=== PATIENT | male | born 1960 | race Caucasian/White ===

== ENCOUNTER 2023-11-29 18:54 | Emergency (ER) | payer MEDICARE, SELFPAY ==
[2023-11-29] VITALS (17 sets, daily range): BP systolic 136–180; BP diastolic 86–118; PULSE 74–79; O2SAT 96–98; BMI 25.8
--- NOTE | 2023-11-29 19:08 | ED.GENADUL1 ---
HPI HPI - General Adult General Chief complaint: Skin/Abscess/Foreign Body Stated complaint: Bee STING Time Seen by Provider: 11/29/23 19:03 Source: patient Mode of arrival: walk-in Limitations: no limitations History of Present Illness HPI narrative: 63 year old male presents to the ED s/p bee sting to his tongue this evening. Reports he took a drink of his soda and the bee was in the can. 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 Denies fever, chills, SOB, dizziness, difficulty swallowing. Related Data Previous Rx's ?Medication ?Instructions ?Recorded famotidine 20 mg tablet (Pepcid) 20 mg PO BID 5 days #10 tabs 11/29/23 prednisone 20 mg tablet See Rx Instructions .Route 11/29/23 .COMPLEX #30 tabs Allergies Allergy/AdvReac Type Severity Reaction Status Date / Time No Known Drug Allergies Allergy Verified 11/29/23 18:58 Opioid HPI Opioid Management Most Recent Opioid Data: No Data to Display Review of Systems ROS Constitutional Denies: fever or chills Ears, nose, mouth, and throat Reports: swelling of lips/tongue; Denies: throat pain, neck pain or throat swelling Cardiovascular Denies: chest pain Respiratory Denies: shortness of breath, wheezing or stridor Gastrointestinal Denies: abdominal pain, nausea or vomiting Integumentary/Breast Denies: rash, itching or redness Neurological Denies: headache, numbness in extremities, weakness in extremities or dizziness PFSH PFSH Social History Little interest or pleasure in doing things: not at all Feeling down, depressed, or hopeless: not at all Exam Constitutional Vital Signs, click to edit/add: Last Vital Signs Pulse 74 11/29/23 19:11 Resp 18 11/29/23 18:58 BP 136/86 11/29/23 20:02 Pulse Ox 98 11/29/23 20:02 O2 Del Method Room Air 11/29/23 19:11 Common normals: no apparent distress and oriented x3 General appearance: comfortable HENMT Face and sinus: normal facial exam Nose: external nose normal Mouth: oral and palatal mucosa normal and lip normal; tongue not normal, no drooling and no muffled voice Throat: posterior oropharynx normal and uvula midline Other: Minimal swelling to right side of tongue. Site of sting noted to right inferior tongue. Eye Common normals: conjunctivae normal and no scleral icterus Neck & C-Spine Common normals: supple Chest Chest: symmetrical chest wall rise Respiratory Common normals: normal respiratory effort and clear to auscultation bilaterally Effort & inspection: able to speak in complete sentences and symmetric chest movement Cardio Common normals: regular rate Neuro Common normals: oriented x3, CN's II-XII intact bilaterally and moves all extremities Sensorium/orientation: awake and alert Speech: speech normal Course Vital Signs Vital signs: Vital Signs Pulse Rate 79 11/29/23 18:58 Respiratory Rate 18 11/29/23 18:58 Blood Pressure 178/118 H 11/29/23 18:58 Pulse Oximetry 98 11/29/23 18:58 Oxygen Delivery Method Room Air 11/29/23 18:58 Pulse Rate 74 11/29/23 19:11 Respiratory Rate 18 11/29/23 18:58 Blood Pressure 136/86 11/29/23 20:02 Pulse Oximetry 98 11/29/23 20:02 Oxygen Delivery Method Room Air 11/29/23 19:11 Medical Decision Making MDM Narrative Medical decision making narrative: The patient was given solu-medrol and Pepcid with improvement. 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 He was encouraged to continue the Benadryl as directed. Prescriptions were provided for prednisone and Pepcid. Follow up with pcp for a recheck. Medical Records Medical records reviewed: Yes I reviewed the patient's medical records Discharge Plan Discharge Chief Complaint: Skin/Abscess/Foreign Body Clinical Impression: Accidental bee sting Patient Disposition: Home, Self-Care Time of Disposition Decision: 20:53 Condition: Good Prescriptions / Home Meds: New prednisone 20 mg tablet See Rx Instructions .ROUTE .COMPLEX Qty: 30 0RF Rx Instructions: Take 5 tablets on days 1-2, 4 tabs on days 3-4, 3 tabs on days 5-6, 2 tabs on days 7-8, 1 tab on days 9-10. famotidine [Pepcid] 20 mg tablet 20 mg PO BID 5 Days Qty: 10 0RF Print Language: Dominican Instructions: Insect Bite or Sting (ED) Additional Instructions: Return to the ER for new or worsening symptoms. Referrals: JOYCE GREEN [Primary Care Provider] - 1 week
--- NOTE | 2023-11-29 19:12 | PC.NURSE ---
PT STATES WAS DRINKING OUT OF CUP AND A BEE GOT IN HIS MOUTH AND STUNG SEVERAL TIMES TO RIGHT SIDE TONGUE. DENIES DIFFICULTY BREATHING. DOES NOT APPEAR TO BE IN DISTRESS.
[2023-11-29] MEDS: METHYLPREDNISOLONE SOD SUCC PF 125 MG/2 ML VIAL IVP (19:22)
[2023-11-29] MEDS: FAMOTIDINE/PF 20 MG/2 ML VIAL IV (19:22)
[2023-11-29] MEDS: 0.9 % SODIUM CHLORIDE 500 ML IV (19:22)
[2023-11-29] MEDS: HYDRALAZINE HCL 20 MG/ML VIAL 10 MG IVP (19:38)
== END 2023-11-29 21:00 | disposition home or self-care (01) ==
PROVIDERS: Emergency Provider Emergency Medicine; PCP Nurse Practitioner Family
DX: T63.441A Toxic effect of venom of bees, accidental (unintentional), initial encounter (principal)
CPT/HCPCS: 96374; 96375; 99284; J0360; J2919

== ENCOUNTER 2024-10-19 18:44 | Inpatient (IN) | payer MEDICARE, SELFPAY ==
[2024-10-19 18:54] VITALS: BP 172/101; PULSE 93; O2SAT 98; BMI 25.8
[2024-10-19 19:06] VITALS: TEMP 36.9
--- OUTSIDE RECORDS SUMMARY | 2024-10-19 19:09 | XMS_ITS | Clinical Summary ---
Author Organization [facility] Address [address] [place] [address] Phone Care Team Providers Care Line Builder Name Role Phone Unavailable Primary Care Provider Unavailabl e Social History Tobacco Use Types Packs/Day Years Used Date Smoking Tobacco: Never Assessed Sex and Gender Information Value Date Recorded Sex Assigned at Not on file Legal Sex Male 8:46 PM EST Gender Identity Not on file Sexual Orientation Not on file Plan of Treatment Health Maintenance Due Date Last Done Comments CT Colonography 1961 Colonoscopy 1961 Colorectal Cancer Screening 1961 FIT-DNA (Cologuard) 1961 FIT 1961 HIV Screening 1961 Lipid Panel 1961 Sigmoidoscopy 1961 Yearly Adult Physical 1961 MMR Vaccines (1 of 1 - Stand alvaro series) 1962 Hepatitis C Screening 1979 Pneumococcal Vaccine (1 of 2 - PCV) 02/07/1980 DTaP/Tdap/Td Vaccines (1 - Tdap) 1983 PSA Prostate Cancer Screening 2011 Zoster Vaccines (1 of 2) 2011 RSV High Risk: (Elderly (60+ ) or Population) (1 - Risk 60-74 years 1-dose series) 2021 COVID-19 Vaccine ( - 2023-2 5 season) 2023 Influenza Vaccine (#1) 2024 HIB Vaccines Aged Out No longer eligi ble based on patient's age to complete this topic HPV Vaccines Aged Out No longer eligi ble based on patient's age to complete this topic Hepatitis A Vaccines Aged Out No long er eligible based on patient's age to complete this topic Hepatitis B Vaccines Aged Out No long er eligible based on patient's age to complete this topic IPV Vaccines Aged Out No longer eligi ble based on patient's age to complete this topic Meningococcal Vaccine Aged Out No abilio toby eligible based on patient's age to complete this topic Rotavirus Vaccines Aged Out No longer eligible based on patient's age to complete this topic
--- OUTSIDE RECORDS SUMMARY | 2024-10-19 19:09 | XMS_ITS | Clinical Summary ---
Author Organization [facility] 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
--- OUTSIDE RECORDS SUMMARY | 2024-10-19 19:09 | XMS_ITS | Clinical Summary ---
Author Organization [facility] Address [id number] [place] [address] Care Team Providers Care Campaign Consultant Name Role Phone Unavailable Primary Care Provider Unavailabl e Social History Tobacco Use Types Packs/Day Years Used Date Smoking Tobacco: Never Assessed Childcare Answer Date Recorded Childcare Unknown 08/06/2018 Employment Answer Date Recorded Employment Unknown 08/06/2018 Sex and Gender Information Value Date Recorded Sex Assigned at Not on file Legal Sex Male 11:42 AM EDT Gender Identity Not on file Sexual Orientation Not on file Plan of Treatment Not on file Medical Devices Not on file
--- OUTSIDE RECORDS SUMMARY | 2024-10-19 19:09 | XMS_ITS | Clinical Summary ---
Author Organization [facility] Address [address] [place] [address] Care Team Providers Care Attache Name Role Phone Park Watson CHEYANNE Primary Care Provider + [phone] Allergies No known active allergies Medications Aspirin [address] tablet At bedtime. Acti ve Lisinopril 2.5 MG tablet 3 Active Isosorbide mononitrate 30 MG Tab SR 24 HR tablet XL At bedtime. Active carveDILOL (Coreg) 3.125 MG tablet Coreg 3.125 mg tablet Take 1 tablet twice a day by oral route. Active hydroCODone-acet aminophen 5-325 MG tablet hydrocodone 5 mg-acetaminophe n 325 mg tablet Active Pantoprazole (Protonix) [address] tablet DR Take 1 tablet by mouth daily. 14 tablet 3 Active Social History Tobacco Use Types Packs/Day Years Used Date Smoking Tobacco: Every Day Cigarettes Smokeless Tobacco: Former Tobacco Cessation:Ready to Q uit: Not Asked; Counseling Given: Not Answered Alcohol Use Standard Drinks/Week Comments Not Currently 0 (1 standard drink = 0.6 oz pur e alcohol) Sex and Gender Information Value Date Recorded Sex Assigned at Not on file Legal Sex Male 7:50 PM EST Gender Identity Not on file Sexual Orientation Not on file Last Filed Vital Signs Vital Sign Reading Time Taken Comments Blood Pressure 134/79 06/25/2022 6:00 PM EDT Pulse 67 06/25/2022 6:00 PM EDT Temperature 36.6 C (97.8 F) 06/25/2022 2:41 PM EDT Respiratory Rate 24 06/25/2022 6:00 PM EDT Oxygen Saturation 98% 06/25/2022 6:00 PM EDT Inhaled Oxygen Concentration - - Weight - - Height 177.8 cm (5' 10 ) 06/25/2022 2:43 PM EDT Body Mass Index - - Plan of Treatment Health Maintenance Due Date Last Done Comments HEPATITIS C VIRUS SCREENING 1961 TETANUS 1961 HIV SCREENING DISCUSSION 02/07/1976 PNEUMOCOCCAL VACCINE SERIES (1 of 2 - PCV) 02/07/1980 TDAP (ADULT) 02/07/1980 LIPID SCREENING 2001 COLORECTAL CANCER SCREENING DISCUSSION 2006 ZOSTER (SHINGLES) VACCINE (1 of 2) 2011 PROSTATE CANCER SCREENING DISCUSSION 02/07/2016 COVID-19 VACCINE (2023-2 5 season) 2023 08/16/2020, 07/26/2020 INFLUENZA VACCINE (#1) 2024 2, 02/01/2021 RSV VACCINE (1 - 1-dose 75+ series) 02/07/2036 HEP B VACCINE Aged Out No longer shanell sneed based on patient's age to complete this topic Care Teams Attache Relationship Specialty Start Date End Date Park Watson, STENOGRAPHIC COURT REPORTER [address] [place] [address] PCP - General Nurse Practitioner - Family 06/25/22
--- OUTSIDE RECORDS SUMMARY | 2024-10-19 19:09 | XMS_ITS | CCD ---
Author Organization [facility] Care Team Providers Care Proposal Lead Writer Name Role Phone DANE Green Primary Care Provider DANE Green Attending Provider CRIS CAMPBELL Admitting Unavailable CRIS CAMPBELL Consulting Unavailable TORY, PARK Primary Care Unavailable CRIS CAMPBELL Attending Unavailable TORY, PARK Primary Care Unavailable VICTORIA, MANDIE Attending Unavailable VICTORIA, MANDIE Admitting Unavailable TORY, PARK Primary Care Unavailable CLAIRE, SYBIL Attending Unavailable CLAIRE, SYBIL Admitting Unavailable CLAIRE, SYBIL Consulting Unavailable Esther Hanna Consulting Unavailable TORY, PARK Primary Care Unavailable TESS MATT Attending Unavailable TESS MATT Admitting Unavailable DR ELYSE QUINTERO V Consulting Unavailable TESS MATT Consulting Unavailable TORY, PARK Primary Care Unavailable VICTORIA, MANDIE Admitting Unavailable VICTORIA, MANDIE Attending Unavailable TEO IZQUIERDO Consulting Unavailable VICTORIA, MANDIE Consulting Unavailable TORY, PARK Primary Care Unavailable VICTORIA, MANDIE Admitting Unavailable VICTORIACHUCKIN Attending Unavailable TORY, PARK Primary Care Unavailable TORY, PARK Consulting Unavailable TORY, PARK Attending Unavailable TORY, PARK Admitting Unavailable TORY, PARK Primary Care Unavailable DR ELYSE QUINTERO V Consulting Unavailable PARK SPEARS Attending Unavailable TORY, PARK Admitting Unavailable TORY, PARK Consulting Unavailable TORY, PARK Attending Unavailable TORY, PARK Admitting Unavailable TORY, PARK Consulting Unavailable TORY, PARK Primary Care Unavailable CRIS CAMPBELL Attending Unavailable SHANNAN CRIS Admitting Unavailable CRIS CAMPBELL Consulting Unavailable TORY, PARK Primary Care Unavailable DANE Green Primary Care Provider DO Vadim Guido Emergency Provider MD Yung Newell Admit Provider MD Yung Hurtado Attending Provider Dr. Florentino iRley Attending Unavailable Osvaldo, Dr. Good Referring Unavailable Osvaldo, Dr. Good Attending Unavailable CHEYANNE Brian Attending Unavailable Osvaldo, Dr. Good Attending Unavailable Osvaldo, Dr. Good Attending Unavailable Osvaldo, Dr. Good Attending Unavailable Osvaldo, Dr. Good Referring Unavailable Park Green Attending Unavailable Park Green Primary Care Unavailable Park Green Admitting Unavailable Bridget Mosquera Attending Unavailable Evita Sanchez Consulting Unavailable Isauro Whipple, Yung Admitting Unavailab Park Power Primary Care Unavailable Rebecca Riley Consulting Unavailable Dilma Batres Consulting Unavailable Florentino Latham Consulting Unavail able Gardenia Parks Consulting Unavailable Dagoberto Ellison Consulting Unavailab Juliette Herrera Consulting Unavailable Anna Jensen Consulting Unavailable Nelli Fields Consulting Unavailab Elizabeth Cai Consulting Unavailable Mitzi Clinton Consulting Unavailable Candace Coelho Consulting Unavailable Park Green CNP Primary Care Provider [phone] MAURICIO HENDERSON Attending Unavailable PARK GREEN Primary Care Unavailable Medications Current Medications Medication Drug Class(es) Dates Sig (Normalized) Sig (Original) acetaminophen 325 mg / HYDROcodone bitartrate 5 mg oral tablet (1 source) Opioid Agonist hydroCODone-acet a minophen 5-325 MG tablet hydrocodone 5 mg-acetaminophen 325 mg tablet 0 Active aspirin 81 mg chewable tablet (7 sources) Platelet Aggregation Inhibitor, Nonsteroidal Anti-inflammatory Drug Start: 02-01-2021 take 1 tablet by mouth once daily Aspirin (Children's Aspirin) 81 mg Tablet,Chewable Active 81 MG PO Daily 0 February 01, 2021 3:02pm Start: 10-12-2017 End: 01-30-2021 take 1 tablet by mouth once daily Aspirin (Aspir-81) 81 mg Tablet,Delayed Release (Dr/Ec) Discontinued 81 MG PO Daily 0 October 13, 2017 9:44am January 30, 2021 4:04pm atorvastatin 80 mg oral tablet (4 sources) HMG-CoA Reductase Inhibitor Start: 02-01-2021 take 80 mg by mouth once daily in the evening Atorvastatin Active 80 MG PO Every evening February 01, 2021 3:02pm Start: 10-13-2017 End: 01-30-2021 take 40 mg by mouth once daily Atorvastatin Discontinu ed 40 MG PO Daily October 13, 2017 9:43am January 30, 2021 4:04pm carvedilol 3.125 mg oral tablet (1 source) alpha-Adrenergic Ginette, beta-Adrenergic Ginette take 1 tablet by mouth twice daily carveDILOL (Coreg) 3.125 MG tablet Coreg 3.125 mg tablet Take 1 tablet twice a day by oral route. 0 Active 24 hr isosorbide mononitrate 30 mg extended release oral tablet (1 source) Nitrate Vasodilator Isosorbide mononitrate 30 MG Tab SR 24 HR tablet XL At bedtime. 0 Active lisinopril 2.5 mg oral tablet (5 sources) Angiotensin Converting Enzyme Inhibitor Start: 06-24-19 Lisinopril 2.5 MG tablet Start: 02-01-2021 take 2.5 mg by mouth once daily Lisinopril Active 2.5 MG PO Daily 30 February 01, 2021 3:02pm Start: 10-13-2017 End: 01-30-2021 take 5 mg by mouth once daily Lisinopril Discontinued 5 MG PO Daily October 13, 2017 9:43am January 30, 2021 4:04pm metFORMIN hydrochloride 500 mg oral tablet (2 sources) Biguanide Start: 02-01-2021 take 500 mg by mouth twice daily Metformin Active 500 MG PO Twice daily February 01, 2021 3:23pm metoprolol tartrate 25 mg oral tablet (4 sources) beta-Adrenergic Ginette Start: 02-01-2021 take 25 mg by mouth twice daily Metoprolol Tartrate Active 25 MG PO Twice daily 60 February 01, 2021 3:02pm Start: 10-13-2017 End: 01-30-2021 take 25 mg by mouth twice daily Metoprolol Tartrate Discontinued 25 MG PO Twice daily 60 October 13, 2017 9:42am January 30, 2021 4:04pm pantoprazole 40 mg delayed release oral tablet (1 source) Proton Pump Inhibitor Start: 06-25-2022 take 1 tablet by mouth once daily Pantoprazole (Protonix) [address] tablet DR Take 1 tablet by mouth daily. 14 tablet 0 06/25/2022 Active ticagrelor 90 mg oral tablet (2 sources) Start: 02-01-2021 take 1 tablet by mouth twice daily Ticagrelor (Brilinta) 90 mg Tablet Active 90 MG PO Twice daily 180 90 February 01, 2021 3:02pm Completed/Discontinued Medications Medication Drug Class(es) Dates Sig (Normalized) Sig (Original) GI cocktail: alum/mag hydrox-simethicone( 30ml)+lidocaine 2%(10ml) oral suspension 40 mL (1 source) Start: 06-25-2022 End: 06-25-2022 GI cocktail: alum/mag hydrox-simethicone (30ml)+lidocaine 2%(10ml) oral suspension 40 mL iohexol (OMNIPAQUE) 350 MG/ML injection 90 mL (1 source) Start: 06-25-2022 End: 06-25-2022 iohexol (OMNIPAQUE) 350 MG/ML injection 90 mL 1 ml morphine sulfate 4 mg/ml cartridge (1 source) Opioid Agonist Start: 06-25-2022 End: 06-25-2022 Morphine sulfate (PF) injection 4 mg 2 ml ondansetron 2 mg/ml injection (1 source) Serotonin-3 Receptor Antagonist Start: 06-25-2022 End: 06-25-2022 Ondansetron 4mg/2ml (ZOFRAN) injection 4 mg 250 ml sodium chloride 9 mg/ml injection (1 source) Start: 06-25-2022 End: 06-25-2022 Sodium chloride 0.9% IV solution 75 mL Problems Active Problems Problem Classification Problem Date Documented Da te Episodic/Chronic Abdominal pain (3 sources) Generalized abdominal pain; Translations: [Generalized abdominal pain] Onset: 06-25-2022 Episodic Acute myocardial infarction (4 sources) Myocardial infarction; Translations: [Non-ST elevation (NSTEMI) myocardial infarction] Onset: 02-01-2021 01-30-2021 Chronic Alcohol-related disorders (1 source) Alcohol abuse with intoxication, unspecified; Translations: [ALCOHOL ABUSE WITH INTOXICATION UNS] Onset: 06-08-2021 Chronic Complication of device; implant or graft (1 source) Atherosclerosis of coronary artery bypass graft(s) without angina pectoris; Translations: [ATS CA BP GRAFT NO ANGINA PECTORIS] Onset: 07-21-2020 Chronic Coronary atherosclerosis and other heart disease (6 sources) Atherosclerotic heart disease of [place] coronary artery without angina pectoris; Translations: [Old myocardial infarction] Onset: 06-08-2021 12-27-2021 Chronic Diabetes mellitus with complications (3 sources) Type II diabetes mellitus uncontrolled; Translations: [Uncontrolled type 2 diabetes mellitus] 01-31-2021 Chronic Disorders of lipid metabolism (8 sources) Hyperlipidemia; Translations: [Hyperlipidemia, unspecified] Onset: 07-13-2020 01-30-2021 Chronic Essential hypertension (4 sources) Hypertensive disorder; Translations: [Essential (primary) hypertension] Onset: 12-27-2021 01-30-2021 Chronic Headache; including migraine (5 sources) Headache; including migraine; Translations: [HEADACHE UNSPECIFIED] Onset: 06-02-2021 Hypertension with complications and secondary hypertension (2 sources) Hypertensive emergency; Translations: [Hypertensive emergency] 12-27-2021 Chronic Nausea and vomiting (3 sources) Nausea, vomiting and diarrhea; Translations: [Nausea with vomiting, unspecified] Onset: 06-25-2022 Episodic Nonspecific chest pain (4 sources) Chest pain, unspecified; Translations: [CHEST PAIN UNSPECIFIED] Onset: 01-30-2021 Episodic Other aftercare (1 source) half-way (current) use of aspirin; Translations: [LICENSED INSURANCE AGENT CURRENT USE OF ASPIRIN] Onset: 06-08-2021 Episodic Other aftercare (1 source) Other terminal gauger supervisor (current) drug therapy; Translations: [OTH LICENSED INSURANCE AGENT CURRENT DRUG THERAPY] Onset: 06-08-2021 Episodic Other aftercare (1 source) half-way (current) use of oral hypoglycemic drugs; Translations: [LICENSED INSURANCE AGENT USE ORAL HYPOGLYCEMIC DX] Onset: 06-08-2021 Episodic Other aftercare (1 source) supervisor intermediates (current) use of antithrombotics/antip latelets; Translations: [CARE HOME ANTITHROMBOT/ANTIPLAT LETS] Onset: 05-30-2021 Episodic Other gastrointestinal disorders (2 sources) Diarrhea, unspecified; Translations: [Diarrhea, unspecified] Onset: 06-25-2022 Episodic Spondylosis; intervertebral disc disorders; other back problems (2 sources) Spondylosis without myelopathy or radiculopathy, lumbar region; Translations: [Other intervertebral disc degeneration, lumbar region] Onset: 05-30-2021 Chronic Substance-related disorders (4 sources) Moderate smoker (20 or less per day) ; Translations: [Nicotine dependence, cigarettes, uncomplicated] Onset: 02-01-2021 01-30-2021 Chronic Unclassified (3 sources) LOW BACK PAIN, UNSPECIFIED; Translations: [LOW BACK PAIN, UNSPECIFIED] Onset: 05-30-2021 Unclassified (1 source) CONTACT W/AND (SUSP) EXPOS COVID-19; Translations: [CONTACT W/AND (SUSP) EXPOS COVID-19] Onset: 02-01-2021 Past or Other Problems Problem Classification Problem Date Documented Da te Episodic/Chronic Coronary atherosclerosis and other heart disease (4 sources) Presence of coronary angioplasty implant and graft; Translations: [Presence of aortocoronary bypass graft] Onset: 07-21-2020 Episodic Diabetes mellitus without complication (1 source) Other abnormal glucose; Translations: [OTHER ABNORMAL GLUCOSE] Onset: 07-21-2020 Episodic Immunizations and screening for infectious disease (4 sources) Encounter for immunization; Translations: [ENCOUNTER FOR IMMUNIZATION] Onset: 08-16-2020 Episodic Other screening for suspected conditions (not mental disorders or infectious disease) (1 source) Encounter for screening for malignant neoplasm of prostate; Translations: [ENC SCREEN MALIG NEOPLASM PROSTATE] Onset: 07-21-2020 Episodic Pancreatic disorders (not diabetes) (4 sources) Cyst of pancreas; Translations: [CYST OF PANCREAS] Onset: 01-16-2021 Episodic Unclassified (1 source) LOW BACK PAIN, UNSPECIFIED; Translations: [LOW BACK PAIN, UNSPECIFIED] Onset: 05-26-2021 Results Test Name Value Interpretation Reference Range Facility CBCon 06-25-2022 ABSOLUTE BAS 0.1 10*3/uL Normal 0.0-0.2 [facility] ABSOLUTE EOS 0.1 10*3/uL Normal 0.0-0.7 [facility] ABSOLUTE NEUTROPHIL COUNT 5.8 10*3/uL Normal 1.4-6.5 [facility] Basophils/100 WBC (Bld) 1.0 % Normal 0.0-2.0 [facility] DTYPE AUTO DIFF Normal [facility] Eosinophils/100 WBC (Bld) 0.7 % Normal 0.0-11.0 [facility] Lymphocytes (Bld) [#/Vol] 1.6 10*3/uL Normal 1.2-3.4 [facility] Lymphocytes/100 WBC (Bld) 20.3 % Normal 20.0-55.0 [facility] Monocytes (Bld) [#/Vol] 0.5 10*3/uL Normal 0.0-0.7 [facility] Monocytes/100 WBC (Bld) 6.5 % Normal 0.0-10.0 [facility] Neutrophils/100 WBC (Bld) 71.5 % Normal 37.0-75.0 [facility] Erythrocyte distribution width (RBC) [Ratio] 14.5 % Normal 11.5-14.5 [facility] Hematocrit (Bld) [Volume fraction] 46.1 % Normal 42.0-52.0 [facility] Hemoglobin (Bld) [Mass/Vol] 15.5 g/dL Normal 14.0-18.0 [facility] MCH (RBC) [Entitic mass] 29.8 pg Normal 26.0-35.0 [facility] MCHC (RBC) [Mass/Vol] 33.6 g/dL Normal 27.0-37.0 [facility] MCV (RBC) [Entitic vol] 88.5 fL Normal 80.0-100.0 [facility] Platelet mean volume (Bld) [Entitic vol] 8.0 fL Normal 7.4-11.0 [facility] Platelets (Bld) [#/Vol] 182 10*3/uL Normal 130-400 [facility] RBC (Bld) [#/Vol] 5.20 10*6/uL Normal 4.0-6.1 [facility] WBC (Bld) [#/Vol] 8.1 10*3/uL Normal 3.6-11.0 [facility] CBC, EDIF, PLATELETon 2022 ABSOLUTE BASOPHIL COUNT 0.1 10*3/uL 0.0 - 0.2 10*3/uL [facility] Basophils/100 WBC (Bld) 1.0 % 0.0 - 2.0 % [facility] Differential cell count method Nom (Bld) AUTO DIFF % [facility] Eosinophils (Bld) [#/Vol] 0.1 10*3/uL 0.0 - 0.7 10*3/uL [facility] Eosinophils/100 WBC (Bld) 0.7 % 0.0 - 11.0 % [facility] Erythrocyte distribution width (RBC) [Ratio] 14.5 % 11.5 - 14.5 % [facility] Hematocrit (Bld) [Volume fraction] 46.1 % 42.0 - 52.0 % [facility] Hemoglobin (Bld) [Mass/Vol] 15.5 g/dL [facility] Lymphocytes (Bld) [#/Vol] 1.6 10*3/uL 1.2 - 3.4 10*3/uL [facility] Lymphocytes/100 WBC (Bld) 20.3 % 20.0 - 55.0 % [facility] MCH (RBC) [Entitic mass] 29.8 pg 26.0 - 35.0 PG [facility] MCHC (RBC) [Mass/Vol] 33.6 g/dL [facility] MCV (RBC) [Entitic vol] 88.5 fL [facility] Monocytes (Bld) [#/Vol] 0.5 10*3/uL 0.0 - 0.7 10*3/uL [facility] Monocytes/100 WBC (Bld) 6.5 % 0.0 - 10.0 % [facility] Neutrophils (Bld) [#/Vol] 5.8 10*3/uL 1.4 - 6.5 10*3/uL [facility] Neutrophils/100 WBC (Bld) 71.5 % 37.0 - 75.0 % [facility] Platelet mean volume (Bld) [Entitic vol] 8.0 fL [facility] Platelets (Bld) [#/Vol] 182 10*3/uL 130 - 400 10*3/uL [facility] RBC (Bld) [#/Vol] 5.20 10*6/uL 4.0 - 6.1 10*6/uL [facility] WBC (Bld) [#/Vol] 8.1 10*3/uL 3.6 - 11.0 10*3/uL [facility] CMP FASTINGon 06-25-2022 A:G RATIO 1.4 RATIO Normal 1.3-2.2 [facility] ALBUMIN 4.2 G/dl Normal 3.5-5.0 [facility] ALP [Catalytic activity/Vol] 125 U/L Normal 38-126 [facility] ALT [Catalytic activity/Vol] 25 U/L Normal <50 [facility] AST [Catalytic activity/Vol] 24 U/L Normal 17-59 [facility] Bilirubin [Mass/Vol] 0.4 mg/dL Normal 0.2-1.3 [facility] Calcium [Mass/Vol] 8.6 mg/dL Normal 8.4-10.2 [facility] Chloride [Moles/Vol] 100 mmol/L Normal 98-107 [facility] Comment on above: Result Comment: Flory urrutia note: Triglyceride levels of 600mg/dL or higher may positively bias chloride results by approximately 2.1 mmol CO2 [Moles/Vol] 27 mmol/L Normal 22-30 [facility] Creatinine [Mass/Vol] 0.70 mg/dL Normal 0.7-1.2 [facility] EST. GFR, 147 ml/min/1.73sq.m [facility] EST. GFR,Non 122 ml/min/1.73sq.m [facility] GFR Information Average GFR for 60-6 9 years old = 85. Normal [facility] Comment on above: Result Comment: Outf[employer] [place] ana lilia Kidney disease, GFR = <60. Kidney failure, GFR = <15. The GFR estimate is not adjusted for extreme body surface area or acute process, nor has it been validated for women or ethnic groups other than and . Glucose [Mass/Vol] 196 mg/dL High 70-100 [facility] Comment on above: Result Comment: NORMAL <100 mg/dL PREDIABETES 101-126 mg/dL DIABETES 126 mg/dL or higher Potassium [Moles/Vol] 4.4 mmol/L Normal 3.5-5.1 [facility] Protein [Mass/Vol] 7.2 g/dL Normal 6.3-8.2 [facility] Sodium [Moles/Vol] 133 mmol/L Low 137-145 [facility] Urea nitrogen [Mass/Vol] 12 mg/dL Normal 7-20 [facility] COMPREHENSIVE METABOLIC PANE Juan Ramon 06-25-2022 Albumin [Mass/Vol] 4.2 G/dl 3.5 - 5.0 G/dl [facility] Albumin/Globulin [Mass ratio] 1.4 {ratio} [facility] ALP [Catalytic activity/Vol] 125 U/L [facility] ALT [Catalytic activity/Vol] 25 U/L NINF [facility] AST [Catalytic activity/Vol] 24 U/L [facility] Bilirubin [Mass/Vol] 0.4 mg/dL [facility] Calcium [Mass/Vol] 8.6 mg/dL [facility] Chloride [Moles/Vol] 100 mmol/L [facility] Comment on above: Please note: Triglyc eride levels of 600mg/dL or higher may positively bias chloride results by approximately 2.1 mmol CO2 [Moles/Vol] 27 mmol/L [facility] Creatinine [Mass/Vol] 0.70 mg/dL [facility] GFR COMMENT Average GFR for 60-6 9 years old = 85. [facility] Comment on above: Chronic Kidney disea se, GFR = <60. Kidney failure, GFR = <15. The GFR estimate is not adjusted for extreme body surface area or acute process, nor has it been validated for women or ethnic groups other than and . GFR/1.73 sq M.predicted among blacks MDRD (S/P/Bld) [Vol rate/Area] 147 mL/min/{1.73_m2} ml/min/1.73 sq.m [facility] GFR/1.73 sq M.predicted among non-blacks MDRD (S/P/Bld) [Vol rate/Area] 122 mL/min/{1.73_m2} ml/min/1.73 sq.m [facility] Glucose post fast [Mass/Vol] 196 mg/dL High [facility] Comment on above: NORMAL <100 mg/dL PREDIABETES 101-126 mg/dL DIABETES 126 mg/dL or higher Interpretation and review of laboratory results Abnormal [facility] Potassium [Moles/Vol] 4.4 mmol/L [facility] Protein [Mass/Vol] 7.2 g/dL [facility] Sodium [Moles/Vol] 133 mmol/L Low [facility] Urea nitrogen [Mass/Vol] 12 mg/dL [facility] CT ABDOMEN/PELVIS WITH CONTR Rashad 06-25-2022 CT ABDOMEN/PELVIS WITH CONTRAST EXAMINATION: CT ABDOMEN/PELVIS WITH CONTRAST, 06/25/2022 3:59 PM EDT HISTORY: COMPARISON: 06/21/2020 TECHNIQUE: CT scan of the abdomen and pelvis was performed with IV contrast. CT dose reduction technique was used, including Automated Exposure Control. ABDOMEN/PELVIS FINDINGS: Lower Chest: Unremarkable. Liver: Normal enhancement and contour. Biliary/Gallbladder: Unremarkable. Pancreas: There is a cystic lesion in the body the pancreas measuring 1.6 cm that previously measured 1.7 cm when measured in a similar fashion. Spleen: Unremarkable. Adrenal Glands: Unremarkable. Kidneys: Unremarkable. Gastrointestinal/Peritoneu m: No acute abnormality. Moderate colonic diverticulosis is present, especially in the sigmoid colon. The appendix is unremarkable. No free air or free fluid. Vascular: Mild scattered atherosclerotic calcifications are present. Lymph Nodes: No enlarged lymph nodes by CT size criteria. Pelvic Organs: Unremarkable. Bladder: Unremarkable. Bones: No acute osseous abnormality. Mild to moderate multilevel degenerative changes are present in the visualized spine. Soft tissues: Unremarkable. IMPRESSION: 1. No acute abnormality of the abdomen and pelvis. 2. Stable cystic lesion in the body of pancreas. 3. Moderate colonic diverticulosis. Normal [facility] CT Abdomen and Pelvis W cont rast Miki 06-25-2022 IMPRESSION: 1. No acute abnormality of the abdomen and pelvis. 2. Stable cystic lesion in the body of pancreas. 3. Moderate colonic diverticulosis. RADIOLOGY EXAMINATION: CT ABDOMEN/PELVIS WITH CONTRAST, 06/25/2022 3:59 PM EDT HISTORY: COMPARISON: 06/21/2020 TECHNIQUE: CT scan of the abdomen and pelvis was performed with IV contrast. CT dose reduction technique was used, including Automated Exposure Control. ABDOMEN/PELVIS FINDINGS: Lower Chest: Unremarkable. Liver: Normal enhancement and contour. Biliary/Gallbladder: Unremarkable. Pancreas: There is a cystic lesion in the body the pancreas measuring 1.6 cm that previously measured 1.7 cm when measured in a similar fashion. Spleen: Unremarkable. Adrenal Glands: Unremarkable. Kidneys: Unremarkable. Gastrointestinal/Peritoneu m: No acute abnormality. Moderate colonic diverticulosis is present, especially in the sigmoid colon. The appendix is unremarkable. No free air or free fluid. Vascular: Mild scattered atherosclerotic calcifications are present. Lymph Nodes: No enlarged lymph nodes by CT size criteria. Pelvic Organs: Unremarkable. Bladder: Unremarkable. Bones: No acute osseous abnormality. Mild to moderate multilevel degenerative changes are present in the visualized spine. Soft tissues: Unremarkable. RADIOLOGY Evelyn Gomez M D - 06/25/2022 EXAMINATION: CT ABDOMEN/PELVIS WITH CONTRAST, 06/25/2022 3:59 PM EDT HISTORY: COMPARISON: 06/21/2020 TECHNIQUE: CT scan of the abdomen and pelvis was performed with IV contrast. CT dose reduction technique was used, including Automated Exposure Control. ABDOMEN/PELVIS FINDINGS: Lower Chest: Unremarkable. Liver: Normal enhancement and contour. Biliary/Gallbladder: Unremarkable. Pancreas: There is a cystic lesion in the body the pancreas measuring 1.6 cm that previously measured 1.7 cm when measured in a similar fashion. Spleen: Unremarkable. Adrenal Glands: Unremarkable. Kidneys: Unremarkable. Gastrointestinal/Peritoneu m: No acute abnormality. Moderate colonic diverticulosis is present, especially in the sigmoid colon. The appendix is unremarkable. No free air or free fluid. Vascular: Mild scattered atherosclerotic calcifications are present. Lymph Nodes: No enlarged lymph nodes by CT size criteria. Pelvic Organs: Unremarkable. Bladder: Unremarkable. Bones: No acute osseous abnormality. Mild to moderate multilevel degenerative changes are present in the visualized spine. Soft tissues: Unremarkable. IMPRESSION IMPRESSION: 1. No acute abnormality of the abdomen and pelvis. 2. Stable cystic lesion in the body of pancreas. 3. Moderate colonic diverticulosis. [facility] Study observation (narrative) [facility] CT Abdomen and Pelvis W cont rast IVOrdered By: Evelyn Gomez on 06-25-2022 [facility] Work Phone: LIPASEon 06-25-2022 Lipase [Catalytic activity/Vol] 181 U/L 23 - 300 U/L [facility] LIPASE,SERUMon 06-25-2022 LIPASE,SERUM 181 U/L Normal 23-300 [facility] No Panel Informationon 06-25 Interpretation and review of laboratory results Abnormal [facility] TROPONIN I, HIGH SENSITIVITY on 06-25-2022 TROPONIN I, HIGH SENSITIVITY 4 pg/mL Normal 0-20 [facility] Comment on above: Result Comment: Indeterminant: >12 to 100 pg/mL female >20 to 100 pg/mL male Indicative of myocardial injury. Serial sampling is recommended, a change of greater than or equal to 20 pg/mL is indicative of acute coronary syndrome. TROPONIN I, HIGH SENSITIVITY 4 pg/mL 0 - 20 pg/mL [facility] Comment on above: Indeterminant: >12 to 100 pg/mL female >20 to 100 pg/mL male Indicative of myocardial injury. Serial sampling is recommended, a change of greater than or equal to 20 pg/mL is indicative of acute coronary syndrome. [facility] URINALYSIS, MACROon 06-26-19 23 Bilirubin Ql (U) Negative NEGATIVE [facility] Clarity (U) CLEAR CLEAR [facility] Color (U) YELLOW YELLOW [facility] Glucose Test strip (U) [Mass/Vol] 500 mg/dl Abnormal NEGATIVE [facility] Hemoglobin Ql (U) Negative NEGATIVE [facility] Ketones (U) [Mass/Vol] Negative NEGAT MICHELLE mg/dl [facility] Leukocyte esterase Test strip Ql (U) Negative NEGATIVE [facility] Nitrite Ql (U) Negative NEGATIVE [facility] pH (U) 5.5 [pH] 5.0 - 7.0 [facility] Protein Ql (U) Negative NEGATIVE mg/dl [facility] Specific gravity (U) [Rel density] 1.020 1.010 - 1.025 [facility] Urobilinogen (U) [Mass/Vol] 0.2 mg/dL [facility] URINE MACROSCOPICon 06-26-19 23 Bilirubin Ql (U) Negative Normal NEGATIVE [facility] Clarity (U) CLEAR Normal CLEAR [facility] Color (U) YELLOW Normal YELLOW [facility] Glucose Ql (U) 500 mg/dl Abnormal NEGATIVE [facility] pH (U) 5.5 [pH] Normal 5.0-7.0 [facility] URINE HEMOGLOBIN Negative Normal NEGATIVE [facility] URINE KETONE Negative Normal NEGATIVE [facility] URINE LEUKOTEST Negative Normal NEGATIVE [facility] URINE NITRATES Negative Normal NEGATIVE [facility] URINE SPEC GRAVITY 1.020 Normal 1.010-1.025 [facility] URINE TOTAL PROTEIN Negative Normal NEGATIVE [facility] Urobilinogen Qn (U) 0.2 {Saloni'U}/dL Normal 0.2-1.0 [facility] URINE MICROSCOPICon 06-26-19 23 BACTERIA TRACE Abnormal NEGATIVE [facility] CASTS OCCASIONAL Abnormal NONE [facility] Comment on above: Result Comment: HYAL INE CRYSTAL NONE Normal NONE [facility] Epithelial cells LM Ql (Urine sed) 1 TO 5 Normal [facility] Mucus Ql (Urine sed) 1+ Abnormal NEGATIVE [facility] URINE COMMENT CULTURE CRITERIA NOT MET, NO CULTURE PERFORMED. Normal [facility] URINE RBC'S Negative Normal NEGATIVE [facility] URINE WBC'S 1 TO 5 Normal NEGATIVE [facility] Bacteria LM.HPF (Urine sed) [#/Area] TRACE Abnormal NEGATIVE [facility] Casts LM.LPF (Urine sed) [#/Area] OCCASIONAL Abnormal NONE /LPF [facility] Comment on above: HYALINE Crystals LM Nom (Urine sed) NONE NONE [facility] Epithelial cells LM Ql (Urine sed) 1 TO 5 /HPF [facility] Mucus Ql (Urine sed) 1+ Abnormal NEGATIVE [facility] RBC LM.HPF (Urine sed) [#/Area] Negative NEGATIVE /HPF [facility] Urine sediment comments LM Adonay (Urine sed) CULTURE CRITERIA NOT MET, NO CULTURE PERFORMED. [facility] WBC LM.HPF (Urine sed) [#/Area] 1 TO 5 NEGATIVE /HPF [facility] A1C with Estimated Average G pratima 12-28-2021 Glucose [Mass/Vol] 183 mg/dL Normal [facility] Comment on above: Result Comment: PERF ORMED BY: [facility] [address] [place] [address] PATHOLOGIST CODING SPECIALIST JAYDON MATHIAS M.D. Performed By: #### B MP, CBC, PT, PTT, HS TROP, BNP #### [facility] [place] [address] HbA1c (Bld) [Mass fraction] 8.0 % High 4.3-5.6 [facility] Comment on above: Result Comment: Incr eased risk for diabetes: 5.7 - 6.4 diabetes: >6.4 glycemic control for adults with diabetes: <7.0 Performed By: #### B MP, CBC, PT, PTT, HS TROP, BNP #### [address] Basic Metabolic Panelon 11-0 -2021 Anion gap [Moles/Vol] 10.0 mmol/L Normal 6.0-15.0 [facility] Comment on above: Performed By: #### B MP, CBC, PT, PTT, HS TROP, BNP #### [address] Calcium [Mass/Vol] 8.7 mg/dL Normal 8.2-10.2 [facility] Comment on above: Performed By: #### B MP, CBC, PT, PTT, HS TROP, BNP #### [address] Chloride [Moles/Vol] 105 mmol/L Normal 95-114 [facility] Comment on above: Performed By: #### B MP, CBC, PT, PTT, HS TROP, BNP #### [address] CO2 [Moles/Vol] 24.1 mmol/L Normal 22.0-30.0 [facility] Comment on above: Performed By: #### B MP, CBC, PT, PTT, HS TROP, BNP #### [address] Creatinine [Mass/Vol] 0.97 mg/dL Normal 0.64-1.27 [facility] Comment on above: Performed By: #### B MP, CBC, PT, PTT, HS TROP, BNP #### [address] Creatinine Clr Calc Pharmacy 83.62 Normal [facility] Comment on above: Performed By: #### B MP, CBC, PT, PTT, HS TROP, BNP #### [address] Estimated GFR ( Zaynab > 60 [facility] Comment on above: Result Comment: GFR estimated reference range: According to KDOQI guidelines, <60 ml/min/1.73m2 is sufficient to diagnose a patient with chronic kidney disease. Performed By: #### B MP, CBC, PT, PTT, HS TROP, BNP #### [facility] [place] [address] Estimated GFR (Non- Am > 60 [facility] Comment on above: Performed By: #### B MP, CBC, PT, PTT, HS TROP, BNP #### [address] Glucose [Mass/Vol] 138 mg/dL High 70-100 [facility] Comment on above: Result Comment: [place] Glucose Reference Range is dependent on time and content of last meal. Glucose of more than 200 mg/dL in a nonstressed, ambulatory subject supports the diagnosis of Diabetes Mellitus. ADA recommended reference range Performed By: #### B MP, CBC, PT, PTT, HS TROP, BNP #### [address] Potassium [Moles/Vol] 4.1 mmol/L Normal 3.5-5.1 [facility] Comment on above: Performed By: #### B MP, CBC, PT, PTT, HS TROP, BNP #### [address] Sodium [Moles/Vol] 135 mmol/L Low 136-146 [facility] Comment on above: Performed By: #### B MP, CBC, PT, PTT, HS TROP, BNP #### [address] Urea nitrogen [Mass/Vol] 9 mg/dL Normal 9-23 [facility] Comment on above: Performed By: #### B MP, CBC, PT, PTT, HS TROP, BNP #### [address] Complete Blood Count Auto Di ffon 12-28-2021 Basophils (Bld) [#/Vol] 0.1 10*3/uL Normal 0.0-0.2 [facility] Comment on above: Result Comment: PERF ORMED BY: [place] [address] PATHOLOGIST CODING SPECIALIST JAYDON MATHIAS M.D. Performed By: #### B MP, CBC, PT, PTT, HS TROP, BNP #### [address] Basophils/100 WBC (Bld) 1.3 % Normal . [facility] Comment on above: Performed By: #### B MP, CBC, PT, PTT, HS TROP, BNP #### [address] Eosinophils (Bld) [#/Vol] 0.2 10*3/uL Normal 0.0-0.45 [facility] Comment on above: Performed By: #### B MP, CBC, PT, PTT, HS TROP, BNP #### [address] Eosinophils/100 WBC (Bld) 2.0 % Normal . [facility] Comment on above: Performed By: #### B MP, CBC, PT, PTT, HS TROP, BNP #### [address] Erythrocyte distribution width (RBC) [Ratio] 13.9 % Normal 12.0-14.8 [facility] Comment on above: Performed By: #### B MP, CBC, PT, PTT, HS TROP, BNP #### [address] Hematocrit (Bld) [Volume fraction] 43.6 % Normal 38.8-50.0 [facility] Comment on above: Performed By: #### B MP, CBC, PT, PTT, HS TROP, BNP #### [address] Hemoglobin (Bld) [Mass/Vol] 14.8 g/dL Normal 13.0-17.0 [facility] Comment on above: Performed By: #### B MP, CBC, PT, PTT, HS TROP, BNP #### [address] Lymphocytes (Bld) [#/Vol] 2.2 10*3/uL Normal 1.00-4.8 [facility] Comment on above: Performed By: #### B MP, CBC, PT, PTT, HS TROP, BNP #### [address] Lymphocytes/100 WBC (Bld) 28.5 % Normal . [facility] Comment on above: Performed By: #### B MP, CBC, PT, PTT, HS TROP, BNP #### [address] MCH (RBC) [Entitic mass] 30.6 pg Normal 27.5-35.2 [facility] Comment on above: Performed By: #### B MP, CBC, PT, PTT, HS TROP, BNP #### [address] MCV (RBC) [Entitic vol] 89.9 fL Normal 83.5-101 [facility] Comment on above: Performed By: #### B MP, CBC, PT, PTT, HS TROP, BNP #### [address] Mean Corpuscular HGB Conc 34.0 g/dL Normal 32.5-35.6 [facility] Comment on above: Performed By: #### B MP, CBC, PT, PTT, HS TROP, BNP #### [address] Monocytes (Bld) [#/Vol] 0.7 10*3/uL Normal 0.0-0.8 [facility] Comment on above: Performed By: #### B MP, CBC, PT, PTT, HS TROP, BNP #### [place] [address] [place] Monocytes/100 WBC (Bld) 9.5 % Normal . [facility] Comment on above: Performed By: #### B MP, CBC, PT, PTT, HS TROP, BNP #### [address] Neutrophils (Bld) [#/Vol] 4.6 10*3/uL Normal 1.8-7.7 [facility] Comment on above: Performed By: #### B MP, CBC, PT, PTT, HS TROP, BNP #### [facility] [place] [address] Neutrophils/100 WBC (Bld) 58.7 % Normal . [facility] Comment on above: Performed By: #### B MP, CBC, PT, PTT, HS TROP, BNP #### [address] Nucleated RBC/100 WBC (Bld) [Ratio] 0.1 % Normal 0-0.5 [facility] Comment on above: Performed By: #### B MP, CBC, PT, PTT, HS TROP, BNP #### [address] Platelet mean volume (Bld) [Entitic vol] 7.6 fL Normal 6.6-10.1 [facility] Comment on above: Performed By: #### B MP, CBC, PT, PTT, HS TROP, BNP #### [place] [address] [place] Platelets (Bld) [#/Vol] 188 10*3/uL Normal 150-450 [facility] Comment on above: Performed By: #### B MP, CBC, PT, PTT, HS TROP, BNP #### [place] [address] [place] RBC (Bld) [#/Vol] 4.85 10*6/uL Normal 3.90-5.60 [facility] Comment on above: Performed By: #### B MP, CBC, PT, PTT, HS TROP, BNP #### [place] [address] [place] WBC (Bld) [#/Vol] 7.8 10*3/uL Normal 4.5-11.0 [facility] Comment on above: Performed By: #### B MP, CBC, PT, PTT, HS TROP, BNP #### [place] [id number] [facility] ECG 12 lead ECGon 12-28-2021 ECG 12 lead ECG [facility] Main [place] [address] [place] [address] Electrocardiograph Report Signed Patient: Donovan Lindquist MR#: [id number] 33 : 1960 Acct:[id number] Age/Sex: 61 / M ADM Date: 12/27/21 Loc: Room: [address] [place] [address] Type: DIS IN Attending Dr: Bridget Mosquera MD Ordering Provider: Rebecca Riley DO Date of Service: 12/28/2105/16/499 ECG/ECG 12 lead ECG: Post Angioplasty Procedure in AM Copies to: Test Reason : Blood Pressure : / mmHG Vent. Rate : 065 BPM Atrial Rate : 065 BPM P-R Int : 180 ms QRS Dur : 072 ms QT Int : 436 ms P-R-T Axes : 045 024 033 degrees QTc Int : 453 ms Normal sinus rhythm Normal ECG When compared with ECG of 27-DEC-2021 03:44, Criteria for Anterior infarct are no longer present Confirmed by HANSEL AMAYA [facility], DILMA ([id number]) on 12/28/2021 2:07:33 PM Referred By: Electronically Signed By:DILMA BATRES MD [facility] Transcribed By: MUS Signed By Dilma Batres MD, FACC 12/28/21 1407 Normal [facility] Glucose Poct Glucometerson 1 02-27-2021 Commemt1 Glu2: Cleaned Meter Normal [facility] Comment on above: Result Comment: PERF ORMED BY: [place] [address] PATHOLOGIST CODING SPECIALIST JAYDON MATHIAS M.D. Performed By: #### G LULS #### Point of Care testing , Glucose [Mass/Vol] 252 mg/dL Normal [facility] Comment on above: Result Comment: [place] om Glucose Reference Range is dependent on time and content of last meal. Glucose of more than 200 mg/dL in a nonstressed, ambulatory subject supports the diagnosis of Diabetes Mellitus. Performed By: #### G LULS #### Point of Care testing , Commemt1 Glu2: Cleaned Meter Normal [facility] Comment on above: Result Comment: PERF ORMED BY: [facility] [address] [place] [address] PATHOLOGIST CODING SPECIALIST JAYDON MATHIAS M.D. Performed By: #### G LULS #### Point of Care testing , Glucose [Mass/Vol] 136 mg/dL Normal [facility] Comment on above: Result Comment: [place] om Glucose Reference Range is dependent on time and content of last meal. Glucose of more than 200 mg/dL in a nonstressed, ambulatory subject supports the diagnosis of Diabetes Mellitus. Performed By: #### G LULS #### Point of Care testing , Lipid Panelon 12-28-2021 Cholesterol [Mass/Vol] 248 mg/dL High 140-200 [facility] Comment on above: Result Comment: Chol less than 200 mg/dl low risk Chol 201-239 mg/dl borderline risk Chol 240 mg/dl and greater high risk Performed By: #### B MP, CBC, PT, PTT, HS TROP, BNP #### [facility] [address] [place] [id number] [facility] Cholesterol in HDL [Mass/Vol] 29 mg/dL Normal 29-71 [facility] Comment on above: Result Comment: HDL CHOL ATP-III CLASSIFICATION Cardiovascular Risk HDL > or equal to 60 mg/dL LOW HDL < 40 mg/dL HIGH Performed By: #### B MP, CBC, PT, PTT, HS TROP, BNP #### [facility] [address] [place] [id number] [facility] Cholesterol.total/Chol esterol in HDL [Mass ratio] 8.6 {ratio} Normal <5.0 [facility] Comment on above: Result Comment: PERF ORMED BY: [facility] [address] [place] [address] PATHOLOGIST CODING SPECIALIST JAYDON MATHIAS M.D. Performed By: #### B MP, CBC, PT, PTT, HS TROP, BNP #### [facility] [place] [address] LDL Cholesterol,Calculated 147 mg/dL High 0-100 [facility] Comment on above: Result Comment: LDL ATP III CLASSIFICATION LDL less than 100 mg/dL Optimal LDL 100-129 mg/dL Near or above optimal LDL 130-159 mg/dL Borderline high LDL 160-189 mg/dL High LDL greater than 189 mg/dL Very high Performed By: #### B MP, CBC, PT, PTT, HS TROP, BNP #### [facility] [address] Triglyceride w/Reflex 359 mg/dL High 35-149 [facility] Comment on above: Result Comment: TRIG ATP III CLASSIFICATION TRIG less than 150 mg/dL Normal TRIG 150-199 mg/dL Borderline high TRIG 200-500 mg/dL High TRIG greater than 500 mg/dL Very high Standard traceable to the Center for Disease Conrtrol and Prevention (CDC) test method. Performed By: #### B MP, CBC, PT, PTT, HS TROP, BNP #### [facility] [address] VLDL CHOLESTEROL 71 mg/dL Normal [facility] Comment on above: Performed By: #### B MP, CBC, PT, PTT, HS TROP, BNP #### [facility] [address] [place] [address] [place] Magnesiumon 12-28-2021 Magnesium [Mass/Vol] 1.9 mg/dL Normal 1.6-2.6 [facility] Comment on above: Performed By: #### B MP, CBC, PT, PTT, HS TROP, BNP #### [facility] [address] [place] [address] [place] Troponin I High Sensitivityo n 12-28-2021 Troponin I High Sensitivity 927 pg/mL Off scale high 0-20 [facility] Comment on above: Result Comment: Resu lts called at 0653 on 12/28/21 PERFORMED BY: [address] [address] PATHOLOGIST CODING SPECIALIST JAYDON MATHIAS M.D. Performed By: #### H S TROP #### [address] Activated partial thrombopla stin time (aPTT) in platelet poor plasma by coagulation aOrdered By: Vadim Guido on 12-27-2021 aPTT Coag (PPP) [Time] 27.1 s 25.1-36.5 [facility] B-Type Natriuretic Peptideon 12-27-2021 Natriuretic peptide B (Bld) [Mass/Vol] 30.0 pg/mL Normal 5-100 [facility] Comment on above: Result Comment: PERF ORMED BY: [place] [address] PATHOLOGIST CODING SPECIALIST JAYDON MATHIAS M.D. Performed By: #### B MP, CBC, PT, PTT, HS TROP, BNP #### [address] Basic Metabolic Panelon Anion gap [Moles/Vol] 14.7 mmol/L Normal 6.0-15.0 [facility] Comment on above: Performed By: #### B MP, CBC, PT, PTT, HS TROP, BNP #### [address] Calcium [Mass/Vol] 8.0 mg/dL Low 8.2-10.2 [facility] Comment on above: Performed By: #### B MP, CBC, PT, PTT, HS TROP, BNP #### [address] Chloride [Moles/Vol] 102 mmol/L Normal 95-114 [facility] Comment on above: Performed By: #### B MP, CBC, PT, PTT, HS TROP, BNP #### [address] CO2 [Moles/Vol] 24.0 mmol/L Normal 22.0-30.0 [facility] Comment on above: Performed By: #### B MP, CBC, PT, PTT, HS TROP, BNP #### [facility] [place] [address] Creatinine [Mass/Vol] 0.80 mg/dL Normal 0.64-1.27 [facility] Comment on above: Performed By: #### B MP, CBC, PT, PTT, HS TROP, BNP #### [address] Creatinine Clr Calc Pharmacy 114.22 [facility] Comment on above: Result Comment: PERF ORMED BY: [place] [address] PATHOLOGIST CODING SPECIALIST JAYDON MATHIAS M.D. Performed By: #### B MP, CBC, PT, PTT, HS TROP, BNP #### [address] Estimated GFR ( Zaynab > 60 [facility] Comment on above: Result Comment: GFR estimated reference range: According to KDOQI guidelines, <60 ml/min/1.73m2 is sufficient to diagnose a patient with chronic kidney disease. Performed By: #### B MP, CBC, PT, PTT, HS TROP, BNP #### [address] Estimated GFR (Non- Am > 60 [facility] Comment on above: Performed By: #### B MP, CBC, PT, PTT, HS TROP, BNP #### [address] Glucose [Mass/Vol] 161 mg/dL High 70-100 [facility] Comment on above: Result Comment: [place] om Glucose Reference Range is dependent on time and content of last meal. Glucose of more than 200 mg/dL in a nonstressed, ambulatory subject supports the diagnosis of Diabetes Mellitus. ADA recommended reference range Performed By: #### B MP, CBC, PT, PTT, HS TROP, BNP #### [address] Potassium [Moles/Vol] 3.7 mmol/L Normal 3.5-5.1 [facility] Comment on above: Performed By: #### B MP, CBC, PT, PTT, HS TROP, BNP #### [facility] [address] Sodium [Moles/Vol] 137 mmol/L Normal 136-146 [facility] Comment on above: Performed By: #### B MP, CBC, PT, PTT, HS TROP, BNP #### [facility] [address] Urea nitrogen [Mass/Vol] 12 mg/dL Normal 9-23 [facility] Comment on above: Performed By: #### B MP, CBC, PT, PTT, HS TROP, BNP #### [facility] [address] Basophils Auto (Bld) [#/Vol] Ordered By: Vadim Guido on 12-27-2021 Basophils (Bld) [#/Vol] 0.1 10*3/uL 0.0-0.2 [facility] Basophils/100 WBC Auto (Bld) Ordered By: Vadim Guido on 12-27-2021 Basophils/100 WBC (Bld) 1.3 % . [facility] COVID-19 Antigenon 2 COVID-19 Antigen Healthcare Worker?: N Reference Range: Negative Negative results, from patients with symptom onset beyond five days, should be treated as presumptive and confirmation with a molecular assay, if necessary, for patient management, may be performed. Negative results do not rule out COVID-19 and should not be used as the sole basis for treatment or patient management decisions, including infection control decisions. Negative results should be considered in the context of a patient's recent exposures, history and the presence of clinical signs and symptoms consistent with COVID-19. The Natali SARS Antigen DAQUAN does not differentiate between SARS-CoV and SARS-CoV-2. This test was developed and its performance characteristic determined by [employer] and validated at [facility]. This test has not been FDA cleared or approved. This test has been authorized by FDA under an Emergency Use Authorization (EUA). This test has been validated in accordance with the FDA's Guidance Document (Policy for Diagnostics Testing in Laboratories Certified to Perform High Complexity Testing under CLIA prior to Emergency Use Authorization for Coronavirus Disease-2019 during the Public Health Emergency) issued on May 28, 2019. This test is only authorized for the duration of time the declaration that circumstances exist justifying the authorization of the emergency use of in vitro diagnostic tests for detection of SARS-CoV-2 virus and/or diagnosis of COVID-19 infection under section 564(b)(1) of the Act, 21 U.S.C. 360bbb-3(b)(1), unless the authorization is terminated or revoked sooner. SARS-CoV+SARS-CoV-2 (COVID-19) Ag [Presence] in Respiratory specimen by Rapid immunoassay Negative for SARS Antigen by DAQUAN PERFORMED BY: [place] [address] PATHOLOGIST CODING SPECIALIST JAYDON MATHIAS M.D. Normal [facility] Comment on above: Performed By: #### B MP, CBC, PT, PTT, HS TROP, BNP #### [address] COVID-19 [facility] SARS-CoV-2 (COVID-19) RNA LELIA+probe Ql (Unsp spec) Negative Normal Negative [facility] Comment on above: Order Comment: Healt hcare Worker?: N Result Comment: Testing for SARS-CoV-2 by RT-PCR This test was developed and its performance characteristics determined by [facility], [employer] and validated at the [facility]. This test has not been FDA cleared or approved. This test has been authorized by FDA under an Emergency Use Authorization (EUA). This test has been validated in accordance with the FDA's Guidance Document (Policy for Diagnostics Testing in Laboratories Certified to Perform High Complexity Testing under CLIA prior to Emergency Use Authorization for Coronavirus Disease-2019 during the Public Health Emergency) issued on May 28, 2019. This test is only authorized for the duration of time the declaration that circumstances exist justifying the authorization of the emergency use of in vitro diagnostic tests for detection of SARS-CoV-2 virus and/or diagnosis of COVID-19 infection under section 564(b)(1) of the Act, 21 U.S.C. 360bbb-3(b)(1), unless the authorization is terminated or revoked sooner. PERFORMED BY: [place] [address] PATHOLOGIST CODING SPECIALIST JAYDON MATHIAS M.D. Performed By: #### B MP, CBC, PT, PTT, HS TROP, BNP #### [address] COVID-19 SOFIAOrdered By: Marco Guido on 12-27-2021 SARS-CoV+SARS-CoV-2 (COVID-19) Ag IA.rapid Ql (Resp) Negative Negative [facility] Comment on above: This is a duplicate Natali SARS Antigen (DAQUAN) result to be used for statistical tracking purpose only. Complete Blood Count Auto Di ffon 12-27-2021 Basophils (Bld) [#/Vol] 0.1 10*3/uL Normal 0.0-0.2 [facility] Comment on above: Result Comment: PERF ORMED BY: [place] [address] PATHOLOGIST CODING SPECIALIST JAYDON MATHIAS M.D. Performed By: #### B MP, CBC, PT, PTT, HS TROP, BNP #### [address] Basophils/100 WBC (Bld) 1.3 % Normal . [facility] Comment on above: Performed By: #### B MP, CBC, PT, PTT, HS TROP, BNP #### [address] Eosinophils (Bld) [#/Vol] 0.2 10*3/uL Normal 0.0-0.45 [facility] Comment on above: Performed By: #### B MP, CBC, PT, PTT, HS TROP, BNP #### [address] Eosinophils/100 WBC (Bld) 1.9 % Normal . [facility] Comment on above: Performed By: #### B MP, CBC, PT, PTT, HS TROP, BNP #### [address] Erythrocyte distribution width (RBC) [Ratio] 13.9 % Normal 12.0-14.8 [facility] Comment on above: Performed By: #### B MP, CBC, PT, PTT, HS TROP, BNP #### [address] Hematocrit (Bld) [Volume fraction] 42.8 % Normal 38.8-50.0 [facility] Comment on above: Performed By: #### B MP, CBC, PT, PTT, HS TROP, BNP #### [address] Hemoglobin (Bld) [Mass/Vol] 14.3 g/dL Normal 13.0-17.0 [facility] Comment on above: Performed By: #### B MP, CBC, PT, PTT, HS TROP, BNP #### [address] Lymphocytes (Bld) [#/Vol] 2.9 10*3/uL Normal 1.00-4.8 [facility] Comment on above: Performed By: #### B MP, CBC, PT, PTT, HS TROP, BNP #### [address] Lymphocytes/100 WBC (Bld) 31.8 % Normal . [facility] Comment on above: Performed By: #### B MP, CBC, PT, PTT, HS TROP, BNP #### [address] MCH (RBC) [Entitic mass] 30.2 pg Normal 27.5-35.2 [facility] Comment on above: Performed By: #### B MP, CBC, PT, PTT, HS TROP, BNP #### [address] MCV (RBC) [Entitic vol] 90.8 fL Normal 83.5-101 [facility] Comment on above: Performed By: #### B MP, CBC, PT, PTT, HS TROP, BNP #### [address] Mean Corpuscular HGB Conc 33.3 g/dL Normal 32.5-35.6 [facility] Comment on above: Performed By: #### B MP, CBC, PT, PTT, HS TROP, BNP #### [address] [address] Monocytes (Bld) [#/Vol] 0.9 10*3/uL High 0.0-0.8 [facility] Comment on above: Performed By: #### B MP, CBC, PT, PTT, HS TROP, BNP #### [address] Monocytes/100 WBC (Bld) 9.6 % Normal . [facility] Comment on above: Performed By: #### B MP, CBC, PT, PTT, HS TROP, BNP #### [address] Neutrophils (Bld) [#/Vol] 5.0 10*3/uL Normal 1.8-7.7 [facility] Comment on above: Performed By: #### B MP, CBC, PT, PTT, HS TROP, BNP #### [address] Neutrophils/100 WBC (Bld) 55.4 % Normal . [facility] Comment on above: Performed By: #### B MP, CBC, PT, PTT, HS TROP, BNP #### [address] Nucleated RBC/100 WBC (Bld) [Ratio] 0.1 % Normal 0-0.5 [facility] Comment on above: Performed By: #### B MP, CBC, PT, PTT, HS TROP, BNP #### [address] Platelet mean volume (Bld) [Entitic vol] 7.7 fL Normal 6.6-10.1 [facility] Comment on above: Performed By: #### B MP, CBC, PT, PTT, HS TROP, BNP #### [address] [place] [address] [place] Platelets (Bld) [#/Vol] 207 10*3/uL Normal 150-450 [facility] Comment on above: Performed By: #### B MP, CBC, PT, PTT, HS TROP, BNP #### [facility] [place] [address] RBC (Bld) [#/Vol] 4.72 10*6/uL Normal 3.90-5.60 [facility] Comment on above: Performed By: #### B MP, CBC, PT, PTT, HS TROP, BNP #### [facility] [place] [address] WBC (Bld) [#/Vol] 9.0 10*3/uL Normal 4.5-11.0 [facility] Comment on above: Performed By: #### B MP, CBC, PT, PTT, HS TROP, BNP #### [facility] [place] [address] Creatinine and Glomerular fi ltration rate.predicted panel (S/P/Bld)Ordered By: Vadim Guido on 12-27-2021 Creatinine [Mass/Vol] 0.80 mg/dL 0.64-1.27 [facility] ECG 12 lead ECGon 12-27-2021 ECG 12 lead ECG [facility] Main [place] [address] [place] [address] Electrocardiograph Report Signed Patient: Donovan Lindquist MR#: [id number] 33 : 1960 Acct:[id number] Age/Sex: 61 / M ADM Date: 12/27/21 Loc: Room: [address] [place] [address] Type: DIS IN Attending Dr: Bridget Mosquera MD Ordering Provider: Vadim Guido DO Date of Service: 12/27/2104/18/341 ECG/ECG 12 lead ECG: Chest Pain Copies to: Test Reason : Blood Pressure : 170/100 mmHG Vent. Rate : 068 BPM Atrial Rate : 068 BPM P-R Int : 164 ms QRS Dur : 074 ms QT Int : 414 ms P-R-T Axes : 055 012 079 degrees QTc Int : 440 ms Normal sinus rhythm Confirmed by Vadim Guido DO ([id number]) on 12/27/2021 6:25:54 AM Referred By: Electronically Signed By:Vadim Guido DO Transcribed By: MUS Signed By Vadim Guido DO 0625 Normal [facility] Eosinophils Auto (Bld) [#/Vo l]Ordered By: Vadim Guido on 12-27-2021 Eosinophils (Bld) [#/Vol] 0.2 10*3/uL 0.0-0.45 [facility] Eosinophils/100 WBC Auto (Bl d)Ordered By: Vadim Guido on 12-27-2021 Eosinophils/100 WBC (Bld) 1.9 % . [facility] Erythrocyte distribution wid th Auto (RBC) [Ratio]Ordered By: Vadim Guido on 12-27-2021 Erythrocyte distribution width (RBC) [Ratio] 13.9 % 12.0-14.8 [facility] Estimated glomerular filtrat ion rate (GFR) non- AmericanOrdered By: Vadim Guido on 12-27-2021 GFR/1.73 sq M.predicted among non-blacks MDRD (S/P/Bld) [Vol rate/Area] > 60 mL/Min [facility] Glucose Poct Glucometerson 1 02-26-2021 Glucose [Mass/Vol] 192 mg/dL Normal [facility] Comment on above: Result Comment: [facility] Glucose Reference Range is dependent on time and content of last meal. Glucose of more than 200 mg/dL in a nonstressed, ambulatory subject supports the diagnosis of Diabetes Mellitus. PERFORMED BY: [place] [address] PATHOLOGIST CODING SPECIALIST JAYDON MATHIAS M.D. Performed By: #### B MP, CBC, PT, PTT, HS TROP, BNP #### [address] Commemt1 Glu2: Cleaned Meter Normal [facility] Comment on above: Result Comment: PERF ORMED BY: [facility] [address] [place] [address] PATHOLOGIST CODING SPECIALIST JAYDON MATHIAS M.D. Performed By: #### B MP, CBC, PT, PTT, HS TROP, BNP #### [address] Glucose [Mass/Vol] 121 mg/dL Normal [facility] Comment on above: Result Comment: [place] [facility] Glucose Reference Range is dependent on time and content of last meal. Glucose of more than 200 mg/dL in a nonstressed, ambulatory subject supports the diagnosis of Diabetes Mellitus. Performed By: #### B MP, CBC, PT, PTT, HS TROP, BNP #### [address] Commemt1 Glu2: Cleaned Meter [facility] Comment on above: Result Comment: PERF ORMED BY: [place] [address] PATHOLOGIST CODING SPECIALIST JAYDON MATHIAS M.D. Performed By: #### B MP, CBC, PT, PTT, HS TROP, BNP #### [address] Glucose [Mass/Vol] 162 mg/dL Normal [facility] Comment on above: Result Comment: [place] [facility] Glucose Reference Range is dependent on time and content of last meal. Glucose of more than 200 mg/dL in a nonstressed, ambulatory subject supports the diagnosis of Diabetes Mellitus. Performed By: #### B MP, CBC, PT, PTT, HS TROP, BNP #### [address] Commemt1 Glu2: Cleaned Meter [facility] Comment on above: Result Comment: PERF ORMED BY: [place] [address] PATHOLOGIST CODING SPECIALIST JAYDON MATHIAS M.D. Performed By: #### G LULS #### Point of Care testing , Glucose [Mass/Vol] 193 mg/dL Normal [facility] Comment on above: Result Comment: [place] [facility] Glucose Reference Range is dependent on time and content of last meal. Glucose of more than 200 mg/dL in a nonstressed, ambulatory subject supports the diagnosis of Diabetes Mellitus. Performed By: #### G LUISA #### Point of Care testing , Hematocrit Auto (Bld) [Volum e fraction]Ordered By: Vadim Guido on 12-27-2021 Hematocrit (Bld) [Volume fraction] 42.8 % 38.8-50.0 [facility] Hemoglobin [Mass/volume] in BloodOrdered By: Vadim Guido on 12-27-2021 Hemoglobin (Bld) [Mass/Vol] 14.3 g/dL 13.0-17.0 [facility] Laboratory - Chemistry and C hemistry - challengeOrdered By: Vadim Guido on 12-27-2021 Natriuretic peptide B (Bld) [Mass/Vol] 30.0 pg/mL 5-100 [facility] Laboratory - CoagulationOrde red By: Vadim Guido on 12-27-2021 PT Coag (PPP) [Time] 12.1 s 9.0-12.9 [facility] Laboratory - Hematology and Cell countsOrdered By: Vadim Guido on 12-27-2021 Nucleated RBC/100 WBC (Bld) [Ratio] 0.1 % 0-0.5 [facility] Leukocytes [#/volume] in Blo od by Automated countOrdered By: Vadim Guido on 12-27-2021 WBC (Bld) [#/Vol] 9.0 10*3/uL 4.5-11.0 [facility] Lymphocytes Auto (Bld) [#/Vo l]Ordered By: Vadim Guido on 12-27-2021 Lymphocytes (Bld) [#/Vol] 2.9 10*3/uL 1.00-4.8 [facility] Lymphocytes/100 WBC Auto (Bl d)Ordered By: Vadim Guido on 12-27-2021 Lymphocytes/100 WBC (Bld) 31.8 % . [facility] MCH Auto (RBC) [Entitic mass ]Ordered By: Vadim Guido on 12-27-2021 MCH (RBC) [Entitic mass] 30.2 pg 27.5-35.2 [facility] MCHC Auto (RBC) [Mass/Vol]Or dered By: Vadim Guido on 12-27-2021 MCHC (RBC) [Mass/Vol] 33.3 g/dL 32.5-35.6 [facility] MCV Auto (RBC) [Entitic vol] Ordered By: Vadim Guido on 12-27-2021 MCV (RBC) [Entitic vol] 90.8 fL 83.5-101 [facility] Monocytes Auto (Bld) [#/Vol] Ordered By: Vadim Guido on 12-27-2021 Monocytes (Bld) [#/Vol] 0.9 10*3/uL 0.0-0.8 [facility] Monocytes/100 WBC Auto (Bld) Ordered By: Vadim Guido on 12-27-2021 Monocytes/100 WBC (Bld) 9.6 % . [facility] Neutrophils Auto (Bld) [#/Vo l]Ordered By: Vadim Guido on 12-27-2021 Neutrophils (Bld) [#/Vol] 5.0 10*3/uL 1.8-7.7 [facility] Neutrophils/100 WBC Auto (Bl d)Ordered By: Vadim Guido on 12-27-2021 Neutrophils/100 WBC (Bld) 55.4 % . [facility] No Panel InformationOrdered By: Vadim Guido on 12-27-2021 Estimated GFR () > 60 mL/Min [facility] Comment on above: GFR estimated refere nce range: According to KDOQI guidelines, <60 ml/min/1.73m2 is sufficient to diagnose a patient with chronic kidney disease. Pharmacy Creatinine Clearance (Chem 114.22 [facility] SARS Antigen (LFIA) [facility] Partial Thromboplastin Timeo n 12-27-2021 aPTT Coag (Bld) [Time] 27.1 s Normal 25.1-36.5 [facility] Comment on above: Result Comment: PERF ORMED BY: [facility] [address] [place] [address] PATHOLOGIST CODING SPECIALIST JAYDON MATHIAS M.D. Performed By: #### B MP, CBC, PT, PTT, HS TROP, BNP #### [facility] [address] Platelet mean volume Auto (B ld) [Entitic vol]Ordered By: Vadim Guido on 12-27-2021 Platelet mean volume (Bld) [Entitic vol] 7.7 fL 6.6-10.1 [facility] Platelet poor plasma interna tional normalized ratio (INR) by coagulation assay (relatOrdered By: Vadim Guido on 12-27-2021 INR Coag (PPP) [Relative time] 1.1 {INR} [facility] Comment on above: INR Therapeutic Rang e A) Pre- and Peroperative OAT started two weeks before surgery. NOT HIP SURGERY: 1.5 - 2.5 HIP SURGERY: 2 - 3B) Primary and secondary prevention of venous THROMBOSIS: 2 - 3C) Active venous thrombosis, pulmonary embolismand prevention of recurrent venous thrombosis: 2 - 3D) Prevention of arterial thromboembolismincluding patients with mechanical heart valves: 3 - 4.5 Platelets Auto (Bld) [#/Vol] Ordered By: Vadim Guido on 12-27-2021 Platelets (Bld) [#/Vol] 207 10*3/uL 150-450 [facility] Prothrombin Time INRon 12-27 INR Coag (PPP) [Relative time] 1.1 {INR} Normal [facility] Comment on above: Result Comment: INR Therapeutic Range A) Pre- and Peroperative OAT started two weeks before surgery. NOT HIP SURGERY: 1.5 - 2.5 HIP SURGERY: 2 - 3 B) Primary and secondary prevention of venous THROMBOSIS: 2 - 3 C) Active venous thrombosis, pulmonary embolism and prevention of recurrent venous thrombosis: 2 - 3 D) Prevention of arterial thromboembolism including patients with mechanical heart valves: 3 - 4.5 Performed By: #### B MP, CBC, PT, PTT, HS TROP, BNP #### [facility] [address] PT Coag (PPP) [Time] 12.1 s Normal 9.0-12.9 [facility] Comment on above: Performed By: #### B MP, CBC, PT, PTT, HS TROP, BNP #### [facility] [address] [place] [id number] [facility] RBC Auto (Bld) [#/Vol]Ordere d By: Vadim Guido on 12-27-2021 RBC (Bld) [#/Vol] 4.72 10*6/uL 3.90-5.60 [facility] Serum or plasma anion gap de terminationOrdered By: Vadim Guido on 12-27-2021 Anion gap [Moles/Vol] 14.7 mmol/L 6.0-15.0 [facility] Serum or plasma calcium maria del carmen urement (mass/volume)Ordered By: Vadim Guido on 12-27-2021 Calcium [Mass/Vol] 8.0 mg/dL 8.2-10.2 [facility] Serum or plasma chloride [place] surement (moles/volume)Ordered By: Vadim Guido on 12-27-2021 Chloride [Moles/Vol] 102 mmol/L 95-114 [facility] Serum or plasma glucose maria del carmen urement (mass/volume)Ordered By: Vadim Guido on 12-27-2021 Glucose [Mass/Vol] 161 mg/dL 70-100 [facility] Comment on above: ADA recommended refe rence rangeRandom Glucose Reference Range is dependent on time and content of last meal. Glucose of more than 200 mg/dL in a nonstressed, ambulatory subject supports the diagnosis of Diabetes Mellitus. Serum or plasma potassium me asurement (moles/volume)Ordered By: Vadim Guido on 12-27-2021 Potassium [Moles/Vol] 3.7 mmol/L 3.5-5.1 [facility] Serum or plasma sodium measu rement (moles/volume)Ordered By: Vadim Guido on 12-27-2021 Sodium [Moles/Vol] 137 mmol/L 136-146 [facility] Serum or plasma total carbon dioxide measurement (moles/volume)Ordered By: Vadim Guido on 12-27-2021 CO2 [Moles/Vol] 24.0 mmol/L 22.0-30.0 [facility] Serum or plasma urea nitroge n measurement (mass/volume)Ordered By: Vadim Guido on 12-27-2021 Urea nitrogen [Mass/Vol] 12 mg/dL 11-17 [facility] Natali Ag Negativeon 12-28-19 Natali Ag Negative Negative Normal Negative [facility] Comment on above: Result Comment: This is a duplicate Natali SARS Antigen (DAQUAN) result to be used for statistical tracking purpose only. PERFORMED BY: [place] [address] PATHOLOGIST CODING SPECIALIST JAYDON MATHIAS M.D. Performed By: #### B MP, CBC, PT, PTT, HS TROP, BNP #### [facility] [address] [place] [address] [place] Troponin I High Sensitivityo n 12-27-2021 Troponin I High Sensitivity 1118 pg/mL Off scale high 0-20 [facility] Comment on above: Order Comment: per c eddie nurse ney said to hold off on the PTT, and only draw the trop Result Comment: Resu lts called at 1322 on 12/27/21 PERFORMED BY: [place] [address] PATHOLOGIST CODING SPECIALIST JAYDON MATHIAS M.D. Performed By: #### B MP, CBC, PT, PTT, HS TROP, BNP #### [facility] [address] [place] [address] [facility] Troponin I High Sensitivity 528 pg/mL Off scale high 0-20 [facility] Comment on above: Result Comment: Resu lts called at 1029 on 12/27/21 PERFORMED BY: [place] [id number] PATHOLOGIST CODING SPECIALIST JAYDON MATHIAS M.D. Performed By: #### B MP, CBC, PT, PTT, HS TROP, BNP #### [facility] [address] [place] [address] [place] Troponin I High Sensitivity 199 pg/mL Off scale high 0-20 [facility] Comment on above: Result Comment: Resu lts called at 0842 on 12/27/21 PERFORMED BY: [address] [address] PATHOLOGIST CODING SPECIALIST JAYDON MATHIAS M.D. Performed By: #### B MP, CBC, PT, PTT, HS TROP, BNP #### [place] [id number] [facility] Troponin I High Sensitivity 7 pg/mL Normal 0-20 [facility] Comment on above: Result Comment: PERF ORMED BY: [address] [place] [address] PATHOLOGIST CODING SPECIALIST JAYDON MATHIAS M.D. Performed By: #### B MP, CBC, PT, PTT, HS TROP, BNP #### [address] Troponin I.cardiac [Mass/vol ume] in Serum or Plasma by High sensitivity methodOrdered By: Vadim Guido on 12-27-2021 Troponin I.cardiac High sensitivity method [Mass/Vol] 7 pg/mL 0-20 [facility] XR chest 1V portableon 12-27 XR chest 1V portable [facility] Main [place] [address] [place] [address] XRay Report Signed Patient: Donovan Lindquist MR#: [id number] 33 : 1960 Acct:[id number] Age/Sex: 61 / M ADM Date: 12/27/21 Loc: Room: [address] [place] [address] Type: ADM IN Attending Dr: Levi Ramos MD Copies to: MD Vadim Garza DO Ordering Provider: Vadim Guido DO Date of Service: 12/27/21 XR/XR chest 1V portable: Chest Pain XR chest 1V portable 12/27/2021 4:02 AM SIGNS AND SYMPTOMS: Chest pain, shortness of breath PROTOCOL: Frontal radiograph of the chest COMPARISON: None FINDINGS: The trachea is midline. Sternotomy wires overlie the mediastinum. The heart and mediastinal structures are within normal limits. The lung parenchyma is clear. The bony thorax is intact. Degenerative changes are noted in the shoulders and thoracic spine. XR/XR chest 1V portable IMPRESSION: No acute cardiopulmonary pathology. Impression dictated by: James Elizabeth M.D.12/27/2021 9:35 AM Dictation Location: [place] [address] Transcribed By: [facility] 12/27/21934 Dictated By: James Elizabeth II, MD 12/27/21932 Signed By: 12/27/2135 [facility] MR head/brain wo conon 06-14 MR head/brain wo con [facility] [place] [address] MRI Report Signed Patient: Donovan Lindquist MR#: [id number] 33 : 1960 Acct:[id number] Age/Sex: 61 / M ADM Date: 06/14/21 Loc: Room: Type: [facility] Attending Dr: Park Green [employer] Ordering Provider: Park Green CNP Date of Service: 06/14/21 MR/MR head/brain wo con: HEADACHE R51.9 Copies to: Park Green CNP MR head/brain wo con 06/14/2021 1:39 PM SIGN AND SYMPTOMS: Frontal headaches with loss of vision in right eye. Confusion and memory loss. PROTOCOL: Multiplanar multisequence MR images of the brain were obtained without IV contrast. COMPARISON: None. FINDINGS: Extra axial spaces: Age appropriate. Hemorrhage: None. Ventricular system: Within normal limits. Basal cisterns: Within normal limits and not effaced. Cerebral parenchyma: Periventricular and subcortical white matter T2 and T2 FLAIR hyperintense signal is noted suggesting chronic microvascular ischemic change. Midline shift: None.. Cerebellum: Within normal limits. Brainstem: Within normal limits. OTHER: Calvarium: Normal marrow signal. Vascular system: Satisfactory flow voids within the anterior and posterior circulation. Visualized Paranasal sinuses: Within normal limits. Visualized Orbits: Within normal limits. Visualized upper cervical spine: Within normal limits. Sella and skull base: Within normal limits. MR/MR head/brain wo con IMPRESSION: Periventricular and subcortical white matter T2 and T2 FLAIR hyperintense signal is noted suggesting chronic microvascular ischemic change. No acute intrarenal pathology. Impression dictated by: James Elizabeth M.D.06/14/2021 3:50 PM Dictation Location: [place] [address] Transcribed By: [facility] 06/14/21 1550 Dictated By: James Elizabeth II, MD 06/14/21 1545 Signed By: 06/14/21 1550 [facility] ACETAMINOPHENon 06-02-2021 Acetaminophen [Mass/Vol] ug/mL Normal 10.0-30.0 [facility] Comment on above: Performed By: #### S EDR #### [facility] [address] [place] [address] Dr. Ariana Pimentel CARDIAC JAMES 3-6on 2 CK [Catalytic activity/Vol] 194 U/L Critically high 55-170 [facility] Comment on above: Performed By: #### C MREP #### [facility] [address] [place] [address] Dr. Ariana Pimentel CK.MB [Mass/Vol] 1.77 ng/mL Normal <=2.37 [facility] Comment on above: Performed By: #### C MREP #### [facility] [address] [place] [address] Dr. Ariana Pimentel HSTROP 10.7 pg/mL Normal 4.0-42.2 [facility] Comment on above: Result Comment: CUT- OFF POINTS HAVE BEEN ESTABLISHED BASED ON THE FOURTH UNIVERSAL DEFINITIONS OF MYOCARDIAL INFARCTION. THE UPPER REFERENCE LIMIT (URL) OF TROPONIN, DEFINED THE 99TH PERCENTILE OF cTnI DISTRIBUTION IN A REFERENCE POPULATION, HAS BEEN CONFIRMED THE DECISION THRESHOLD FOR [place] DIAGNOSIS. Performed By: #### C MREP #### [facility] [address] [place] [address] Dr. Ariana Pimentel CARDIAC JAMES ADMITon 022 CK [Catalytic activity/Vol] 193 U/L Critically high 55-170 [facility] Comment on above: Performed By: #### S EDR #### [facility] [address] [place] [address] Dr. Ariana Pimentel CK.MB [Mass/Vol] 1.67 ng/mL Normal <=2.37 [facility] Comment on above: Performed By: #### S EDR #### [facility] [address] [place] [address] Dr. Ariana Pimentel HSTROP 8.8 pg/mL Normal 4.0-42.2 [facility] Comment on above: Result Comment: CUT- OFF POINTS HAVE BEEN ESTABLISHED BASED ON THE FOURTH UNIVERSAL DEFINITIONS OF MYOCARDIAL INFARCTION. THE UPPER REFERENCE LIMIT (URL) OF TROPONIN, DEFINED THE 99TH PERCENTILE OF cTnI DISTRIBUTION IN A REFERENCE POPULATION, HAS BEEN CONFIRMED THE DECISION THRESHOLD FOR [place] DIAGNOSIS. Performed By: #### S EDR #### [facility] [address] [place] [address] Dr. Ariana Pimentel MARBELLA 49.0 ng/mL Normal <=121.0 [facility] Comment on above: Performed By: #### S EDR #### [facility] [address] [place] [address] Dr. Ariana Pimentel CBC AUTO DIFFon 06-02-2021 BASO # 0.1 103/ul Normal 0.0-0.1 [facility] Comment on above: Performed By: #### C RP, CMP #### [facility] [address] [place] [address] Dr. Ariana Pimentel Basophils/100 WBC (Bld) 1.1 % Normal 0.2-2.0 [facility] Comment on above: Performed By: #### C RP, CMP #### [facility] [address] [place] [address] Dr. Ariana Pimentel EO # 0.2 103/ul Normal 0.0-0.7 [facility] Comment on above: Performed By: #### C RP, CMP #### [facility] [address] [place] [address] Dr. Ariana Pimentel Eosinophils/100 WBC (Bld) 1.6 % Normal 0.9-7.0 [facility] Comment on above: Performed By: #### C RP, CMP #### [facility] [address] [place] [address] Dr. Ariana Pimentel Erythrocyte distribution width (RBC) [Ratio] 14.0 % Normal 11.0-15.0 [facility] Comment on above: Performed By: #### C RP, CMP #### [facility] [address] [place] [address] Dr. Ariana Pimentel Hematocrit (Bld) [Volume fraction] 42.2 % Normal 42.0-54.0 [facility] Comment on above: Performed By: #### C RP, CMP #### [facility] [address] [place] [address] Dr. Ariana Pimentel Hemoglobin (Bld) [Mass/Vol] 14.5 g/dL Normal 14.0-18.0 [facility] Comment on above: Performed By: #### C RP, CMP #### [facility] [address] [place] [address] Dr. Ariana Pimentel IG # 0.06 10e3/ul Critically high 0.00-0.03 [facility] Comment on above: Performed By: #### C RP, CMP #### [facility] [address] [place] [address] Dr. Ariana Pimentel IG % 0.6 % Critically high 0.0-0.5 [facility] Comment on above: Performed By: #### C RP, CMP #### [facility] [address] [place] [address] Dr. Ariana Pimentel LYMPH # 2.6 103/ul Normal 1.2-3.8 [facility] Comment on above: Performed By: #### C RP, CMP #### [facility] [address] [place] [address] Dr. Ariana Pimentel Lymphocytes/100 WBC (Bld) 27.2 % Normal 20.5-60.0 [facility] Comment on above: Performed By: #### C RP, CMP #### [facility] [address] [place] [address] Dr. Ariana Pimentel MANUAL DIFF REQ NO Normal [facility] Comment on above: Performed By: #### C RP, CMP #### [facility] [address] [place] [address] Dr. Ariana Pimentel MCH (RBC) [Entitic mass] 31.0 pg Normal 25.9-34.0 [facility] Comment on above: Performed By: #### C RP, CMP #### [facility] [address] [place] [address] [address] Ariana Pimentel MCHC (RBC) [Mass/Vol] 34.4 g/dL Normal 29.9-35.2 [facility] Comment on above: Performed By: #### C RP, CMP #### [facility] [address] [place] [address] Dr. Ariana Pimentel MCV (RBC) [Entitic vol] 90.4 fL Normal 80.0-94.0 [facility] Comment on above: Performed By: #### C RP, CMP #### [facility] [address] [place] [address] Dr. Ariana Pimentel MONO # 0.6 103/ul Normal 0.3-0.8 [facility] Comment on above: Performed By: #### C RP, CMP #### [facility] [address] [place] [address] Dr. Ariana Pimentel Monocytes/100 WBC (Bld) 6.7 % Normal 1.7-12.0 [facility] Comment on above: Performed By: #### C RP, CMP #### [facility] Laboratory [address] [place] [address] Dr. Ariana Pimentel NEUT # 5.9 103/ul Normal 1.4-6.5 [facility] Comment on above: Performed By: #### C RP, CMP #### [facility] Laboratory [address] [place] [address] Dr. Ariana Pimentel Neutrophils/100 WBC (Bld) 62.8 % Normal 43.0-75.0 [facility] Comment on above: Performed By: #### C RP, CMP #### [facility] Laboratory [address] [place] [address] Dr. Ariana Pimentel Platelet mean volume (Bld) [Entitic vol] 9.3 fL Critically low 9.5-13.5 [facility] Comment on above: Performed By: #### C RP, CMP #### [facility] Laboratory [address] [address] [address] Ariana Pimentel PLT 164 103/ul Normal 150-450 [facility] Comment on above: Performed By: #### C RP, CMP #### [facility] Laboratory [address] [address] [address] Ariana Pimentel RBC 4.67 106/ul Critically low 4.70-6.10 [facility] Comment on above: Performed By: #### C RP, CMP #### [facility] Laboratory [address] [place] [address] Dr. Ariana Pimentel WBC 9.4 103/ul Normal 4.0-11.0 [facility] Comment on above: Performed By: #### C RP, CMP #### [facility] Laboratory [address] [place] [address] Dr. Ariana Pimentel ETHANOL (BLD ALC)on 06-03-19 ALC NOTE NOTE: 80 mg/dl is legal limit for a blood alcohol level Normal [facility] Comment on above: Performed By: #### S EDR #### [facility] Laboratory [address] [place] [address] Dr. Ariana Pimentel Ethanol [Mass/Vol] 184 mg/dL Normal [facility] Comment on above: Performed By: #### S EDR #### [facility] Laboratory [address] [place] [address] Dr. Ariana Pimentel PROF CHEM 8 (BAS METB)on Anion gap [Moles/Vol] 13.3 mmol/L Normal [facility] Comment on above: Performed By: #### S EDR #### [facility] Laboratory [address] [place] [address] Dr. Ariana Pimentel Calcium [Mass/Vol] 7.6 mg/dL Critically low 8.5-10.[address] [facility] Comment on above: Performed By: #### S EDR #### [facility] Laboratory [address] [place] [address] Dr. Ariana Pimentel Chloride [Moles/Vol] 101 mmol/L Normal 98-107 [facility] Comment on above: Performed By: #### S EDR #### [facility] Laboratory [address] [place] [address] Dr. Ariana Pimentel CO2 [Moles/Vol] 24.4 mmol/L Normal 22.0-30.0 [facility] Comment on above: Performed By: #### S EDR #### [facility] Laboratory [address] [address] [address] Ariana Pimentel Creatinine [Mass/Vol] 0.76 mg/dL Normal 0.66-1.25 [facility] Comment on above: Performed By: #### S EDR #### [facility] Laboratory [address] [address] [address] Ariana Pimentel EGFR-AF [place] >60 Normal >=60 [facility] Comment on above: Performed By: #### S EDR #### [facility] Laboratory [address] [place] [address] Dr. Ariana Pimentel EGFR-NON AF [place] >60 Normal >=60 [facility] Comment on above: Performed By: #### S EDR #### [facility] Laboratory [address] [place] [address] Dr. Ariana Pimentel Glucose [Mass/Vol] 139 mg/dL Critically high 74-106 [facility] Comment on above: Performed By: #### S EDR #### [facility] Laboratory [address] [address] [address] Ariana Pimentel Potassium [Moles/Vol] 3.7 mmol/L Normal 3.4-5.0 [facility] Comment on above: Performed By: #### S EDR #### [facility] Laboratory [address] [place] [address] Dr. Ariana Pimentel Sodium [Moles/Vol] 135 mmol/L Critically low 137-145 [facility] Comment on above: Performed By: #### S EDR #### [facility] Laboratory [address] [address] [address] Ariana Pimentel Urea nitrogen [Mass/Vol] 9.0 mg/dL Normal 7.0-18.0 [facility] Comment on above: Performed By: #### S EDR #### [facility] Laboratory [address] [address] [address] Ariana Pimentel Urea nitrogen/Creatinine [Mass ratio] 11.8 mg/mg Normal [facility] Comment on above: Performed By: #### S EDR #### [facility] Laboratory [address] [address] [address] Ariana Pimentel SALICYLATEon 06-02-2021 SALICYLATE 3.9 mg/dL Normal <=20.0 [facility] Comment on above: Performed By: #### S EDR #### [facility] Laboratory [address] [place] [address] Dr. Ariana Pimentel TROPONIN, HIGH SENSITIVITYon 06-02-2021 HSTROP 8.1 pg/mL Normal 4.0-42.2 [facility] Comment on above: Result Comment: CUT- OFF POINTS HAVE BEEN ESTABLISHED BASED ON THE FOURTH UNIVERSAL DEFINITIONS OF MYOCARDIAL INFARCTION. THE UPPER REFERENCE LIMIT (URL) OF TROPONIN, DEFINED THE 99TH PERCENTILE OF cTnI DISTRIBUTION IN A REFERENCE POPULATION, HAS BEEN CONFIRMED THE DECISION THRESHOLD FOR [place] DIAGNOSIS. Performed By: #### H STROPN #### [facility] Laboratory [address] [place] [address] Dr. Ariana Pimentel XR CHEST 1 Von 06-02-2021 XR CHEST 1 V EXAM: XR CHEST 1 V HISTORY: CHEST PAIN, UNSPECIFIED COMPARISON: Chest x-ray performed 01/30/2021. TECHNIQUE: AP portable upright view of the chest is obtained. FINDINGS: Sternotomy wires and mediastinal clips are present. Coronary artery vascular stent is present. The cardiomediastinal silhouette is nonenlarged. Pulmonary vascular markings are within normal limits. There is no focal airspace consolidation. The costophrenic angles are clear. No pneumothorax. The osseous structures appear grossly intact. IMPRESSION: No acute cardiopulmonary process identified. Electronically authenticated by: ESTHER HANNA Date: 2021-06-02 00:27 Normal [facility] CBC AUTO DIFFon 06-01-2021 BASO # 0.1 103/ul Normal 0.0-0.1 [facility] Comment on above: Performed By: #### S EDR #### [facility] Laboratory [address] [place] [address] Dr. Ariana Pimentel Basophils/100 WBC (Bld) 1.2 % Normal 0.2-2.0 [facility] Comment on above: Performed By: #### S EDR #### [facility] Laboratory [address] [place] [address] Dr. Arinaa Pimentel EO # 0.1 103/ul Normal 0.0-0.7 [facility] Comment on above: Performed By: #### S EDR #### [facility] Laboratory [address] [place] [address] Dr. Ariana Pimentel Eosinophils/100 WBC (Bld) 1.4 % Normal 0.9-7.0 [facility] Comment on above: Performed By: #### S EDR #### [facility] Laboratory [address] [place] [address] Dr. Ariana Pimentel Erythrocyte distribution width (RBC) [Ratio] 14.2 % Normal 11.0-15.0 [facility] Comment on above: Performed By: #### S EDR #### [facility] Laboratory [address] [place] [address] Dr. Ariana Pimentel Hematocrit (Bld) [Volume fraction] 47.9 % Normal 42.0-54.0 [facility] Comment on above: Performed By: #### S EDR #### [facility] Laboratory [address] [place] [address] Dr. Ariana Pimentel Hemoglobin (Bld) [Mass/Vol] 16.2 g/dL Normal 14.0-18.0 [facility] Comment on above: Performed By: #### S EDR #### [facility] Laboratory [address] [place] [address] Dr. Ariana Pimentel IG # 0.04 10e3/ul Critically high 0.00-0.03 [facility] Comment on above: Performed By: #### S EDR #### [facility] Laboratory [address] [place] [address] Dr. Ariana Pimentel IG % 0.5 % Normal 0.0-0.5 [facility] Comment on above: Performed By: #### S EDR #### [facility] Laboratory [address] [place] [address] Dr. Ariana Pimentel LYMPH # 2.1 103/ul Normal 1.2-3.8 [facility] Comment on above: Performed By: #### S EDR #### [facility] Laboratory [address] [place] [address] Dr. Ariana Pimentel Lymphocytes/100 WBC (Bld) 24.7 % Normal 20.5-60.0 [facility] Comment on above: Performed By: #### S EDR #### [facility] Laboratory [address] [place] [address] Dr. Ariana Pimentel MANUAL DIFF REQ NO Normal [facility] Comment on above: Performed By: #### S EDR #### [facility] Laboratory [address] [place] [address] Dr. Ariana Pimentel MCH (RBC) [Entitic mass] 30.9 pg Normal 25.9-34.0 [facility] Comment on above: Performed By: #### S EDR #### [facility] Laboratory [address] [place] [address] Dr. Ariana Pimentel MCHC (RBC) [Mass/Vol] 33.8 g/dL Normal 29.9-35.2 [facility] Comment on above: Performed By: #### S EDR #### [facility] Laboratory [address] [place] [address] Dr. Ariana Pimentel MCV (RBC) [Entitic vol] 91.4 fL Normal 80.0-94.0 [facility] Comment on above: Performed By: #### S EDR #### [facility] Laboratory [address] [place] [address] Dr. Ariana Pimentel MONO # 0.7 103/ul Normal 0.3-0.8 [facility] Comment on above: Performed By: #### S EDR #### [facility] Laboratory [address] [place] [address] Dr. Ariana Pimentel Monocytes/100 WBC (Bld) 7.8 % Normal 1.7-12.0 [facility] Comment on above: Performed By: #### S EDR #### [facility] Laboratory [address] [place] [address] Dr. Ariana Pimentel NEUT # 5.3 103/ul Normal 1.4-6.5 [facility] Comment on above: Performed By: #### S EDR #### [facility] Laboratory [address] [address] [address] Ariana Pimentel Neutrophils/100 WBC (Bld) 64.4 % Normal 43.0-75.0 [facility] Comment on above: Performed By: #### S EDR #### [facility] Laboratory [address] [place] [address] Dr. Ariana Pimentel Platelet mean volume (Bld) [Entitic vol] 9.5 fL Normal 9.5-13.5 [facility] Comment on above: Performed By: #### S EDR #### [facility] Laboratory [address] [place] [address] Dr. Ariana Pimentel PLT 192 103/ul Normal 150-450 [facility] Comment on above: Performed By: #### S EDR #### [facility] Laboratory [address] [place] [address] Dr. Ariana Pimentel RBC 5.24 106/ul Normal 4.70-6.10 [facility] Comment on above: Performed By: #### S EDR #### [facility] Laboratory [address] [place] [address] Dr. Ariana Pimentel WBC 8.3 103/ul Normal 4.0-11.0 [facility] Comment on above: Performed By: #### S EDR #### [facility] Laboratory [address] [place] [address] Dr. Ariana Pimentel CRPon 06-01-2021 CRP 0.5 mg/dL Normal <=1.0 [facility] Comment on above: Performed By: #### C RP, CMP #### [facility] Laboratory [address] [place] [address] Dr. Ariana Pimentel PROF 14(COMP METB)on 022 Albumin [Mass/Vol] 4.0 g/dL Normal 3.4-5.0 [facility] Comment on above: Performed By: #### C RP, CMP #### [facility] Laboratory [address] [place] [address] Dr. Ariana Pimentel Albumin/Globulin [Mass ratio] 1.0 {ratio} Normal [facility] Comment on above: Performed By: #### C RP, CMP #### [facility] Laboratory [address] [address] [address] Ariana Pimentel ALP [Catalytic activity/Vol] 129 U/L Critically high 46-116 [facility] Comment on above: Performed By: #### C RP, CMP #### [facility] Laboratory [address] [address] [address] Ariana Pimentel ALT [Catalytic activity/Vol] 27 U/L Normal 16-63 [facility] Comment on above: Performed By: #### C RP, CMP #### [facility] [address] [address] [address] Ariana Pimentel Anion gap [Moles/Vol] 9.9 mmol/L Normal [facility] Comment on above: Performed By: #### C RP, CMP #### [facility] Laboratory [address] [place] [address] Dr. Ariana Pimentel AST [Catalytic activity/Vol] 13 U/L Critically low 15-37 [facility] Comment on above: Performed By: #### C RP, CMP #### [facility] Laboratory [address] [place] [address] Dr. Ariana Pimentel Bilirubin [Mass/Vol] 0.4 mg/dL Normal 0.2-1.3 [facility] Comment on above: Performed By: #### C RP, CMP #### [facility] Laboratory [address] [place] [address] Dr. Ariana Pimentel Calcium [Mass/Vol] 9.0 mg/dL Normal 8.5-10.1 [facility] Comment on above: Performed By: #### C RP, CMP #### [facility] Laboratory [address] [place] [address] Dr. Ariana Pimentel Chloride [Moles/Vol] 102 mmol/L Normal 98-107 [facility] Comment on above: Performed By: #### C RP, CMP #### [facility] Laboratory [address] [address] [address] Ariana Pimentel CO2 [Moles/Vol] 30.6 mmol/L Critically high 22.0-30.0 [facility] Comment on above: Performed By: #### C RP, CMP #### [facility] Laboratory [address] [place] [address] Dr. Ariana Pimentel Creatinine [Mass/Vol] 0.98 mg/dL Normal 0.66-1.25 [facility] Comment on above: Performed By: #### C RP, CMP #### [facility] Laboratory [address] [place] [address] Dr. Ariana Pimentel EGFR-AF [place] >60 Normal >=60 [facility] Comment on above: Performed By: #### C RP, CMP #### [facility] Laboratory [address] [place] [address] Dr. Ariana Pimentel EGFR-NON AF [place] >60 Normal >=60 [facility] Comment on above: Performed By: #### C RP, CMP #### [facility] Laboratory [address] [place] [address] Dr. Ariana Pimentel Globulin (S) [Mass/Vol] 3.9 g/dL Normal [facility] Comment on above: Performed By: #### C RP, CMP #### [facility] Laboratory [address] [place] [address] Dr. Ariana Pimentel Glucose [Mass/Vol] 128 mg/dL Critically high 74-106 [facility] Comment on above: Performed By: #### C RP, CMP #### [facility] Laboratory [address] [place] [address] Dr. Ariana Pimentel Potassium [Moles/Vol] 4.5 mmol/L Normal 3.4-5.0 [facility] Comment on above: Performed By: #### C RP, CMP #### [facility] Laboratory [address] [place] [address] Dr. Ariana Pimentel Protein [Mass/Vol] 7.9 g/dL Normal 6.1-8.2 [facility] Comment on above: Performed By: #### C RP, CMP #### [facility] Laboratory [address] [place] [address] Dr. Ariana Pimentel Sodium [Moles/Vol] 138 mmol/L Normal 137-145 [facility] Comment on above: Performed By: #### C RP, CMP #### [facility] [address] [place] [address] Dr. Ariana Pimentel Urea nitrogen [Mass/Vol] 14.0 mg/dL Normal 7.0-18.0 [facility] Comment on above: Performed By: #### C RP, CMP #### [facility] [address] [place] [address] Dr. Ariana Pimentel Urea nitrogen/Creatinine [Mass ratio] 14.3 mg/mg Normal [facility] Comment on above: Performed By: #### C RP, CMP #### [facility] Laboratory [address] [place] [address] Dr. Ariana Pimentel SED RATE WESTERGRENon 2021 SED RATE 4 mm/hr Normal <=20 [facility] Comment on above: Performed By: #### S EDR #### [facility] Laboratory [address] [place] [address] Dr. Ariana Pimentel CBC AUTO DIFFon 01-30-2021 BASO # 0.1 103/ul Normal 0.0-0.1 [facility] Comment on above: Performed By: #### S EDR #### [facility] Laboratory [address] [place] [address] Dr. Ariana Pimentel Basophils/100 WBC (Bld) 1.2 % Normal 0.2-2.0 [facility] Comment on above: Performed By: #### S EDR #### [facility] [address] [place] [address] Dr. Ariana Pimentel EO # 0.2 103/ul Normal 0.0-0.7 [facility] Comment on above: Performed By: #### S EDR #### [facility] [address] [place] [address] Dr. Ariana Pimentel Eosinophils/100 WBC (Bld) 1.7 % Normal 0.9-7.0 [facility] Comment on above: Performed By: #### S EDR #### [facility] Laboratory [address] [place] [address] Dr. Ariana Pimentel Erythrocyte distribution width (RBC) [Ratio] 13.4 % Normal 11.0-15.0 [facility] Comment on above: Performed By: #### S EDR #### [facility] [address] [address] [address] Ariana Pimentel Hematocrit (Bld) [Volume fraction] 46.7 % Normal 42.0-54.0 [facility] Comment on above: Performed By: #### S EDR #### [facility] [address] [address] [address] Ariana Pimentel Hemoglobin (Bld) [Mass/Vol] 15.4 g/dL Normal 14.0-18.0 [facility] Comment on above: Performed By: #### S EDR #### [facility] [address] [place] [address] Dr. Ariana Pimentel IG # 0.04 10e3/ul Critically high 0.00-0.03 [facility] Comment on above: Performed By: #### S EDR #### [facility] [address] [place] [address] Dr. Ariana Pimentel IG % 0.4 % Normal 0.0-0.5 [facility] Comment on above: Performed By: #### S EDR #### [facility] [address] [place] [address] Dr. Ariana Pimentel LYMPH # 2.5 103/ul Normal 1.2-3.8 [facility] Comment on above: Performed By: #### S EDR #### [facility] [address] [place] [address] Dr. Ariana Pimentel Lymphocytes/100 WBC (Bld) 27.8 % Normal 20.5-60.0 [facility] Comment on above: Performed By: #### S EDR #### [facility] [address] [place] [address] Dr. Ariana Pimentel MANUAL DIFF REQ NO Normal [facility] Comment on above: Performed By: #### S EDR #### [facility] [address] [place] [address] Dr. Ariana Pimentel MCH (RBC) [Entitic mass] 30.0 pg Normal 25.9-34.0 [facility] Comment on above: Performed By: #### S EDR #### [facility] [address] [address] [address] Ariana Pimentel MCHC (RBC) [Mass/Vol] 33.0 g/dL Normal 29.9-35.2 [facility] Comment on above: Performed By: #### S EDR #### [facility] [address] [place] [address] Dr. Ariana Pimentel MCV (RBC) [Entitic vol] 91.0 fL Normal 80.0-94.0 [facility] Comment on above: Performed By: #### S EDR #### [facility] [address] [place] [address] Dr. Ariana Pimentel MONO # 0.8 103/ul Normal 0.3-0.8 [facility] Comment on above: Performed By: #### S EDR #### [facility] [address] [place] [address] Dr. Ariana Pimentel Monocytes/100 WBC (Bld) 9.0 % Normal 1.7-12.0 [facility] Comment on above: Performed By: #### S EDR #### [facility] [address] [place] [address] Dr. Ariana Pimentel NEUT # 5.4 103/ul Normal 1.4-6.5 [facility] Comment on above: Performed By: #### S EDR #### [facility] [address] [place] [address] Dr. Ariana Pimentel Neutrophils/100 WBC (Bld) 59.9 % Normal 43.0-75.0 [facility] Comment on above: Performed By: #### S EDR #### [facility] [address] [place] [address] Dr. Ariana Pimentel Platelet mean volume (Bld) [Entitic vol] 10.2 fL Normal 9.5-13.5 [facility] Comment on above: Performed By: #### S EDR #### [facility] [address] [place] [address] Dr. Ariana Pimentel PLT 193 103/ul Normal 150-450 [facility] Comment on above: Performed By: #### S EDR #### [facility] [address], [place] [address] Dr. Ariana Pimentel RBC 5.13 106/ul Normal 4.70-6.10 [facility] Comment on above: Performed By: #### S EDR #### [facility] [address] [place], [place] [address] Dr. Ariana Pimentel WBC 9.0 103/ul Normal 4.0-11.0 [facility] Comment on above: Performed By: #### S EDR #### [facility] [address] [place], [place] [address] Dr. Ariana Pimentel Covid-19 PCR (CVDTB)on SARS-CoV-2 (COVID-19) RNA LELIA+probe Ql (Unsp spec) Not detected Normal NOT DETECTED [facility] Comment on above: Result Comment: When diagnostic testing is negative, the possibility of a false negative should be considered in the context of a patient's recent exposures and the presence of clinical signs and symptoms consistent with SARS-CoV-2. This test is not yet approved or cleared by the [place] Food and Drug Administration (FDA). This test was developed by [employer], [place], [place]. The performance characteristics of this test were validated by [facility]. The results are not intended to be used as the sole means for clinical diagnosis or patient management decisions. [facility] is authorized under Clinical Laboratory Improvement Amendments (CLIA) to perform high- complexity testing. This test is not yet approved or cleared by the [place] FDA. When there are no FDA-approved or cleared tests available, and other criteria are met, FDA can make tests available under an emergency access mechanism called an Emergency Use Authorization (EUA). The EUA for this test is supported by the [place] of Health and Human Service's declaration that circumstances exist to justify the emergency use of in vitro diagnostics for the detection and/or diagnosis of the virus that causes COVID-19. This EUA will remain in effect for the duration of the COVID-19 declaration justifying emergency of IVDs, unless it is terminated or revoked by the FDA (after which the test may no longer be used). Performed By: #### S EDR #### [facility] [address] [address] [address] Ariana Pimentel PROF CHEM 8 (BAS METB)on Anion gap [Moles/Vol] 13.9 mmol/L Normal [facility] Comment on above: Performed By: #### H STROPN, BMP #### [facility] [address] [place] [address] Dr. Ariana Pimentel Calcium [Mass/Vol] 8.8 mg/dL Normal 8.4-10.2 [facility] Comment on above: Performed By: #### H STROPN, BMP #### [facility] [address] [place] [address] Dr. Ariana Pimentel Chloride [Moles/Vol] 103 mmol/L Normal 98-107 [facility] Comment on above: Performed By: #### H STROPN, BMP #### [facility] [address] [place] [address] Dr. Ariana Pimentel CO2 [Moles/Vol] 26.5 mmol/L Normal 22.0-30.0 [facility] Comment on above: Performed By: #### H STROPN, BMP #### [facility] [address] [place] [address] Dr. Ariana Pimentel Creatinine [Mass/Vol] 0.97 mg/dL Normal 0.66-1.25 [facility] Comment on above: Performed By: #### H STROPN, BMP #### [facility] [address] [place] [address] Dr. Ariana Pimentel EGFR-AF [place] >60 Normal >=60 [facility] Comment on above: Performed By: #### H STROPN, BMP #### [facility] [address] [place] [address] Dr. Ariana Pimentel EGFR-NON AF [place] >60 Normal >=60 [facility] Comment on above: Performed By: #### H STROPN, BMP #### [facility] [address] [place] [address] Dr. Ariana Pimentel Glucose [Mass/Vol] 168 mg/dL Critically high 74-106 [facility] Comment on above: Performed By: #### H STROPN, BMP #### [facility] [address] [place] [address] Dr. Ariana Pimentel Potassium [Moles/Vol] 4.4 mmol/L Normal 3.4-5.0 [facility] Comment on above: Performed By: #### H STROPN, BMP #### [facility] [address] [place] [address] Dr. Ariana Pimentel Sodium [Moles/Vol] 139 mmol/L Normal 137-145 [facility] Comment on above: Performed By: #### H STROPN, BMP #### [facility] [address] [place] [address] Dr. Ariana Pimentel Urea nitrogen [Mass/Vol] 20.0 mg/dL Normal 9.0-20.0 [facility] Comment on above: Performed By: #### H IRENEPN, BMP #### [facility] [address] [place] [address] Dr. Ariana Pimentel Urea nitrogen/Creatinine [Mass ratio] 20.6 mg/mg Normal [facility] Comment on above: Performed By: #### H STROPN, BMP #### [facility] [address] [place] [address] Dr. Ariana Pimentel PROTIMEon 01-30-2021 INR Coag (PPP) [Relative time] 0.96 {INR} Normal [facility] Comment on above: Performed By: #### C RP, CMP #### [facility] [address] [place] [address] Dr. Ariana Pimentel INR GUIDELINES SEE BELOW Normal [facility] Comment on above: Result Comment: RIMA RED INR: 2.0 - 3.0 CONDITIONS NOT LISTED BELOW 2.5 - 3.5 FOR PROSTHETIC HEART VALVE REPLACEMENT 2.5 - 3.5 RECURRENT THROMBOSIS Performed By: #### C RP, CMP #### [facility] [address] [place] [address] Dr. Ariana Pimentel PT Coag (PPP) [Time] 10.4 s Normal 9.0-11.6 [facility] Comment on above: Performed By: #### C RP, CMP #### [facility] [address] [place] [address] Dr. Ariana Pimentel PTTon 01-30-2021 aPTT Coag (Bld) [Time] 28.6 s Normal 22.3-36.2 Th e [facility] Comment on above: Performed By: #### C RP, CMP #### [facility] [address] [place] [address] Dr. Ariana Pimentel TROPONIN, HIGH SENSITIVITYon 01-30-2021 HSTROP 335.4 pg/mL Critically high 4.0-42.2 [facility] Comment on above: Result Comment: CUT- OFF POINTS HAVE BEEN ESTABLISHED BASED ON THE FOURTH UNIVERSAL DEFINITIONS OF MYOCARDIAL INFARCTION. THE UPPER REFERENCE LIMIT (URL) OF TROPONIN, DEFINED THE 99TH PERCENTILE OF cTnI DISTRIBUTION IN A REFERENCE POPULATION, HAS BEEN CONFIRMED THE DECISION THRESHOLD FOR [place] DIAGNOSIS. Performed By: #### S EDR #### [facility] [address] [place] [address] Dr. Ariana Pimentel HSTROP 234.8 pg/mL Critically high 4.0-42.2 [facility] Comment on above: Result Comment: CUT- OFF POINTS HAVE BEEN ESTABLISHED BASED ON THE FOURTH UNIVERSAL DEFINITIONS OF MYOCARDIAL INFARCTION. THE UPPER REFERENCE LIMIT (URL) OF TROPONIN, DEFINED THE 99TH PERCENTILE OF cTnI DISTRIBUTION IN A REFERENCE POPULATION, HAS BEEN CONFIRMED THE DECISION THRESHOLD FOR [place] DIAGNOSIS. critical value repeated and verified Performed By: #### H STROPN, BMP #### [facility] [address] [place] [address] Dr. Ariana Pimentel XR CHEST 1 Von 01-30-2021 XR CHEST 1 V EXAMINATION: XR CHES T 1 V HISTORY: chest pain COMPARISON: 03/19/2019 TECHNIQUE: AP portable erect FINDINGS: LUNGS: No significant pulmonary parenchymal abnormalities. VASCULATURE: No increased pulmonary vasculature. PLEURA: No pneumothorax, effusion, or pleural thickening. CARDIAC: No cardiomegaly or cardiac silhouette abnormality. MEDIASTINUM: No visible mass or adenopathy. Median sternotomy wires BONES: No fracture or visible bone lesion. OTHER: EKG wires IMPRESSION: No acute disease. Electronically authenticated by: ELYSE QUINTERO Date: 2021-01-30 10:41 Normal [facility] INSULINon 07-14-2020 Insulin 14.4 uIU/mL Normal 2.6-24.9 [facility] Comment on above: Performed By: #### I NSULIN #### [facility] [address] [place], [place] [id number] Branden Romy CBC AUTO DIFFon 07-13-2020 BASO # 0.1 103/ul Normal 0.0-0.1 [facility] Comment on above: Performed By: #### C BC #### [facility] [address] [place] [address] Branden Romy Basophils/100 WBC (Bld) 1.3 % Normal 0.2-2.0 [facility] Comment on above: Performed By: #### C BC #### [facility] [address] [place] [address] Branden Romy EO # 0.2 103/ul Normal 0.0-0.7 [facility] Comment on above: Performed By: #### C BC #### [facility] [address] [place] [address] Branden Romy Eosinophils/100 WBC (Bld) 2.2 % Normal 0.9-7.0 [facility] Comment on above: Performed By: #### C BC #### [facility] [address] [place] [address] Branden Romy Erythrocyte distribution width (RBC) [Ratio] 13.6 % Normal 11.0-15.0 [facility] Comment on above: Performed By: #### C BC #### [facility] [address] [place] [address] Branden Romy Hematocrit (Bld) [Volume fraction] 44.8 % Normal 42.0-54.0 [facility] Comment on above: Performed By: #### C BC #### [facility] [address] [place] [address] Branden Romy Hemoglobin (Bld) [Mass/Vol] 15.2 g/dL Normal 14.0-18.0 [facility] Comment on above: Performed By: #### C BC #### [facility] [address] [place] [address] Branden Romy IG # 0.03 10e3/ul Normal 0.00-0.03 [facility] Comment on above: Performed By: #### C BC #### [facility] [address] [place] [address] Brandensiria Stanton IG % 0.4 % Normal 0.0-0.5 [facility] Comment on above: Performed By: #### C BC #### [facility] [address] [place] [address] Brandensiria Stanton LYMPH # 2.3 103/ul Normal 1.2-3.8 [facility] Comment on above: Performed By: #### C BC #### [facility] [address] [place] [address] Branden Stanton Lymphocytes/100 WBC (Bld) 27.0 % Normal 20.5-60.0 [facility] Comment on above: Performed By: #### C BC #### [facility] [address] [place] [address] Branden Stanton MANUAL DIFF REQ NO Normal [facility] Comment on above: Performed By: #### C BC #### [facility] [address] [place] [address] Branden Stanton MCH (RBC) [Entitic mass] 30.4 pg Normal 25.9-34.0 [facility] Comment on above: Performed By: #### C BC #### [facility] [address] [place] [address] Branden Stanton MCHC (RBC) [Mass/Vol] 33.9 g/dL Normal 29.9-35.2 [facility] Comment on above: Performed By: #### C BC #### [facility] [address] [place] [address] Branden Stanton MCV (RBC) [Entitic vol] 89.6 fL Normal 80.0-94.0 [facility] Comment on above: Performed By: #### C BC #### [facility] [address] [place] [address] Branden Romy MONO # 0.7 103/ul Normal 0.3-0.8 [facility] Comment on above: Performed By: #### C BC #### [facility] [address] [id number] Branden Romy Monocytes/100 WBC (Bld) 8.8 % Normal 1.7-12.0 [facility] Comment on above: Performed By: #### C BC #### [facility] [address] [place], [place] [id number] Branden Romy NEUT # 5.0 103/ul Normal 1.4-6.5 [facility] Comment on above: Performed By: #### C BC #### [facility] [address] [place], [place] [id number] Branden Romy Neutrophils/100 WBC (Bld) 60.3 % Normal 43.0-75.0 [facility] Comment on above: Performed By: #### C BC #### [facility] [address] [place] [address] Brandensiria Corderoen Platelet mean volume (Bld) [Entitic vol] 9.6 fL Normal 9.5-13.5 [facility] Comment on above: Performed By: #### C BC #### [facility] [address] [place], [place] [id number] Branden Romy PLT 180 103/ul Normal 150-450 [facility] Comment on above: Performed By: #### C BC #### [facility] [address] [place] [address] Branden Romy RBC 5.00 106/ul Normal 4.70-6.10 [facility] Comment on above: Performed By: #### C BC #### [facility] [address] [place], [place] [id number] Branden Romy WBC 8.3 103/ul Normal 4.0-11.0 [facility] Comment on above: Performed By: #### C BC #### [facility] [address] [place], [place] [id number] Branden Romy FREE THYROXINE INDEX T7on FTI 3.12 Normal [facility] Comment on above: Performed By: #### C RP, CMP #### [facility] [address] [place], [place] [address] Dr. Ariana Pimentel T3U 38.0 % Normal 23.5-40.5 [facility] Comment on above: Performed By: #### C RP, CMP #### [facility] [address] [place] [address] Dr. Ariana Pimentel T4 [Mass/Vol] 8.20 ug/dL Normal 5.53-11.00 [facility] Comment on above: Performed By: #### C RP, CMP #### [facility] [address] [place] [address] Dr. Ariana Pimentel GLYCOHEMOGLOBIN A1Con 2020 ADA RECOMMENDATION ADA THERAPEUTIC TARG ET 6.0 - 7.0 ACTION SUGGESTED > 7.0 Normal [facility] Comment on above: Performed By: #### A 1C #### [facility] [address] [place] [address] Branden Stanton Glucose [Mass/Vol] 131 mg/dL Normal [facility] Comment on above: Performed By: #### A 1C #### [facility] [address] [place] [address] Branden Stanton HbA1c (Bld) [Mass fraction] 6.2 % Critically high <=6.0 [facility] Comment on above: Performed By: #### A 1C #### [facility] [address] [place] [address] Branden Stanton LIPID PROFILEon 07-13-2020 CHOL-HDL RATIO NORM SEE BELOW Normal [facility] Comment on above: Result Comment: 3.3 - 4.4 LOW RISK 4.4 - 7.1 AVERAGE RISK 7.1 - 11.0 MODERATE RISK >11.0 HIGH RISK Performed By: #### C RP, CMP #### [facility] [address] [place] [address] Dr. Ariana Pimentel Cholesterol [Mass/Vol] 196 mg/dL Normal <=200 [facility] Comment on above: Performed By: #### C RP, CMP #### [facility] [address] [place] [address] Dr. Ariana Pimentel Cholesterol in HDL [Mass/Vol] 27 mg/dL Normal [facility] Comment on above: Performed By: #### C RP, CMP #### [facility] [address] [address] [address] Ariana Pimentel Cholesterol in LDL [Mass/Vol] 117.2 mg/dL Normal [facility] Comment on above: Performed By: #### C RP, CMP #### [facility] [address] [address] [address] Ariana Pimentel Cholesterol.total/Chol esterol in HDL [Mass ratio] 7.3 {ratio} Normal [facility] Comment on above: Performed By: #### C RP, CMP #### [facility] [address] [address] [address] Ariana Pimentel HDL NORMAL > or = 60 mg/dl - LO W CARDIOVASCULAR RISK <40 mg/dl - HIGH CARDIOVASCULAR RISK Normal [facility] Comment on above: Performed By: #### C RP, CMP #### [facility] [address] [place] [address] Dr. Ariana Pimentel LDL CALC NORMAL SEE BELOW Normal [facility] Comment on above: Result Comment: <100 mg/dl OPTIMAL 100 - 129 mg/dl NEAR OR ABOVE OPTIMAL 130 - 159 mg/dl BORDERLINE HIGH 160 - 189 mg/dl HIGH >190 mg/dl VERY HIGH Performed By: #### C RP, CMP #### [facility] [address] [address] [address] Ariana Pimentel Triglyceride [Mass/Vol] 259 mg/dL Critically high <=150 [facility] Comment on above: Performed By: #### C RP, CMP #### [facility] [address] [place] [address] Dr. Ariana Pimentel VLDL CALC 51.8 mg/dL Normal [facility] Comment on above: Performed By: #### C RP, CMP #### [facility] [address] [place] [address] Dr. Ariana Pimentel PROF 14(COMP METB)on 021 Albumin [Mass/Vol] 3.7 g/dL Normal 3.5-5.0 [facility] Comment on above: Performed By: #### C RP, CMP #### [facility] [address] [place] [address] Dr. Ariana Pimentel Albumin/Globulin [Mass ratio] 1.1 {ratio} Normal [facility] Comment on above: Performed By: #### C RP, CMP #### [facility] [address] [place] [address] Dr. Ariana Pimentel ALP [Catalytic activity/Vol] 116 U/L Normal 38-126 [facility] Comment on above: Performed By: #### C RP, CMP #### [facility] [address] [place] [address] Dr. Ariana Pimentel ALT [Catalytic activity/Vol] 25 U/L Normal 21-72 [facility] Comment on above: Performed By: #### C RP, CMP #### [facility] [address] [place] [address] Dr. Ariana Pimentel Anion gap [Moles/Vol] 12.7 mmol/L Normal [facility] Comment on above: Performed By: #### C RP, CMP #### [facility] [address] [place] [address] Dr. Ariana Pimentel AST [Catalytic activity/Vol] 14 U/L Critically low 17-59 [facility] Comment on above: Performed By: #### C RP, CMP #### [facility] [address] [place] [address] Dr. Ariana Pimentel Bilirubin [Mass/Vol] 0.4 mg/dL Normal 0.2-1.3 [facility] Comment on above: Performed By: #### C RP, CMP #### [facility] [address] [place] [address] Dr. Ariana Pimentel Calcium [Mass/Vol] 8.7 mg/dL Normal 8.4-10.2 [facility] Comment on above: Performed By: #### C RP, CMP #### [facility] [address] [place] [address] Dr. Ariana Pimentel Chloride [Moles/Vol] 105 mmol/L Normal 98-107 [facility] Comment on above: Performed By: #### C RP, CMP #### [facility] [address] [place], [place] [id number] Dr. Ariana Pimentel CO2 [Moles/Vol] 24.7 mmol/L Normal 22.0-30.0 [facility] Comment on above: Performed By: #### C RP, CMP #### [facility] [address] [place] [address] Dr. Ariana Pimentel Creatinine [Mass/Vol] 1.07 mg/dL Normal 0.66-1.25 [facility] Comment on above: Performed By: #### C RP, CMP #### [facility] [address] [place] [address] Dr. Ariana Pimentel EGFR-AF [place] >60 Normal >=60 [facility] Comment on above: Performed By: #### C RP, CMP #### [facility] [address] [place] [address] Dr. Ariana Pimentel EGFR-NON AF [place] >60 Normal >=60 [facility] Comment on above: Performed By: #### C RP, CMP #### [facility] [address] [place] [address] Dr. Ariana Pimentel Globulin (S) [Mass/Vol] 3.4 g/dL Normal [facility] Comment on above: Performed By: #### C RP, CMP #### [facility] [address] [place] [address] Dr. Ariana Pimentel Glucose [Mass/Vol] 140 mg/dL Critically high 74-106 [facility] Comment on above: Performed By: #### C RP, CMP #### [facility] [address] [place] [address] Dr. Ariana Pimentel Potassium [Moles/Vol] 4.4 mmol/L Normal 3.4-5.0 [facility] Comment on above: Performed By: #### C RP, CMP #### [facility] [address] [place] [address] Dr. Ariana Pimentel Protein [Mass/Vol] 7.1 g/dL Normal 6.1-8.2 [facility] Comment on above: Performed By: #### C RP, CMP #### [facility] [address] [place] [address] Dr. Ariana Pimentel Sodium [Moles/Vol] 138 mmol/L Normal 137-145 [facility] Comment on above: Performed By: #### C RP, CMP #### [facility] [address] [place] [address] Dr. Ariana Pimentel Urea nitrogen [Mass/Vol] 16.0 mg/dL Normal 9.0-20.0 [facility] Comment on above: Performed By: #### C RP, CMP #### [facility] [address] [place] [address] Dr. Ariana Pimentel Urea nitrogen/Creatinine [Mass ratio] 15.0 mg/mg Normal [facility] Comment on above: Performed By: #### C RP, CMP #### [facility] [address] [place] [address] Dr. Ariana Pimentel TSHon 07-13-2020 TSH 1.511 uIU/mL Normal 0.470-4.680 [facility] Comment on above: Performed By: #### C RP, CMP #### [facility] [address] [place] [address] Dr. Ariana Pimentel TSH RANGE SEE BELOW Normal [facility] Comment on above: Result Comment: <0.3 4 UIU/ml HYPERTHYROID 0.34-5.60 UIU/ml EUTHYROID >5.60 UIU/ml HYPOTHYROID Performed By: #### C RP, CMP #### [facility] [address] [place] [address] Dr. Ariana Pimentel URIC ACID SERUMon 07-13-2020 Urate [Mass/Vol] 4.0 mg/dL Normal 3.5-8.5 [facility] Comment on above: Performed By: #### C RP, CMP #### [facility] [address] [place] [address] Dr. Ariana Pimentel XR LSPINE MIN 4 VIEWSon 06-25 XR LSPINE MIN 4 VIEWS EXAMINATION: XR LS PINE MIN 4 VIEWS HISTORY: Low back pain COMPARISON: No relevant comparison available. FINDINGS: BONES: Normal alignment with no acute fracture or spondylolisthesis. Moderate diffuse degenerative spondylosis and facet osteoarthropathy DISC SPACES: Multilevel disc space narrowing with endplate sclerosis most significant at L3-L4 and L5-S1 PARASPINOUS: Negative. No paraspinous abnormality is seen. OTHER: Negative. IMPRESSION: Moderate diffuse degenerative changes Electronically authenticated by: ELYSE QUINTERO Date: 2020-07-13 09:12 Normal [facility] Vital Signs Date Time Vital Sign Value Performing Clinician Facility 06-25-2022 18:00-0400 Diastolic blood pressure 79 mm[Hg] Mauricio Henderson MD Work Phone: [facility] 06-25-2022 18:00-0400 Heart rate 67 /min Mauricio Henderson MD Work Phone: [facility] 06-25-2022 18:00-0400 Respiratory rate 24 /min Mauricio Henderson MD Work Phone: [facility] 06-25-2022 18:00-0400 SaO2% (BldA) [Mass fraction] 98 % Mauricio Henderson MD Work Phone: [facility] 06-25-2022 18:00-0400 Systolic blood pressure 134 mm[Hg] Mauricio Henderson MD Work Phone: [facility] 06-25-2022 14:43-0400 Body height 177.8 cm Mauricio Henderson MD Work Phone: [facility] 06-25-2022 14:41-0400 Body temperature 97.81 [degF] Mauricio Henderson MD Work Phone: [facility] 12-27-2021 06:10-0400 Diastolic blood pressure 85 mm[Hg] [employer] [place] Work Phone: [facility] 12-27-2021 06:10-0400 Heart rate 71 /min [employer] [place] Work Phone: [facility] 12-27-2021 06:10-0400 Respiratory rate 18 /min [employer] Work Phone: [facility] 12-27-2021 06:10-0400 SaO2% (BldA) [Mass fraction] 96 % [employer] [place] Work Phone: [facility] 12-27-2021 06:10-0400 Systolic blood pressure 133 mm[Hg] [employer] [place] Work Phone: [facility] 12-27-2021 05:31-0400 Body temperature 97.2 [degF] [employer] [place] Work Phone: [facility] 12-27-2021 03:44-0400 Body height 177.8 cm [employer] [place] Work Phone: [facility] 12-27-2021 03:44-0400 Body weight 96.1 kg [employer] [place] Work Phone: [facility] 06-14-2021 13:56-0400 Diastolic blood pressure 96 mm[Hg] [employer] [place] Work Phone: [facility] 06-14-2021 13:56-0400 Heart rate 84 /min [employer] [place] Work Phone: [facility] 06-14-2021 13:56-0400 Respiratory rate 18 /min [employer] [place] Work Phone: [facility] 06-14-2021 13:56-0400 SaO2% (BldA) [Mass fraction] 98 % HARDWARE ASSEMBLER-C Parkpili Salehmer Work Phone: [facility] 06-14-2021 13:56-0400 Systolic blood pressure 170 mm[Hg] HARDWARE ASSEMBLER-C Park Shirley Work Phone: [facility] 06-14-2021 13:44-0400 Body height 177.8 cm HARDWARE ASSEMBLER-C Park Shirley Work Phone: [facility] 06-14-2021 13:44-0400 Body weight 89.81 kg HARDWARE ASSEMBLER-C Park Shirley Work Phone: [facility] Encounters Encounter Date Encounter Type Care Provider Facility Start: 06-25-2022 End: 06-25-2022 Emergency department [facility] Start: 06-25-2022 End: 06-25-2022 Emergency department patient visit Mauricio Henderson MD Work Phone: [facility] Start: 12-28-[address] Florentino Rubalcava ility:[id number] Start: 12-27-[address] Florentino Rubalcava ility:[id number] Start: 12-27-2021 End: 12-28-2021 Evaluation and management of inpatient Bridgetkiana Mosquera Facility:[facility] Start: 12-27-2021 Evaluation and management of inpatient HARDWARE ASSEMBLER-C Parkpili Salehmer Work Phone: [facility] Start: 12-27-[address] Florentino Rubalcava ility:[id number] Start: 06-14-2021 End: 06-14-2021 ambulatory Park Green Facility:[facility] Start: 06-14-2021 End: 06-14-2021 Patient encounter procedure HARDWARE ASSEMBLER-C Park Green Work Phone: [facility] [place] Start: 06-02-2021 End: 06-02-2021 ambulatory PARK SPEARS Facility:H1 Start: 06-01-2021 End: 06-02-2021 ambulatory PARK SPEARS Facility:H1 Start: 05-30-2021 ambulatory PARK SPEARS Facility:H 1 Start: 05-26-2021 End: 05-27-2021 ambulatory PARK SPEARS Facility:H1 Start: 02-13-2021 ambulatory CHEYANNE Brian Facilit y: Start: 02-01-[address] Florentino Riley Fac ility:[id number] Start: 01-31-[address] Florentino Riley Fac ility:[id number] Start: 01-30-2021 End: 01-30-2021 ambulatory PARK SPEARS Facility:H1 Start: 01-30-[address] Florentino Riley Fac ility:[id number] Start: 01-16-2021 End: 01-17-2021 ambulatory PARK SPEARS Facility:H1 Start: 08-16-2020 End: 08-17-2020 ambulatory CRIS CAMPBELL Facility:H1 Start: 07-26-2020 End: 07-27-2020 ambulatory CRIS CAMPBELL Facility:H1 Start: 07-13-2020 End: 07-14-2020 ambulatory PARK SPEARS Facility:H1 Procedures Date Procedure Procedure Detail Performing Clinician Start: 06-25-2022 Ct abdomen & pelvis w/contrast material Mauricio Henderson MD Work Phone: Start: 06-25-2022 Urinalysis microscopic only Mauricio Henderson MD Work Phone: Start: 06-25-2022 Urinalysis, reagent strip without microscopy Mauricio Henderson MD Work Phone: Start: 06-25-2022 Complete blood count with white cell differential, automated Mauricio Henderson MD Work Phone: Start: 06-25-2022 Comprehensive metabo lic panel Mauricio Henderson MD Work Phone: Start: 06-25-2022 Ecg routine ecg w/le ast 12 lds w/i&r Mauricio Henderson MD Work Phone: Start: 06-14-2021 MRI of head HARDWARE ASSEMBLER-C Denise Green Work Phone: Start: 07-13-2020 PSA screening CRIS CAMERON Comment on above: Performed By: #### C RP, CMP #### [facility] [address] [place] [address] Dr. Ariana Pimentel SARS Antigen (LFIA) HARDWARE ASSEMBLER-C Agatha Green Work Phone: Plan of Treatment Date Care Activity Detail Author Start: 12-28-2021 Blood chemistry [facility] Start: 12-28-2021 Lipid panel [facility] Start: 12-28-2021 Magnesium measurement [facility] Start: 12-28-2021 [facility] Start: 12-27-2021 Hospital admission [facility] Start: 12-27-2021 Referral to retail marketing executive [facility] Start: 12-27-2021 [facility] Start: 12-27-2021 Plain chest X-ray XR chest 1V portable [facility] Start: 12-27-2021 XR Chest Single view [facility] Start: 09-01-2021 ambulatory Ambulatory Facility: Start: 10-11-2020 COVID-19 VACCINE (3 - Booster for Pfizer series) COVID-19 VACCINE (3 - Booster for Pfizer series) [facility] Start: 2011 Prostate specific antigen measurement PROSTATE CANCER SCREENING DISCUSSION [facility] Start: 2011 Zoster vaccine hzv live for subcutaneous use ZOSTER (SHINGLES) VACCINE (1 of 2) [facility] Start: 2006 Screening for malignant neoplasm of colon COLORECTAL CANCER SCREENING DISCUSSION [facility] Start: 2001 Lipid panel LIPID SCREENING [facility] Start: 02-07-1980 Third diphtheria, tetanus and acellular pertussis (DTaP) vaccination TDAP (ADULT) [facility] Start: 02-07-1976 HIV screening HIV SCREENING DISCUSSION [facility] Start: 1967 PNEUMOCOCCAL VACCINE SERIES (1 - PCV) PNEUMOCOCCAL VACCINE SERIES (1 - PCV) [facility] Start: 1961 Hepatitis C screening HEPATITIS C VIRUS SCREENING [facility] Start: 1961 Tetanus vaccination TETANUS [facility] Standard ECG [facility] Troponin I.cardiac [Mass/volume] in Serum or Plasma by High sensitivity method [facility] Work Phone: Immunizations Immunization Date Immunization Notes Care Provider Estella mcneill 02-01-2021 influenza, injectabl e, quadrivalent, preservative free HARDWARE ASSEMBLER-C Park Green Work Phone: [facility] 08-16-2020 COVID-19 mRNA, Comirnaty (Pfizer) HARDWARE ASSEMBLER-C Park Green Work Phone: [facility] 07-26-2020 COVID-19 mRNA, Comirnaty (Pfizer) HARDWARE ASSEMBLER-C Park Green Work Phone: [facility] Payers Date Payer Category Payer Self-pay [id number] 2021 Medicare [id number] 1960 Unknown [id number] 2.16.84 0.1.200941.3.579.2.593 1961 Unknown [id number] 2.16.84 0.1.852588.3.579.2.593 1961 Unknown [id number] 2.16.84 0.1.427269.3.579.2.593 1961 Unknown [id number] 2.16.84 0.1.098516.3.579.2.593 1961 Unknown [id number] 2.16.84 0.1.205141.3.579.2.593 1961 Unknown [id number] 2.16.84 0.1.902260.3.579.2.593 1961 Unknown [id number] 2.16.84 0.1.949843.3.579.2.593 1961 Unknown [id number] 2.16.84 0.1.195872.3.579.2.593 1961 Unknown [id number] 2.16.84 0.1.063745.3.579.2.593 1961 Unknown [id number] 2.16.84 0.1.285450.3.579.2.593 1961 Unknown [id number] 2.16. 840.1.562638.3.579.2.356 1961 Unknown [id number] 2.16. 840.1.974430.3.579.2.356 1961 Unknown [id number] 2.16. 840.1.015073.3.579.2.356 1961 Unknown [id number] 2.16. 840.1.695181.3.579.2.356 1961 Unknown [id number] 2.16. 840.1.156640.3.579.2.356 1961 Unknown [id number] 2.16. 840.1.174747.3.579.2.356 1961 Unknown [id number] 2.16. 840.1.995012.3.579.2.356 1961 Unknown [id number] 2.16. 840.1.145040.3.579.2.356 1961 Unknown [id number] 2.16.8 40.1.299699.3.579.2.983 1958 Medicare [id number] 1959 Unknown [id number] Private Health Insurance [id number] Unknown [id number] 2.16.8 40.1.714117.3.579.2.531 Unknown [id number] 2.16.8 40.1.942624.3.579.2.531 Social History Date Type Detail Facility Start: 01-30-2021 End: 12-27-2021 Tobacco smoking status ALIS Smoker (finding) [facility] Start: 1960 Sex Assigned At Male F [facility] Start: 06-25-2022 Tobacco smoking stat [facility] Smokes tobacco daily [facility] [employer] [facility] History of tobacco use Cigarette Smoker [employer] Start: 06-25-2022 Cigarettes smoked current (pack per day) - Reported 0.5 [employer] [facility] Start: 06-25-2022 Tobacco use and exposure Former smokeless tobacco user [employer] [facility] Start: 06-25-2022 Alcohol intake Ex-drinker (finding) [employer] [facility] Start: 1960 Sex Assigned At Not on file [employer] Start: 06-15-2022 End: 06-25-2022 Exposure to SARS-CoV-2 (event) Not sure adjust [facility] Medical Equipment Procedure Code Equipment Code Equipment Origin al Text Equipment Identifier Dates Drug-eluting coronary artery stent, [id number]-[id number] lymer-coated ()[id number] FDA Start: 01-31-2021 Drug-eluting coronary artery stent, wfq-kznnqtfqhxtxs-pf lymer-coated ()[id number] FDA Start: 01-31-2021 Femoral artery closure plug/patch, synthetic polymer ()[id number] FDA Start: 01-31-2021 Hospital Discharge instructions 06-25-2022 Discharge InstructionsAttachments Note Date & Type Note Facility 06-25-2022 Hospital Discharg e instructions Mauricio Henderson MD - 06/25/2022 4:31 PM EDT The radiologist 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 Follow-up with your primary care provider regarding so. Your blood sugar was noted at 196. Your sodium level was noted to be low. The following attachments cannot be sent through Care Everywhere.Abdominal Pain (Latvian)Nausea and Vomiting (Latvian)Hypertension (Latvian)documented in this encounter [facility] Emergency department Note 06-25-2022 Magnus Souza RN - 06/25/2022 3:29 PM EDT Note Date & Type Note Facility 06-25-[address] ent Note Dr. Henderson in room. [facility] Emergency department Note 06-25-2022 Magnus Souza RN - 06/25/2022 3:29 PM EDT Note Date & Type Note Facility 06-25-[address] ent Note Dr. Henderson in room. documented in this encounter [facility] Evaluation note Note Date & Type Note Facility Evaluation [facility] No [facility] Work Phone: Evaluation note Note Date & Type Note Facility Evaluation note Diagnosis Onset Date Angina pectoris, unstable ac caterina Diabetes type 2, uncontrolled acute Hyperlipidemia acute Hypertension acute Hypertensive emergency acute [facility] Work Phone: Evaluation note Note Date & Type Note Facility Evaluation note Diagnosis Generalized abdominal pain- Primary Abdominal pain, generalized Nausea vomiting and diarrhea Nausea with vomiting documented in this encounter [facility] History and physical note Note Date & Type Note Facility History and physical note Note Date/Time December 27, 2021 6:17am [facility] [address] [place] [address] Hospitalist H&P Signed Patient: Donovan Lindquist MR#: [id number] : 1960 Acct:[id number] Age/Sex: 61 / M Adm Date: 2 Loc: Room: [address] [place] [address] Type: ADM IN Attending Dr: Yung Whipple MD Copies to: MD Park Dior, LEG BREAKER~ HPI DATE OF EXAMINATION: 12/27/21 CHIEF COMPLAINT: chest pain HISTORY OF PRESENT ILLNESS: Patient is 61-year-old male with history of hypertension/hyperlipidemia/CAD status post CABG and PCI/active tobacco abuser who presented hospital due to severe chest pain, the patient was brought into the hospital via EMS due to the severe pain, the patient was given 324 mg of aspirin and nitro, the patient was feeling better for a little while and then his pain started back again here in the ER to the point it was so severe the patient required nitro drip, the patient was nauseous on presentation, he was also having labored breathing and seemed very anxious, EKG showed normal sinus rhythm without any concerning changes, first troponin was negative however given his presentation the patient was started on heparin drip for unstable angina. The patient has a history of noncompliance with medications however this time around he stated that he has been taking his medications since he was dischargedfrom this hospital last year after his PCI Review of Systems Review of Systems All other systems reviewed & are negative unless noted below or in HPI PMFSH Vaccinated for COVID-19?: Yes Medical History Hyperlipidemia Hypertension Myocardial infarct Surgical History (Updated 12/27/21 @ 03:43 by Rafaela Rodriguez RN) History of PTCA Hx of CABG Hx of heart artery stent Family History Other Heart disease Social History Smoking Status: Current every day smoker Tobacco Type: cigarettes Substance Use Type: None Substance Abuse Comment: HX: heroin, coccaine, 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) Meds Medications and Allergies Allergies No Known Allergies Allergy (Verified 12/27/21 03:42) Home Medications aspirin 81 mg chewable tablet (Children's Aspirin) 81 mg PO DAILY #0 tabs 02/01/21 [Rx Confirmed 12/27/21] atorvastatin 80 mg tablet 80 mg PO QPM 30 days #30 tabs 02/01/21 [Rx Confirmed 12/27/21] lisinopril 2.5 mg tablet 2.5 mg PO DAILY 30 days #30 tabs 02/01/21 [Rx Confirmed 12/27/21] metformin 500 mg tablet 500 mg PO BID #60 tabs 02/01/21 [Rx Confirmed 12/27/21] metoprolol tartrate 25 mg tablet 25 mg PO BID 30 days #60 tabs 02/01/21 [Rx Confirmed 12/27/21] ticagrelor 90 mg tablet (Brilinta) 90 mg PO BID 90 days #180 tabs 02/01/21 [Rx Confirmed 12/27/21] Exam Physical Exam Vital Signs: Temp Pulse Resp BP Pulse Ox O2 Del Method 97.2 F L 74 20 121/78 96 Room Air 12/27/21 05:31 12/27/21 05:51 12/27/21 05:51 12/27/21 05:51 12/27/21 05:51 12/27/21 05:51 Narrative: General: patient is alert and oriented, laying in bed in severe distress HEENT: head atraumatic, normocephalic, moist mucous membranes, normal nose and ears, no throat lesions, normal conjunctiva Neck: supple no masses, no lymphadenopathy CVS: regular rate and rhythm, no murmurs or gallops Respiratory: clear to auscultation bilaterally, no wheezing or crackles, symmetric expansion GI: soft, nondistended, nontender, positive bowel sounds with no organomegaly Extremity: moves all extremities, no restrictions of movements, no calf tenderness, no edema Neuro: alert and oriented x3, normal speech, normal motor function Skin: dry, intact no rashes or lesions Results Lab Results Labs: Laboratory Last Values Corrected WBC 9.0 X10E3/uL (4.1-10.5) 12/27/21 03:53 Uncorrected WBC Count 9.0 x10E3/uL (4.5-11.0) 12/27/21 03:53 RBC 4.72 x10E6/uL (3.90-5.60) 12/27/21 03:53 Hgb 14.3 g/dL (13.0-17.0) 12/27/21 03:53 Hct 42.8 % (38.8-50.0) 12/27/21 03:53 MCV 90.8 fl (83.5-101) 12/27/21 03:53 MCH 30.2 pg (27.5-35.2) 12/27/21 03:53 MCHC 33.3 g/dL (32.5-35.6) 12/27/21 03:53 RDW 13.9 % (12.0-14.8) 12/27/21 03:53 Plt Count 207 x10E3/uL (150-450) 12/27/21 03:53 MPV 7.7 fl (6.6-10.1) 12/27/21 03:53 Neut % (Auto) 55.4 % (.) 12/27/21 03:53 Lymph % (Auto) 31.8 % (.) 12/27/21 03:53 Gray % (Auto) 9.6 % (.) 12/27/21 03:53 Eos % (Auto) 1.9 % (.) 12/27/21 03:53 Baso % (Auto) 1.3 % (.) 12/27/21 03:53 Neut # (Auto) 5.0 x10E3/uL (1.8-7.7) 12/27/21 03:53 Lymph # (Auto) 2.9 x10E3/uL (1.00-4.8) 12/27/21 03:53 Gray # (Auto) 0.9 x10E3/uL (0.0-0.8) H 12/27/21 03:53 Eos # (Auto) 0.2 x10E3/uL (0.0-0.45) 12/27/21 03:53 Baso # (Auto) 0.1 x10E3/uL (0.0-0.2) 12/27/21 03:53 Nucleated RBC % (auto) 0.1 % (0-0.5) 12/27/21 03:53 PT 12.1 Seconds (9.0-12.9) 12/27/21 03:53 INR 1.1 12/27/21 03:53 APTT 27.1 Seconds (25.1-36.5) 11 03:53 PHA Creatinine Clear 114.22 12/27/21 03:53 Sodium 137 mmol/L (136-146) 12/27/21 03:53 Potassium 3.7 mmol/L (3.5-5.1) 12/27/21 03:53 Chloride 102 mmol/L (95-114) 12/27/21 03:53 Carbon Dioxide 24.0 mmol/L (22.0-30.0) 12/27/21 03:53 Anion Gap 14.7 mEq/L (6.0-15.0) 12/27/21 03:53 BUN 12 mg/dL (9-23) 12/27/21 03:53 Creatinine 0.80 mg/dL (0.64-1.27) 12/27/21 03:53 Est GFR ( Amer) > 60 mL/Min 12/27/21 03:53 Est GFR (Non-Af Amer) > 60 mL/Min 12/27/21 03:53 Glucose 161 mg/dL (70-100) H 12/27/21 03:53 Calcium 8.0 mg/dL (8.2-10.2) L 12/27/21 03:53 Troponin I High Sens 7 pg/mL (0-20) 12/27/21 03:53 B-Natriuretic Peptide 30.0 pg/mL (5-100) 12/27/21 03:53 SARS Antigen (LFIA) Negative (Negative) 12/27/21 03:53 Microbiology Results Micro: Microbiology - Results from entire visit 12/27/21 03:53 Nasal SARS Antigen (LFIA) - Final A&P - Hospitalist Assessment/Plan (1) Diabetes type 2, uncontrolled: (2) Angina pectoris, unstable: (3) Hyperlipidemia: (4) Hypertension: Plan Assessment and plan *Severe/typical chest pain concerning for unstable angina ? Admit to the floor on telemetry ? Patient was started on heparin drip and nitro drip done in the ER, will continue ? We will continue to trend troponin ? Echo in the morning ? Keep the patient n.p.o. ? Continue aspirin/atorvastatin?beta-ginette and Brilinta ? Cardiology consult *History of type 2 diabetes mellitus ? Hold his metformin and start patient on Lantus 5 mg with sliding scale insulin ? Gentle hydration with normal saline 75 mill an hour to prevent Kidney injury in case the patient gets to have a left heart cath Documented By: Yung Whipple MD 2 0613 Signed By: <Electronically signed by Yung Whipple MD> 12/27/21 0618 [facility] Work Phone: Chief Complaint and Reason for Visit Chief Complaint Headache Chief Complaint chest pain Reason for Visit Angina pectoris, uns table Diabetes type 2, uncontrolled Hyperlipidemia Hypertension Hypertensive emergency Advance Directives No Advanced Directives Records Found Advance Directive Response Recorded Date/ Time Advance Directives No October 12, 2017 3:44am Summary Purpose Family History No Family History Records Found Reason for Referral Specialty Diagnoses / Procedures Referred By Leigh bhatt Referred To Contact Procedures ECG Mauricio Henderson MD [address] [place] [address] Referral ID Status Reason Start Date Expiration Date V isits Requested Visits Authorized [id number] New Request 06/25/2022 07/20/2023 1 1 Additional Source Comments Care Teams (unrecognized sec tion and content) Team Status: Inactive Member Role Status Dates Park Green NP-C Primary Care Provider, Attend ing Provider Active Team Status: Active Member Role Status Dates Park Green NP-Isabel Primary Care Provider Active Team Status: Active Member Role Status Dates Park Green NP-C Primary Care Provider Active Vadim Guido , DO Emergency Provider Active Yung Whipple MD Admit Provider, Attending Eros leyva Active Proposal Lead Writer Relationship Specialty Start Date End Date Park Green, LEG BREAKER [address] [place] [id number] PCP - General Nurse Practitioner - Family 06/25/22 Goals (unrecognized section and content) Goals may be documented in a n alternate sectionGoals may be documented in an alternate section (unrecognized sect ion and content) No Status Records FoundNo Status Records FoundNo Status Records FoundNo Status Records Found INFORMATION SOURCE (unrecogn ized section and content) DATE CREATED AUTHOR 06/29/2021 [facility] DATE CREATED AUTHOR AUTHOR'S ORGANIZ ATION 01/01/2022 [facility] DATE CREATED AUTHOR AUTHOR'S ORGANIZ ATION 03/31/2022 [facility] DATE CREATED AUTHOR AUTHOR'S ORGANIZ ATION 06/30/2022 [facility] Reason for Visit (unrecogniz ed section and content) Reason Comments Abdominal Pain Abdominal pain since 1130 with c/o Nausea and vomiting. Scheduled Active and Recently Administ ered Medications (unrecognized section and content) Medication Order 06/23/2022 06/24/2022 06/25/2022 GI cocktail: alum/mag hydrox-simethicone(30ml)+lidocain e 2%(10ml) oral suspension 40 mL (COMPLETED) 40 mL, Oral, ONCE, 1 dose, On Sat06/25/22 at 1715 1643 (Given - Provid er: Magnus Souza, CITLALLI) iohexol (OMNIPAQUE) 350 MG/ML injection 90 mL (COMPLETED) 90 mL, Intravenous, ONCE, 1 dose, On Sat06/25/22 at 1645, Patient Weight > 250 lbs (100 ml bottle) Administer 100 ml Omnipaque 350mg/ml with GFR >59 Extravasation Risk, Radiology Procedure 1605 (Given - Radiol ogy - Provider: Abbi Spencer) Morphine sulfate (PF) injection 4 mg (COMPLETED) 4 mg, Intravenous, ONCE, 1 dose, On Sat06/25/22 at 1615 1542 (Given - Provid er: Magnus Souza, RN) Ondansetron 4mg/2ml (ZOFRAN) injection 4 mg (COMPLETED) 4 mg, Intravenous, ONCE, 1 dose, On Sat06/25/22 at 1615 1542 (Given - Provid er: Magnus Souza RN) Sodium chloride 0.9% IV solution 75 mL (COMPLETED) 75 mL, Intravenous, ONCE, 1 dose, On Sat06/25/22 at 1645, Radiology Procedure 1605 ($$New Bag$$ - Provider: Abbi Spencer)1610 (Stopped - Provider: Magnus Souza RN) FOR RECORDS PERTAINING TO PATIENTS WHO ARE OR HAVE BEEN ENROLLED IN A CHEMICAL DEPENDENCY/SUBSTANCEABUSE PROGRAM, SOME INFORMATION MAY BE OMITTED. This clinical summary was aggregated from multiple sources. Caution should be exercised in using it in the provision of clinical care. This summary normalizes information from multiple sources, and as a consequence, information in this document may materially change the coding, format and clinical context of patient data. In addition, data may be omitted in some cases. CLINICAL DECISIONS SHOULD BE BASED ON THE PRIMARY CLINICAL RECORDS. [facility] [facility]. provides no warranty or guarantee of the accuracy or completeness of information in this document.
[2024-10-19 19:12] LABS: Glucose Urine UA >=1000 mg/dL (NEGATIVE)
[2024-10-19 19:19] LABS: Cast Seen? NONE SEEN #/LPF (NONE SEEN); Crystals Seen? None Seen #/HPF (None Seen); Urine Culture Indicated YES-FRMC
--- NOTE | 2024-10-19 19:26 | CT_ITS ---
[address] [address] Patient Name: PETER LINDQUIST MRN: [id number] date: 1960 Sex: M Assigned Patient Location: ER Current Patient Location: ER Accession/Order Number: [id number] Exam Date: 10/19/2024 19:45 Report Date: 10/19/2024 20:18 At the request of: JIMMY HERNANDEZ Procedure: CT abdomen pelvis wo con CT abdomen pelvis wo con 10/19/2024 7:57 PM SIGNS AND SYMPTOMS: Right flank pain, abdominal pain, nausea and vomiting TECHNIQUE: Multidetector ct axial images of the abdomen and pelvis were obtained without IV contrast. Multiplanar reformats were performed and reviewed to further define anatomy and possible pathology. CT was performed with one or more of the following dose reduction techniques: Automated exposure control, adjustment of the mA and/or kV according to patient size, or use of iterative reconstruction technique. COMPARISON: 06/21/2020 FINDINGS: Lower Chest: Mild dependent atelectasis is noted in the lung bases. ABDOMEN: Liver: Within normal limits. Bile Ducts: Normal caliber. Gallbladder: No calcified gallstones. Normal caliber wall. Pancreas: Within normal limits. Spleen: Within normal limits. Adrenals: Within normal limits. Kidneys: There is mild perinephric fat stranding bilaterally. There is no radiodense renal stone. No hydronephrosis. Pelvis: Reproductive Organs: No pelvic masses. Ureters: Fat stranding is noted along the ureters, right greater than left. This is suspicious for an ascending urinary tract infection. Bladder: There is mild bladder wall thickening possibly relating to cystitis. Bowel: There are uncomplicated colonic diverticula. No bowel obstruction. Mesenteric Lymph Nodes: No enlarged mesenteric lymph nodes. Peritoneum: No ascites or free air, no fluid collection. Vessels: Atherosclerotic changes are noted in the abdominal aorta and its branches. Retroperitoneum: Nonspecific retroperitoneal lymph nodes are noted. These are mildly prominent. Abdominal Wall: Within normal limits. Bones: Degenerative changes are noted in the thoracolumbar spine, hips, and sacroiliac joints. There is a levoconvex curvature of the lumbar spine. CT/CT abdomen pelvis wo con IMPRESSION: There is mild bladder wall thickening possibly relating to cystitis. This is new when compared to the prior exam. Fat stranding is noted along the ureters, right greater than left. This is suspicious for an ascending urinary tract infection. This is new compared to the prior exam. Mildly prominent retroperitoneal lymph nodes are noted. These may be reactive in nature. No hydronephrosis. No renal, ureteral, or bladder stones. Additional chronic findings are noted as above. Impression dictated by: Neville Elizabeth M.D. 10/19/2024 8:18 PM Dictation Location: [place] [address] Electronically authenticated by: [id number] Y Date: 10/19/2024 20:18
[2024-10-19 19:32] LABS: Hematocrit 44.9 % (42.0-54.0); Hemoglobin 15.4 g/dL (14.0-18.0); Immature Granulocytes Abs Auto 0.04 10^3/uL (0.00-0.03); Immature Granulocytes Pct Auto 0.3 % (0.0-0.5); Lymphocytes Absolute Auto 2.1 10^3/uL (1.2-3.8); Mean Corpuscular HGB Conc 34.3 g/dL (29.9-35.2); Mean Corpuscular Hemoglobin 30.0 pg (25.9-34.0); Mean Corpuscular Volume 87.4 fL (80.0-94.0); Platelet Count 358 10^3/uL (150-450); Red Blood Count 5.14 10^6/uL (4.70-6.10); White Blood Count 13.3 10^3/uL (4.0-11.0)
[2024-10-19 19:43] LABS: Alanine Aminotransferase 28 U/L (16-63); Albumin Globulin Ratio 0.6; Albumin Level 3.3 g/dL (3.4-5.0); Alkaline Phosphatase 166 U/L (46-116); Anion Gap 16.2; Aspartate Amino Transferase 10 U/L (15-37); Blood Urea Nitrogen 15.0 mg/dL (7.0-18.0); Calcium 9.3 mg/dL (8.5-10.1); Carbon Dioxide 26.1 mmol/L (21.0-32.0); Chloride 94 mmol/L (98-107); Estimated GFR (African America >60 (>=60 mL/min/1.73m^2); Estimated GFR (Non-African Ame >60 (>=60 mL/min/1.73m^2); Globulin 5.6 g/dL; Glucose 263 mg/dL (74-106); Lipase 26.0 U/L (16.0-77.0); Potassium 4.3 mmol/L (3.5-5.1); Sodium 132 mmol/L (136-145); Total Protein 8.9 g/dL (6.4-8.2)
[2024-10-19] MEDS: 0.9 % SODIUM CHLORIDE 500 ML 1000 ML IV (19:43)
[2024-10-19] MEDS: KETOROLAC TROMETHAMINE 30 MG/ML VIAL IVP (19:44)
[2024-10-19 20:27] LABS: Lactate/Lactic Acid 1.4 mmol/L (0.4-2.0)
[2024-10-19 20:51] VITALS: BP 135/88; PULSE 82; O2SAT 97
[2024-10-19] MEDS: 0.9 % SODIUM CHLORIDE 2,190 ML 730 ML IV (22:53)
[2024-10-19 23:10] VITALS: BP 123/80; PULSE 80; O2SAT 98
[2024-10-20] VITALS (20 sets, daily range): BP systolic 137–180; BP diastolic 83–105; PULSE 71–98; TEMP 36.7–37.1; O2SAT 88–97; BMI 28.1
--- OUTSIDE RECORDS SUMMARY | 2024-10-20 00:02 | XMS_ITS | CCD ---
Author Organization [facility] Care Team Providers Care Roller Hand Name Role Phone DANE Green Primary Care [...] Care Unavailable DANE Green Primary Care Provider [phone] DO Vadim Guido Emergency Provider MD Yung Newell Admit Provider MD Yung Hurtado Attending Provider [phone] Dr. Florentino Riley Attending Unavailable Osvaldo, Dr. 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; Translations: [OTH UNDERWRITING TECHNICIAN CURRENT DRUG THERAPY] Onset: 06-08-2021 Episodic Other aftercare (1 source) [facility] (current) use of oral hypoglycemic drugs; Translations: [UNDERWRITING TECHNICIAN USE ORAL HYPOGLYCEMIC DX] Onset: 06-08-2021 Episodic Other aftercare (1 source) 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) use of antithrombotics/antip latelets; Translations: [[facility] ANTITHROMBOT/ANTIPLAT LETS] Onset: 05-30-2021 Episodic Other gastrointestinal [...] 06-25-2022 ABSOLUTE BAS 0.1 10*3/uL Normal 0.0-0.2 [facility] ABSOLUTE EOS 0.1 10*3/uL Normal 0.0-0.7 [facility] ABSOLUTE NEUTROPHIL COUNT 5.8 10*3/uL Normal 1.4-6.5 [facility] Basophils/100 WBC (Bld) 1.0 % Normal 0.0-2.0 [facility] DTYPE AUTO DIFF Normal [facility] Eosinophils/100 WBC (Bld) 0.7 % Normal 0.0-11.0 [facility] Lymphocytes (Bld) [#/Vol] 1.6 10*3/uL Normal 1.2-3.4 [facility] Lymphocytes/100 WBC (Bld) 20.3 % Normal 20.0-55.0 [facility] Monocytes (Bld) [#/Vol] 0.5 10*3/uL Normal 0.0-0.7 [facility] Monocytes/100 WBC (Bld) 6.5 % Normal 0.0-10.0 [facility] Neutrophils/100 WBC (Bld) 71.5 % Normal 37.0-75.0 [facility] Erythrocyte distribution width (RBC) [Ratio] 14.5 % Normal 11.5-14.5 [facility] Hematocrit (Bld) [Volume fraction] 46.1 % Normal 42.0-52.0 [facility] Hemoglobin (Bld) [Mass/Vol] 15.5 g/dL Normal 14.0-18.0 [facility] MCH (RBC) [Entitic mass] 29.8 pg Normal 26.0-35.0 [facility] MCHC (RBC) [Mass/Vol] 33.6 g/dL Normal 27.0-37.0 [facility] MCV (RBC) [Entitic vol] 88.5 fL Normal 80.0-100.0 [facility] Platelet mean volume (Bld) [Entitic vol] 8.0 fL Normal 7.4-11.0 [facility] Platelets (Bld) [#/Vol] 182 10*3/uL Normal 130-400 [facility] RBC (Bld) [#/Vol] 5.20 10*6/uL Normal 4.0-6.1 [facility] WBC (Bld) [#/Vol] 8.1 10*3/uL Normal 3.6-11.0 [facility] CBC, EDIF, PLATELETon 2022 ABSOLUTE BASOPHIL COUNT 0.1 10*3/uL 0.0 - 0.2 10*3/uL [facility] Basophils/100 WBC (Bld) 1.0 % 0.0 - 2.0 % [facility] Differential cell count method Nom (Bld) AUTO DIFF % [facility] Eosinophils (Bld) [#/Vol] 0.1 10*3/uL 0.0 - 0.7 10*3/uL [facility] Eosinophils/100 WBC (Bld) 0.7 % 0.0 - 11.0 % [facility] Erythrocyte distribution width (RBC) [Ratio] 14.5 % 11.5 - 14.5 % [facility] Hematocrit (Bld) [Volume fraction] 46.1 % 42.0 - 52.0 % [facility] Hemoglobin (Bld) [Mass/Vol] 15.5 g/dL [facility] Lymphocytes (Bld) [#/Vol] 1.6 10*3/uL 1.2 - 3.4 10*3/uL [facility] Lymphocytes/100 WBC (Bld) 20.3 % 20.0 - 55.0 % [facility] MCH (RBC) [Entitic mass] 29.8 pg 26.0 - 35.0 PG [facility] MCHC (RBC) [Mass/Vol] 33.6 g/dL [facility] MCV (RBC) [Entitic vol] 88.5 fL [facility] Monocytes (Bld) [#/Vol] 0.5 10*3/uL 0.0 - 0.7 10*3/uL [facility] Monocytes/100 WBC (Bld) 6.5 % 0.0 - 10.0 % [facility] Neutrophils (Bld) [#/Vol] 5.8 10*3/uL 1.4 - 6.5 10*3/uL [facility] Neutrophils/100 WBC (Bld) 71.5 % 37.0 - 75.0 % [facility] Platelet mean volume (Bld) [Entitic vol] 8.0 fL [facility] Platelets (Bld) [#/Vol] 182 10*3/uL 130 - 400 10*3/uL [facility] RBC (Bld) [#/Vol] 5.20 10*6/uL 4.0 - 6.1 10*6/uL [facility] WBC (Bld) [#/Vol] 8.1 10*3/uL 3.6 - 11.0 10*3/uL [facility] CMP FASTINGon 06-25-2022 A:G RATIO 1.4 RATIO Normal 1.3-2.2 [facility] ALBUMIN 4.2 G/dl Normal 3.5-5.0 [facility] ALP [Catalytic activity/Vol] 125 U/L Normal 38-126 [facility] ALT [Catalytic activity/Vol] 25 U/L Normal <50 [facility] AST [Catalytic activity/Vol] 24 U/L Normal 17-59 [facility] Bilirubin [Mass/Vol] 0.4 mg/dL Normal 0.2-1.3 [facility] Calcium [Mass/Vol] 8.6 mg/dL Normal 8.4-10.2 [facility] Chloride [Moles/Vol] 100 mmol/L Normal 98-107 [facility] Comment on above: Result Comment: Flory urrutia note: Triglyceride levels of 600mg/dL or higher may positively bias chloride results by approximately 2.1 mmol CO2 [Moles/Vol] 27 mmol/L Normal 22-30 [facility] Creatinine [Mass/Vol] 0.70 mg/dL Normal 0.7-1.2 [facility] EST. GFR, 147 ml/min/1.73sq.m [facility] EST. GFR,Non 122 ml/min/1.73sq.m [facility] GFR Information Average GFR for 60-6 9 years old = 85. Normal [facility] Comment on above: Result Comment: Loom Mechanic ana lilia Kidney disease, GFR = <60. Kidney failure, GFR = <15. The GFR estimate is not adjusted for extreme body surface area or acute process, nor has it been validated for women or ethnic groups other than and . Glucose [Mass/Vol] 196 mg/dL High 70-100 [facility] Comment on above: Result Comment: NORMAL <100 mg/dL PREDIABETES 101-126 mg/dL DIABETES 126 mg/dL or higher Potassium [Moles/Vol] 4.4 mmol/L Normal 3.5-5.1 [facility] Protein [Mass/Vol] 7.2 g/dL Normal 6.3-8.2 [facility] Sodium [Moles/Vol] 133 mmol/L Low 137-145 [facility] Urea nitrogen [Mass/Vol] 12 mg/dL Normal 7-20 [facility] COMPREHENSIVE METABOLIC PANE Juan Ramon 06-25-2022 Albumin [Mass/Vol] 4.2 G/dl 3.5 - 5.0 G/dl [facility] Albumin/Globulin [Mass ratio] 1.4 {ratio} [facility] ALP [Catalytic activity/Vol] 125 U/L [facility] ALT [Catalytic activity/Vol] 25 U/L NINF [facility] AST [Catalytic activity/Vol] 24 U/L [facility] Bilirubin [Mass/Vol] 0.4 mg/dL [facility] Calcium [Mass/Vol] 8.6 mg/dL [facility] Chloride [Moles/Vol] 100 mmol/L [facility] Comment on above: Please note: Triglyc eride levels of 600mg/dL or higher may positively bias chloride results by approximately 2.1 mmol CO2 [Moles/Vol] 27 mmol/L [facility] Creatinine [Mass/Vol] 0.70 mg/dL [facility] GFR COMMENT Average GFR for 60-6 9 years old = 85. [facility] Comment on above: Chronic Kidney disea se, GFR = <60. Kidney failure, GFR = <15. The GFR estimate is not adjusted for extreme body surface area or acute process, nor has it been validated for women or ethnic groups other than and . GFR/1.73 sq M.predicted among blacks MDRD (S/P/Bld) [Vol rate/Area] 147 mL/min/{1.73_m2} ml/min/1.73 sq.m [facility] GFR/1.73 sq M.predicted among non-blacks MDRD (S/P/Bld) [Vol rate/Area] 122 mL/min/{1.73_m2} ml/min/1.73 sq.m [facility] Glucose post fast [Mass/Vol] 196 mg/dL High [facility] Comment on above: NORMAL <100 mg/dL PREDIABETES 101-126 mg/dL DIABETES 126 mg/dL or higher Interpretation and review of laboratory results Abnormal [facility] Potassium [Moles/Vol] 4.4 mmol/L [facility] Protein [Mass/Vol] 7.2 g/dL [facility] Sodium [Moles/Vol] 133 mmol/L Low [facility] Urea nitrogen [Mass/Vol] 12 mg/dL [facility] CT ABDOMEN/PELVIS WITH CONTR Rashad [...] of pancreas. 3. Moderate colonic diverticulosis. Normal [facility] CT Abdomen and Pelvis W cont [...] body of pancreas. 3. Moderate colonic diverticulosis. [facility] Radiology Study observation (narrative) Conjectur CT Abdomen and Pelvis W cont rast IVOrdered By: Evelyn Gomez on 06-25-2022 [facility] Work Phone: LIPASEon 06-25-2022 Lipase [Catalytic activity/Vol] 181 U/L 23 - 300 U/L [facility] LIPASE,SERUMon 06-25-2022 LIPASE,SERUM 181 U/L Normal 23-300 [facility] No Panel Informationon 06-25 Interpretation and review of laboratory results Abnormal [facility] TROPONIN I, HIGH SENSITIVITY on 06-25-2022 TROPONIN I, HIGH SENSITIVITY 4 pg/mL Normal 0-20 [facility] Comment on above: Result Comment: Indeterminant: >12 to 100 pg/mL female >20 to 100 pg/mL male Indicative of myocardial injury. Serial sampling is recommended, a change of greater than or equal to 20 pg/mL is indicative of acute coronary syndrome. TROPONIN I, HIGH SENSITIVITY 4 pg/mL 0 - 20 pg/mL [facility] Comment on above: Indeterminant: >12 to 100 pg/mL female >20 to 100 pg/mL male Indicative of myocardial injury. Serial sampling is recommended, a change of greater than or equal to 20 pg/mL is indicative of acute coronary syndrome. [facility] URINALYSIS, MACROon 06-26-19 23 Bilirubin Ql (U) Negative NEGATIVE [facility] Clarity (U) CLEAR CLEAR [facility] Color (U) YELLOW YELLOW [facility] Glucose Test strip (U) [Mass/Vol] 500 mg/dl Abnormal NEGATIVE [facility] Hemoglobin Ql (U) Negative NEGATIVE [facility] Ketones (U) [Mass/Vol] Negative NEGAT MICHELLE mg/dl [facility] Leukocyte esterase Test strip Ql (U) Negative NEGATIVE [facility] Nitrite Ql (U) Negative NEGATIVE [facility] pH (U) 5.5 [pH] 5.0 - 7.0 [facility] Protein Ql (U) Negative NEGATIVE mg/dl [facility] Specific gravity (U) [Rel density] 1.020 1.010 - 1.025 [facility] Urobilinogen (U) [Mass/Vol] 0.2 mg/dL [facility] URINE MACROSCOPICon 06-26-19 23 Bilirubin Ql (U) Negative Normal NEGATIVE [facility] Clarity (U) CLEAR Normal CLEAR [facility] Color (U) YELLOW Normal YELLOW [facility] Glucose Ql (U) 500 mg/dl Abnormal NEGATIVE [facility] pH (U) 5.5 [pH] Normal 5.0-7.0 [facility] URINE HEMOGLOBIN Negative Normal NEGATIVE [facility] URINE KETONE Negative Normal NEGATIVE [facility] URINE LEUKOTEST Negative Normal NEGATIVE [facility] URINE NITRATES Negative Normal NEGATIVE [facility] URINE SPEC GRAVITY 1.020 Normal 1.010-1.025 [facility] URINE TOTAL PROTEIN Negative Normal NEGATIVE [facility] Urobilinogen Qn (U) 0.2 {Saloni'U}/dL Normal 0.2-1.0 [facility] URINE MICROSCOPICon 06-26-19 23 BACTERIA TRACE Abnormal NEGATIVE [facility] CASTS OCCASIONAL Abnormal NONE [facility] Comment on above: Result Comment: HYAL INE CRYSTAL NONE Normal NONE [facility] Epithelial cells LM Ql (Urine sed) 1 TO 5 Normal [facility] Mucus Ql (Urine sed) 1+ Abnormal NEGATIVE [facility] URINE COMMENT CULTURE CRITERIA NOT MET, NO CULTURE PERFORMED. Normal [facility] URINE RBC'S Negative Normal NEGATIVE [facility] URINE WBC'S 1 TO 5 Normal NEGATIVE [facility] Bacteria LM.HPF (Urine sed) [#/Area] TRACE Abnormal NEGATIVE [facility] Casts LM.LPF (Urine sed) [#/Area] OCCASIONAL Abnormal NONE /LPF [facility] Comment on above: HYALINE Crystals LM Nom (Urine sed) NONE NONE [facility] Epithelial cells LM Ql (Urine sed) 1 TO 5 /HPF [facility] Mucus Ql (Urine sed) 1+ Abnormal NEGATIVE [facility] RBC LM.HPF (Urine sed) [#/Area] Negative NEGATIVE /HPF [facility] Urine sediment comments LM Adonay (Urine sed) CULTURE CRITERIA NOT MET, NO CULTURE PERFORMED. [facility] WBC LM.HPF (Urine sed) [#/Area] 1 TO 5 NEGATIVE /HPF [facility] A1C with Estimated Average G pratima 12-28-2021 Glucose [Mass/Vol] 183 mg/dL Normal [facility] Comment on above: Result Comment: PERF ORMED BY: [facility] [address] [place] [address] PATHOLOGIST EDGE GRINDER JAYDON MATHIAS M.D. Performed By: #### B MP, CBC, PT, PTT, HS TROP, BNP #### [facility] [address] HbA1c (Bld) [Mass fraction] 8.0 % High 4.3-5.6 [facility] Comment on above: Result Comment: Incr eased risk for diabetes: 5.7 - 6.4 diabetes: >6.4 glycemic control for adults with diabetes: <7.0 Performed By: #### B MP, CBC, PT, PTT, HS TROP, BNP #### [address] Basic Metabolic Panelon 11-0 -2021 Anion gap [Moles/Vol] 10.0 mmol/L Normal 6.0-15.0 [facility] Comment on above: Performed By: #### B MP, CBC, PT, PTT, HS TROP, BNP #### [address] Calcium [Mass/Vol] 8.7 mg/dL Normal 8.2-10.2 [facility] Comment on above: Performed By: #### B MP, CBC, PT, PTT, HS TROP, BNP #### [address] Chloride [Moles/Vol] 105 mmol/L Normal 95-114 [facility] Comment on above: Performed By: #### B MP, CBC, PT, PTT, HS TROP, BNP #### [address] CO2 [Moles/Vol] 24.1 mmol/L Normal 22.0-30.0 [facility] Comment on above: Performed By: #### B MP, CBC, PT, PTT, HS TROP, BNP #### [address] Creatinine [Mass/Vol] 0.97 mg/dL Normal 0.64-1.27 [facility] Comment on above: Performed By: #### B MP, CBC, PT, PTT, HS TROP, BNP #### [address] Creatinine Clr Calc Pharmacy 83.62 Normal [facility] Comment on above: Performed By: #### B MP, CBC, PT, PTT, HS TROP, BNP #### [address] Estimated GFR ( Zaynab > 60 [facility] Comment on above: Result Comment: GFR estimated reference range: According to KDOQI guidelines, <60 ml/min/1.73m2 is sufficient to diagnose a patient with chronic kidney disease. Performed By: #### B MP, CBC, PT, PTT, HS TROP, BNP #### [facility] [address] Estimated GFR (Non- Am > 60 [facility] Comment on above: Performed By: #### B MP, CBC, PT, PTT, HS TROP, BNP #### [address] Glucose [Mass/Vol] 138 mg/dL High 70-100 [facility] Comment on above: Result Comment: [place] Glucose Reference Range is dependent on time and content of last meal. Glucose of more than 200 mg/dL in a nonstressed, ambulatory subject supports the diagnosis of Diabetes Mellitus. ADA recommended reference range Performed By: #### B MP, CBC, PT, PTT, HS TROP, BNP #### [address] Potassium [Moles/Vol] 4.1 mmol/L Normal 3.5-5.1 [facility] Comment on above: Performed By: #### B MP, CBC, PT, PTT, HS TROP, BNP #### [address] Sodium [Moles/Vol] 135 mmol/L Low 136-146 [facility] Comment on above: Performed By: #### B MP, CBC, PT, PTT, HS TROP, BNP #### [address] Urea nitrogen [Mass/Vol] 9 mg/dL Normal 9-23 [facility] Comment on above: Performed By: #### B MP, CBC, PT, PTT, HS TROP, BNP #### [address] Complete Blood Count Auto Di ffon 12-28-2021 Basophils (Bld) [#/Vol] 0.1 10*3/uL Normal 0.0-0.2 [facility] Comment on above: Result Comment: PERF ORMED BY: [place] [address] PATHOLOGIST EDGE GRINDER JAYDON MATHIAS M.D. Performed By: #### B MP, CBC, PT, PTT, HS TROP, BNP #### [address] Basophils/100 WBC (Bld) 1.3 % Normal . [facility] Comment on above: Performed By: #### B MP, CBC, PT, PTT, HS TROP, BNP #### [address] Eosinophils (Bld) [#/Vol] 0.2 10*3/uL Normal 0.0-0.45 [facility] Comment on above: Performed By: #### B MP, CBC, PT, PTT, HS TROP, BNP #### [address] Eosinophils/100 WBC (Bld) 2.0 % Normal . [facility] Comment on above: Performed By: #### B MP, CBC, PT, PTT, HS TROP, BNP #### [address] Erythrocyte distribution width (RBC) [Ratio] 13.9 % Normal 12.0-14.8 [facility] Comment on above: Performed By: #### B MP, CBC, PT, PTT, HS TROP, BNP #### [address] Hematocrit (Bld) [Volume fraction] 43.6 % Normal 38.8-50.0 [facility] Comment on above: Performed By: #### B MP, CBC, PT, PTT, HS TROP, BNP #### [address] Hemoglobin (Bld) [Mass/Vol] 14.8 g/dL Normal 13.0-17.0 [facility] Comment on above: Performed By: #### B MP, CBC, PT, PTT, HS TROP, BNP #### [address] Lymphocytes (Bld) [#/Vol] 2.2 10*3/uL Normal 1.00-4.8 [facility] Comment on above: Performed By: #### B MP, CBC, PT, PTT, HS TROP, BNP #### [address] Lymphocytes/100 WBC (Bld) 28.5 % Normal . [facility] Comment on above: Performed By: #### B MP, CBC, PT, PTT, HS TROP, BNP #### [address] MCH (RBC) [Entitic mass] 30.6 pg Normal 27.5-35.2 [facility] Comment on above: Performed By: #### B MP, CBC, PT, PTT, HS TROP, BNP #### [address] MCV (RBC) [Entitic vol] 89.9 fL Normal 83.5-101 [facility] Comment on above: Performed By: #### B MP, CBC, PT, PTT, HS TROP, BNP #### [address] Mean Corpuscular HGB Conc 34.0 g/dL Normal 32.5-35.6 [facility] Comment on above: Performed By: #### B MP, CBC, PT, PTT, HS TROP, BNP #### [address] Monocytes (Bld) [#/Vol] 0.7 10*3/uL Normal 0.0-0.8 [facility] Comment on above: Performed By: #### B MP, CBC, PT, PTT, HS TROP, BNP #### [place] [address] [place] Monocytes/100 WBC (Bld) 9.5 % Normal . [facility] Comment on above: Performed By: #### B MP, CBC, PT, PTT, HS TROP, BNP #### [address] Neutrophils (Bld) [#/Vol] 4.6 10*3/uL Normal 1.8-7.7 [facility] Comment on above: Performed By: #### B MP, CBC, PT, PTT, HS TROP, BNP #### [facility] [address] Neutrophils/100 WBC (Bld) 58.7 % Normal . [facility] Comment on above: Performed By: #### B MP, CBC, PT, PTT, HS TROP, BNP #### [address] Nucleated RBC/100 WBC (Bld) [Ratio] 0.1 % Normal 0-0.5 [facility] Comment on above: Performed By: #### B MP, CBC, PT, PTT, HS TROP, BNP #### [address] Platelet mean volume (Bld) [Entitic vol] 7.6 fL Normal 6.6-10.1 [facility] Comment on above: Performed By: #### B MP, CBC, PT, PTT, HS TROP, BNP #### [place] [address] [place] Platelets (Bld) [#/Vol] 188 10*3/uL Normal 150-450 [facility] Comment on above: Performed By: #### B MP, CBC, PT, PTT, HS TROP, BNP #### [place] [address] [place] RBC (Bld) [#/Vol] 4.85 10*6/uL Normal 3.90-5.60 [facility] Comment on above: Performed By: #### B MP, CBC, PT, PTT, HS TROP, BNP #### [place] [address] [place] WBC (Bld) [#/Vol] 7.8 10*3/uL Normal 4.5-11.0 [facility] Comment on above: Performed By: #### B MP, CBC, PT, PTT, HS TROP, BNP #### [place] [id number] [facility] ECG 12 lead ECGon 12-28-2021 ECG 12 lead ECG [facility] [address] [place] [address] Electrocardiograph Report Signed Patient: Donovan Lindquist MR#: [id number] [birth year] : 1960 Acct:[id number] Age/Sex: 61 / M ADM Date: 12/27/21 Loc: Room: [address] [place] [address] Type: DIS IN Attending Dr: Bridget Mosquera [...] no longer present Confirmed by HANSEL AMAYA [facility], DILMA ([id number]) on 12/28/2021 2:07:33 PM Referred By: Electronically Signed By:DILMA BATRES MD [facility] Transcribed By: MUS Signed By Dilma Batres MD, FACC 12/28/21 1407 Normal [facility] Glucose Poct Glucometerson 1 02-27-2021 Commemt1 Glu2: Cleaned Meter Normal [facility] Comment on above: Result Comment: PERF ORMED BY: [place] [address] PATHOLOGIST EDGE GRINDER JAYDON MATHIAS M.D. Performed By: #### G LULS #### Point of Care testing , Glucose [Mass/Vol] 252 mg/dL Normal [facility] Comment on above: Result Comment: [place] om Glucose Reference Range is dependent on time and content of last meal. Glucose of more than 200 mg/dL in a nonstressed, ambulatory subject supports the diagnosis of Diabetes Mellitus. Performed By: #### G LULS #### Point of Care testing , Commemt1 Glu2: Cleaned Meter Normal [facility] Comment on above: Result Comment: PERF ORMED BY: [facility] [address] [place] [address] PATHOLOGIST EDGE GRINDER JAYDON MATHIAS M.D. Performed By: #### G LULS #### Point of Care testing , Glucose [Mass/Vol] 136 mg/dL Normal [facility] Comment on above: Result Comment: [place] om Glucose Reference Range is dependent on time and content of last meal. Glucose of more than 200 mg/dL in a nonstressed, ambulatory subject supports the diagnosis of Diabetes Mellitus. Performed By: #### G LULS #### Point of Care testing , Lipid Panelon 12-28-2021 Cholesterol [Mass/Vol] 248 mg/dL High 140-200 [facility] Comment on above: Result Comment: Chol less than 200 mg/dl low risk Chol 201-239 mg/dl borderline risk Chol 240 mg/dl and greater high risk Performed By: #### B MP, CBC, PT, PTT, HS TROP, BNP #### [facility] [address] [place] [id number] [facility] Cholesterol in HDL [Mass/Vol] 29 mg/dL Normal 29-71 [facility] Comment on above: Result Comment: HDL CHOL ATP-III CLASSIFICATION Cardiovascular Risk HDL > or equal to 60 mg/dL LOW HDL < 40 mg/dL HIGH Performed By: #### B MP, CBC, PT, PTT, HS TROP, BNP #### [facility] [address] [place] [id number] [facility] Cholesterol.total/Chol esterol in HDL [Mass ratio] 8.6 {ratio} Normal <5.0 [facility] Comment on above: Result Comment: PERF ORMED BY: [facility] [address] [place] [address] PATHOLOGIST EDGE GRINDER JAYDON MATHIAS M.D. Performed By: #### B MP, CBC, PT, PTT, HS TROP, BNP #### [facility] [address] LDL Cholesterol,Calculated 147 mg/dL High 0-100 [facility] Comment on above: Result Comment: LDL ATP III CLASSIFICATION LDL less than 100 mg/dL Optimal LDL 100-129 mg/dL Near or above optimal LDL 130-159 mg/dL Borderline high LDL 160-189 mg/dL High LDL greater than 189 mg/dL Very high Performed By: #### B MP, CBC, PT, PTT, HS TROP, BNP #### [facility] [address] Triglyceride w/Reflex 359 mg/dL High 35-149 [facility] Comment on above: Result Comment: TRIG ATP III CLASSIFICATION TRIG less than 150 mg/dL Normal TRIG 150-199 mg/dL Borderline high TRIG 200-500 mg/dL High TRIG greater than 500 mg/dL Very high Standard traceable to the Center for Disease Conrtrol and Prevention (CDC) test method. Performed By: #### B MP, CBC, PT, PTT, HS TROP, BNP #### [facility] [address] VLDL CHOLESTEROL 71 mg/dL Normal [facility] Comment on above: Performed By: #### B MP, CBC, PT, PTT, HS TROP, BNP #### [facility] [address] [place] [address] [place] Magnesiumon 12-28-2021 Magnesium [Mass/Vol] 1.9 mg/dL Normal 1.6-2.6 [facility] Comment on above: Performed By: #### B MP, CBC, PT, PTT, HS TROP, BNP #### [facility] [address] [place] [address] [place] Troponin I High Sensitivityo n 12-28-2021 Troponin I High Sensitivity 927 pg/mL Off scale high 0-20 [facility] Comment on above: Result Comment: Resu lts called at 0653 on 12/28/21 PERFORMED BY: [address] [address] PATHOLOGIST EDGE GRINDER JAYDON MATHIAS M.D. Performed By: #### H S TROP #### [address] Activated partial thrombopla stin time (aPTT) in platelet poor plasma by coagulation aOrdered By: Vadim Guido on 12-27-2021 aPTT Coag (PPP) [Time] 27.1 s 25.1-36.5 [facility] B-Type Natriuretic Peptideon 12-27-2021 Natriuretic peptide B (Bld) [Mass/Vol] 30.0 pg/mL Normal 5-100 [facility] Comment on above: Result Comment: PERF ORMED BY: [place] [address] PATHOLOGIST EDGE GRINDER JAYDON MATHIAS M.D. Performed By: #### B MP, CBC, PT, PTT, HS TROP, BNP #### [address] Basic Metabolic Panelon Anion gap [Moles/Vol] 14.7 mmol/L Normal 6.0-15.0 [facility] Comment on above: Performed By: #### B MP, CBC, PT, PTT, HS TROP, BNP #### [address] Calcium [Mass/Vol] 8.0 mg/dL Low 8.2-10.2 [facility] Comment on above: Performed By: #### B MP, CBC, PT, PTT, HS TROP, BNP #### [address] Chloride [Moles/Vol] 102 mmol/L Normal 95-114 [facility] Comment on above: Performed By: #### B MP, CBC, PT, PTT, HS TROP, BNP #### [address] CO2 [Moles/Vol] 24.0 mmol/L Normal 22.0-30.0 [facility] Comment on above: Performed By: #### B MP, CBC, PT, PTT, HS TROP, BNP #### [facility] [address] Creatinine [Mass/Vol] 0.80 mg/dL Normal 0.64-1.27 [facility] Comment on above: Performed By: #### B MP, CBC, PT, PTT, HS TROP, BNP #### [address] Creatinine Clr Calc Pharmacy 114.22 [facility] Comment on above: Result Comment: PERF ORMED BY: [place] [address] PATHOLOGIST EDGE GRINDER JAYDON MATHIAS M.D. Performed By: #### B MP, CBC, PT, PTT, HS TROP, BNP #### [address] Estimated GFR ( Zaynab > 60 [facility] Comment on above: Result Comment: GFR estimated reference range: According to KDOQI guidelines, <60 ml/min/1.73m2 is sufficient to diagnose a patient with chronic kidney disease. Performed By: #### B MP, CBC, PT, PTT, HS TROP, BNP #### [address] Estimated GFR (Non- Am > 60 [facility] Comment on above: Performed By: #### B MP, CBC, PT, PTT, HS TROP, BNP #### [address] Glucose [Mass/Vol] 161 mg/dL High 70-100 [facility] Comment on above: Result Comment: Lysite om Glucose Reference Range is dependent on time and content of last meal. Glucose of more than 200 mg/dL in a nonstressed, ambulatory subject supports the diagnosis of Diabetes Mellitus. ADA recommended reference range Performed By: #### B MP, CBC, PT, PTT, HS TROP, BNP #### [address] Potassium [Moles/Vol] 3.7 mmol/L Normal 3.5-5.1 [facility] Comment on above: Performed By: #### B MP, CBC, PT, PTT, HS TROP, BNP #### [facility] [address] Sodium [Moles/Vol] 137 mmol/L Normal 136-146 [facility] Comment on above: Performed By: #### B MP, CBC, PT, PTT, HS TROP, BNP #### [facility] [address] Urea nitrogen [Mass/Vol] 12 mg/dL Normal 9-23 [facility] Comment on above: Performed By: #### B MP, CBC, PT, PTT, HS TROP, BNP #### [facility] [address] Basophils Auto (Bld) [#/Vol] Ordered By: Vadim Guido on 12-27-2021 Basophils (Bld) [#/Vol] 0.1 10*3/uL 0.0-0.2 [facility] Basophils/100 WBC Auto (Bld) Ordered By: Vadim Guido on 12-27-2021 Basophils/100 WBC (Bld) 1.3 % . [facility] COVID-19 Antigenon 2 COVID-19 Antigen Healthcare Worker?: [...] developed and its performance characteristic determined by [employer] and validated at [facility]. This test has not been FDA cleared [...] for SARS Antigen by DAQUAN PERFORMED BY: [place] [address] PATHOLOGIST EDGE GRINDER JAYDON MATHIAS M.D. Normal [facility] Comment on above: Performed By: #### B MP, CBC, PT, PTT, HS TROP, BNP #### [address] [facility] SARS-CoV-2 (COVID-19) RNA LELIA+probe Ql (Unsp spec) Negative Normal Negative [facility] Comment on above: Order Comment: Healt hcare Worker?: N Result Comment: Testing for SARS-CoV-2 by RT-PCR This test was developed and its performance characteristics determined by [employer], [employer]) and validated at the [facility]. This test has not been FDA cleared [...] is terminated or revoked sooner. PERFORMED BY: [place] [address] PATHOLOGIST EDGE GRINDER JAYDON MATHIAS M.D. Performed By: #### B MP, CBC, PT, PTT, HS TROP, BNP #### [address] COVID-19 SOFIAOrdered By: Marco Guido on 12-27-2021 SARS-CoV+SARS-CoV-2 (COVID-19) Ag IA.rapid Ql (Resp) Negative Negative [facility] Comment on above: This is a duplicate Natali SARS Antigen (DAQUAN) result to be used for statistical tracking purpose only. Complete Blood Count Auto Di ffon 12-27-2021 Basophils (Bld) [#/Vol] 0.1 10*3/uL Normal 0.0-0.2 [facility] Comment on above: Result Comment: PERF ORMED BY: [place] [address] PATHOLOGIST EDGE GRINDER JAYDON MATHIAS M.D. Performed By: #### B MP, CBC, PT, PTT, HS TROP, BNP #### [address] Basophils/100 WBC (Bld) 1.3 % Normal . [facility] Comment on above: Performed By: #### B MP, CBC, PT, PTT, HS TROP, BNP #### [address] Eosinophils (Bld) [#/Vol] 0.2 10*3/uL Normal 0.0-0.45 [facility] Comment on above: Performed By: #### B MP, CBC, PT, PTT, HS TROP, BNP #### [address] Eosinophils/100 WBC (Bld) 1.9 % Normal . [facility] Comment on above: Performed By: #### B MP, CBC, PT, PTT, HS TROP, BNP #### [address] Erythrocyte distribution width (RBC) [Ratio] 13.9 % Normal 12.0-14.8 [facility] Comment on above: Performed By: #### B MP, CBC, PT, PTT, HS TROP, BNP #### [address] Hematocrit (Bld) [Volume fraction] 42.8 % Normal 38.8-50.0 [facility] Comment on above: Performed By: #### B MP, CBC, PT, PTT, HS TROP, BNP #### [address] Hemoglobin (Bld) [Mass/Vol] 14.3 g/dL Normal 13.0-17.0 [facility] Comment on above: Performed By: #### B MP, CBC, PT, PTT, HS TROP, BNP #### [address] Lymphocytes (Bld) [#/Vol] 2.9 10*3/uL Normal 1.00-4.8 [facility] Comment on above: Performed By: #### B MP, CBC, PT, PTT, HS TROP, BNP #### [address] Lymphocytes/100 WBC (Bld) 31.8 % Normal . [facility] Comment on above: Performed By: #### B MP, CBC, PT, PTT, HS TROP, BNP #### [address] MCH (RBC) [Entitic mass] 30.2 pg Normal 27.5-35.2 [facility] Comment on above: Performed By: #### B MP, CBC, PT, PTT, HS TROP, BNP #### [address] MCV (RBC) [Entitic vol] 90.8 fL Normal 83.5-101 [facility] Comment on above: Performed By: #### B MP, CBC, PT, PTT, HS TROP, BNP #### [address] Mean Corpuscular HGB Conc 33.3 g/dL Normal 32.5-35.6 [facility] Comment on above: Performed By: #### B MP, CBC, PT, PTT, HS TROP, BNP #### [address] Monocytes (Bld) [#/Vol] 0.9 10*3/uL High 0.0-0.8 [facility] Comment on above: Performed By: #### B MP, CBC, PT, PTT, HS TROP, BNP #### [address] Monocytes/100 WBC (Bld) 9.6 % Normal . [facility] Comment on above: Performed By: #### B MP, CBC, PT, PTT, HS TROP, BNP #### [address] Neutrophils (Bld) [#/Vol] 5.0 10*3/uL Normal 1.8-7.7 [facility] Comment on above: Performed By: #### B MP, CBC, PT, PTT, HS TROP, BNP #### [address] Neutrophils/100 WBC (Bld) 55.4 % Normal . [facility] Comment on above: Performed By: #### B MP, CBC, PT, PTT, HS TROP, BNP #### [address] Nucleated RBC/100 WBC (Bld) [Ratio] 0.1 % Normal 0-0.5 [facility] Comment on above: Performed By: #### B MP, CBC, PT, PTT, HS TROP, BNP #### [address] Platelet mean volume (Bld) [Entitic vol] 7.7 fL Normal 6.6-10.1 [facility] Comment on above: Performed By: #### B MP, CBC, PT, PTT, HS TROP, BNP #### [address] [place] [address] [place] Platelets (Bld) [#/Vol] 207 10*3/uL Normal 150-450 [facility] Comment on above: Performed By: #### B MP, CBC, PT, PTT, HS TROP, BNP #### [facility] [address] RBC (Bld) [#/Vol] 4.72 10*6/uL Normal 3.90-5.60 [facility] Comment on above: Performed By: #### B MP, CBC, PT, PTT, HS TROP, BNP #### [facility] [address] WBC (Bld) [#/Vol] 9.0 10*3/uL Normal 4.5-11.0 [facility] Comment on above: Performed By: #### B MP, CBC, PT, PTT, HS TROP, BNP #### [facility] [address] Creatinine and Glomerular fi ltration rate.predicted panel (S/P/Bld)Ordered By: Vadim Guido on 12-27-2021 Creatinine [Mass/Vol] 0.80 mg/dL 0.64-1.27 [facility] ECG 12 lead ECGon 12-27-2021 ECG 12 lead ECG [facility] [place] [address] [place] [address] Electrocardiograph Report Signed Patient: Donovan Lindquist MR#: [id number] 33 : 1960 Acct:[id number] Age/Sex: 61 / M ADM Date: 12/27/21 Loc: Room: [address] [place] [address] Type: DIS IN Attending Dr: Bridget Mosquera [...] sinus rhythm Confirmed by Vadim Guido DO ([id number]) on 12/27/2021 6:25:54 AM Referred By: Electronically Signed By:Vadim Guido DO Transcribed By: MUS Signed By Vadim Guido DO [id number] Normal [facility] Eosinophils Auto (Bld) [#/Vo l]Ordered By: Vadim Guido on 12-27-2021 Eosinophils (Bld) [#/Vol] 0.2 10*3/uL 0.0-0.45 [facility] Eosinophils/100 WBC Auto (Bl d)Ordered By: Vadim Guido on 12-27-2021 Eosinophils/100 WBC (Bld) 1.9 % . [facility] Erythrocyte distribution wid th Auto (RBC) [Ratio]Ordered By: Vadim Guido on 12-27-2021 Erythrocyte distribution width (RBC) [Ratio] 13.9 % 12.0-14.8 [facility] Estimated glomerular filtrat ion rate (GFR) non- AmericanOrdered By: Vadim Guido on 12-27-2021 GFR/1.73 sq M.predicted among non-blacks MDRD (S/P/Bld) [Vol rate/Area] > 60 mL/Min [facility] Glucose Poct Glucometerson 1 02-26-2021 Glucose [Mass/Vol] 192 mg/dL Normal [facility] Comment on above: Result Comment: [facility] Glucose Reference Range is dependent on time and content of last meal. Glucose of more than 200 mg/dL in a nonstressed, ambulatory subject supports the diagnosis of Diabetes Mellitus. PERFORMED BY: [place] [address] PATHOLOGIST EDGE GRINDER JAYDON MATHIAS M.D. Performed By: #### B MP, CBC, PT, PTT, HS TROP, BNP #### [address] Commemt1 Glu2: Cleaned Meter Normal [facility] Comment on above: Result Comment: PERF ORMED BY: [facility] [address] [place] [address] PATHOLOGIST EDGE GRINDER JAYDON MATHIAS M.D. Performed By: #### B MP, CBC, PT, PTT, HS TROP, BNP #### [address] Glucose [Mass/Vol] 121 mg/dL Normal [facility] Comment on above: Result Comment: Lysite om Glucose Reference Range is dependent on time and content of last meal. Glucose of more than 200 mg/dL in a nonstressed, ambulatory subject supports the diagnosis of Diabetes Mellitus. Performed By: #### B MP, CBC, PT, PTT, HS TROP, BNP #### [address] Commemt1 Glu2: Cleaned Meter [facility] Comment on above: Result Comment: PERF ORMED BY: [place] [address] PATHOLOGIST EDGE GRINDER JAYDON MATHIAS M.D. Performed By: #### B MP, CBC, PT, PTT, HS TROP, BNP #### [address] Glucose [Mass/Vol] 162 mg/dL Normal [facility] Comment on above: Result Comment: Lysite om Glucose Reference Range is dependent on time and content of last meal. Glucose of more than 200 mg/dL in a nonstressed, ambulatory subject supports the diagnosis of Diabetes Mellitus. Performed By: #### B MP, CBC, PT, PTT, HS TROP, BNP #### [address] Commemt1 Glu2: Cleaned Meter [facility] Comment on above: Result Comment: PERF ORMED BY: [place] [address] PATHOLOGIST EDGE GRINDER JAYDON MATHIAS M.D. Performed By: #### G LULS #### Point of Care testing , Glucose [Mass/Vol] 193 mg/dL Normal [facility] Comment on above: Result Comment: Lysite om Glucose Reference Range is dependent on time and content of last meal. Glucose of more than 200 mg/dL in a nonstressed, ambulatory subject supports the diagnosis of Diabetes Mellitus. Performed By: #### G LUISA #### Point of Care testing , Hematocrit Auto (Bld) [Volum e fraction]Ordered By: Vadim Guido on 12-27-2021 Hematocrit (Bld) [Volume fraction] 42.8 % 38.8-50.0 [facility] Hemoglobin [Mass/volume] in BloodOrdered By: Vadim Guido on 12-27-2021 Hemoglobin (Bld) [Mass/Vol] 14.3 g/dL 13.0-17.0 [facility] Laboratory - Chemistry and C hemistry - challengeOrdered By: Vadim Guido on 12-27-2021 Natriuretic peptide B (Bld) [Mass/Vol] 30.0 pg/mL 5-100 [facility] Laboratory - CoagulationOrde red By: Vadim Guido on 12-27-2021 PT Coag (PPP) [Time] 12.1 s 9.0-12.9 [facility] Laboratory - Hematology and Cell countsOrdered By: Vadim Guido on 12-27-2021 Nucleated RBC/100 WBC (Bld) [Ratio] 0.1 % 0-0.5 [facility] Leukocytes [#/volume] in Blo od by Automated countOrdered By: Vadim Guido on 12-27-2021 WBC (Bld) [#/Vol] 9.0 10*3/uL 4.5-11.0 [facility] Lymphocytes Auto (Bld) [#/Vo l]Ordered By: Vadim Guido on 12-27-2021 Lymphocytes (Bld) [#/Vol] 2.9 10*3/uL 1.00-4.8 [facility] Lymphocytes/100 WBC Auto (Bl d)Ordered By: Vadim Guido on 12-27-2021 Lymphocytes/100 WBC (Bld) 31.8 % . [facility] MCH Auto (RBC) [Entitic mass ]Ordered By: Vadim Guido on 12-27-2021 MCH (RBC) [Entitic mass] 30.2 pg 27.5-35.2 [facility] MCHC Auto (RBC) [Mass/Vol]Or dered By: Vadim Guido on 12-27-2021 MCHC (RBC) [Mass/Vol] 33.3 g/dL 32.5-35.6 [facility] MCV Auto (RBC) [Entitic vol] Ordered By: Vadim Guido on 12-27-2021 MCV (RBC) [Entitic vol] 90.8 fL 83.5-101 [facility] Monocytes Auto (Bld) [#/Vol] Ordered By: Vadim Guido on 12-27-2021 Monocytes (Bld) [#/Vol] 0.9 10*3/uL 0.0-0.8 [facility] Monocytes/100 WBC Auto (Bld) Ordered By: Vadim Guido on 12-27-2021 Monocytes/100 WBC (Bld) 9.6 % . [facility] Neutrophils Auto (Bld) [#/Vo l]Ordered By: Vadim Guido on 12-27-2021 Neutrophils (Bld) [#/Vol] 5.0 10*3/uL 1.8-7.7 [facility] Neutrophils/100 WBC Auto (Bl d)Ordered By: Vadim Guido on 12-27-2021 Neutrophils/100 WBC (Bld) 55.4 % . [facility] No Panel InformationOrdered By: Vadim Guido on 12-27-2021 Estimated GFR () > 60 mL/Min [facility] Comment on above: GFR estimated refere nce range: According to KDOQI guidelines, <60 ml/min/1.73m2 is sufficient to diagnose a patient with chronic kidney disease. Pharmacy Creatinine Clearance (Chem 114.22 [facility] SARS Antigen (LFIA) [facility] Partial Thromboplastin Timeo n 12-27-2021 aPTT Coag (Bld) [Time] 27.1 s Normal 25.1-36.5 [facility] Comment on above: Result Comment: PERF ORMED BY: [facility] [address] [place] [address] PATHOLOGIST EDGE GRINDER JAYDON MATHIAS M.D. Performed By: #### B MP, CBC, PT, PTT, HS TROP, BNP #### [facility] [address] Platelet mean volume Auto (B ld) [Entitic vol]Ordered By: Vadim Guido on 12-27-2021 Platelet mean volume (Bld) [Entitic vol] 7.7 fL 6.6-10.1 [facility] Platelet poor plasma interna tional normalized ratio (INR) by coagulation assay (relatOrdered By: Vadim Guido on 12-27-2021 INR Coag (PPP) [Relative time] 1.1 {INR} [facility] Comment on above: INR Therapeutic Rang e [...] 12-27-2021 Platelets (Bld) [#/Vol] 207 10*3/uL 150-450 [facility] Prothrombin Time INRon 12-27 INR Coag (PPP) [Relative time] 1.1 {INR} Normal [facility] Comment on above: Result Comment: INR Therapeutic [...] CBC, PT, PTT, HS TROP, BNP #### [facility] [address] PT Coag (PPP) [Time] 12.1 s Normal 9.0-12.9 [facility] Comment on above: Performed By: #### B MP, CBC, PT, PTT, HS TROP, BNP #### [facility] [address] [place] [id number] [facility] RBC Auto (Bld) [#/Vol]Ordere d By: Vadim Guido on 12-27-2021 RBC (Bld) [#/Vol] 4.72 10*6/uL 3.90-5.60 [facility] Serum or plasma anion gap de terminationOrdered By: Vadim Guido on 12-27-2021 Anion gap [Moles/Vol] 14.7 mmol/L 6.0-15.0 [facility] Serum or plasma calcium maria [place] car[place] urement (mass/volume)Ordered By: Vadim Guido on 12-27-2021 Calcium [Mass/Vol] 8.0 mg/dL 8.2-10.2 [facility] Serum or plasma chloride [place] surement (moles/volume)Ordered By: Vadim Guido on 12-27-2021 Chloride [Moles/Vol] 102 mmol/L 95-114 [facility] Serum or plasma glucose maria [place] urement (mass/volume)Ordered By: Vadim Guido on 12-27-2021 Glucose [Mass/Vol] 161 mg/dL 70-100 [facility] Comment on above: ADA recommended refe rence rangeRandom Glucose Reference Range is dependent on time and content of last meal. Glucose of more than 200 mg/dL in a nonstressed, ambulatory subject supports the diagnosis of Diabetes Mellitus. Serum or plasma potassium me asurement (moles/volume)Ordered By: Vadim Guido on 12-27-2021 Potassium [Moles/Vol] 3.7 mmol/L 3.5-5.1 [facility] Serum or plasma sodium measu rement (moles/volume)Ordered By: Vadim Guido on 12-27-2021 Sodium [Moles/Vol] 137 mmol/L 136-146 [facility] Serum or plasma total carbon dioxide measurement (moles/volume)Ordered By: Vadim Guido on 12-27-2021 CO2 [Moles/Vol] 24.0 mmol/L 22.0-30.0 [facility] Serum or plasma urea nitroge n measurement (mass/volume)Ordered By: Vadim Guido on 12-27-2021 Urea nitrogen [Mass/Vol] 12 mg/dL 11-17 [facility] Natali Ag Negativeon 12-28-19 Natali Ag Negative Negative Normal Negative [facility] Comment on above: Result Comment: This is a duplicate Natali SARS Antigen (DAQUAN) result to be used for statistical tracking purpose only. PERFORMED BY: [place] [address] PATHOLOGIST EDGE GRINDER JAYDON MATHIAS M.D. Performed By: #### B MP, CBC, PT, PTT, HS TROP, BNP #### [facility] [address] [place] [address] [place] Troponin I High Sensitivityo n 12-27-2021 Troponin I High Sensitivity 1118 pg/mL Off scale high 0-20 [facility] Comment on above: Order Comment: per c eddie nurse ney said to hold off on the PTT, and only draw the trop Result Comment: Resu lts called at 1322 on 12/27/21 PERFORMED BY: [place] [address] PATHOLOGIST EDGE GRINDER JAYDON MATHIAS M.D. Performed By: #### B MP, CBC, PT, PTT, HS TROP, BNP #### [facility] [address] [place] [id number] [facility] Troponin I High Sensitivity 528 pg/mL Off scale high 0-20 [facility] Comment on above: Result Comment: Resu lts called at 1029 on 12/27/21 PERFORMED BY: [place] [id number] PATHOLOGIST EDGE GRINDER JAYDON MATHIAS M.D. Performed By: #### B MP, CBC, PT, PTT, HS TROP, BNP #### [facility] [address] [place] [address] [place] Troponin I High Sensitivity 199 pg/mL Off scale high 0-20 [facility] Comment on above: Result Comment: Resu lts called at 0842 on 12/27/21 PERFORMED BY: [address] [address] PATHOLOGIST EDGE GRINDER JAYDON MATHIAS M.D. Performed By: #### B MP, CBC, PT, PTT, HS TROP, BNP #### [place] [id number] [facility] Troponin I High Sensitivity 7 pg/mL Normal 0-20 [facility] Comment on above: Result Comment: PERF ORMED BY: [address] [place] [address] PATHOLOGIST EDGE GRINDER JAYDON MATHIAS M.D. Performed By: #### B MP, CBC, PT, PTT, HS TROP, BNP #### [address] Troponin I.cardiac [Mass/vol ume] in Serum or Plasma by High sensitivity methodOrdered By: Vadim Guido on 12-27-2021 Troponin I.cardiac High sensitivity method [Mass/Vol] 7 pg/mL 0-20 [facility] XR chest 1V portableon 12-27 XR chest 1V portable [facility] [place] [address] [place] [address] XRay Report Signed Patient: Donovan Lindquist MR#: [id number] 33 : 1960 Acct:[id number] Age/Sex: 61 / M ADM Date: 12/27/21 Loc: Room: [address] [place] [address] Type: ADM IN Attending Dr: Levi Ramos [...] James Elizabeth M.D.12/27/2021 9:35 AM Dictation Location: [place] [address] Transcribed By: [facility] 12/27/21934 Dictated By: James Elizabeth II, MD 12/27/21932 Signed By: 12/27/2135 [facility] MR head/brain wo conon 06-14 MR head/brain wo con [facility] [place] [address] MRI Report Signed Patient: Donovan Lindquist MR#: [id number] 33 : 1960 Acct:[id number] Age/Sex: 61 / M ADM Date: 06/14/21 Loc: Room: Type: [facility] Attending Dr: Park Green WAX PUMPER-C Ordering Provider: Park Green CNP Date of [...] James Elizabeth M.D.06/14/2021 3:50 PM Dictation Location: [place] [address] Transcribed By: [facility] 06/14/21 1550 Dictated By: James Elizabeth II, MD 06/14/21 1545 Signed By: 06/14/21 1550 [facility] ACETAMINOPHENon 06-02-2021 Acetaminophen [Mass/Vol] ug/mL Normal 10.0-30.0 [facility] Comment on above: Performed By: #### S EDR #### [facility] [address] [place] [address] Dr. Ariana Pimentel CARDIAC JAMES 3-6on 2 CK [Catalytic activity/Vol] 194 U/L Critically high 55-170 [facility] Comment on above: Performed By: #### C MREP #### [facility] [address] [place] [address] Dr. Ariana Pimentel CK.MB [Mass/Vol] 1.77 ng/mL Normal <=2.37 [facility] Comment on above: Performed By: #### C MREP #### [facility] [address] [place] [address] Dr. Ariana Pimentel HSTROP 10.7 pg/mL Normal 4.0-42.2 [facility] Comment on above: Result Comment: CUT- OFF POINTS HAVE BEEN ESTABLISHED BASED ON THE FOURTH UNIVERSAL DEFINITIONS OF MYOCARDIAL INFARCTION. THE UPPER REFERENCE LIMIT (URL) OF TROPONIN, DEFINED THE 99TH PERCENTILE OF cTnI DISTRIBUTION IN A REFERENCE POPULATION, HAS BEEN CONFIRMED THE DECISION THRESHOLD FOR ME DIAGNOSIS. Performed By: #### C MREP #### [facility] [address] [place] [address] Dr. Ariana Pimentel CARDIAC JAMES ADMITon 022 CK [Catalytic activity/Vol] 193 U/L Critically high 55-170 [facility] Comment on above: Performed By: #### S EDR #### [facility] [address] [place] [address] Dr. Ariana Pimentel CK.MB [Mass/Vol] 1.67 ng/mL Normal <=2.37 [facility] Comment on above: Performed By: #### S EDR #### [facility] [address] [place] [address] Dr. Ariana Pimentel HSTROP 8.8 pg/mL Normal 4.0-42.2 [facility] Comment on above: Result Comment: CUT- OFF POINTS HAVE BEEN ESTABLISHED BASED ON THE FOURTH UNIVERSAL DEFINITIONS OF MYOCARDIAL INFARCTION. THE UPPER REFERENCE LIMIT (URL) OF TROPONIN, DEFINED THE 99TH PERCENTILE OF cTnI DISTRIBUTION IN A REFERENCE POPULATION, HAS BEEN CONFIRMED THE DECISION THRESHOLD FOR ME DIAGNOSIS. Performed By: #### S EDR #### [facility] [address] [place] [address] Dr. Ariana Pimentel MARBELLA 49.0 ng/mL Normal <=121.0 [facility] Comment on above: Performed By: #### S EDR #### [facility] [address] [place] [address] Dr. Ariana Pimentel CBC AUTO DIFFon 06-02-2021 BASO # 0.1 103/ul Normal 0.0-0.1 [facility] Comment on above: Performed By: #### C RP, CMP #### [facility] [address] [place] [address] Dr. Ariana Pimentel Basophils/100 WBC (Bld) 1.1 % Normal 0.2-2.0 [facility] Comment on above: Performed By: #### C RP, CMP #### [facility] [address] [place] [address] Dr. Ariana Pimentel EO # 0.2 103/ul Normal 0.0-0.7 [facility] Comment on above: Performed By: #### C RP, CMP #### [facility] [address] [place] [address] Dr. Ariana Pimentel Eosinophils/100 WBC (Bld) 1.6 % Normal 0.9-7.0 [facility] Comment on above: Performed By: #### C RP, CMP #### [facility] [address] [place] [address] Dr. Ariana Pimentel Erythrocyte distribution width (RBC) [Ratio] 14.0 % Normal 11.0-15.0 [facility] Comment on above: Performed By: #### C RP, CMP #### [facility] [address] [place] [address] Dr. Ariana Pimentel Hematocrit (Bld) [Volume fraction] 42.2 % Normal 42.0-54.0 [facility] Comment on above: Performed By: #### C RP, CMP #### [facility] [address] [place] [address] Dr. Ariana Pimentel Hemoglobin (Bld) [Mass/Vol] 14.5 g/dL Normal 14.0-18.0 [facility] Comment on above: Performed By: #### C RP, CMP #### [facility] [address] [place] [address] Dr. Ariana Pimentel IG # 0.06 10e3/ul Critically high 0.00-0.03 [facility] Comment on above: Performed By: #### C RP, CMP #### [facility] [address] [place] [address] Dr. Ariana Pimentel IG % 0.6 % Critically high 0.0-0.5 [facility] Comment on above: Performed By: #### C RP, CMP #### [facility] [address] [place] [address] Dr. Ariana Pimentel LYMPH # 2.6 103/ul Normal 1.2-3.8 [facility] Comment on above: Performed By: #### C RP, CMP #### [facility] [address] [place] [address] Dr. Ariana Pimentel Lymphocytes/100 WBC (Bld) 27.2 % Normal 20.5-60.0 [facility] Comment on above: Performed By: #### C RP, CMP #### [facility] [address] [place] [address] Dr. Ariana Pimentel MANUAL DIFF REQ NO Normal [facility] Comment on above: Performed By: #### C RP, CMP #### [facility] [address] [place] [address] Dr. Ariana Pimentel MCH (RBC) [Entitic mass] 31.0 pg Normal 25.9-34.0 [facility] Comment on above: Performed By: #### C RP, CMP #### [facility] [address] [address] [address] Ariana Pimentel MCHC (RBC) [Mass/Vol] 34.4 g/dL Normal 29.9-35.2 [facility] Comment on above: Performed By: #### C RP, CMP #### [facility] [address] [place] [address] Dr. Ariana Pimentel MCV (RBC) [Entitic vol] 90.4 fL Normal 80.0-94.0 [facility] Comment on above: Performed By: #### C RP, CMP #### [facility] [address] [place] [address] Dr. Ariana Pimentel MONO # 0.6 103/ul Normal 0.3-0.8 [facility] Comment on above: Performed By: #### C RP, CMP #### [facility] [address] [place] [address] Dr. Ariana Pimentel Monocytes/100 WBC (Bld) 6.7 % Normal 1.7-12.0 [facility] Comment on above: Performed By: #### C RP, CMP #### [facility] [address] [place] [address] Dr. Ariana Pimentel NEUT # 5.9 103/ul Normal 1.4-6.5 [facility] Comment on above: Performed By: #### C RP, CMP #### [facility] [address] [place] [address] Dr. Ariana Pimentel Neutrophils/100 WBC (Bld) 62.8 % Normal 43.0-75.0 [facility] Comment on above: Performed By: #### C RP, CMP #### [facility] [address] [place] [address] Dr. Ariana Pimentel Platelet mean volume (Bld) [Entitic vol] 9.3 fL Critically low 9.5-13.5 [facility] Comment on above: Performed By: #### C RP, CMP #### [facility] [address] [address] [address] Ariana Pimentel PLT 164 103/ul Normal 150-450 [facility] Comment on above: Performed By: #### C RP, CMP #### [facility] [address] [address] [address] Ariana Pimentel RBC 4.67 106/ul Critically low 4.70-6.10 [facility] Comment on above: Performed By: #### C RP, CMP #### [facility] [address] [place] [address] Dr. Ariana Pimentel WBC 9.4 103/ul Normal 4.0-11.0 [facility] Comment on above: Performed By: #### C RP, CMP #### [facility] [address] [place] [address] Dr. Ariana Pimentel ETHANOL (BLD ALC)on 06-03-19 ALC NOTE NOTE: 80 mg/dl is legal limit for a blood alcohol level Normal [facility] Comment on above: Performed By: #### S EDR #### [facility] [address] [place] [address] Dr. Ariana Pimentel Ethanol [Mass/Vol] 184 mg/dL Normal [facility] Comment on above: Performed By: #### S EDR #### [facility] [address] [place] [address] Dr. Ariana Pimentel PROF CHEM 8 (BAS METB)on Anion gap [Moles/Vol] 13.3 mmol/L Normal [facility] Comment on above: Performed By: #### S EDR #### [facility] [address] [place] [address] Dr. Ariana Pimentel Calcium [Mass/Vol] 7.6 mg/dL Critically low 8.5-10.1 [facility] Comment on above: Performed By: #### S EDR #### [facility] [address] [place] [address] Dr. Ariana Pimentel Chloride [Moles/Vol] 101 mmol/L Normal 98-107 [facility] Comment on above: Performed By: #### S EDR #### [facility] [address] [place] [address] Dr. Ariana Pimentel CO2 [Moles/Vol] 24.4 mmol/L Normal 22.0-30.0 [facility] Comment on above: Performed By: #### S EDR #### [facility] [address] [address] [address] Ariana Pimentel Creatinine [Mass/Vol] 0.76 mg/dL Normal 0.66-1.25 [facility] Comment on above: Performed By: #### S EDR #### [facility] [address] [address] [address] Ariana Pimentel EGFR-AF PARAGUAYAN >60 Normal >=60 [facility] Comment on above: Performed By: #### S EDR #### [facility] [address] [place] [address] Dr. Ariana Pimentel EGFR-NON AF PARAGUAYAN >60 Normal >=60 [facility] Comment on above: Performed By: #### S EDR #### [facility] [address] [place] [address] Dr. Ariana Pimentel Glucose [Mass/Vol] 139 mg/dL Critically high 74-106 T [facility] Comment on above: Performed By: #### S EDR #### [facility] [address] [address] [address] Ariana Pimentel Potassium [Moles/Vol] 3.7 mmol/L Normal 3.4-5.0 [facility] Comment on above: Performed By: #### S EDR #### [facility] [address] [place] [address] Dr. Ariana Pimentel Sodium [Moles/Vol] 135 mmol/L Critically low 137-145 [facility] Comment on above: Performed By: #### S EDR #### [facility] [address] [address] [address] Ariana Pimentel Urea nitrogen [Mass/Vol] 9.0 mg/dL Normal 7.0-18.0 [facility] Comment on above: Performed By: #### S EDR #### [facility] [address] [address] [address] Ariana Pimentel Urea nitrogen/Creatinine [Mass ratio] 11.8 mg/mg Normal [facility] Comment on above: Performed By: #### S EDR #### [facility] [address] [address] [address] Ariana Pimentel SALICYLATEon 06-02-2021 SALICYLATE 3.9 mg/dL Normal <=20.0 [facility] Comment on above: Performed By: #### S EDR #### [facility] [address] [place] [address] Dr. Ariana Pimentel TROPONIN, HIGH SENSITIVITYon 06-02-2021 HSTROP 8.1 pg/mL Normal 4.0-42.2 [facility] Comment on above: Result Comment: CUT- OFF POINTS HAVE BEEN ESTABLISHED BASED ON THE FOURTH UNIVERSAL DEFINITIONS OF MYOCARDIAL INFARCTION. THE UPPER REFERENCE LIMIT (URL) OF TROPONIN, DEFINED THE 99TH PERCENTILE OF cTnI DISTRIBUTION IN A REFERENCE POPULATION, HAS BEEN CONFIRMED THE DECISION THRESHOLD FOR ME DIAGNOSIS. Performed By: #### H STROPN #### [facility] [address] [place] [address] Dr. Ariana Pimentel XR CHEST 1 Von [...] ESTHER HANNA Date: 2021-06-02 00:27 Normal [facility] CBC AUTO DIFFon 06-01-2021 BASO # 0.1 103/ul Normal 0.0-0.1 [facility] Comment on above: Performed By: #### S EDR #### [facility] [address] [place] [address] Dr. Ariana Pimentel Basophils/100 WBC (Bld) 1.2 % Normal 0.2-2.0 [facility] Comment on above: Performed By: #### S EDR #### [facility] [address] [place] [address] Dr. Ariana Pimentel EO # 0.1 103/ul Normal 0.0-0.7 [facility] Comment on above: Performed By: #### S EDR #### [facility] [address] [place] [address] Dr. Ariana Pimentel Eosinophils/100 WBC (Bld) 1.4 % Normal 0.9-7.0 [facility] Comment on above: Performed By: #### S EDR #### [facility] [address] [place] [address] Dr. Ariana Pimentel Erythrocyte distribution width (RBC) [Ratio] 14.2 % Normal 11.0-15.0 [facility] Comment on above: Performed By: #### S EDR #### [facility] [address] [place] [address] Dr. Ariana Pimentel Hematocrit (Bld) [Volume fraction] 47.9 % Normal 42.0-54.0 [facility] Comment on above: Performed By: #### S EDR #### [facility] [address] [place] [address] Dr. Ariana Pimentel Hemoglobin (Bld) [Mass/Vol] 16.2 g/dL Normal 14.0-18.0 [facility] Comment on above: Performed By: #### S EDR #### [facility] [address] [place] [address] Dr. Ariana Pimentel IG # 0.04 10e3/ul Critically high 0.00-0.03 [facility] Comment on above: Performed By: #### S EDR #### [facility] [address] [place] [address] Dr. Ariana Pimentel IG % 0.5 % Normal 0.0-0.5 [facility] Comment on above: Performed By: #### S EDR #### [facility] [address] [place] [address] Dr. Ariana Pimentel LYMPH # 2.1 103/ul Normal 1.2-3.8 [facility] Comment on above: Performed By: #### S EDR #### [facility] [address] [place] [address] Dr. Ariana Pimentel Lymphocytes/100 WBC (Bld) 24.7 % Normal 20.5-60.0 [facility] Comment on above: Performed By: #### S EDR #### [facility] [address] [place] [address] Dr. Ariana Pimentel MANUAL DIFF REQ NO Normal [facility] Comment on above: Performed By: #### S EDR #### [facility] [address] [place] [address] Dr. Ariana Pimentel MCH (RBC) [Entitic mass] 30.9 pg Normal 25.9-34.0 [facility] Comment on above: Performed By: #### S EDR #### [facility] [address] [place] [address] Dr. Ariana Pimentel MCHC (RBC) [Mass/Vol] 33.8 g/dL Normal 29.9-35.2 [facility] Comment on above: Performed By: #### S EDR #### [facility] [address] [place] [address] Dr. Ariana Pimentel MCV (RBC) [Entitic vol] 91.4 fL Normal 80.0-94.0 [facility] Comment on above: Performed By: #### S EDR #### [facility] [address] [place] [address] Dr. Ariana Pimentel MONO # 0.7 103/ul Normal 0.3-0.8 [facility] Comment on above: Performed By: #### S EDR #### [facility] [address] [place] [address] Dr. Ariana Pimentel Monocytes/100 WBC (Bld) 7.8 % Normal 1.7-12.0 [facility] Comment on above: Performed By: #### S EDR #### [facility] [address] [place] [address] Dr. Ariana Pimentel NEUT # 5.3 103/ul Normal 1.4-6.5 [facility] Comment on above: Performed By: #### S EDR #### [facility] [address] [address] [address] Ariana Pimentel Neutrophils/100 WBC (Bld) 64.4 % Normal 43.0-75.0 [facility] Comment on above: Performed By: #### S EDR #### [facility] [address] [place] [address] Dr. Ariana Pimentel Platelet mean volume (Bld) [Entitic vol] 9.5 fL Normal 9.5-13.5 [facility] Comment on above: Performed By: #### S EDR #### [facility] [address] [place] [address] Dr. Ariana Pimentel PLT 192 103/ul Normal 150-450 [facility] Comment on above: Performed By: #### S EDR #### [facility] [address] [place] [address] Dr. Ariana Pimentel RBC 5.24 106/ul Normal 4.70-6.10 [facility] Comment on above: Performed By: #### S EDR #### [facility] [address] [place] [address] Dr. Ariana Pimentel WBC 8.3 103/ul Normal 4.0-11.0 [facility] Comment on above: Performed By: #### S EDR #### [facility] [address] [place] [address] Dr. Ariana Pimentel CRPon 06-01-2021 CRP 0.5 mg/dL Normal <=1.0 [facility] Comment on above: Performed By: #### C RP, CMP #### [facility] [address] [place] [address] Dr. Ariana Pimentel PROF 14(COMP METB)on 022 Albumin [Mass/Vol] 4.0 g/dL Normal 3.4-5.0 [facility] Comment on above: Performed By: #### C RP, CMP #### [facility] [address] [place] [address] Dr. Ariana Pimentel Albumin/Globulin [Mass ratio] 1.0 {ratio} Normal [facility] Comment on above: Performed By: #### C RP, CMP #### [facility] [address] [address] [address] Ariana Pimentel ALP [Catalytic activity/Vol] 129 U/L Critically high 46-116 [facility] Comment on above: Performed By: #### C RP, CMP #### [facility] [address] [address] [address] Ariana Pimentel ALT [Catalytic activity/Vol] 27 U/L Normal 16-63 [facility] Comment on above: Performed By: #### C RP, CMP #### [facility] [address] [address] [address] Ariana Pimentel Anion gap [Moles/Vol] 9.9 mmol/L Normal [facility] Comment on above: Performed By: #### C RP, CMP #### [facility] [address] [place] [address] Dr. Ariana Pimentel AST [Catalytic activity/Vol] 13 U/L Critically low 15-37 [facility] Comment on above: Performed By: #### C RP, CMP #### [facility] [address] [place] [address] Dr. Ariana Pimentel Bilirubin [Mass/Vol] 0.4 mg/dL Normal 0.2-1.3 [facility] Comment on above: Performed By: #### C RP, CMP #### [facility] [address] [place] [address] Dr. Ariana Pimentel Calcium [Mass/Vol] 9.0 mg/dL Normal 8.5-10.1 [facility] Comment on above: Performed By: #### C RP, CMP #### [facility] [address] [place] [address] Dr. Ariana Pimentel Chloride [Moles/Vol] 102 mmol/L Normal 98-107 [facility] Comment on above: Performed By: #### C RP, CMP #### [facility] [address] [address] [address] Ariana Pimentel CO2 [Moles/Vol] 30.6 mmol/L Critically high 22.0-30.0 [facility] Comment on above: Performed By: #### C RP, CMP #### [facility] [address] [place] [address] Dr. Ariana Pimentel Creatinine [Mass/Vol] 0.98 mg/dL Normal 0.66-1.25 [facility] Comment on above: Performed By: #### C RP, CMP #### [facility] [address] [place] [address] Dr. Ariana Pimentel EGFR-AF PARAGUAYAN >60 Normal >=60 [facility] Comment on above: Performed By: #### C RP, CMP #### [facility] [address] [place] [address] Dr. Ariana Pimentel EGFR-NON AF PARAGUAYAN >60 Normal >=60 [facility] Comment on above: Performed By: #### C RP, CMP #### [facility] [address] [place] [address] Dr. Ariana Pimentel Globulin (S) [Mass/Vol] 3.9 g/dL Normal [facility] Comment on above: Performed By: #### C RP, CMP #### [facility] [address] [place] [address] Dr. Ariana Pimentel Glucose [Mass/Vol] 128 mg/dL Critically high 74-106 T [facility] Comment on above: Performed By: #### C RP, CMP #### [facility] [address] [place] [address] Dr. Ariana Pimentel Potassium [Moles/Vol] 4.5 mmol/L Normal 3.4-5.0 [facility] Comment on above: Performed By: #### C RP, CMP #### [facility] [address] [place] [address] Dr. Ariana Pimentel Protein [Mass/Vol] 7.9 g/dL Normal 6.1-8.2 [facility] Comment on above: Performed By: #### C RP, CMP #### [facility] [address] [place] [address] Dr. Ariana Pimentel Sodium [Moles/Vol] 138 mmol/L Normal 137-145 [facility] Comment on above: Performed By: #### C RP, CMP #### [facility] [address] [place] [address] Dr. Ariana Pimentel Urea nitrogen [Mass/Vol] 14.0 mg/dL Normal 7.0-18.0 [facility] Comment on above: Performed By: #### C RP, CMP #### [facility] [address] [place] [address] Dr. Ariana Pimentel Urea nitrogen/Creatinine [Mass ratio] 14.3 mg/mg Normal [facility] Comment on above: Performed By: #### C RP, CMP #### [facility] [address] [place] [address] Dr. Ariana Pimentel SED RATE WESTERGRENon 2021 SED RATE 4 mm/hr Normal <=20 [facility] Comment on above: Performed By: #### S EDR #### [facility] [address] [place] [address] Dr. Ariana Pimentel CBC AUTO DIFFon 01-30-2021 BASO # 0.1 103/ul Normal 0.0-0.1 [facility] Comment on above: Performed By: #### S EDR #### [facility] [address] [place] [address] Dr. Ariana Pimentel Basophils/100 WBC (Bld) 1.2 % Normal 0.2-2.0 [facility] Comment on above: Performed By: #### S EDR #### [facility] [address] [place] [address] Dr. Ariana Pimentel EO # 0.2 103/ul Normal 0.0-0.7 [facility] Comment on above: Performed By: #### S EDR #### [facility] [address] [place] [address] Dr. Ariana Pimentel Eosinophils/100 WBC (Bld) 1.7 % Normal 0.9-7.0 [facility] Comment on above: Performed By: #### S EDR #### [facility] [address] [place] [address] Dr. Ariana Pimentel Erythrocyte distribution width (RBC) [Ratio] 13.4 % Normal 11.0-15.0 [facility] Comment on above: Performed By: #### S EDR #### [facility] [address] [address] [address] Ariana Pimentel Hematocrit (Bld) [Volume fraction] 46.7 % Normal 42.0-54.0 [facility] Comment on above: Performed By: #### S EDR #### [facility] [address] [address] [address] Ariana Pimentel Hemoglobin (Bld) [Mass/Vol] 15.4 g/dL Normal 14.0-18.0 [facility] Comment on above: Performed By: #### S EDR #### [facility] [address] [place] [address] Dr. Ariana Pimentel IG # 0.04 10e3/ul Critically high 0.00-0.03 [facility] Comment on above: Performed By: #### S EDR #### [facility] [address] [place] [address] Dr. Ariana Pimentel IG % 0.4 % Normal 0.0-0.5 [facility] Comment on above: Performed By: #### S EDR #### [facility] [address] [place] [address] Dr. Ariana Pimentel LYMPH # 2.5 103/ul Normal 1.2-3.8 [facility] Comment on above: Performed By: #### S EDR #### [facility] [address] [place] [address] Dr. Ariana Pimentel Lymphocytes/100 WBC (Bld) 27.8 % Normal 20.5-60.0 [facility] Comment on above: Performed By: #### S EDR #### [facility] [address] [place] [address] Dr. Ariana Pimentel MANUAL DIFF REQ NO Normal [facility] Comment on above: Performed By: #### S EDR #### [facility] [address] [place] [address] Dr. Ariana Pimentel MCH (RBC) [Entitic mass] 30.0 pg Normal 25.9-34.0 [facility] Comment on above: Performed By: #### S EDR #### [facility] [address] [address] [address] Ariana Pimentel MCHC (RBC) [Mass/Vol] 33.0 g/dL Normal 29.9-35.2 [facility] Comment on above: Performed By: #### S EDR #### [facility] [address] [place] [address] Dr. Ariana Pimentel MCV (RBC) [Entitic vol] 91.0 fL Normal 80.0-94.0 [facility] Comment on above: Performed By: #### S EDR #### [facility] [address] [place] [address] Dr. Ariana Pimentel MONO # 0.8 103/ul Normal 0.3-0.8 [facility] Comment on above: Performed By: #### S EDR #### [facility] [address] [place] [address] Dr. Ariana Pimentel Monocytes/100 WBC (Bld) 9.0 % Normal 1.7-12.0 [facility] Comment on above: Performed By: #### S EDR #### [facility] [address] [place] [address] Dr. Ariana Pimentel NEUT # 5.4 103/ul Normal 1.4-6.5 [facility] Comment on above: Performed By: #### S EDR #### [facility] [address] [place] [address] Dr. Ariana Pimentel Neutrophils/100 WBC (Bld) 59.9 % Normal 43.0-75.0 [facility] Comment on above: Performed By: #### S EDR #### [facility] [address] [place] [address] Dr. Ariana Pimentel Platelet mean volume (Bld) [Entitic vol] 10.2 fL Normal 9.5-13.5 [facility] Comment on above: Performed By: #### S EDR #### [facility] [address] [place] [address] Dr. Ariana Pimentel PLT 193 103/ul Normal 150-450 [facility] Comment on above: Performed By: #### S EDR #### [facility] [address] [place], [place] [address] Dr. Ariana Pimentel RBC 5.13 106/ul Normal 4.70-6.10 [facility] Comment on above: Performed By: #### S EDR #### [facility] [address] [place], [place] [address] Dr. Ariana Pimentel WBC 9.0 103/ul Normal 4.0-11.0 [facility] Comment on above: Performed By: #### S EDR #### [facility] [address] [place], [place] [address] Dr. Ariana Pimentel Covid-19 PCR (CVDTB)on SARS-CoV-2 (COVID-19) RNA LELIA+probe Ql (Unsp spec) Not detected Normal NOT DETECTED [facility] Comment on above: Result Comment: When diagnostic testing is negative, the possibility of a false negative should be considered in the context of a patient's recent exposures and the presence of clinical signs and symptoms consistent with SARS-CoV-2. This test is not yet approved or cleared by the [place] Food and Drug Administration (FDA). This test was developed by [employer], [place], [place]. The performance characteristics of this test were validated by [facility]. The results are not intended to be used as the sole means for clinical diagnosis or patient management decisions. [facility] is authorized under Clinical Laboratory Improvement Amendments [...] for this test is supported by the [place] of Health and Human Service's declaration that [...] used). Performed By: #### S EDR #### [facility] [address] [address] [address] Ariana Pimentel PROF CHEM 8 (BAS METB)on Anion gap [Moles/Vol] 13.9 mmol/L Normal [facility] Comment on above: Performed By: #### H STROPN, BMP #### [facility] [address] [place] [address] Dr. Ariana Pimentel Calcium [Mass/Vol] 8.8 mg/dL Normal 8.4-10.2 [facility] Comment on above: Performed By: #### H STROPN, BMP #### [facility] [address] [place] [address] Dr. Ariana Pimentel Chloride [Moles/Vol] 103 mmol/L Normal 98-107 [facility] Comment on above: Performed By: #### H STROPN, BMP #### [facility] [address] [place] [address] Dr. Ariana Pimentel CO2 [Moles/Vol] 26.5 mmol/L Normal 22.0-30.0 [facility] Comment on above: Performed By: #### H STROPN, BMP #### [facility] [address] [place] [address] Dr. Ariana Pimentel Creatinine [Mass/Vol] 0.97 mg/dL Normal 0.66-1.25 [facility] Comment on above: Performed By: #### H STROPN, BMP #### [facility] [address] [place] [address] Dr. Ariana Pimentel EGFR-AF PARAGUAYAN >60 Normal >=60 [facility] Comment on above: Performed By: #### H STROPN, BMP #### [facility] [address] [place] [address] Dr. Ariana Pimentel EGFR-NON AF PARAGUAYAN >60 Normal >=60 [facility] Comment on above: Performed By: #### H STROPN, BMP #### [facility] [address] [place] [address] Dr. Ariana Pimentel Glucose [Mass/Vol] 168 mg/dL Critically high 74-106 [facility] Comment on above: Performed By: #### H STROPN, BMP #### [facility] [address] [place] [address] Dr. Ariana Pimentel Potassium [Moles/Vol] 4.4 mmol/L Normal 3.4-5.0 [facility] Comment on above: Performed By: #### H STROPN, BMP #### [facility] [address] [place] [address] Dr. Ariana Pimentel Sodium [Moles/Vol] 139 mmol/L Normal 137-145 [facility] Comment on above: Performed By: #### H STROPN, BMP #### [facility] [address] [place] [address] Dr. Ariana Pimentel Urea nitrogen [Mass/Vol] 20.0 mg/dL Normal 9.0-20.0 [facility] Comment on above: Performed By: #### H IRENEPN, BMP #### [facility] [address] [place] [address] Dr. Ariana Pimentel Urea nitrogen/Creatinine [Mass ratio] 20.6 mg/mg Normal [facility] Comment on above: Performed By: #### H STROPN, BMP #### [facility] [address] [place] [address] Dr. Ariana Pimentel PROTIMEon 01-30-2021 INR Coag (PPP) [Relative time] 0.96 {INR} Normal [facility] Comment on above: Performed By: #### C RP, CMP #### [facility] [address] [place] [address] Dr. Ariana Pimentel INR GUIDELINES SEE BELOW Normal [facility] Comment on above: Result Comment: RIMA RED INR: 2.0 - 3.0 CONDITIONS NOT LISTED BELOW 2.5 - 3.5 FOR PROSTHETIC HEART VALVE REPLACEMENT 2.5 - 3.5 RECURRENT THROMBOSIS Performed By: #### C RP, CMP #### [facility] [address] [place] [address] Dr. Ariana Pimentel PT Coag (PPP) [Time] 10.4 s Normal 9.0-11.6 [facility] Comment on above: Performed By: #### C RP, CMP #### [facility] [address] [place] [address] Dr. Ariana Pimentel PTTon 01-30-2021 aPTT Coag (Bld) [Time] 28.6 s Normal 22.3-36.2 [facility] Comment on above: Performed By: #### C RP, CMP #### [facility] [address] [place] [address] Dr. Ariana Pimentel TROPONIN, HIGH SENSITIVITYon 01-30-2021 HSTROP 335.4 pg/mL Critically high 4.0-42.2 [facility] Comment on above: Result Comment: CUT- OFF POINTS HAVE BEEN ESTABLISHED BASED ON THE FOURTH UNIVERSAL DEFINITIONS OF MYOCARDIAL INFARCTION. THE UPPER REFERENCE LIMIT (URL) OF TROPONIN, DEFINED THE 99TH PERCENTILE OF cTnI DISTRIBUTION IN A REFERENCE POPULATION, HAS BEEN CONFIRMED THE DECISION THRESHOLD FOR ME DIAGNOSIS. Performed By: #### S EDR #### [facility] [address] [place] [address] Dr. Ariana Pimentel HSTROP 234.8 pg/mL Critically high 4.0-42.2 [facility] Comment on above: Result Comment: CUT- OFF POINTS HAVE BEEN ESTABLISHED BASED ON THE FOURTH UNIVERSAL DEFINITIONS OF MYOCARDIAL INFARCTION. THE UPPER REFERENCE LIMIT (URL) OF TROPONIN, DEFINED THE 99TH PERCENTILE OF cTnI DISTRIBUTION IN A REFERENCE POPULATION, HAS BEEN CONFIRMED THE DECISION THRESHOLD FOR ME DIAGNOSIS. critical value repeated and verified Performed By: #### H STROPN, BMP #### [facility] [address] [place] [address] Dr. Ariana Pimentel XR CHEST 1 Von [...] by: ELYSE QUINTERO Date: 2021-01-30 10:41 Normal [facility] INSULINon 07-14-2020 Insulin 14.4 uIU/mL Normal 2.6-24.9 [facility] Comment on above: Performed By: #### I NSULIN #### [facility] [address] [place], [place] [id number] Branden Romy CBC AUTO DIFFon 07-13-2020 BASO # 0.1 103/ul Normal 0.0-0.1 [facility] Comment on above: Performed By: #### C BC #### [facility] [address] [place] [address] Branden Romy Basophils/100 WBC (Bld) 1.3 % Normal 0.2-2.0 [facility] Comment on above: Performed By: #### C BC #### [facility] [address] [place] [address] Branden Romy EO # 0.2 103/ul Normal 0.0-0.7 [facility] Comment on above: Performed By: #### C BC #### [facility] [address] [place] [address] Branden Romy Eosinophils/100 WBC (Bld) 2.2 % Normal 0.9-7.0 [facility] Comment on above: Performed By: #### C BC #### [facility] [address] [place] [address] Branden Romy Erythrocyte distribution width (RBC) [Ratio] 13.6 % Normal 11.0-15.0 [facility] Comment on above: Performed By: #### C BC #### [facility] [address] [place] [address] Branden Romy Hematocrit (Bld) [Volume fraction] 44.8 % Normal 42.0-54.0 [facility] Comment on above: Performed By: #### C BC #### [facility] [address] [place] [address] Branden Romy Hemoglobin (Bld) [Mass/Vol] 15.2 g/dL Normal 14.0-18.0 [facility] Comment on above: Performed By: #### C BC #### [facility] [address] [place] [address] Branden Romy IG # 0.03 10e3/ul Normal 0.00-0.03 [facility] Comment on above: Performed By: #### C BC #### [facility] [address] [place] [address] Brandensiria Stanton IG % 0.4 % Normal 0.0-0.5 [facility] Comment on above: Performed By: #### C BC #### [facility] [address] [place] [address] Brandensiria Stanton LYMPH # 2.3 103/ul Normal 1.2-3.8 [facility] Comment on above: Performed By: #### C BC #### [facility] [address] [place] [address] Branden Stanton Lymphocytes/100 WBC (Bld) 27.0 % Normal 20.5-60.0 [facility] Comment on above: Performed By: #### C BC #### [facility] [address] [place] [address] Branden Stanton MANUAL DIFF REQ NO Normal [facility] Comment on above: Performed By: #### C BC #### [facility] [address] [place] [address] Branden Stanton MCH (RBC) [Entitic mass] 30.4 pg Normal 25.9-34.0 [facility] Comment on above: Performed By: #### C BC #### [facility] [address] [place] [address] Branden Stanton MCHC (RBC) [Mass/Vol] 33.9 g/dL Normal 29.9-35.2 [facility] Comment on above: Performed By: #### C BC #### [facility] [address] [place] [address] Branden Stanton MCV (RBC) [Entitic vol] 89.6 fL Normal 80.0-94.0 [facility] Comment on above: Performed By: #### C BC #### [facility] [address] [place] [address] Branden Romy MONO # 0.7 103/ul Normal 0.3-0.8 [facility] Comment on above: Performed By: #### C BC #### [facility] [address] [id number] Branden Romy Monocytes/100 WBC (Bld) 8.8 % Normal 1.7-12.0 [facility] Comment on above: Performed By: #### C BC #### [facility] [address] [place], [place] [id number] Branden Romy NEUT # 5.0 103/ul Normal 1.4-6.5 [facility] Comment on above: Performed By: #### C BC #### [facility] [address] [place], [place] [id number] Branden Romy Neutrophils/100 WBC (Bld) 60.3 % Normal 43.0-75.0 [facility] Comment on above: Performed By: #### C BC #### [facility] [address] [place] [address] Brandensiria Corderoen Platelet mean volume (Bld) [Entitic vol] 9.6 fL Normal 9.5-13.5 [facility] Comment on above: Performed By: #### C BC #### [facility] [address] [place], [place] [id number] Branden Romy PLT 180 103/ul Normal 150-450 [facility] Comment on above: Performed By: #### C BC #### [facility] [address] [place] [address] Branden Romy RBC 5.00 106/ul Normal 4.70-6.10 [facility] Comment on above: Performed By: #### C BC #### [facility] [address] [place], [place] [id number] Branden Romy WBC 8.3 103/ul Normal 4.0-11.0 [facility] Comment on above: Performed By: #### C BC #### [facility] [address] [place], [place] [id number] Branden Romy FREE THYROXINE INDEX T7on FTI 3.12 Normal [facility] Comment on above: Performed By: #### C RP, CMP #### [facility] [address] [place], [place] [id number] Dr. Ariana Pimentel T3U 38.0 % Normal 23.5-40.5 [facility] Comment on above: Performed By: #### C RP, CMP #### [facility] [address] [place] [address] Dr. Ariana Pimentel T4 [Mass/Vol] 8.20 ug/dL Normal 5.53-11.00 [facility] Comment on above: Performed By: #### C RP, CMP #### [facility] [address] [place] [address] Dr. Ariana Pimentel GLYCOHEMOGLOBIN A1Con 2020 ADA RECOMMENDATION ADA THERAPEUTIC TARG ET 6.0 - 7.0 ACTION SUGGESTED > 7.0 Normal [facility] Comment on above: Performed By: #### A 1C #### [facility] [address] [place] [address] Branden Stanton Glucose [Mass/Vol] 131 mg/dL Normal [facility] Comment on above: Performed By: #### A 1C #### [facility] [address] [place] [address] Branden Stanton HbA1c (Bld) [Mass fraction] 6.2 % Critically high <=6.0 [facility] Comment on above: Performed By: #### A 1C #### [facility] [address] [place] [address] Branden Stanton LIPID PROFILEon 07-13-2020 CHOL-HDL RATIO NORM SEE BELOW Normal [facility] Comment on above: Result Comment: 3.3 - 4.4 LOW RISK 4.4 - 7.1 AVERAGE RISK 7.1 - 11.0 MODERATE RISK >11.0 HIGH RISK Performed By: #### C RP, CMP #### [facility] [address] [place] [address] Dr. Ariana Pimentel Cholesterol [Mass/Vol] 196 mg/dL Normal <=200 [facility] Comment on above: Performed By: #### C RP, CMP #### [facility] [address] [place] [address] Dr. Ariana Pimentel Cholesterol in HDL [Mass/Vol] 27 mg/dL Normal [facility] Comment on above: Performed By: #### C RP, CMP #### [facility] [address] [address] [address] Ariana Pimentel Cholesterol in LDL [Mass/Vol] 117.2 mg/dL Normal [facility] Comment on above: Performed By: #### C RP, CMP #### [facility] [address] [address] [address] Ariana Pimentel Cholesterol.total/Chol esterol in HDL [Mass ratio] 7.3 {ratio} Normal [facility] Comment on above: Performed By: #### C RP, CMP #### [facility] [address] [address] [address] Ariana Pimentel HDL NORMAL > or = 60 mg/dl - LO W CARDIOVASCULAR RISK <40 mg/dl - HIGH CARDIOVASCULAR RISK Normal [facility] Comment on above: Performed By: #### C RP, CMP #### [facility] [address] [place] [address] Dr. Ariana Pimentel LDL CALC NORMAL SEE BELOW Normal [facility] Comment on above: Result Comment: <100 mg/dl OPTIMAL 100 - 129 mg/dl NEAR OR ABOVE OPTIMAL 130 - 159 mg/dl BORDERLINE HIGH 160 - 189 mg/dl HIGH >190 mg/dl VERY HIGH Performed By: #### C RP, CMP #### [facility] [address] [address] [address] Ariana Pimentel Triglyceride [Mass/Vol] 259 mg/dL Critically high <=150 [facility] Comment on above: Performed By: #### C RP, CMP #### [facility] [address] [place] [address] Dr. Ariana Pimentel VLDL CALC 51.8 mg/dL Normal [facility] Comment on above: Performed By: #### C RP, CMP #### [facility] [address] [place] [address] Dr. Ariana Pimentel PROF 14(COMP METB)on 021 Albumin [Mass/Vol] 3.7 g/dL Normal 3.5-5.0 [facility] Comment on above: Performed By: #### C RP, CMP #### [facility] [address] [place] [address] Dr. Ariana Pimentel Albumin/Globulin [Mass ratio] 1.1 {ratio} Normal [facility] Comment on above: Performed By: #### C RP, CMP #### [facility] [address] [place] [address] Dr. Ariana Pimentel ALP [Catalytic activity/Vol] 116 U/L Normal 38-126 [facility] Comment on above: Performed By: #### C RP, CMP #### [facility] [address] [place] [address] Dr. Ariana Pimentel ALT [Catalytic activity/Vol] 25 U/L Normal 21-72 [facility] Comment on above: Performed By: #### C RP, CMP #### [facility] [address] [place] [address] Dr. Ariana Pimentel Anion gap [Moles/Vol] 12.7 mmol/L Normal [facility] Comment on above: Performed By: #### C RP, CMP #### [facility] [address] [place] [address] Dr. Ariana Pimentel AST [Catalytic activity/Vol] 14 U/L Critically low 17-59 [facility] Comment on above: Performed By: #### C RP, CMP #### [facility] [address] [place] [address] Dr. Ariana Pimentel Bilirubin [Mass/Vol] 0.4 mg/dL Normal 0.2-1.3 [facility] Comment on above: Performed By: #### C RP, CMP #### [facility] [address] [place] [address] Dr. Ariana Pimentel Calcium [Mass/Vol] 8.7 mg/dL Normal 8.4-10.2 [facility] Comment on above: Performed By: #### C RP, CMP #### [facility] [address] [place] [address] Dr. Ariana Pimentel Chloride [Moles/Vol] 105 mmol/L Normal 98-107 [facility] Comment on above: Performed By: #### C RP, CMP #### [facility] [address] [place], [place] [address] Dr. Ariana Pimentel CO2 [Moles/Vol] 24.7 mmol/L Normal 22.0-30.0 [facility] Comment on above: Performed By: #### C RP, CMP #### [facility] [address] [place] [address] Dr. Ariana Pimentel Creatinine [Mass/Vol] 1.07 mg/dL Normal 0.66-1.25 [facility] Comment on above: Performed By: #### C RP, CMP #### [facility] [address] [place] [address] Dr. Ariana Pimentel EGFR-AF PARAGUAYAN >60 Normal >=60 [facility] Comment on above: Performed By: #### C RP, CMP #### [facility] [address] [place] [address] Dr. Ariana Pimentel EGFR-NON AF PARAGUAYAN >60 Normal >=60 [facility] Comment on above: Performed By: #### C RP, CMP #### [facility] [address] [place] [address] Dr. Ariana Pimentel Globulin (S) [Mass/Vol] 3.4 g/dL Normal [facility] Comment on above: Performed By: #### C RP, CMP #### [facility] [address] [place] [address] Dr. Ariana Pimentel Glucose [Mass/Vol] 140 mg/dL Critically high 74-106 T [facility] Comment on above: Performed By: #### C RP, CMP #### [facility] [address] [place] [address] Dr. Ariana Pimentel Potassium [Moles/Vol] 4.4 mmol/L Normal 3.4-5.0 [facility] Comment on above: Performed By: #### C RP, CMP #### [facility] [address] [place] [address] Dr. Ariana Pimentel Protein [Mass/Vol] 7.1 g/dL Normal 6.1-8.2 [facility] Comment on above: Performed By: #### C RP, CMP #### [facility] [address] [place] [address] Dr. Ariana Pimentel Sodium [Moles/Vol] 138 mmol/L Normal 137-145 [facility] Comment on above: Performed By: #### C RP, CMP #### [facility] [address] [place] [address] Dr. Ariana Pimentel Urea nitrogen [Mass/Vol] 16.0 mg/dL Normal 9.0-20.0 [facility] Comment on above: Performed By: #### C RP, CMP #### [facility] [address] [place] [address] Dr. Ariana Pimentel Urea nitrogen/Creatinine [Mass ratio] 15.0 mg/mg Normal [facility] Comment on above: Performed By: #### C RP, CMP #### [facility] [address] [place] [address] Dr. Ariana Pimentel TSHon 07-13-2020 TSH 1.511 uIU/mL Normal 0.470-4.680 [facility] Comment on above: Performed By: #### C RP, CMP #### [facility] [address] [place] [address] Dr. Ariana Pimentel TSH RANGE SEE BELOW Normal [facility] Comment on above: Result Comment: <0.3 4 UIU/ml HYPERTHYROID 0.34-5.60 UIU/ml EUTHYROID >5.60 UIU/ml HYPOTHYROID Performed By: #### C RP, CMP #### [facility] [address] [place] [address] Dr. Ariana Pimentel URIC ACID SERUMon 07-13-2020 Urate [Mass/Vol] 4.0 mg/dL Normal 3.5-8.5 [facility] Comment on above: Performed By: #### C RP, CMP #### [facility] [address] [place] [address] Dr. Ariana Pimentel XR LSPINE MIN 4 [...] by: ELYSE QUINTERO Date: 2020-07-13 09:12 Normal [facility] Vital Signs Date Time Vital Sign Value Performing Clinician Facility 06-25-2022 18:00-0400 Diastolic blood pressure 79 mm[Hg] Mauricio Henderson MD Work Phone: [facility] 06-25-2022 18:00-0400 Heart rate 67 /min Mauricio Henderson MD Work Phone: [facility] 06-25-2022 18:00-0400 Respiratory rate 24 /min Mauricio Henderson MD Work Phone: [facility] 06-25-2022 18:00-0400 SaO2% (BldA) [Mass fraction] 98 % Mauricio Henderson MD Work Phone: [facility] 06-25-2022 18:00-0400 Systolic blood pressure 134 mm[Hg] Mauricio Henderson MD Work Phone: [facility] 06-25-2022 14:43-0400 Body height 177.8 cm Mauricio Henderson MD Work Phone: [facility] 06-25-2022 14:41-0400 Body temperature 97.81 [degF] Mauricio Henderson MD Work Phone: [facility] 12-27-2021 06:10-0400 Diastolic blood pressure 85 mm[Hg] [facility] [place] Work Phone: [facility] 12-27-2021 06:10-0400 Heart rate 71 /min [facility] [place] Work Phone: [facility] 12-27-2021 06:10-0400 Respiratory rate 18 /min [facility] Work Phone: [facility] 12-27-2021 06:10-0400 SaO2% (BldA) [Mass fraction] 96 % [facility] [place] Work Phone: [facility] 12-27-2021 06:10-0400 Systolic blood pressure 133 mm[Hg] [facility] [place] Work Phone: [facility] 12-27-2021 05:31-0400 Body temperature 97.2 [degF] [facility] [place] Work Phone: [facility] 12-27-2021 03:44-0400 Body height 177.8 cm [facility] [place] Work Phone: [facility] 12-27-2021 03:44-0400 Body weight 96.1 kg [facility] [place] Work Phone: [facility] 06-14-2021 13:56-0400 Diastolic blood pressure 96 mm[Hg] [facility] [facility] [place] Work Phone: [facility] 06-14-2021 13:56-0400 Heart rate 84 /min [facility] [place] Work Phone: [facility] 06-14-2021 13:56-0400 Respiratory rate 18 /min [facility] [place] Work Phone: [facility] 06-14-2021 13:56-0400 SaO2% (BldA) [Mass fraction] 98 % [facility] [place] Salehmer Work Phone: [facility] 06-14-2021 13:56-0400 Systolic blood pressure 170 mm[Hg] [facility] [place] Work Phone: [facility] 06-14-2021 13:44-0400 Body height 177.8 cm [facility] [place] Work Phone: [facility] 06-14-2021 13:44-0400 Body weight 89.81 kg [facility] [place] Work Phone: [facility] Encounters Encounter Date Encounter Type Care Provider Facility Start: 06-25-2022 End: 06-25-2022 Emergency department [facility] Start: 06-25-2022 End: 06-25-2022 Emergency department patient visit Mauricio Henderson MD Work Phone: [facility] Start: 12-28-[address] Florentino Rubalcava ility:[id number] Start: 12-27-[address] Florentino Rubalcava ility:[id number] Start: 12-27-2021 End: 12-28-2021 Evaluation and management of inpatient Bridgetkiana Mosquera Facility:[facility] Start: 12-27-2021 Evaluation and management of inpatient [facility] [place] Salehmer Work Phone: [facility] Start: 12-27-[address] Florentino Rubalcava ility:[id number] Start: 06-14-2021 End: 06-14-2021 ambulatory [place] Facility:[facility] Start: 06-14-2021 End: 06-14-2021 Patient encounter procedure [facility] [place] Work Phone: [facility] Start: 06-02-2021 End: 06-02-2021 ambulatory PARK SPEARS Facility:[facility] Start: 06-01-2021 End: 06-02-2021 ambulatory PARK SPEARS Facility:[facility] Start: 05-30-2021 ambulatory PARK SPEARS Facility:[facility] Start: 05-26-2021 End: 05-27-2021 ambulatory PARK SPEARS Facility:[facility] Start: 02-13-2021 ambulatory CHEYANNE Brian Facilit y: Start: 02-01-[address] Florentino Rilye Fac ility:[id number] Start: 01-31-[address] Florentino [...] Work Phone: Start: 06-14-2021 MRI of head [employer] Denise Green Work Phone: Start: 07-13-2020 PSA screening CRIS CAMERON Comment on above: Performed By: #### C RP, CMP #### [facility] [address] [place] [address] Dr. Ariana Pimentel SARS Antigen (LFIA) [employer] Agatha Green Work Phone: Plan of Treatment Date Care Activity Detail Author Start: 12-28-2021 Blood chemistry [facility] Start: 12-28-2021 Lipid panel [facility] Start: 12-28-2021 Magnesium measurement [facility] Start: 12-28-2021 [facility] Start: 12-27-2021 Hospital admission [facility] Start: 12-27-2021 Referral to director clinical information services [facility] Start: 12-27-2021 [facility] Start: 12-27-2021 Plain chest X-ray XR chest 1V portable [facility] Start: 12-27-2021 XR Chest Single view [facility] Start: 09-01-2021 ambulatory Ambulatory Facility: Start: 10-11-2020 COVID-19 VACCINE (3 - Booster for Pfizer series) COVID-19 VACCINE (3 - Booster for Pfizer series) [facility] Start: 2011 Prostate specific antigen measurement PROSTATE CANCER SCREENING DISCUSSION [facility] Start: 2011 Zoster vaccine hzv live for subcutaneous use ZOSTER (SHINGLES) VACCINE (1 of 2) [facility] Start: 2006 Screening for malignant neoplasm of colon COLORECTAL CANCER SCREENING DISCUSSION [facility] Start: 2001 Lipid panel LIPID SCREENING [facility] Start: 02-07-1980 Third diphtheria, tetanus and acellular pertussis (DTaP) vaccination TDAP (ADULT) [facility] Start: 02-07-1976 HIV screening HIV SCREENING DISCUSSION [facility] Start: 1967 PNEUMOCOCCAL VACCINE SERIES (1 - PCV) PNEUMOCOCCAL VACCINE SERIES (1 - PCV) [facility] Start: 1961 Hepatitis C screening HEPATITIS C VIRUS SCREENING [facility] Start: 1961 Tetanus vaccination TETANUS [facility] Standard ECG [facility] Troponin I.cardiac [Mass/volume] in Serum or Plasma by High sensitivity method [facility] Work Phone: Immunizations Immunization Date Immunization Notes Care Provider Estella mcneill 02-01-2021 influenza, injectabl e, quadrivalent, preservative free [employer] [place] Work Phone: [facility] 08-16-2020 COVID-19 mRNA, Comirnaty (Pfizer) [employer] [place] Work Phone: [facility] 07-26-2020 COVID-19 mRNA, Comirnaty (Pfizer) [employer] [place] Work Phone: [facility] Payers Date Payer Category Payer Self-pay [id number] 2021 Medicare [id number] 1960 Unknown [id number] 2.16.84 0.1.745269.3.579.2.593 1960 Unknown [id number] 2.16.84 0.1.556876.3.579.2.593 1961 Unknown [id number] 2.16.84 0.1.261367.3.579.2.593 1961 Unknown [id number] 2.16.84 0.1.707889.3.579.2.593 1961 Unknown [id number] 2.16.84 0.1.155083.3.579.2.593 1961 Unknown [id number] 2.16.84 0.1.303463.3.579.2.593 1961 Unknown [id number] 2.16.84 0.1.189392.3.579.2.593 1961 Unknown [id number] 2.16.84 0.1.350897.3.579.2.593 1961 Unknown [id number] 2.16.84 0.1.976963.3.579.2.593 1961 Unknown [id number] 2.16.84 0.1.578953.3.579.2.593 1961 Unknown [id number] 2.16. 840.1.000992.3.579.2.356 1961 Unknown [id number] 2.16. 840.1.799522.3.579.2.356 1961 Unknown [id number] 2.16. 840.1.079868.3.579.2.356 1961 Unknown [id number] 2.16. 840.1.472901.3.579.2.356 1961 Unknown [id number] 2.16. 840.1.499143.3.579.2.356 1961 Unknown [id number] 2.16. 840.1.782526.3.579.2.356 1961 Unknown [id number] 2.16. 840.1.889963.3.579.2.356 1961 Unknown [id number] 2.16. 840.1.859702.3.579.2.356 1961 Unknown [id number] 2.16.8 40.1.654539.3.579.2.983 1958 Medicare [id number] 1959 Unknown [id number] Private Health Insurance [id number] Unknown [id number] 2.16.8 40.1.766377.3.579.2.531 Unknown [id number] 2.16.8 40.1.516360.3.579.2.531 Social History Date Type Detail Facility Start: 01-30-2021 End: 12-27-2021 Tobacco smoking status ARIS Smoker (finding) [facility] Start: 1960 Sex Assigned At Male F [facility] Start: 06-25-2022 Tobacco smoking stat [facility] Smokes tobacco daily [facility] [employer] [facility] History of tobacco use Cigarette Smoker [facility] Start: 06-25-2022 Cigarettes smoked current (pack per day) - Reported 0.5 [employer] [facility] Start: 06-25-2022 Tobacco use and exposure Former smokeless tobacco user [employer] [facility] Start: 06-25-2022 Alcohol intake Ex-drinker (finding) [employer] [facility] Start: 1960 Sex Assigned At Not on file [facility] Start: 06-15-2022 End: 06-25-2022 Exposure to SARS-CoV-2 (event) Not sure [employer] [facility] Medical Equipment Procedure Code Equipment Code Equipment Origin al Text Equipment Identifier Dates Drug-eluting coronary artery stent, [id number] lymer-coated ()[id number] FDA Start: 01-31-2021 Drug-eluting coronary artery stent, [id number] lymer-coated ()[id number] FDA Start: 01-31-2021 Femoral artery closure plug/patch, synthetic polymer ()[id number] FDA Start: 01-31-2021 Hospital Discharge instructions 06-25-2022 [...] cannot be sent through Care Everywhere.Abdominal Pain (Jamaican)Nausea and Vomiting (Jamaican)Hypertension (Jamaican)documented in this encounter [facility] Emergency department Note 06-25-2022 Magnus Souza RN - 06/25/2022 3:29 PM EDT Note Date & Type Note Facility 06-25-[address] ent Note Dr. Henderson in room. [facility] Emergency department Note 06-25-2022 Magnus Souza RN - 06/25/2022 3:29 PM EDT Note Date & Type Note Facility 06-25-[address] Emergency depart[address] ent Note Dr. Henderson in room. documented in this encounter [facility] Evaluation note Note Date & Type Note Facility Evaluation note No assessment information [facility] Work Phone: Evaluation note Note Date & Type Note Facility Evaluation note Diagnosis Onset Date Angina pectoris, unstable ac caterina Diabetes type 2, uncontrolled acute Hyperlipidemia acute Hypertension acute Hypertensive emergency acute [facility] Work Phone: Evaluation note Note Date & Type Note Facility Evaluation note Diagnosis Generalized abdominal pain- Primary Abdominal pain, generalized Nausea vomiting and diarrhea Nausea with vomiting documented in this encounter [facility] History and physical note Note Date & Type Note Facility History and physical note Note Date/Time December 27, 2021 6:17am [facility] [address] [place] [address] Hospitalist H&P Signed Patient: Donovan Lindquist MR#: [id number] : 1960 Acct:[id number] Age/Sex: 61 / M Adm Date: 2 Loc: Room: [address] [place] [address] Type: ADM IN Attending Dr: Yung Whipple MD Copies to: MD Park Dior, MANAGER PRODUCT SUPPORT~ HPI DATE OF EXAMINATION: 12/27/21 CHIEF COMPLAINT: [...] % (Auto) 31.8 % (.) 12/27/21 03:53 [place] % (Auto) 9.6 % (.) 12/27/21 03:53 Eos % (Auto) 1.9 % (.) 12/27/21 03:53 Baso % (Auto) 1.3 % (.) 12/27/21 03:53 Neut # (Auto) 5.0 x10E3/uL (1.8-7.7) 12/27/21 03:53 Lymph # (Auto) 2.9 x10E3/uL (1.00-4.8) 12/27/21 03:53 [place] # (Auto) 0.9 x10E3/uL (0.0-0.8) H 12/27/21 [...] signed by Yung Whipple MD> 12/27/21 0618 [facility] Work Phone: Chief Complaint and Reason for [...] Contact Procedures ECG Mauricio Henderson MD [address] [place] [address] Referral ID Status Reason Start Date Expiration Date V isits Requested Visits Authorized [id number] New Request 06/25/2022 07/20/2023 1 1 Additional [...] MD Admit Provider, Attending Eros leyva Active Roller Hand Relationship Specialty Start Date End Date Park Green, MANAGER [employer] SU[employer] [address] [place] [id number] PCP - General Nurse Practitioner - Family [...] DATE CREATED AUTHOR AUTHOR'S ORGANIZ ATION 01/01/2022 [facility] DATE CREATED AUTHOR AUTHOR'S ORGANIZ ATION 03/31/2022 [facility] DATE CREATED AUTHOR AUTHOR'S ORGANIZ ATION 06/30/2022 [facility] Reason for Visit (unrecogniz ed [...] BE BASED ON THE PRIMARY CLINICAL RECORDS. [employer] [facility]. provides no warranty or guarantee of the accuracy or completeness of information in this document.
[2024-10-20] MEDS: ENOXAPARIN SODIUM 40 MG/0.4 ML SYRINGE SUBQ ×2 (00:28→21:29)
[2024-10-20] MEDS: 0.9 % SODIUM CHLORIDE 1,000 ML 125 ML IV ×2 (00:28→07:48)
[2024-10-20] MEDS: HYDROMORPHONE HCL 1 MG/ML CARTRIDGE 0.5 MG IVP ×3 (02:12→20:07)
[2024-10-20 05:59] LABS: Hematocrit 39.3 % (42.0-54.0); Hemoglobin 13.5 g/dL (14.0-18.0); Mean Corpuscular HGB Conc 34.4 g/dL (29.9-35.2); Mean Corpuscular Hemoglobin 29.9 pg (25.9-34.0); Mean Corpuscular Volume 86.9 fL (80.0-94.0); Platelet Count 299 10^3/uL (150-450); Red Blood Count 4.52 10^6/uL (4.70-6.10); White Blood Count 11.7 10^3/uL (4.0-11.0)
[2024-10-20 06:19] LABS: Alanine Aminotransferase 20 U/L (16-63); Albumin Globulin Ratio 0.6; Albumin Level 2.6 g/dL (3.4-5.0); Alkaline Phosphatase 128 U/L (46-116); Anion Gap 15.4; Aspartate Amino Transferase 9 U/L (15-37); Blood Urea Nitrogen 16.0 mg/dL (7.0-18.0); Calcium 8.4 mg/dL (8.5-10.1); Carbon Dioxide 23.7 mmol/L (21.0-32.0); Chloride 100 mmol/L (98-107); Estimated GFR (African America >60 (>=60 mL/min/1.73m^2); Estimated GFR (Non-African Ame >60 (>=60 mL/min/1.73m^2); Globulin 4.7 g/dL; Glucose 231 mg/dL (74-106); Potassium 4.1 mmol/L (3.5-5.1); Sodium 135 mmol/L (136-145); Total Protein 7.3 g/dL (6.4-8.2)
[2024-10-20] MEDS: INSULIN ASPART 300 UNIT/3 ML PEN SUBQ ×4 (07:49→21:30)
--- NOTE | 2024-10-20 09:10 | CM.NOTE ---
Rounds made with Dr. Orozco, clarified status. Pt inpatient status. Dr. Orozco discussed with pt plan of care. Jeremie txt sent to Nai for ER documentation.
[2024-10-20 10:00] LABS: A. calcoaceticus-baumannii Cpx NOT DETECTED (NOT DETECTE); Bacteroides fragilis NOT DETECTED (NOT DETECTE); Candida auris NOT DETECTED (NOT DETECTE); Candida glabrata NOT DETECTED (NOT DETECTE); Enterobacterales NOT DETECTED (NOT DETECTE); Enterococcus faecalis NOT DETECTED (NOT DETECTE); Enterococcus faecium NOT DETECTED (NOT DETECTE); Klebsiella aerogenes NOT DETECTED (NOT DETECTE); Klebsiella pneumoniae group NOT DETECTED (NOT DETECTE); Proteus spp. NOT DETECTED (NOT DETECTE); Salmonella spp. NOT DETECTED (NOT DETECTE); Serratia marcescens NOT DETECTED (NOT DETECTE); Staphylococcus epidermidis NOT DETECTED (NOT DETECTE); Staphylococcus lugdunensis NOT DETECTED (NOT DETECTE); Stenotrophomonas maltophilia NOT DETECTED (NOT DETECTE); Streptococcus pyogenes NOT DETECTED (NOT DETECTE); Streptococcus spp. NOT DETECTED (NOT DETECTE)
[2024-10-20 11:10] LABS: mecA/C and MREJ (MRSA) NOT DETECTED (NOT DETECTE)
[2024-10-20 11:11] LABS: Source BLOOD
[2024-10-20 11:12] LABS: Staphylococcus spp. DETECTED (NOT DETECTE)
--- NOTE | 2024-10-20 12:45 | XR_ITS ---
[address] [address] Patient Name: PETER LINDQUIST MRN: [id number] date: 1960 Sex: M Assigned Patient Location: [place] Current Patient Location: [place] Accession/Order Number: [id number] Exam Date: 10/20/2024 15:07 Report Date: 10/20/2024 15:18 At the request of: ALMA JETER MD Procedure: XR chest 2V Chest 2 views CLINICAL HISTORY: COPD COMPARISON: Chest 06/01/2021 FINDINGS: Sternotomy wires are present. Heart is normal in size. Lungs are clear. No free air. XR/XR chest 2V IMPRESSION: NO ACUTE CARDIOPULMONARY ABNORMALITY. Impression dictated by: Fer Gonzalez Jr., D.O. 10/20/2024 3:18 PM Dictation Location: [place] [address] Electronically authenticated by: [id number] Y Date: 10/20/2024 15:18
--- NOTE | 2024-10-20 12:45 | ECG_ITS ---
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
--- NOTE | 2024-10-20 12:46 | PM.HP ---
HPI H&P: HPI History of Present Illness Chief complaint: ACUTE FLANK PAIN, UTI, HYPERCLYCEMIA Narrative: Mr. Norris is a 64-year-old gentleman who came in with few days history of progressive and worsening pain in the right flank area. Patient denies any chest pain, he reported having lower abdominal pain yesterday which had resolved. No cough or congestion. No fever or chills. No hematuria. History of CAD, previous coronary artery bypass graft and stent. No chest pain. He continues to smoke. Patient is on aspirin. Opioid HPI Opioid Management Most Recent Pain and Opioid Data: Last Pain Scale 5 Today, 09:07 Last Pain Assessment Today, 01:00 Last ED Pain Assessment 10/19/24, 18:54 Last MAR Pain Assessment 10/19/24, 19:44 Last ORT Total Score 0 Today, 00:01 Last ORT Risk Category Low Risk Today, 00:01 Review of Systems ROS Status of ROS 10 or more systems reviewed and unremarkable except as noted in history and below [facility] Surgical History (Updated 10/20/24 @ 00:19 by Teresa Emery) H/O heart artery stent ?Z95.5 - Presence of coronary angioplasty implant and graft (ICD-10) History of open heart surgery ?Z98.890 - Other specified postprocedural states (ICD-10) Social History Highest level of school completed/degree received: GED or equivalent Little interest or pleasure in doing things: not at all Feeling down, depressed, or hopeless: not at all Do you think of yourself as: straight/heterosexual Gender Identity: male Meds Home Medications and Allergies Home Medications ?Medication ?Instructions ?Recorded ?Confirmed ?Type aspirin 81 mg capsule 81 mg PO DAILY 10/19/24 10/19/24 History Allergies Allergy/AdvReac Type Severity Reaction Status Date / Time No Known Drug Allergies Allergy Verified 10/19/24 18:54 Exam Narrative Exam Narrative: [pt is awake and alert. oriented to place, time and person HEENT: [place] conjunctiva and NL buccal mucosa Neck: Supple, no tenderness Endocrine: No Thyromegaly. Vascular: No JVD or carotid bruit. Lymphatic: No cervical lymphadenopathy. Chest: CTA no DTP. Heart RRR, no extra sound or murmur. Abd: Soft, no tenderness, no rebound and no rigidity. Increase abd girth therefore clinically I could not exclude the possibility of intra abd mass or organomegaly. The pain is in the right flank extending down to the right iliac area. LE: No cyanosis or clubbing, no varices or edema. Neuro: A A O. Nl speech, comprehension and attention. Nl and symetrical motor and tone examination through out. []] Constitutional Vital Signs, click to edit/add: Last Vital Signs Temp 98.8 F 10/20/24 07:57 Pulse 91 H 10/20/24 12:00 Resp 16 10/20/24 07:57 BP 145/85 H 10/20/24 09:07 Pulse Ox 97 10/20/24 12:24 O2 Del Method Nasal Cannula 10/20/24 12:24 O2 Flow Rate 1.5 10/20/24 12:24 Results Labs Labs: Short CBC 10/19/24 10/20/24 Range/Units 19:15 05:43 WBC 13.3 H 11.7 H (4.0-11.0) 10^3/uL Hgb 15.4 13.5 L (14.0-18.0) g/dL Hct 44.9 39.3 L (42.0-54.0) % Plt Count 358 299 (150-450) 10^3/uL BMP 10/19/24 10/20/24 19:15 05:43 Sodium 132 L 135 L Potassium 4.3 4.1 Chloride 94 L 100 Carbon Dioxide 26.1 23.7 BUN 15.0 16.0 Creatinine 1.03 0.81 Glucose 263 H 231 H Calcium 9.3 8.4 L Liver Function 10/19/24 10/20/24 Range/Units 19:15 05:43 Total Bilirubin 0.8 0.7 (0.2-1.0) mg/dL AST 10 L 9 L (15-37) U/L ALT 28 20 (16-63) U/L Alkaline Phosphatase 166 H 128 H (46-116) U/L Albumin 3.3 L 2.6 L (3.4-5.0) g/dL Urine 10/19/24 Range/Units 19:01 Urine Color Lt. yellow (YELLOW) Urine Clarity Clear (CLEAR) Urine pH 6.0 (5.0-9.0) Ur Specific [place] 1.020 (1.005-1.025) Urine Protein 100 A (NEG/TRACE) mg/dL Urine Glucose (UA) >=1000 A (NEGATIVE) mg/dL Assessment and Plan Assessment and Plan (1) Acute pyelonephritis: (2) Sepsis: Qualifiers: Sepsis acute organ dysfunction status: unspecified Sepsis type: sepsis due to unspecified organism Qualified Code(s): A41.9 - Sepsis, unspecified organism (3) Bacteremia: (4) UTI (urinary tract infection): Qualifiers: Hematuria presence: with hematuria Urinary tract infection type: acute cystitis Qualified Code(s): N30.01 - Acute cystitis with hematuria (5) CAD (coronary artery disease): (6) Tobacco abuse: (7) Tobacco abuse counseling: (8) Diabetes: Plan Sepsis present on admission. Bacteremia. 2 bottles, back positive for staph. Unknown source. Could be urinary although less likely to have UTI caused by gram-positive organism Acute pyelonephritis based on right flank pain, abnormal UA and findings seen on CT. I had accepted to admit patient to the medical floor. Initially I started patient on ceftriaxone 1 g every 12. I added vancomycin due to bacteremia with staph pending sensitivity. Pharmacy to dose. Blood culture had been drawn already. Pending urine culture as well. IV fluid infusion Coronary artery disease, previous coronary artery bypass graft followed by multiple stents No chest pain. No active angina. No ACS. Requested EKG. Tobacco addiction. 1 pack/day. Suspect underlying COPD. No exacerbation. Counseling and education were provided to quit smoking. Requested the chest x-ray. Hyperglycemia. I highly suspect that patient has a type 2 diabetes Requested A1c. Start the patient on sliding scale coverage. Requested diabetes add in the dietitian consultation for patient ed. Increased risk of lung cancer due to smoking for many years I recommend patient to have yearly low-dose radiation CAT scan of the chest to screen for lung cancer to be arranged by PCP. Hypertension. Given his history of CAD I would initiate beta-ginette, small dose to reduce his risk having a bronchospasm. Consider initiation of IGLESIA inhibitor if diabetes is confirmed Chronic medical conditions not listed above, incidental findings seen on labs and imaging. These would need to be addressed. Could be addressed when time and condition are appropriate. Could be addressed in the outpatient setting by PCP collaboration with other needed outpatient providers.
[2024-10-20] MEDS: OXYCODONE HCL 5 MG TABLET PO ×2 (13:08→21:28)
[2024-10-20] MEDS: METOPROLOL SUCCINATE 25 MG TAB.ER.24H PO (13:08)
[2024-10-20] MEDS: LISINOPRIL 5 MG TABLET PO (13:08)
[2024-10-20] MEDS: GLIMEPIRIDE 2 MG TABLET PO (13:08)
--- NOTE | 2024-10-20 13:32 | SWNOTE1 ---
Important Message from Medicare reviewed and discussed with patient. Pt. verbalized understanding and signed the form. Original given to patient and copy placed in patient?s chart.
--- NOTE | 2024-10-20 13:32 | SWNOTE1 ---
SW met with pt to discuss dc needs. Pt lives at home by himself, but has several family members nearby if needed. His 2 sons and a niece lives within a few miles. Pt is independent at home and does not use any DME at home. Pt does not have any services coming in at this time. Pt denies any discharge needs. SW to follow as needed.
[2024-10-20] MEDS: VANCOMYCIN HCL 1,250 MG in 0.9 % SODIUM CHLORIDE 250 ML 166.667 MG IV (14:31)
--- NOTE | 2024-10-20 17:48 | ED.GENADUL1 ---
HPI HPI - General Adult General Chief complaint: Abdominal Pain Stated complaint: RIGHT SIDE HURTS/ CAN'T SIT OR SLEEP Time Seen by Provider: 10/19/24 19:02 Source: patient Mode of arrival: walk-in Limitations: no limitations History of Present Illness HPI narrative: Pt has one week of worsening pain in back and decreased urine output. pt indicate rt sided back and side pain primarily but has some lt sided pain as well. pt sts he is drionking copious amounts. he also has 6 month hx of increased urination and urine every 2 hours at night. pt denies dysuria/chest pain/dumont/n/v/d/rectal bleeding. sx moderate in severity. touch/motion worsen sx. nothing improves sx. pt sts tried aspirin with minimal relief. pt has not seen his pmd in approx. two years. Onset (ago): week(s) (1) Location: Reports back and abdomen Severity: moderate Relieving factors: Reports none Exacerbating factors: Reports movement Associated symptoms: Denies nausea/vomiting Treatments prior to arrival: Reports aspirin Related Data Home Medications ?Medication ?Instructions ?Recorded ?Confirmed aspirin 81 mg capsule 81 mg PO DAILY 10/19/24 10/19/24 Previous Rx's ?Medication ?Instructions ?Recorded glimepiride 2 mg tablet 2 mg PO QD #30 tabs 10/24/24 levofloxacin 500 mg tablet 500 mg PO DAILY 10 days #10 tabs 10/24/24 lisinopril 20 mg tablet 20 mg PO DAILY #30 tabs 10/24/24 metformin 500 mg tablet 500 mg PO BIDWM #6 tabs 10/24/24 metoprolol succinate 25 mg 25 mg PO QD #30 tabs 10/24/24 tablet,extended release 24 hr Allergies Allergy/AdvReac Type Severity Reaction Status Date / Time No Known Drug Allergies Allergy Verified 10/19/24 18:54 Opioid HPI Opioid Management Most Recent Opioid Data: Last Pain Scale 4 10/23/24, 15:08 Last Pain Assessment 10/20/24, 01:00 Last ED Pain Assessment 10/19/24, 20:52 Last MAR Pain Assessment 10/19/24, 19:44 Last ORT Total Score 0 10/20/24, 00:01 Last ORT Risk Category Low Risk 10/20/24, 00:01 Review of Systems ROS Status of ROS 10 or more systems reviewed and unremarkable except as noted in history and below Constitutional Reports: fatigue; Denies: fever Eyes Denies: change in vision Ears, nose, mouth, and throat Denies: throat pain Cardiovascular Denies: chest pain Respiratory Denies: shortness of breath or cough Gastrointestinal Reports: abdominal pain; Denies: nausea, vomiting or coffee grounds in vomit Genitourinary Reports: nighttime urination and decreased urine ouput; Denies: painful urination or urinary frequency Musculoskeletal Reports: back pain; Denies: neck pain Integumentary/Breast Denies: rash Neurological Denies: headache or confusion Psychiatric Denies: anxiety Hematologic/Lymphatic Denies: easy bruising PFSH [facility] Surgical History (Updated 10/20/24 @ 00:19 by Teresa Emery) H/O heart artery stent ?Z95.5 - Presence of coronary angioplasty implant and graft (ICD-10) History of open heart surgery ?Z98.890 - Other specified postprocedural states (ICD-10) Social History Highest level of school completed/degree received: GED or equivalent Little interest or pleasure in doing things: not at all Feeling down, depressed, or hopeless: not at all Do you think of yourself as: straight/heterosexual Gender Identity: male Exam Constitutional Vital Signs, click to edit/add: Last Vital Signs Temp 98.2 F 10/24/24 08:20 Pulse 85 10/24/24 09:57 Resp 18 10/24/24 08:20 BP 126/81 10/24/24 08:20 Pulse Ox 92 L 10/24/24 08:20 O2 Del Method Room Air 10/24/24 08:20 O2 Flow Rate 1.5 10/20/24 12:24 Documenting provider has reviewed patient's vital signs: yes Common normals: no apparent distress, average body habitus, oriented x3 and no limitations Exam limitations: no altered mental status General appearance: cooperative; not in distress Orientation/consciousness: Yes awake, Yes oriented to person, Yes oriented to place and Yes oriented to time HENMT Common normals: normocephalic, hearing grossly normal bilaterally, EACs normal and TMs normal bilaterally Head and scalp: normal to inspection Face and sinus: normal facial exam Nose: external nose normal Eye Common normals: PERRL and EOMs intact bilaterally General eye: normal appearance of both eyes and normal light reflex Neck & C-Spine Common normals: full ROM and supple General: normal visual inspection Chest Common normals: palpation of chest normal Respiratory Common normals: normal respiratory effort and clear to auscultation bilaterally Effort & inspection: able to speak in complete sentences and symmetric chest movement Cardio Common normals: regular rate, regular rhythm, S1 normal heart sound and S2 normal heart sound Rhythm: regular rhythm Peripheral pulses: pulses 2+ throughout GI Common normals: soft to palpation; tender Inspection: scar; no incision Palpation: soft and tender Details: LLQ and RUQ Common normals: CVA tenderness present Bladder/kidney exam: CVA tenderness Back & Pelvis Common normals: thoracic and lumbar spine normal to inspection, no thoracic nor lumbar tenderness and thoraco-lumbar ROM normal; CVA tenderness General back: CVA tenderness CVA tenderness: right Extremity Common normals: normal to inspection, full ROM and no pedal edema Neuro Common normals: oriented x3, moves all extremities and no focal motor deficits Sensorium/orientation: awake and alert Psych Common normals: mental status grossly normal and thought process normal Course Course Hospital Course: Mr. Norris is a 64-year-old gentleman who came in with right flank pain and was found to have the following: Sepsis present on admission. Bacteremia. 2 bottles, back positive for staph. Unknown source. Urine culture is growing staph as well. Urinary could be the primary source although less likely to have UTI caused by gram-positive organism. Given the urological abnormalities seen on CT I would suspect that the primary source of bacteremia is urinary infection Acute pyelonephritis based on right flank pain, abnormal UA and findings seen on CT. Staph is oxacillin sensitive. Continue on ceftriaxone 1 g every 12. Discontinued vancomycin as MRSA resistant gene is negative. Repeat blood culture had been drawn already on 10/21 thus far is negative Patient is feeling great. Patient will be discharged home on 10 days course of oral Levaquin Coronary artery disease, previous coronary artery bypass graft followed by multiple stents No chest pain. No active angina. No ACS. Requested EKG. no ST elevation or depression Continue aspirin Tobacco addiction. 1 pack/day. Suspect underlying COPD. No exacerbation. Counseling and education were provided to quit smoking. Requested the chest x-ray. X-ray showed no active pulmonary disease Type 2 diabetes Requested A1c. A1c is 11. Continue sliding scale coverage. Requested diabetes add in the dietitian consultation for patient ed. Patient does not want to use insulin. Start him on Amaryl. Added metformin for [address] Additional titration of diabetes meds with need to be addressed to keep bringing his A1c below 7 Patient is instructed to do the following: Check your blood sugar 3 times a day before meals. Document these numbers on a blood glucose log and bring them with you to your follow-up appointment with your primary care doctor. Communicate with your primary care doctor or independent living specialist if your blood sugar is under 100 or above 300 on 2 consecutive checks. Communicate with your primary care doctor or independent living specialist if you have any questions about your diabetes medications. Signs of a low blood sugar include sweating, racing heart, dizziness and/or weakness. Check your blood sugar if you have any of the symptoms. Increased risk of lung cancer due to smoking for many years I recommend patient to have yearly low-dose radiation CAT scan of the chest to screen for lung cancer to be arranged by PCP. Hypertension. Given his history of CAD I would initiate beta-ginette, small dose to reduce his risk having a bronchospasm. I started patient on lisinopril. Continue lisinopril and beta-ginette Chronic medical conditions not listed above, incidental findings seen on labs and imaging. These would need to be addressed. Could be addressed when time and condition are appropriate. Could be addressed in the outpatient setting by PCP collaboration with other needed outpatient providers Patient has multiple complex medical issues as listed above and others that are not listed. All appear to be stable. Patient is feeling great and requesting to be discharged home. At this time, I do not have any clear or strong clinical justification to extend inpatient hospitalization. Patient however will require close and frequent monitoring as well as additional work-up, investigation and therapeutic intervention that could take place from this point on post discharge. That is to prevent relapse, decompensation, rehospitalization and other medical implications. I instructed patient to ask her primary care doctor to obtain [facility] record entirely to address abnormalities seen on labs and imaging that I have and have not addressed during this hospitalization, follow-up on pending blood work, imaging and pathology is if available and to follow-up on needed medical care in the outpatient setting. Vital Signs Vital signs: Vital Signs Pulse Rate 93 H 10/19/24 18:54 Respiratory Rate 20 10/19/24 18:54 Blood Pressure 172/101 H 10/19/24 18:54 Pulse Oximetry 98 10/19/24 18:54 Oxygen Delivery Method Room Air 10/19/24 18:54 Temperature 98.2 F 10/24/24 08:20 Pulse Rate 85 10/24/24 09:57 Respiratory Rate 18 10/24/24 08:20 Blood Pressure 126/81 10/24/24 08:20 Pulse Oximetry 92 L 10/24/24 08:20 Oxygen Delivery Method Room Air 10/24/24 08:20 Oxygen Delivery Flow Rate 1.5 10/20/24 12:24 Medical Decision Making MDM Narrative Medical decision making narrative: pt seen 10/19/24 @2000hrs pt has one week of right sided flank and back pain. will add cbc/cmp/urinalysis/0.9% saline 500 ml iov for possible dehydration. ct abdomen/ pelvis wo contrast for possible stones. toradol 30 mg iv for pain. reviewed labs + wbc of 13.3 and hr 93bpm/ will add lactic acid/blood cultures times two and rocephin 1 gm for uti. reviewed labs lactic negative. pt reexam/ feels betterpost toradol. and remains conversant vitals stable. we added 0.9 saline iv for 30 ml/kg. pt sts he does have hx stents and cabg but denies CHF. DW hospitalist regarding admit. Dr Zhu accepts patient/ will place bed request. discussed plan of care with patient at length including admission for uti/sepsis/hyperglycemia. pt is agreeable with plan of care. Differential Diagnosis Differential Diagnosis: prieto/uti/diverticulitis/kidney stone Lab Data Lab results reviewed: Yes I reviewed the patient's lab results Lab results narrative: neg lactic acid/ wbc elevatede/ pt is fasting at this time and has 263 glucose. Labs: Lab Results 10/19/24 10/19/24 10/19/24 Range/Units 19:01 19:15 20:29 WBC 13.3 H (4.0-11.0) 10^3/uL RBC 5.14 (4.70-6.10) 10^6/uL Hgb 15.4 (14.0-18.0) g/dL Hct 44.9 (42.0-54.0) % MCV 87.4 (80.0-94.0) fL MCH 30.0 (25.9-34.0) pg MCHC 34.3 (29.9-35.2) g/dL RDW 13.2 (11.0-15.0) % Plt Count 358 (150-450) 10^3/uL MPV 9.5 (9.5-13.5) fL Neut % (Auto) 75.5 H (43.0-75.0) % Lymph % (Auto) 15.4 L (20.5-60.0) % [place] % (Auto) 7.4 (1.7-12.0) % Eos % (Auto) 0.5 L (0.9-7.0) % Baso % (Auto) 0.9 (0.2-2.0) % Neut # (Auto) 10.1 H (1.4-6.5) 10^3/uL Lymph # (Auto) 2.1 (1.2-3.8) 10^3/uL [place] # (Auto) 1.0 H (0.3-0.8) 10^3/uL Eos # (Auto) 0.1 (0.0-0.7) 10^3/uL Baso # (Auto) 0.1 (0.0-0.1) 10^3/uL Abs Immat Gran (auto) 0.04 H (0.00-0.03) 10^3/uL Imm/Tot Granulo (auto) 0.3 (0.0-0.5) % Sodium 132 L (136-145) mmol/L Potassium 4.3 (3.5-5.1) mmol/L Chloride 94 L (98-107) mmol/L Carbon Dioxide 26.1 (21.0-32.0) mmol/L Anion Gap 16.2 BUN 15.0 (7.0-18.0) mg/dL Creatinine 1.03 (0.70-1.30) mg/dL Est GFR ( Amer) >60 (>=60 mL/min/1.73m^2) Est GFR (Non-Af Amer) >60 (>=60 mL/min/1.73m^2) BUN/Creatinine Ratio 14.6 Glucose 263 H (74-106) mg/dL Lactate 1.4 (0.4-2.0) mmol/L Calcium 9.3 (8.5-10.1) mg/dL Total Bilirubin 0.8 (0.2-1.0) mg/dL AST 10 L (15-37) U/L ALT 28 (16-63) U/L Alkaline Phosphatase 166 H (46-116) U/L Total Protein 8.9 H (6.4-8.2) g/dL Albumin 3.3 L (3.4-5.0) g/dL Globulin 5.6 g/dL Albumin/Globulin Ratio 0.6 Lipase 26.0 (16.0-77.0) U/L Urine Color Lt. yellow (YELLOW) Urine Clarity Clear (CLEAR) Urine pH 6.0 (5.0-9.0) Ur Specific [place] 1.020 (1.005-1.025) Urine Protein 100 A (NEG/TRACE) mg/dL Urine Glucose (UA) >=1000 A (NEGATIVE) mg/dL Urine Ketones 15 A (NEGATIVE) mg/dL Urine Occult Blood Large A (NEGATIVE) Urine Nitrite Positive A (NEGATIVE) Urine Bilirubin Negative (NEGATIVE) Urine Urobilinogen 1.0 (0.2-1.0) EU/dL Ur Leukocyte Esterase Small A (NEGATIVE) Urine RBC 0-2 (0-2) #/HPF Urine WBC 10-20 A (NONE SEEN) #/HPF Ur Squamous Epith Cells Rare (NONE/RARE) #/LPF Urine Crystals None seen (None Seen) #/HPF Urine Bacteria Small A (NONE SEEN) #/HPF Urine Casts None seen (NONE SEEN) #/LPF Urine Mucus None seen (NONE SEEN) Ur Culture Indicated[place] [place] Blood A.calcoaceticus-baumannii cmplx PCR Not detected (NOT DETECTE) Bacteroides fragilis Not detected (NOT DETECTE) Sunshine albicans (PCR) Not detected (NOT DETECTE) Sunshine auris (PCR) Not detected (NOT DETECTE) C. glabrata (PCR) Not detected (NOT DETECTE) C. krusei (PCR) Not detected (NOT DETECTE) C. parapsilosis (PCR) Not detected (NOT DETECTE) C. tropicalis (PCR) Not detected (NOT DETECTE) C. neoform/gattii (PCR) Not detected (NOT DETECTE) Enterobacterales (PCR) Not detected (NOT DETECTE) E. cloacae complex PCR Not detected (NOT DETECTE) Enterococc faecalis PCR Not detected (NOT DETECTE) Enterococc faecium PCR Not detected (NOT DETECTE) E. coli (PCR) Not detected (NOT DETECTE) H. influenzae (PCR) Not detected (NOT DETECTE) Klebsiella aerogenes (PCR) Not detected (NOT DETECTE) Klebsiella oxytoca PCR Not detected (NOT DETECTE) K. pneumoniae group (PCR) Not detected (NOT DETECTE) List. monocytogenes PCR Not detected (NOT DETECTE) N. meningitidis (PCR) Not detected (NOT DETECTE) Proteus spp. (copies/mL) Not detected (NOT DETECTE) Salmonella spp. (PCR) Not detected (NOT DETECTE) Serratia marcescens PCR Not detected (NOT DETECTE) Staphylococcus sp PCR Detected A* (NOT DETECTE) Staph aureus (PCR) Detected A* (NOT DETECTE) mecA/C & MREJ Resist Gene Not detected (NOT DETECTE) mecA/C-Methicil Resis Gene Not applicable (NOT DETECTE) mcr-1 Colistin Res Gene PCR Not applicable (NOT DETECTE) Staph epidermidis (PCR) Not detected (NOT DETECTE) Staph lugdunensis (TEM-PCR) Not detected (NOT DETECTE) S. maltophilia (PCR) Not detected (NOT DETECTE) Streptococcus sp PCR Not detected (NOT DETECTE) Strep agalactiae (PCR) Not detected (NOT DETECTE) Strep pneumoniae (PCR) Not detected (NOT DETECTE) S. pyogenes (PCR) Not detected (NOT DETECTE) P. aeruginosa (PCR) Not detected (NOT DETECTE) [place]/B-Vanco Res Genes Not applicable (NOT DETECTE) blaIMP Car res Gene PCR Not applicable (NOT DETECTE) KPC (blaKPC) Detect PCR Not applicable (NOT DETECTE) NDM (blaNDM) Detect PCR Not applicable (NOT DETECTE) OXA-48 Carbapenem Resis Gene (PCR) Not applicable (NOT DETECTE) blaVIM Car Res Gene PCR Not applicable (NOT DETECTE) CTX-M ESBL (PCR) Not applicable (NOT DETECTE) Imaging Data CT scan - abdomen: Attestation: I have reviewed the pertinent imaging results. Radiologist's impression: ITS Impressions Abdomen/Pelvis CT 10/19/24 19:26 IMPRESSION: There is mild bladder wall thickening possibly relating to cystitis. This is new when compared to the prior exam. Fat stranding is noted along the ureters, right greater than left. This is suspicious for an ascending urinary tract infection. This is new compared to the prior exam. Mildly prominent retroperitoneal lymph nodes are noted. These may be reactive in nature. No hydronephrosis. No renal, ureteral, or bladder stones. Additional chronic findings are noted as above. Impression dictated by: Neville Elizabeth M.D. 10/19/2024 8:18 PM Dictation Location: [place] [address] Electronically authenticated by: [id number] Y Date: 10/19/2024 20:18 Critical Care Time Critical Care Time Critical Care Time: Yes Total Critical Care Time: 31 Attestation: dx sepsis with addiotoanl interventions and re evaluations with expanded lab/tx requirment Discharge Plan Discharge Chief Complaint: Abdominal Pain Clinical Impression: Hyperglycemia, Acute flank pain Sepsis Qualifiers: Sepsis type: sepsis due to unspecified organism Sepsis acute organ dysfunction status: unspecified Qualified Code(s): A41.9 - Sepsis, unspecified organism UTI (urinary tract infection) Qualifiers: Urinary tract infection type: acute cystitis Hematuria presence: with hematuria Qualified Code(s): N30.01 - Acute cystitis with hematuria Patient Disposition: Admitted As Inpatient Time of Disposition Decision: 21:49 Condition: Good Discharge Date/Time: 10/19/24 23:56
[2024-10-20] MEDS: LISINOPRIL 5 MG TABLET 10 MG PO (21:28)
[2024-10-21] VITALS (20 sets, daily range): BP systolic 105–144; BP diastolic 56–83; PULSE 69–86; TEMP 36.6–36.8; O2SAT 91–96
[2024-10-21] MEDS: OXYCODONE HCL 5 MG TABLET PO ×4 (02:11→21:02)
[2024-10-21] MEDS: VANCOMYCIN HCL 1,250 MG in 0.9 % SODIUM CHLORIDE 250 ML 250 MG IV (02:11)
[2024-10-21 05:53] LABS: Hematocrit 39.8 % (42.0-54.0); Hemoglobin 13.1 g/dL (14.0-18.0); Mean Corpuscular HGB Conc 32.9 g/dL (29.9-35.2); Mean Corpuscular Hemoglobin 29.1 pg (25.9-34.0); Mean Corpuscular Volume 88.4 fL (80.0-94.0); Platelet Count 303 10^3/uL (150-450); Red Blood Count 4.50 10^6/uL (4.70-6.10); White Blood Count 10.8 10^3/uL (4.0-11.0)
[2024-10-21 06:03] LABS: Anion Gap 12.7; Blood Urea Nitrogen 11.0 mg/dL (7.0-18.0); Calcium 8.8 mg/dL (8.5-10.1); Carbon Dioxide 27.2 mmol/L (21.0-32.0); Chloride 100 mmol/L (98-107); Estimated GFR (African America >60 (>=60 mL/min/1.73m^2); Estimated GFR (Non-African Ame >60 (>=60 mL/min/1.73m^2); Glucose 124 mg/dL (74-106); Potassium 3.9 mmol/L (3.5-5.1); Sodium 136 mmol/L (136-145)
[2024-10-21] MEDS: LISINOPRIL 5 MG TABLET 10 MG PO (08:27)
[2024-10-21] MEDS: METOPROLOL SUCCINATE 25 MG TAB.ER.24H PO (08:27)
[2024-10-21] MEDS: ASPIRIN 81 MG TAB.CHEW PO (08:27)
[2024-10-21] MEDS: GLIMEPIRIDE 2 MG TABLET PO (08:27)
--- NOTE | 2024-10-21 09:06 | PM.PN ---
Progress Note: Subjective Subjective Interval history: Patient is feeling better. Less pain and discomfort in the right flank. No nausea vomiting. No chest pain. Exam Narrative Exam Narrative: [pt is awake and alert. oriented to place, time and person HEENT: [place] conjunctiva and NL buccal mucosa Neck: Supple, no tenderness Endocrine: No Thyromegaly. Vascular: No JVD or carotid bruit. Lymphatic: No cervical lymphadenopathy. Chest: CTA no DTP. Heart RRR, no extra sound or murmur. Abd: Soft, no tenderness, no rebound and no rigidity. Increase abd girth therefore clinically I could not exclude the possibility of intra abd mass or organomegaly. The pain is in the right flank extending down to the right iliac area. Less tender than before LE: No cyanosis or clubbing, no varices or edema. Neuro: A A O. Nl speech, comprehension and attention. Nl and symetrical motor and tone examination through out. []] Constitutional Vital Signs, click to edit/add: Last Vital Signs Temp 98.0 F 10/21/24 07:58 Pulse 86 10/21/24 08:04 Resp 16 10/21/24 07:58 BP 144/83 H 10/21/24 07:58 Pulse Ox 92 L 10/21/24 07:58 O2 Del Method Room Air 10/21/24 07:58 O2 Flow Rate 1.5 10/20/24 12:24 Progress Note: Objective Labs Labs: Short CBC 10/21/24 Range/Units 05:44 WBC 10.8 (4.0-11.0) 10^3/uL Hgb 13.1 L (14.0-18.0) g/dL Hct 39.8 L (42.0-54.0) % Plt Count 303 (150-450) 10^3/uL BMP 10/21/24 05:44 Sodium 136 Potassium 3.9 Chloride 100 Carbon Dioxide 27.2 BUN 11.0 Creatinine 0.92 Glucose 124 H Calcium 8.8 Progress Note: A&P Assessment and Plan (1) Acute pyelonephritis: (2) Sepsis: Qualifiers: Sepsis acute organ dysfunction status: unspecified Sepsis type: sepsis due to unspecified organism Qualified Code(s): A41.9 - Sepsis, unspecified organism (3) Bacteremia: (4) UTI (urinary tract infection): Qualifiers: Hematuria presence: with hematuria Urinary tract infection type: acute cystitis Qualified Code(s): N30.01 - Acute cystitis with hematuria (5) CAD (coronary artery disease): (6) Tobacco abuse: (7) Tobacco abuse counseling: (8) Diabetes: Plan Sepsis present on admission. Bacteremia. 2 bottles, back positive for staph. Unknown source. Could be urinary although less likely to have UTI caused by gram-positive organism Acute pyelonephritis based on right flank pain, abnormal UA and findings seen on CT. Continue on ceftriaxone 1 g every 12. Continue vancomycin due to bacteremia with staph pending sensitivity. Pharmacy to dose. Blood culture had been drawn already. Pending urine culture as well. Repeat blood culture today IV fluid infusion had completed. Coronary artery disease, previous coronary artery bypass graft followed by multiple stents No chest pain. No active angina. No ACS. Requested EKG. Tobacco addiction. 1 pack/day. Suspect underlying COPD. No exacerbation. Counseling and education were provided to quit smoking. Requested the chest x-ray. X-ray showed no active pulmonary disease Hyperglycemia. I highly suspect that patient has a type 2 diabetes Requested A1c. A1c is 11. Continue sliding scale coverage. Requested diabetes add in the dietitian consultation for patient ed. Patient does not want to use insulin. Start him on Amaryl. Added metformin for [address] Increased risk of lung cancer due to smoking for many years I recommend patient to have yearly low-dose radiation CAT scan of the chest to screen for lung cancer to be arranged by PCP. Hypertension. Given his history of CAD I would initiate beta-ginette, small dose to reduce his risk having a bronchospasm. I started patient on lisinopril. Chronic medical conditions not listed above, incidental findings seen on labs and imaging. These would need to be addressed. Could be addressed when time and condition are appropriate. Could be addressed in the outpatient setting by PCP collaboration with other needed outpatient providers.
--- NOTE | 2024-10-21 13:23 | CM.NOTE ---
Updated Dr. Orozco on preliminary urine culture.
[2024-10-21] MEDS: INSULIN ASPART 300 UNIT/3 ML PEN SUBQ ×2 (16:28→21:05)
--- NOTE | 2024-10-21 20:18 | DIETREC ---
Recommend 2000 kcal CCD, Heart Healthy diet.
[2024-10-21] MEDS: METFORMIN HCL 500 MG TABLET PO (20:54)
[2024-10-21] MEDS: LISINOPRIL 10 MG TABLET PO (20:55)
[2024-10-21] MEDS: ENOXAPARIN SODIUM 40 MG/0.4 ML SYRINGE SUBQ (21:01)
[2024-10-22] VITALS (18 sets, daily range): BP systolic 103–143; BP diastolic 66–83; PULSE 60–90; TEMP 36.6–36.8; O2SAT 90–97
[2024-10-22] MEDS: GLIMEPIRIDE 2 MG TABLET PO (08:40)
[2024-10-22] MEDS: LISINOPRIL 10 MG TABLET PO ×2 (08:40→20:33)
[2024-10-22] MEDS: INSULIN ASPART 300 UNIT/3 ML PEN SUBQ ×3 (08:40→21:41)
[2024-10-22] MEDS: OXYCODONE HCL 5 MG TABLET PO ×2 (08:40→20:40)
[2024-10-22] MEDS: METOPROLOL SUCCINATE 25 MG TAB.ER.24H PO (08:41)
[2024-10-22] MEDS: METFORMIN HCL 500 MG TABLET PO ×2 (08:41→16:27)
[2024-10-22] MEDS: ASPIRIN 81 MG TAB.CHEW PO (08:41)
--- NOTE | 2024-10-22 09:05 | CM.NOTE ---
Rounds made with Dr. Orozco, awaiting final culture results. No discharge today.
--- NOTE | 2024-10-22 12:31 | P.PN_ITS ---
Progress Note: Subjective Subjective Interval history: Patient is feeling better. Less pain and discomfort in the right flank. No nausea vomiting. No chest pain. Exam Narrative Exam Narrative: [pt is awake and alert. oriented to place, time and person HEENT: [place] conjunctiva and NL buccal mucosa Neck: Supple, no tenderness Endocrine: No Thyromegaly. Vascular: No JVD or carotid bruit. Lymphatic: No cervical lymphadenopathy. Chest: CTA no DTP. Heart RRR, no extra sound or murmur. Abd: Soft, no tenderness, no rebound and no rigidity. Increase abd girth therefore clinically I could not exclude the possibility of intra abd mass or organomegaly. The pain is in the right flank extending down to the right iliac area. Less tender than before. Minimal tenderness today LE: No cyanosis or clubbing, no varices or edema. Neuro: A A O. Nl speech, comprehension and attention. Nl and symetrical motor and tone examination through out. []] Constitutional Vital Signs, click to edit/add: Last Vital Signs Temp 98.2 F 10/22/24 08:30 Pulse 66 10/22/24 12:00 Resp 16 10/22/24 08:30 BP 122/78 10/22/24 08:30 Pulse Ox 94 L 10/22/24 11:12 O2 Del Method Room Air 10/22/24 11:12 O2 Flow Rate 1.5 10/20/24 12:24 Progress Note: A&P Assessment and Plan (1) Acute pyelonephritis: (2) Sepsis: Qualifiers: Sepsis acute organ dysfunction status: unspecified Sepsis type: sepsis due to unspecified organism Qualified Code(s): A41.9 - Sepsis, unspecified organism (3) Bacteremia: (4) UTI (urinary tract infection): Qualifiers: Hematuria presence: with hematuria Urinary tract infection type: acute cystitis Qualified Code(s): N30.01 - Acute cystitis with hematuria (5) CAD (coronary artery disease): (6) Tobacco abuse: (7) Tobacco abuse counseling: (8) Diabetes: Plan Sepsis present on admission. Bacteremia. 2 bottles, back positive for staph. Unknown source. Could be urinary although less likely to have UTI caused by gram-positive organism Acute pyelonephritis based on right flank pain, abnormal UA and findings seen on CT. Continue on ceftriaxone 1 g every 12. Discontinued vancomycin as MRSA resistant gene is negative. Repeat blood culture had been drawn already on 10/21. Pending urine culture as well. Repeat blood culture today IV fluid infusion had completed. Coronary artery disease, previous coronary artery bypass graft followed by multiple stents No chest pain. No active angina. No ACS. Requested EKG. no ST elevation or depression Tobacco addiction. 1 pack/day. Suspect underlying COPD. No exacerbation. Counseling and education were provided to quit smoking. Requested the chest x-ray. X-ray showed no active pulmonary disease Hyperglycemia. I highly suspect that patient has a type 2 diabetes Requested A1c. A1c is 11. Continue sliding scale coverage. Requested diabetes add in the dietitian consultation for patient ed. Patient does not want to use insulin. Start him on Amaryl. Added metformin for [address] Increased risk of lung cancer due to smoking for many years I recommend patient to have yearly low-dose radiation CAT scan of the chest to screen for lung cancer to be arranged by PCP. Hypertension. Given his history of CAD I would initiate beta-ginette, small dose to reduce his risk having a bronchospasm. I started patient on lisinopril. Continue lisinopril and beta-ginette Chronic medical conditions not listed above, incidental findings seen on labs and imaging. These would need to be addressed. Could be addressed when time and condition are appropriate. Could be addressed in the outpatient setting by PCP collaboration with other needed outpatient providers.
[2024-10-22] MEDS: ENOXAPARIN SODIUM 40 MG/0.4 ML SYRINGE SUBQ (21:41)
[2024-10-23] VITALS (19 sets, daily range): BP systolic 122–175; BP diastolic 62–99; PULSE 66–92; TEMP 36.2–36.8; O2SAT 92–97
[2024-10-23] MEDS: OXYCODONE HCL 5 MG TABLET PO ×2 (04:38→13:49)
[2024-10-23 05:58] LABS: Hematocrit 37.0 % (42.0-54.0); Hemoglobin 12.2 g/dL (14.0-18.0); Mean Corpuscular HGB Conc 33.0 g/dL (29.9-35.2); Mean Corpuscular Hemoglobin 29.0 pg (25.9-34.0); Mean Corpuscular Volume 87.9 fL (80.0-94.0); Platelet Count 282 10^3/uL (150-450); Red Blood Count 4.21 10^6/uL (4.70-6.10); White Blood Count 7.9 10^3/uL (4.0-11.0)
[2024-10-23 06:17] LABS: Alanine Aminotransferase 39 U/L (16-63); Albumin Globulin Ratio 0.5; Albumin Level 2.3 g/dL (3.4-5.0); Alkaline Phosphatase 119 U/L (46-116); Anion Gap 11.0; Aspartate Amino Transferase 17 U/L (15-37); Blood Urea Nitrogen 18.0 mg/dL (7.0-18.0); Calcium 8.9 mg/dL (8.5-10.1); Carbon Dioxide 26.3 mmol/L (21.0-32.0); Chloride 105 mmol/L (98-107); Estimated GFR (African America >60 (>=60 mL/min/1.73m^2); Estimated GFR (Non-African Ame >60 (>=60 mL/min/1.73m^2); Globulin 4.4 g/dL; Glucose 202 mg/dL (74-106); Potassium 4.3 mmol/L (3.5-5.1); Sodium 138 mmol/L (136-145); Total Protein 6.7 g/dL (6.4-8.2)
[2024-10-23] MEDS: INSULIN ASPART 300 UNIT/3 ML PEN SUBQ ×2 (07:32→15:58)
--- NOTE | 2024-10-23 08:24 | CA_ITS ---
Patient Name: PETER LINDQUIST MR#: [id number] : 1960 Exam Date: 10/23/2024 Ordering Doctor: ALMA JETER ECHOCARDIOGRAM REPORT PROCEDURE: CA ECHO DOPPLER COMPLETE INDICATIONS: bacteremia r/o endocarditis COMPARISON: None. DESCRIPTION: COMPLETE ECHOCARDIOGRAM Real-time transthoracic echocardiography with 2D, M-mode, spectral and color flow Doppler performed. QUALITY: Technical quality was good. LEFT VENTRICLE: Normal chamber size. Mild concentric left ventricular hypertrophy. Global left ventricular systolic function is normal. No wall motion abnormalities calculated left ventricular ejection fraction is 67%. LV EF: DIASTOLIC: Normal diastolic function. ATRIAL SEPTUM: Visually appears intact LEFT ATRIUM: Normal chamber size. RIGHT ATRIUM: Normal chamber size. RIGHT VENTRICLE: Normal chamber size. Normal right ventricle systolic function. Normal right ventricular systolic function. TRICUSPID VALVE: Normal mobility and thickness. No stenosis with trivial regurgitation. No evidence of pulmonary hypertension.RVSP 31mmHg. MITRAL VALVE: Normal mobility and thickness. No evidence of mitral valve stenosis. There is no mitral annular calcification. Trivial mitral regurgitation. AORTIC VALVE: Normal trileaflet appearance. No visible sclerosis. Normal leaflet mobility. No evidence of aortic valve stenosis. No aortic regurgitation. AORTIC ROOT: Normal diameter and appearance. PULMONIC VALVE: Normal thickness and mobility. No stenosis. Trivial regurgitation. PERICARDIUM: No evidence of pericardial effusion. IVC: Collapes with inspirations. Normal size. PLEURA: CONCLUSION: Normal left ventricle systolic function, without wall motion abnormalities, ejection fraction 67% Mild concentric left ventricle hypertrophy Normal right ventricle size and systolic function Normal right-sided pressures, RVSP 31 mmHg Trivial mitral regurgitation and trivial tricuspid regurgitation No significant valvular abnormalities No obvious vegetation on any of the cardiac valves Adult Echocardiography Procedure Report Left Ventricle LVEDD (3.7 - 5.6 cm): 4.64 cm LVESD (2.2 - 4.0 cm): 3.33 cm LVIVS thickness (0.6 - 1.2 cm): 1.13 cm LVPW thickness (0.5 - 1.0 cm): 1.20 cm e': 0.11 m/s E - e': 8.51 LVOT Max Gradient: 3.08 mm[Hg] LVOT Area (cm2): 0.88 m/s Peak Velocity (LVOT): 0.88 m/s Mean Velocity (LVOT): 0.60 m/s LVOT Diameter 2.28 cm Left Ventricular Ejection Fraction: 67.25 % Left Atrium LA Volume Index (2D A2C): 27.67 ml/m2 Left Atrium Systolic Dimension: 3.65 cm Mitral Valve MV E to A Ratio: 1.30 MV Max Gradient: MV Mean Gradient: Mitral Valve A-Wave Peak Velocity: 0.71 m/s Mitral Valve E-Wave Peak Velocity: 0.93 m/s Cardiovascular Orifice Area: Right Ventricle RV Internal Diastolic Dimension: 3.27 cm Aorta AO Root Diam: 3.34 cm Ascending Ao Diam: 2.81 cm Aortic Valve AoV Area (Peak Manuel): 3.19 cm2, 3.19 cm2 AoV Area (VTI): 3.01 cm2, 3.01 cm2 Deceleration [place]: Pressure Half-Time: Peak Velocity(Antegrade Flow): 1.12 m/s Peak Gradient(Antegrade Flow): 5.00 mm[Hg] Mean Velocity(Antegrade Flow): 0.77 m/s Mean Gradient(Antegrade Flow): 2.73 mm[Hg] Velocity Time Integral: 23.14 cm Tricuspid Valve Peak Velocity (Regurgitant Flow): 2.48 m/s, 2.62 m/s, 2.17 m/s Peak Velocity: Pulmonic Valve Mean Gradient: 2.66 mm[Hg], 2.54 mm[Hg] Mean Velocity: 0.75 m/s, 0.72 m/s Peak Velocity: 1.21 m/s, 1.27 m/s Peak Gradient: 5.90 mm[Hg], 5.90 mm[Hg], 6.43 mm[Hg] Right Atrium Right Atrium Systolic Pressure: 26.15 ml, 26.15 ml Dictated by: Brayan Duncan MD on 10/23/2024 at 15:41 Approved by: Brayan Duncan MD on 10/23/2024 at 15:48
[2024-10-23] MEDS: ASPIRIN 81 MG TAB.CHEW PO (08:27)
[2024-10-23] MEDS: LISINOPRIL 10 MG TABLET PO ×2 (08:27→21:21)
[2024-10-23] MEDS: METFORMIN HCL 500 MG TABLET PO ×2 (08:27→16:00)
[2024-10-23] MEDS: METOPROLOL SUCCINATE 25 MG TAB.ER.24H PO (08:27)
[2024-10-23] MEDS: GLIMEPIRIDE 2 MG TABLET PO (08:27)
--- NOTE | 2024-10-23 09:00 | CM.NOTE ---
Rounds made with Dr. Orozco, pt will have cardiac echo today. Awaiting final blood culture results. Possible discharge to home tomorrow. CM will call cardiology to get read for echo today.
--- NOTE | 2024-10-23 10:12 | CM.NOTE ---
Called [facility] cardiology to make sure pt's echo get read today with possible discharge for pt tomorrow. PHILIPP spoke with Chantell in cardiology clinic. Echo will be read today.
--- NOTE | 2024-10-23 10:43 | CM.NOTE ---
Dr. Orozco given pt's final urine culture result with susceptibility.
--- NOTE | 2024-10-23 13:01 | P.PN_ITS ---
Progress Note: Subjective Subjective Interval history: Patient is feeling better. Less pain and discomfort in the right flank. No nausea vomiting. No chest pain. Exam Narrative Exam Narrative: [pt is awake and alert. oriented to place, time and person HEENT: [place] conjunctiva and NL buccal mucosa Neck: Supple, no tenderness Endocrine: No Thyromegaly. Vascular: No JVD or carotid bruit. Lymphatic: No cervical lymphadenopathy. Chest: CTA no DTP. Heart RRR, no extra sound or murmur. Abd: Soft, no tenderness, no rebound and no rigidity. Increase abd girth therefore clinically I could not exclude the possibility of intra abd mass or organomegaly. The pain is in the right flank extending down to the right iliac area. Less tender than before. Minimal tenderness today LE: No cyanosis or clubbing, no varices or edema. Neuro: A A O. Nl speech, comprehension and attention. Nl and symetrical motor and tone examination through out. []] Constitutional Vital Signs, click to edit/add: Last Vital Signs Temp 97.1 F L 10/23/24 04:40 Pulse 76 10/23/24 11:51 Resp 16 10/23/24 07:40 BP 122/77 10/23/24 07:40 Pulse Ox 94 L 10/23/24 11:22 O2 Del Method Room Air 10/23/24 11:53 O2 Flow Rate 1.5 10/20/24 12:24 Progress Note: Objective Labs Labs: Short CBC 10/23/24 Range/Units 05:37 WBC 7.9 (4.0-11.0) 10^3/uL Hgb 12.2 L (14.0-18.0) g/dL Hct 37.0 L (42.0-54.0) % Plt Count 282 (150-450) 10^3/uL BMP 10/23/24 05:37 Sodium 138 Potassium 4.3 Chloride 105 Carbon Dioxide 26.3 BUN 18.0 Creatinine 0.90 Glucose 202 H Calcium 8.9 Liver Function 10/23/24 Range/Units 05:37 Total Bilirubin 0.2 (0.2-1.0) mg/dL AST 17 (15-37) U/L ALT 39 (16-63) U/L Alkaline Phosphatase 119 H (46-116) U/L Albumin 2.3 L (3.4-5.0) g/dL Progress Note: A&P Assessment and Plan (1) Acute pyelonephritis: (2) Sepsis: Qualifiers: Sepsis acute organ dysfunction status: unspecified Sepsis type: sepsis due to unspecified organism Qualified Code(s): A41.9 - Sepsis, unspecified organism (3) Bacteremia: (4) UTI (urinary tract infection): Qualifiers: Hematuria presence: with hematuria Urinary tract infection type: acute cystitis Qualified Code(s): N30.01 - Acute cystitis with hematuria (5) CAD (coronary artery disease): (6) Tobacco abuse: (7) Tobacco abuse counseling: (8) Diabetes: Plan Sepsis present on admission. Bacteremia. 2 bottles, back positive for staph. Unknown source. Urine culture is growing staph as well. Urinary could be the primary source although less likely to have UTI caused by gram-positive organism Acute pyelonephritis based on right flank pain, abnormal UA and findings seen on CT. Staph is oxacillin sensitive. Continue on ceftriaxone 1 g every 12. Discontinued vancomycin as MRSA resistant gene is negative. Repeat blood culture had been drawn already on 10/21. Pending urine culture as well. Repeat blood culture today IV fluid infusion had completed. Coronary artery disease, previous coronary artery bypass graft followed by multiple stents No chest pain. No active angina. No ACS. Requested EKG. no ST elevation or depression Tobacco addiction. 1 pack/day. Suspect underlying COPD. No exacerbation. Counseling and education were provided to quit smoking. Requested the chest x-ray. X-ray showed no active pulmonary disease Type 2 diabetes Requested A1c. A1c is 11. Continue sliding scale coverage. Requested diabetes add in the dietitian consultation for patient ed. Patient does not want to use insulin. Start him on Amaryl. Added metformin for [address] Increased risk of lung cancer due to smoking for many years I recommend patient to have yearly low-dose radiation CAT scan of the chest to screen for lung cancer to be arranged by PCP. Hypertension. Given his history of CAD I would initiate beta-ginette, small dose to reduce his risk having a bronchospasm. I started patient on lisinopril. Continue lisinopril and beta-ginette Chronic medical conditions not listed above, incidental findings seen on labs and imaging. These would need to be addressed. Could be addressed when time and condition are appropriate. Could be addressed in the outpatient setting by PCP collaboration with other needed outpatient providers.
--- NOTE | 2024-10-23 15:34 | CM.NOTE ---
Prescription completed for Glucometer,strips, alcohol and lancets. Script given to RN and explained to RN teaching needs to be provided to pt regarding use of glucometer. Copy of order placed in pt's chart.
--- NOTE | 2024-10-23 16:04 | PC.NURSE ---
educated pt on performing fingerstick, pt returned demonstration by completing fingerstick himself. verbalized understanding of process. rx given to pt for supplies.
--- NOTE | 2024-10-23 17:54 | DIETREC ---
Recommend 2000 kcal CCD, Heart Healthy diet.
[2024-10-23] MEDS: ENOXAPARIN SODIUM 40 MG/0.4 ML SYRINGE SUBQ (21:21)
[2024-10-24] VITALS (9 sets, daily range): BP systolic 116–142; BP diastolic 65–81; PULSE 71–89; TEMP 36.5–36.8; O2SAT 90–96
[2024-10-24] MEDS: METOPROLOL SUCCINATE 25 MG TAB.ER.24H PO (08:25)
[2024-10-24] MEDS: METFORMIN HCL 500 MG TABLET PO (08:25)
[2024-10-24] MEDS: GLIMEPIRIDE 2 MG TABLET PO (08:25)
[2024-10-24] MEDS: ASPIRIN 81 MG TAB.CHEW PO (08:25)
[2024-10-24] MEDS: LISINOPRIL 10 MG TABLET PO (08:25)
[2024-10-24] MEDS: INSULIN ASPART 300 UNIT/3 ML PEN SUBQ (08:26)
--- NOTE | 2024-10-24 09:59 | PM.DS1 ---
DS: Providers Provider Date of admission: 10/19/24 23:56 Primary care physician: JOYCE GREEN Consults: 10/20/24 11:30 Consult to Electric Hoist Operator Routine Reason for consultation: new DM teaching Consult to Dietitian Routine Reason for consultation: New DM diet education DS: Diagnosis Discharge Diagnosis (1) Acute pyelonephritis: (2) Sepsis: Qualifiers: Sepsis acute organ dysfunction status: unspecified Sepsis type: sepsis due to unspecified organism Qualified Code(s): A41.9 - Sepsis, unspecified organism (3) Bacteremia: (4) UTI (urinary tract infection): Qualifiers: Hematuria presence: with hematuria Urinary tract infection type: acute cystitis Qualified Code(s): N30.01 - Acute cystitis with hematuria (5) CAD (coronary artery disease): (6) Tobacco abuse: (7) Tobacco abuse counseling: (8) Diabetes: Plan As listed above, below and others that are not listed DS: Summary Hospital Course Hospital Course: Mr. Norris is a 64-year-old gentleman who came in with right flank pain and was found to have the following: Sepsis present on admission. Bacteremia. 2 bottles, back positive for staph. Unknown source. Urine culture is growing staph as well. Urinary could be the primary source although less likely to have UTI caused by gram-positive organism. Given the urological abnormalities seen on CT I would suspect that the primary source of bacteremia is urinary infection Acute pyelonephritis based on right flank pain, abnormal UA and findings seen on CT. Staph is oxacillin sensitive. Continue on ceftriaxone 1 g every 12. Discontinued vancomycin as MRSA resistant gene is negative. Repeat blood culture had been drawn already on 10/21 thus far is negative Patient is feeling great. Patient will be discharged home on 10 days course of oral Levaquin Coronary artery disease, previous coronary artery bypass graft followed by multiple stents No chest pain. No active angina. No ACS. Requested EKG. no ST elevation or depression Continue aspirin Tobacco addiction. 1 pack/day. Suspect underlying COPD. No exacerbation. Counseling and education were provided to quit smoking. Requested the chest x-ray. X-ray showed no active pulmonary disease Type 2 diabetes Requested A1c. A1c is 11. Continue sliding scale coverage. Requested diabetes add in the dietitian consultation for patient ed. Patient does not want to use insulin. Start him on Amaryl. Added metformin for [address] Additional titration of diabetes meds with need to be addressed to keep bringing his A1c below 7 Patient is instructed to do the following: Check your blood sugar 3 times a day before meals. Document these numbers on a blood glucose log and bring them with you to your follow-up appointment with your primary care doctor. Communicate with your primary care doctor or nuclear medicine specialist if your blood sugar is under 100 or above 300 on 2 consecutive checks. Communicate with your primary care doctor or nuclear medicine specialist if you have any questions about your diabetes medications. Signs of a low blood sugar include sweating, racing heart, dizziness and/or weakness. Check your blood sugar if you have any of the symptoms. Increased risk of lung cancer due to smoking for many years I recommend patient to have yearly low-dose radiation CAT scan of the chest to screen for lung cancer to be arranged by PCP. Hypertension. Given his history of CAD I would initiate beta-ginette, small dose to reduce his risk having a bronchospasm. I started patient on lisinopril. Continue lisinopril and beta-ginette Chronic medical conditions not listed above, incidental findings seen on labs and imaging. These would need to be addressed. Could be addressed when time and condition are appropriate. Could be addressed in the outpatient setting by PCP collaboration with other needed outpatient providers Patient has multiple complex medical issues as listed above and others that are not listed. All appear to be stable. Patient is feeling great and requesting to be discharged home. At this time, I do not have any clear or strong clinical justification to extend inpatient hospitalization. Patient however will require close and frequent monitoring as well as additional work-up, investigation and therapeutic intervention that could take place from this point on post discharge. That is to prevent relapse, decompensation, rehospitalization and other medical implications. I instructed patient to ask her primary care doctor to obtain [facility] record entirely to address abnormalities seen on labs and imaging that I have and have not addressed during this hospitalization, follow-up on pending blood work, imaging and pathology is if available and to follow-up on needed medical care in the outpatient setting. Time Spent with Patient Time attestation: Total time spent providing and/or coordinating discharge services: Time spent: greater than 30 minutes Exam Narrative Exam Narrative: [pt is awake and alert. oriented to place, time and person HEENT: [place] conjunctiva and NL buccal mucosa Neck: Supple, no tenderness Endocrine: No Thyromegaly. Vascular: No JVD or carotid bruit. Lymphatic: No cervical lymphadenopathy. Chest: CTA no DTP. Heart RRR, no extra sound or murmur. Abd: Soft, no tenderness, no rebound and no rigidity. Increase abd girth therefore clinically I could not exclude the possibility of intra abd mass or organomegaly. LE: No cyanosis or clubbing, no varices or edema. Neuro: A A O. Nl speech, comprehension and attention. Nl and symetrical motor and tone examination through out. []] Constitutional Vital Signs, click to edit/add: Last Vital Signs Temp 98.2 F 10/24/24 08:20 Pulse 85 10/24/24 09:57 Resp 18 10/24/24 08:20 BP 126/81 10/24/24 08:20 Pulse Ox 92 L 10/24/24 08:20 O2 Del Method Room Air 10/24/24 08:20 O2 Flow Rate 1.5 10/20/24 12:24 DS: Data Data Completed and Pending Labs on day of discharge: Labs from last 24 hours 10/24/24 10/23/24 10/23/24 08:15 21:26 15:57 POC Glucose 171 H 132 H 175 H 10/23/24 11:44 POC Glucose 119 H Preliminary micro results at discharge 10/21/24 08:46 Blood Culture Result 1 - Preliminary Blood NO GROWTH AT 36-48 HOURS. FINAL TO FOLLOW. 10/21/24 08:52 Blood Culture Result 2 - Preliminary Blood NO GROWTH AT 36-48 HOURS. FINAL TO FOLLOW. 10/19/24 20:20 Aerobic Susc Result 2 - Preliminary Blood - Left Antecubital Anaerobe Identification - Preliminary 10/19/24 20:29 Anaerobe Identification - Preliminary Bld Sp Anaerob Bld Cul Bottle Discharge Plan Discharge Disposition: Home, Self-Care Condition: Good Discharge Medications: New glimepiride 2 mg Tablet 2 mg PO QD Qty: 30 2RF metformin 500 mg Tablet 500 mg PO BIDWM Qty: 6 2RF metoprolol succinate 25 mg Tablet Extended Release 24 Hr 25 mg PO QD Qty: 30 2RF levofloxacin 500 mg tablet 500 mg PO DAILY 10 Days Qty: 10 0RF lisinopril 20 mg tablet 20 mg PO DAILY Qty: 30 2RF Continued aspirin 81 mg capsule 81 mg PO DAILY Print Language: [place] Activity Restrictions/Additional Instructions: I may not have addressed or treated all of your medical illnesses or the abnormal blood work or imaging studies during this hospitalization. Please ask your primary care provider to obtain [facility] records entirely to follow up on all of the abnormal physical, laboratory, and imaging findings that I have not addressed. Please return back to the emergency room or seek medical attention if your symptoms worsen or return. Check your blood sugar 3 times a day before meals. Document these numbers on a blood glucose log and bring them with you to your follow-up appointment with your primary care doctor. Communicate with your primary care doctor or nuclear medicine specialist if your blood sugar is under 100 or above 300 on 2 consecutive checks. Communicate with your primary care doctor or nuclear medicine specialist if you have any questions about your diabetes medications. Signs of a low blood sugar include sweating, racing heart, dizziness and/or weakness. Check your blood sugar if you have any of the symptoms. Given your smoking history you are at risk having lung cancer. I recommend that you get every year low-dose radiation CAT scan of the chest to screen for lung cancer to be arranged by your primary care doctor. Please cut down on smoking and quit by mid November Discharging you from [facility] does not mean that your medical care ends here and now. You may still need additional monitoring, work up, investigation, and treatment plan to be handled from this point on by out patient providers including your primary care provider and specialists. For any medication question, please contact your retail pharmacist or your primary care provider. Thank you. Forms: Portal Instructions Referrals: JOYCE GREEN [Primary Care Provider, Family Practice]
--- NOTE | 2024-10-27 08:53 | PC.NURSE ---
Follow up appt. with Park Watson NP on . 11/03 @ 10:30am [phone]
--- NOTE | 2024-10-28 13:28 | CM.DCFOLLOWU ---
2nd attempt 10/28/24, no answer
--- NOTE | 2024-10-30 10:43 | CM.DCFOLLOWU ---
3rd attempt 10/30/24, no answer
== END 2024-10-24 10:57 | disposition home or self-care (01) | DRG 872 ==
LOC: ER 22:02 → MS 23:59
PROVIDERS: Physician Assistant; Admitting Provider Internal Medicine; Emergency Provider Emergency Medicine; PCP Nurse Practitioner Family; Visit Provider Internal Medicine
DX: A41.2 Sepsis due to unspecified staphylococcus (principal); N10 Acute pyelonephritis; N30.01 Acute cystitis with hematuria; I25.10 Atherosclerotic heart disease of native coronary artery without angina pectoris; Z95.1 Presence of aortocoronary bypass graft; Z95.5 Presence of coronary angioplasty implant and graft; F17.210 Nicotine dependence, cigarettes, uncomplicated; I10 Essential (primary) hypertension; Z79.82 Long term (current) use of aspirin; E11.9 Type 2 diabetes mellitus without complications; Z79.84 Long term (current) use of oral hypoglycemic drugs
CPT/HCPCS: 36415; 71046; 74176; 80048; 80053; 81001; 82948; 83036; 83605; 83690; 85025; 85027; 87040; 87077; 87086; 87088; 87150; 87186; 93005; 93306; 94761; 96365; 96375; 99285; 99406; J0696; J1171; J1650; J1885; J3373

== ENCOUNTER 2024-11-26 15:56 | Emergency (ER) | payer MEDICARE, SELFPAY ==
[2024-11-26 15:59] VITALS: BP 172/94; PULSE 91; TEMP 36.9; O2SAT 96; BMI 25.8
--- NOTE | 2024-11-26 16:16 | ED.GENADUL1 ---
HPI HPI - General Adult General Chief complaint: Wound/Laceration Stated complaint: Laceration Time Seen by Provider: 11/26/24 15:58 Source: patient Mode of arrival: walk-in Limitations: no limitations History of Present Illness HPI narrative: Patient presents with left arm superficial laceration states he cut it on his truck where the decorations are bent while applying his trailer hitch. Patient states he takes blood thinners aspirin. He also takes lisinopril. He has a dermatitis states he was clearing brush bilateral upper extremities and left lower extremity raised rash pruritic. He has tried [id number] medications with some improvement but not resolution. Symptoms present x 6 days. Patient denies any fever, chills, nausea, vomiting, chest pain, abdominal, headache. He has no other symptoms. Wants his chief complaint requesting discharge to home. Location: Reports upper extremity and lower extremity Related Data Home Medications ?Medication ?Instructions ?Recorded ?Confirmed aspirin 81 mg capsule 81 mg PO DAILY 10/19/24 11/26/24 Previous Rx's ?Medication ?Instructions ?Recorded glimepiride 2 mg tablet 2 mg PO QD #30 tabs 10/24/24 lisinopril 20 mg tablet 20 mg PO DAILY #30 tabs 10/24/24 metoprolol succinate 25 mg 25 mg PO QD #30 tabs 10/24/24 tablet,extended release 24 hr methylprednisolone 4 mg tablets in 4 mg PO DAILY derm #21 ea 11/26/24 a dose pack (Medrol (Glenn)) Allergies Allergy/AdvReac Type Severity Reaction Status Date / Time No Known Drug Allergies Allergy Verified 11/26/24 16:01 Opioid HPI Opioid Management Most Recent Opioid Data: Last Pain Scale 4 10/23/24, 15:08 Last ORT Total Score 0 10/20/24, 00:01 Last ORT Risk Category Low Risk 10/20/24, 00:01 Review of Systems ROS Status of ROS 10 or more systems reviewed and unremarkable except as noted in history and below Constitutional Denies: fever or chills Eyes Denies: change in vision Ears, nose, mouth, and throat Reports: change in hearing; Denies: throat pain or neck pain Cardiovascular Denies: chest pain Respiratory Denies: shortness of breath Gastrointestinal Denies: abdominal pain Integumentary/Breast Reports: rash Neurological Denies: headache Psychiatric Denies: anxiety Hematologic/Lymphatic Denies: easy bruising Allergic/Immunologic Denies: hives PFSH PFS Surgical History (Updated 10/20/24 @ 00:19 by Teresa Emery) H/O heart artery stent ?Z95.5 - Presence of coronary angioplasty implant and graft (ICD-10) History of open heart surgery ?Z98.890 - Other specified postprocedural states (ICD-10) Social History Highest level of school completed/degree received: GED or equivalent Little interest or pleasure in doing things: not at all Feeling down, depressed, or hopeless: not at all Do you think of yourself as: straight/heterosexual Gender Identity: male Exam Narrative Exam Narrative: Patient presents for exam laceration repair also has rash Constitutional Vital Signs, click to edit/add: Last Vital Signs Temp 98.4 F 11/26/24 15:59 Pulse 91 H 11/26/24 15:59 Resp 14 11/26/24 15:59 BP 172/94 H 11/26/24 15:59 Pulse Ox 96 11/26/24 15:59 O2 Del Method Room Air 11/26/24 15:59 Documenting provider has reviewed patient's vital signs: yes Common normals: no apparent distress HENMT Common normals: normocephalic Head and scalp: normal to inspection Nose: external nose normal General ear: hearing grossly impaired Tympanic membrane: TMs normal bilaterally (Right side small amount of anterior impacted cerumen.) Eye Common normals: PERRL Neck & C-Spine Common normals: full ROM and supple Respiratory Common normals: normal respiratory effort and clear to auscultation bilaterally Cardio Common normals: regular rate, regular rhythm, S1 normal heart sound and S2 normal heart sound GI Common normals: Normal to inspection, nondistended, normoactive bowel sounds present Extremity Common normals: full ROM Left upper extremity: upper arm (Patient has diffuse dermatitis pruritic he has 1.5 cm laceration) Other: Laceration 1.5 cm superficial. No active bleeding Neuro Holderness Coma Scale: document GCS findings Common normals: oriented x3 and moves all extremities Psych Common normals: mental status grossly normal, thought process normal and cooperative Course Vital Signs Vital signs: Vital Signs Temperature 98.4 F 11/26/24 15:59 Pulse Rate 91 H 11/26/24 15:59 Respiratory Rate 14 11/26/24 15:59 Blood Pressure 172/94 H 11/26/24 15:59 Pulse Oximetry 96 11/26/24 15:59 Oxygen Delivery Method Room Air 11/26/24 15:59 Temperature 98.4 F 11/26/24 15:59 Pulse Rate 91 H 11/26/24 15:59 Respiratory Rate 14 11/26/24 15:59 Blood Pressure 172/94 H 11/26/24 15:59 Pulse Oximetry 96 11/26/24 15:59 Oxygen Delivery Method Room Air 11/26/24 15:59 Medical Decision Making MDM Narrative Medical decision making narrative: Patient presents for superficial laceration tetanus update. Laceration requires no suturing at this time discussed plan of care with patient occluding bacitracin and dressing. Dermatitis will add Medrol Dosepak and patient to wash all clothing and bedding in known products this also includes his blood pressure cuff all clothing and furnishings. His dermatitis exists below where shorts not above and on his arms which were exposed. Discussed plan of care with patient at length he is agreeable plan of care. We also discussed discontinue use of Q-tips with cerumen partially impacted overlying his right drum he retains hearing bilaterally negative perforation. Differential Diagnosis Differential Diagnosis: Dermatitis, laceration, ear pain Discharge Plan Discharge Chief Complaint: Wound/Laceration Clinical Impression: Laceration, Dermatitis Cerumen debris on tympanic membrane Qualifiers: Laterality: right Qualified Code(s): H61.21 - Impacted cerumen, right ear Patient Disposition: Home, Self-Care Time of Disposition Decision: 16:25 Mode of Transportation: Private Vehicle Prescriptions / Home Meds: New methylprednisolone [Medrol (Glenn)] 4 mg tablets,dose pack 4 mg PO DAILY Qty: 21 0RF Rx Instructions: Follow instructions on package 6 tablets day 1, 5 tablets daily day 2. to 4 tablets day 3, 3 tablets day 5,2 tablets day one6, No Action aspirin 81 mg capsule 81 mg PO DAILY glimepiride 2 mg Tablet 2 mg PO QD Qty: 30 2RF metoprolol succinate 25 mg Tablet Extended Release 24 Hr 25 mg PO QD Qty: 30 2RF lisinopril 20 mg tablet 20 mg PO DAILY Qty: 30 2RF Print Language: Prydeinig Instructions: Dermatitis (ED), Laceration Without Closure (ED) Additional Instructions: Do not place anything in your ears including Q-tips pin caps fingers. Wash with gentle soap and water twice daily for laceration reapply bacitracin dressing. Follow-up with primary care return to ER if any symptoms worsen or new symptoms develop. Referrals: JOYCE GREEN [Primary Care Provider, Family Practice] - 1 week Discharge Date/Time: 11/26/24 16:32
[2024-11-26] MEDS: BACITRACIN 0.9 GM PACKET 1 PACKET TOPICAL (16:24)
[2024-11-26] MEDS: DIPHTH,PERTUSS(ACELL),TET VAC 0.5 ML SYRINGE IM (16:24)
--- OUTSIDE RECORDS SUMMARY | 2024-11-26 19:59 | XMS_ITS | CCD ---
Author Organization [facility] Care Team Providers Care Extrusion Manager Name Role Phone DANE Green Primary Care Provider DANE Green Attending Provider [phone] CRIS CAMPBELL Admitting Unavailable CRIS CAMPBELL Consulting Unavailable TORY, PARK Primary Care Unavailable CRIS CAMPBELL Attending Unavailable TORY, PARK Primary Care Unavailable VICTORIA, MANDIE Attending Unavailable VICTORIA, MANDIE Admitting Unavailable TORY, PARK Primary Care Unavailable CHUCK RANGELYL Attending Unavailable CLAIRE, SYBIL Admitting Unavailable CHUCK RANGELYL Consulting Unavailable Esther Hanna Consulting Unavailable TORY, PARK Primary Care Unavailable TESS MATT Attending Unavailable TESS MATT Admitting Unavailable DR ELYSE QUINTERO V Consulting Unavailable TESS MATT Consulting Unavailable TORY, PARK Primary Care Unavailable VICTORIA, MANDIE Admitting Unavailable VICTORIA, MANDIE Attending Unavailable TEO IZQUIERDO Consulting Unavailable VICTORIA, MANDIE Consulting Unavailable TORY, PARK Primary Care Unavailable VICTORIA, MANDIE Admitting Unavailable VICTORIA, MANDIE Attending Unavailable TORY, PARK Primary Care Unavailable TORY, PARK Consulting Unavailable TORY, PARK Attending Unavailable TORY, PARK Admitting Unavailable TORY, PARK Primary Care Unavailable DR ELYSE QUINTERO V Consulting Unavailable TORY, PARK Attending Unavailable TORY, PARK Admitting Unavailable TORY, PARK Consulting Unavailable TORY, PARK Attending Unavailable TORY, PARK Admitting Unavailable TORY, PARK Consulting Unavailable TORY, PARK Primary Care Unavailable CRIS CAMPBELL Attending Unavailable SHANNAN, CRIS Admitting Unavailable CRIS CAMPBELL Consulting Unavailable TORY, PARK Primary Care Unavailable DANE Green Primary Care Provider DO Vadim Guido Emergency Provider MD Yung Newell Admit Provider MD Yung Hurtado Attending Provider [phone] Dr. Florentino Riley Attending Unavailable Dr. Florentino Riley Referring Unavailable Dr. Florentino Riley Attending Unavailable CHEYANNE Brian Attending Unavailable Dr. Florentino Riley Attending Unavailable Dr. Florentino Riley Attending Unavailable Dr. Florentino Riley Attending Unavailable Dr. Florentino Riley Referring Unavailable Park Green CNP Primary Care Provider ROMANA HENDERSON Attending Unavailable PARK GREEN Primary Care Unavailable Ally Duque DO Attending Provide r Ally Duque Attending Unav ailable Ally Duque Admitting Unav ailable Medications Current Medications Medication Drug Class(es) Dates Sig (Normalized) Sig (Original) acetaminophen 325 mg / HYDROcodone bitartrate 5 mg oral tablet (1 source) Opioid Agonist hydroCODone-acet a minophen 5-325 MG tablet hydrocodone 5 mg-acetaminophen 325 mg tablet 0 Active aspirin 81 mg chewable tablet (10 sources) Platelet Aggregation Inhibitor, Nonsteroidal Anti-inflammatory Drug Start: 02-01-2021 take 1 tablet by mouth once daily Start: 10-12-2017 End: 01-30-2021 take 1 tablet by mouth once daily Aspirin (Aspir-81) 81 mg Tablet,Delayed Release (/Ec) Discontinued 81 MG PO Daily 0 October 13, 2017 9:44am January 30, 2021 4:04pm atorvastatin 80 mg oral tablet (6 sources) HMG-CoA Reductase Inhibitor Start: 02-01-2021 take 1 tablet by mouth once daily in the evening Start: 10-13-2017 End: 01-30-2021 take 1 tablet by mouth once daily Atorvastatin 40 mg tablet Discontinued 40 MG PO Daily October 13, 2017 12:00am January 30, 2021 4:04pm carvedilol 3.125 mg oral tablet (1 source) alpha-Adrenergic Elpidio, beta-Adrenergic Elpidio take 1 tablet by mouth twice daily carveDILOL (Coreg) 3.125 MG tablet Coreg 3.125 mg tablet Take 1 tablet twice a day by oral route. 0 Active 24 hr isosorbide mononitrate 30 mg extended release oral tablet (1 source) Nitrate Vasodilator Isosorbide mononitrate 30 MG Tab SR 24 HR tablet XL At bedtime. 0 Active lisinopril 2.5 mg oral tablet (7 sources) Angiotensin Converting Enzyme Inhibitor Start: 02-02-20 Lisinopril 2.5 MG tablet Start: 10-13-2017 End: 01-30-2021 take 1 tablet by mouth once daily Lisinopril 5 mg tablet Discontinued 5 MG PO Daily October 13, 2017 12:00am January 30, 2021 4:04pm metoprolol tartrate 25 mg oral tablet (6 sources) beta-Adrenergic Elpidio Start: 02-01-2021 take 1 tablet by mouth twice daily Start: 10-13-2017 End: 01-30-2021 take 1 tablet by mouth twice daily Metoprolol Tartrate 25 mg Tablet Discontinued 25 MG PO Twice daily 60 October 13, 2017 12:00am January 30, 2021 4:04pm pantoprazole 40 mg delayed release oral tablet (2 sources) Proton Pump Inhibitor Start: 12-27-2021 take 1 tablet by mouth once daily Pantoprazole (Protonix) [address] tablet DR Take 1 tablet by mouth daily. 14 tablet 0 06/25/2022 Active ticagrelor 90 mg oral tablet (3 sources) Start: 02-01-2021 take 1 tablet by mouth twice daily Completed/Discontinued Medications Medication Drug Class(es) Dates Sig (Normalized) Sig (Original) GI cocktail: alum/mag hydrox-simethicone(3 0ml)+lidocaine 2%(10ml) oral suspension 40 mL (1 source) Start: 06-25-2022 End: 06-25-2022 GI cocktail: alum/mag hydrox-simethicon e(30ml)+lidocaine 2%(10ml) oral suspension 40 mL iohexol (OMNIPAQUE) 350 MG/ML injection 90 mL (1 source) Start: 06-25-2022 End: 06-25-2022 iohexol (OMNIPAQUE) 350 MG/ML injection 90 mL metFORMIN hydrochloride 500 mg oral tablet (3 sources) Biguanide Start: 02-01-2021 take 1 tablet by mouth twice daily 1 ml morphine sulfate 4 mg/ml cartridge [...] (NSTEMI) myocardial infarction] Onset: 02-01-2021 01-30-2021 Chronic Comment on above: Problem List clean-u p per request of Phys. EHR Cmte Alcohol-related disorders (1 source) Alcohol abuse with intoxication, unspecified; Translations: [ALCOHOL ABUSE WITH INTOXICATION UNS] Onset: 06-08-2021 Chronic Complication of device; implant or graft (1 source) Atherosclerosis of coronary artery bypass graft(s) without angina pectoris; Translations: [ATS CA BP GRAFT NO ANGINA PECTORIS] Onset: 07-21-2020 Chronic Coronary atherosclerosis and other heart disease (5 sources) Atherosclerotic heart disease of algaaciq coronary artery without angina pectoris; Translations: [Old myocardial infarction] Onset: 06-08-2021 12-27-2021 Chronic Comment on above: Problem List clean-u p per request of Phys. EHR Cmte Diabetes mellitus with complications (4 sources) Type II diabetes mellitus uncontrolled; Translations: [Uncontrolled type 2 diabetes mellitus] 01-31-2021 Chronic Comment on above: Problem List clean-u p per request of Phys. EHR Cmte Disorders of lipid metabolism (8 sources) Hyperlipidemia; Translations: [Hyperlipidemia, unspecified] Onset: 07-13-2020 01-30-2021 Chronic Comment on above: Problem List clean-u p per request of Phys. EHR Cmte Essential hypertension (4 sources) Hypertensive disorder; Translations: [Essential (primary) hypertension] 01-30-2021 Chronic Comment on above: Problem List clean-u p per request of Phys. EHR Cmte Headache; including migraine (4 sources) Headache; including migraine; Translations: [HEADACHE UNSPECIFIED] Onset: 06-02-2021 Hypertension with complications and secondary hypertension (3 sources) Hypertensive emergency; Translations: [Hypertensive emergency] 12-27-2021 Chronic Comment on above: Problem List clean-u p per request of Phys. 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 ASPIRIN] Onset: 06-08-2021 Episodic Other aftercare (1 source) Other nursing home (current) drug therapy; Translations: [OTH PRISON CURRENT DRUG THERAPY] Onset: 06-08-2021 Episodic Other aftercare (1 source) jail (current) use of oral hypoglycemic drugs; Translations: [PRISON USE ORAL HYPOGLYCEMIC DX] Onset: 06-08-2021 Episodic Other aftercare (1 source) 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 EHR Cmte Unclassified (3 sources) LOW BACK PAIN, UNSPECIFIED; Translations: [LOW BACK PAIN, UNSPECIFIED] Onset: 05-30-2021 Unclassified (1 source) CONTACT W/AND (SUSP) EXPOS COVID-19; Translations: [CONTACT W/AND (SUSP) EXPOS COVID-19] Onset: 02-01-2021 Past or Other Problems Problem Classification Problem Date Documented Da te Episodic/Chronic Coronary atherosclerosis and other heart disease (2 sources) Presence of coronary angioplasty implant and [...] Test Name Value Interpretation Reference Range Facility Urine Cultureon 10-19-2024 Bacteria identified Cx Nom (U) ORGANISM: Staphylococcus aureus (O:STAAUR) [place] Count >100,000 Aerobic COLIN Charge (PCMIC38) SUSCEPTIBILITY ORGANISM: O:STAAUR ANTIBIOTIC INTERPRETATION COLIN Ceftaroline S <0.5 Ciprofloxacin S <1 Daptomycin S <0.5 Levofloxacin S <1 Linezolid S 2 Nitrofurantoin S <32 Oxacillin S 0.5 Penicillin R >2 Tetracycline S <4 Trimethoprim/Sulfamethoxaz ole S <0.5 Vancomycin S 1 S = SUSCEPTIBLE I = INTERMEDIATE R = RESISTANT BLANK = DATA NOT AVAILABLE, OR DRUG NOT ADVISABLE OR TESTED R* = RESISTANCE DUE TO EXTENDED SPECTRUM BETA-LACTAMASES ESBL = EXTENDED SPECTRUM BETA-LACTAMASE TFG = THYMIDINE-DEPENDENT STRAIN RAIMUNDO = BETA-LACTAMASE POSITIVE IB = INDUCIBLE BETA-LACTAMASE. APPEARS IN PLACE OF 'S' WITH SPECIES KNOWN TO POSSESS INDUCIBLE BETA-LACTAMASES. POTENTIALLY THEY MAY BECOME RESISTANT TO ALL B-LACTAM DRUGS. PERFORMED BY: [facility] [place] [id number] [place] [address] PATHOLOGIST STACKER PHILIPPE CARDENAS M.D. Normal The Counts Include [address] Beds At [facility] Comment on above: Performed By: #### C UU #### [facility] [address] [id number] [facility] CBCon 06-25-2022 ABSOLUTE BAS 0.1 10*3/uL Normal 0.0-0.2 [facility] ABSOLUTE EOS 0.1 10*3/uL Normal 0.0-0.7 [facility] ABSOLUTE NEUTROPHIL COUNT 5.8 10*3/uL Normal 1.4-6.5 [facility] Basophils/100 WBC (Bld) 1.0 % Normal 0.0-2.0 [facility] DTYPE AUTO DIFF Normal [facility] Eosinophils/100 WBC (Bld) 0.7 % Normal 0.0-11.0 [facility] Lymphocytes (Bld) [#/Vol] 1.6 10*3/uL Normal 1.2-3.4 [facility] Lymphocytes/100 WBC (Bld) 20.3 % Normal 20.0-55.0 [facility] Monocytes (Bld) [#/Vol] 0.5 10*3/uL Normal 0.0-0.7 [facility] Monocytes/100 WBC (Bld) 6.5 % Normal 0.0-10.0 [facility] Neutrophils/100 WBC (Bld) 71.5 % Normal 37.0-75.0 [facility] Erythrocyte distribution width (RBC) [Ratio] 14.5 % Normal 11.5-14.5 [facility] Hematocrit (Bld) [Volume fraction] 46.1 % Normal 42.0-52.0 [facility] Hemoglobin (Bld) [Mass/Vol] 15.5 g/dL Normal 14.0-18.0 [facility] MCH (RBC) [Entitic mass] 29.8 pg Normal 26.0-35.0 [facility] MCHC (RBC) [Mass/Vol] 33.6 g/dL Normal 27.0-37.0 [facility] MCV (RBC) [Entitic vol] 88.5 fL Normal 80.0-100.0 [facility] Platelet mean volume (Bld) [Entitic vol] 8.0 fL Normal 7.4-11.0 [facility] Platelets (Bld) [#/Vol] 182 10*3/uL Normal 130-400 [facility] RBC (Bld) [#/Vol] 5.20 10*6/uL Normal 4.0-6.1 [facility] WBC (Bld) [#/Vol] 8.1 10*3/uL Normal 3.6-11.0 [facility] CBC, EDIF, PLATELETon 2022 ABSOLUTE BASOPHIL COUNT 0.1 10*3/uL 0.0 - 0.2 10*3/uL [facility] Basophils/100 WBC (Bld) 1.0 % 0.0 - 2.0 % [facility] Differential cell count method Nom (Bld) AUTO DIFF % [facility] Eosinophils (Bld) [#/Vol] 0.1 10*3/uL 0.0 - 0.7 10*3/uL [facility] Eosinophils/100 WBC (Bld) 0.7 % 0.0 - 11.0 % [facility] Erythrocyte distribution width (RBC) [Ratio] 14.5 % 11.5 - 14.5 % [facility] Hematocrit (Bld) [Volume fraction] 46.1 % 42.0 - 52.0 % [facility] Hemoglobin (Bld) [Mass/Vol] 15.5 g/dL [facility] Lymphocytes (Bld) [#/Vol] 1.6 10*3/uL 1.2 - 3.4 10*3/uL [facility] Lymphocytes/100 WBC (Bld) 20.3 % 20.0 - 55.0 % [facility] MCH (RBC) [Entitic mass] 29.8 pg 26.0 - 35.0 PG [facility] MCHC (RBC) [Mass/Vol] 33.6 g/dL [facility] MCV (RBC) [Entitic vol] 88.5 fL [facility] Monocytes (Bld) [#/Vol] 0.5 10*3/uL 0.0 - 0.7 10*3/uL [facility] Monocytes/100 WBC (Bld) 6.5 % 0.0 - 10.0 % [facility] Neutrophils (Bld) [#/Vol] 5.8 10*3/uL 1.4 - 6.5 10*3/uL [facility] Neutrophils/100 WBC (Bld) 71.5 % 37.0 - 75.0 % [facility] Platelet mean volume (Bld) [Entitic vol] 8.0 fL [facility] Platelets (Bld) [#/Vol] 182 10*3/uL 130 - 400 10*3/uL [facility] RBC (Bld) [#/Vol] 5.20 10*6/uL 4.0 - 6.1 10*6/uL [facility] WBC (Bld) [#/Vol] 8.1 10*3/uL 3.6 - 11.0 10*3/uL [facility] CMP FASTINGon 06-25-2022 A:G RATIO 1.4 RATIO Normal 1.3-2.2 [facility] ALBUMIN 4.2 G/dl Normal 3.5-5.0 [facility] ALP [Catalytic activity/Vol] 125 U/L Normal 38-126 [facility] ALT [Catalytic activity/Vol] 25 U/L Normal <50 [facility] AST [Catalytic activity/Vol] 24 U/L Normal 17-59 [facility] Bilirubin [Mass/Vol] 0.4 mg/dL Normal 0.2-1.3 [facility] Calcium [Mass/Vol] 8.6 mg/dL Normal 8.4-10.2 [facility] Chloride [Moles/Vol] 100 mmol/L Normal 98-107 [facility] Comment on above: Result Comment: Flory urrutia note: Triglyceride levels of 600mg/dL or higher may positively bias chloride results by approximately 2.1 mmol CO2 [Moles/Vol] 27 mmol/L Normal 22-30 [facility] Creatinine [Mass/Vol] 0.70 mg/dL Normal 0.7-1.2 [facility] EST. GFR, 147 ml/min/1.73sq.m Normal [facility] EST. GFR,Non 122 ml/min/1.73sq.m Normal [facility] GFR Information Average GFR for 60-6 9 years old = 85. Normal [facility] Comment on above: Result Comment: Ruling Technician ana lilia Kidney disease, GFR = <60. Kidney failure, GFR = <15. The GFR estimate is not adjusted for extreme body surface area or acute process, nor has it been validated for women or ethnic groups other than and . Glucose [Mass/Vol] 196 mg/dL High 70-100 [facility] Comment on above: Result Comment: NORMAL <100 mg/dL PREDIABETES 101-126 mg/dL DIABETES 126 mg/dL or higher Potassium [Moles/Vol] 4.4 mmol/L Normal 3.5-5.1 [facility] Protein [Mass/Vol] 7.2 g/dL Normal 6.3-8.2 [facility] Sodium [Moles/Vol] 133 mmol/L Low 137-145 [facility] Urea nitrogen [Mass/Vol] 12 mg/dL Normal 7-20 [facility] COMPREHENSIVE METABOLIC PANE Juan Ramon 06-25-2022 Albumin [Mass/Vol] 4.2 G/dl 3.5 - 5.0 G/dl [facility] Albumin/Globulin [Mass ratio] 1.4 {ratio} [facility] ALP [Catalytic activity/Vol] 125 U/L [facility] ALT [Catalytic activity/Vol] 25 U/L NINF [facility] AST [Catalytic activity/Vol] 24 U/L [facility] Bilirubin [Mass/Vol] 0.4 mg/dL [facility] Calcium [Mass/Vol] 8.6 mg/dL [facility] Chloride [Moles/Vol] 100 mmol/L [facility] Comment on above: Please note: Triglyc eride levels of 600mg/dL or higher may positively bias chloride results by approximately 2.1 mmol CO2 [Moles/Vol] 27 mmol/L [facility] Creatinine [Mass/Vol] 0.70 mg/dL [facility] GFR COMMENT Average GFR for 60-6 9 years old = 85. [facility] Comment on above: Chronic Kidney disea se, GFR = <60. Kidney failure, GFR = <15. The GFR estimate is not adjusted for extreme body surface area or acute process, nor has it been validated for women or ethnic groups other than and . GFR/1.73 sq M.predicted among blacks MDRD (S/P/Bld) [Vol rate/Area] 147 mL/min/{1.73_m2} ml/min/1.73 sq.m [facility] GFR/1.73 sq M.predicted among non-blacks MDRD (S/P/Bld) [Vol rate/Area] 122 mL/min/{1.73_m2} ml/min/1.73 sq.m [facility] Glucose post fast [Mass/Vol] 196 mg/dL High [facility] Comment on above: NORMAL <100 mg/dL PREDIABETES 101-126 mg/dL DIABETES 126 mg/dL or higher Interpretation and review of laboratory results Abnormal [facility] Potassium [Moles/Vol] 4.4 mmol/L [facility] Protein [Mass/Vol] 7.2 g/dL [facility] Sodium [Moles/Vol] 133 mmol/L Low [facility] Urea nitrogen [Mass/Vol] 12 mg/dL [facility] CT ABDOMEN/PELVIS WITH CONTR Rashad 06-25-2022 CT [...] of pancreas. 3. Moderate colonic diverticulosis. Normal [facility] CT Abdomen and Pelvis W cont [...] body of pancreas. 3. Moderate colonic diverticulosis. [facility] Radiology Study observation (narrative) [facility] CT Abdomen and Pelvis W cont rast IVOrdered By: Evelyn Gomez on 06-25-2022 [facility] Work Phone: LIPASEon 06-25-2022 Lipase [Catalytic activity/Vol] 181 U/L 23 - 300 U/L [facility] LIPASE,SERUMon 06-25-2022 LIPASE,SERUM 181 U/L Normal 23-300 [facility] No Panel Informationon 06-25 Interpretation and review of laboratory results Abnormal [facility] TROPONIN I, HIGH SENSITIVITY on 06-25-2022 TROPONIN I, HIGH SENSITIVITY 4 pg/mL Normal 0-20 [facility] Comment on above: Result Comment: Indeterminant: >12 to 100 pg/mL female >20 to 100 pg/mL male Indicative of myocardial injury. Serial sampling is recommended, a change of greater than or equal to 20 pg/mL is indicative of acute coronary syndrome. TROPONIN I, HIGH SENSITIVITY 4 pg/mL 0 - 20 pg/mL [facility] Comment on above: Indeterminant: >12 to 100 pg/mL female >20 to 100 pg/mL male Indicative of myocardial injury. Serial sampling is recommended, a change of greater than or equal to 20 pg/mL is indicative of acute coronary syndrome. [facility] URINALYSIS, MACROon 06-26-19 23 Bilirubin Ql (U) Negative NEGATIVE [facility] Clarity (U) CLEAR CLEAR [facility] Color (U) YELLOW YELLOW [facility] Glucose Test strip (U) [Mass/Vol] 500 mg/dl Abnormal NEGATIVE [facility] Hemoglobin Ql (U) Negative NEGATIVE [facility] Ketones (U) [Mass/Vol] Negative NEGAT MICHELLE mg/dl [facility] Leukocyte esterase Test strip Ql (U) Negative NEGATIVE [facility] Nitrite Ql (U) Negative NEGATIVE [facility] pH (U) 5.5 [pH] 5.0 - 7.0 [facility] Protein Ql (U) Negative NEGATIVE mg/dl [facility] Specific gravity (U) [Rel density] 1.020 1.010 - 1.025 [facility] Urobilinogen (U) [Mass/Vol] 0.2 mg/dL [facility] URINE MACROSCOPICon 06-26-19 23 Bilirubin Ql (U) Negative Normal NEGATIVE [facility] Clarity (U) CLEAR Normal CLEAR [facility] Color (U) YELLOW Normal YELLOW [facility] Glucose Ql (U) 500 mg/dl Abnormal NEGATIVE [facility] pH (U) 5.5 [pH] Normal 5.0-7.0 [facility] URINE HEMOGLOBIN Negative Normal NEGATIVE [facility] URINE KETONE Negative Normal NEGATIVE [facility] URINE LEUKOTEST Negative Normal NEGATIVE [facility] URINE NITRATES Negative Normal NEGATIVE [facility] URINE SPEC GRAVITY 1.020 Normal 1.010-1.025 [facility] URINE TOTAL PROTEIN Negative Normal NEGATIVE [facility] Urobilinogen Qn (U) 0.2 {Saloni'U}/dL Normal 0.2-1.0 [facility] URINE MICROSCOPICon 06-26-19 23 BACTERIA TRACE Abnormal NEGATIVE [facility] CASTS OCCASIONAL Abnormal [facility] Comment on above: Result Comment: HYAL INE CRYSTAL NONE Normal [facility] Epithelial cells LM Ql (Urine sed) 1 TO 5 Normal [facility] Mucus Ql (Urine sed) 1+ Abnormal NEGATIVE [facility] URINE COMMENT CULTURE CRITERIA NOT MET, NO CULTURE PERFORMED. Normal [facility] URINE RBC'S Negative Normal NEGATIVE [facility] URINE WBC'S 1 TO 5 Normal NEGATIVE [facility] Bacteria LM.HPF (Urine sed) [#/Area] TRACE Abnormal NEGATIVE [facility] Casts LM.LPF (Urine sed) [#/Area] OCCASIONAL Abnormal NONE /LPF [facility] Comment on above: HYALINE Crystals LM Nom (Urine sed) NONE NONE [facility] Epithelial cells LM Ql (Urine sed) 1 TO 5 /HPF [facility] Mucus Ql (Urine sed) 1+ Abnormal NEGATIVE [facility] RBC LM.HPF (Urine sed) [#/Area] Negative NEGATIVE /HPF [facility] Urine sediment comments LM Adonay (Urine sed) CULTURE CRITERIA NOT MET, NO CULTURE PERFORMED. [facility] WBC LM.HPF (Urine sed) [#/Area] 1 TO 5 NEGATIVE /HPF [facility] Activated partial thrombopla stin time (aPTT) in platelet poor plasma by coagulation aOrdered By: Vadim Guido on 12-27-2021 aPTT Coag (PPP) [Time] 27.1 s 25.1-36.5 [facility] Basophils Auto (Bld) [#/Vol] Ordered By: Vadim Guido on 12-27-2021 Basophils (Bld) [#/Vol] 0.1 10*3/uL 0.0-0.2 [facility] Basophils/100 WBC Auto (Bld) Ordered By: Vadim Guido on 12-27-2021 Basophils/100 WBC (Bld) 1.3 % . [facility] COVID-19 SOFIAOrdered By: Marco Guido on 12-27-2021 SARS-CoV+SARS-CoV-2 (COVID-19) Ag IA.rapid Ql (Resp) Negative Negative [facility] Comment on above: This is a duplicate Natali SARS Antigen (DAQUAN) result to be used for statistical tracking purpose only. Creatinine and Glomerular fi ltration rate.predicted panel (S/P/Bld)Ordered By: Vadim Guido on 12-27-2021 Creatinine [Mass/Vol] 0.80 mg/dL 0.64-1.27 [facility] Eosinophils Auto (Bld) [#/Vo l]Ordered By: Vadim Guido on 12-27-2021 Eosinophils (Bld) [#/Vol] 0.2 10*3/uL 0.0-0.45 [facility] Eosinophils/100 WBC Auto (Bl d)Ordered By: Vadim Guido on 12-27-2021 Eosinophils/100 WBC (Bld) 1.9 % . [facility] Erythrocyte distribution wid th Auto (RBC) [Ratio]Ordered By: Vadim Guido on 12-27-2021 Erythrocyte distribution width (RBC) [Ratio] 13.9 % 12.0-14.8 [facility] Estimated glomerular filtrat ion rate (GFR) non- AmericanOrdered By: Vadim Guido on 12-27-2021 GFR/1.73 sq M.predicted among non-blacks MDRD (S/P/Bld) [Vol rate/Area] > 60 mL/Min [facility] Hematocrit Auto (Bld) [Volum e fraction]Ordered By: Vadim Guido on 12-27-2021 Hematocrit (Bld) [Volume fraction] 42.8 % 38.8-50.0 [facility] Hemoglobin [Mass/volume] in BloodOrdered By: Vadim Guido on 12-27-2021 Hemoglobin (Bld) [Mass/Vol] 14.3 g/dL 13.0-17.0 [facility] Laboratory - Chemistry and C hemistry - challengeOrdered By: Vadim Guido on 12-27-2021 Natriuretic peptide B (Bld) [Mass/Vol] 30.0 pg/mL 5-100 [facility] Laboratory - CoagulationOrde red By: Vadim Guido on 12-27-2021 PT Coag (PPP) [Time] 12.1 s 9.0-12.9 [facility] Laboratory - Hematology and Cell countsOrdered By: Vadim Guido on 12-27-2021 Nucleated RBC/100 WBC (Bld) [Ratio] 0.1 % 0-0.5 [facility] Leukocytes [#/volume] in Blo od by Automated countOrdered By: Vadim Guido on 12-27-2021 WBC (Bld) [#/Vol] 9.0 10*3/uL 4.5-11.0 [facility] Lymphocytes Auto (Bld) [#/Vo l]Ordered By: Vadim Guido on 12-27-2021 Lymphocytes (Bld) [#/Vol] 2.9 10*3/uL 1.00-4.8 [facility] Lymphocytes/100 WBC Auto (Bl d)Ordered By: Vadim Guido on 12-27-2021 Lymphocytes/100 WBC (Bld) 31.8 % . [facility] MCH Auto (RBC) [Entitic mass ]Ordered By: Vadim Guido on 12-27-2021 MCH (RBC) [Entitic mass] 30.2 pg 27.5-35.2 [facility] MCHC Auto (RBC) [Mass/Vol]Or dered By: Vadim Guido on 12-27-2021 MCHC (RBC) [Mass/Vol] 33.3 g/dL 32.5-35.6 [facility] MCV Auto (RBC) [Entitic vol] Ordered By: Vadim Guido on 12-27-2021 MCV (RBC) [Entitic vol] 90.8 fL 83.5-101 [facility] Monocytes Auto (Bld) [#/Vol] Ordered By: Vadim Guido on 12-27-2021 Monocytes (Bld) [#/Vol] 0.9 10*3/uL 0.0-0.8 [facility] Monocytes/100 WBC Auto (Bld) Ordered By: Vadim Guido on 12-27-2021 Monocytes/100 WBC (Bld) 9.6 % . [facility] Neutrophils Auto (Bld) [#/Vo l]Ordered By: Vadim Guido on 12-27-2021 Neutrophils (Bld) [#/Vol] 5.0 10*3/uL 1.8-7.7 [facility] Neutrophils/100 WBC Auto (Bl d)Ordered By: Vadim Guido on 12-27-2021 Neutrophils/100 WBC (Bld) 55.4 % . [facility] No Panel InformationOrdered By: Vadim Guido on 12-27-2021 Estimated GFR () > 60 mL/Min [facility] Comment on above: GFR estimated refere nce range: According to KDOQI guidelines, <60 ml/min/1.73m2 is sufficient to diagnose a patient with chronic kidney disease. Pharmacy Creatinine Clearance (Chem 114.22 [facility] SARS Antigen (LFIA) [facility] Platelet mean volume Auto (B ld) [Entitic vol]Ordered By: Vadim Guido on 12-27-2021 Platelet mean volume (Bld) [Entitic vol] 7.7 fL 6.6-10.1 [facility] Platelet poor plasma interna tional normalized ratio (INR) by coagulation assay (relatOrdered By: Vadim Gudio on 12-27-2021 INR Coag (PPP) [Relative time] 1.1 {INR} [facility] Comment on above: INR Therapeutic Rang e [...] 12-27-2021 Platelets (Bld) [#/Vol] 207 10*3/uL 150-450 [facility] RBC Auto (Bld) [#/Vol]Ordere d By: Vadim Guido on 12-27-2021 RBC (Bld) [#/Vol] 4.72 10*6/uL 3.90-5.60 [facility] Serum or plasma anion gap de terminationOrdered By: Vadim Guido on 12-27-2021 Anion gap [Moles/Vol] 14.7 mmol/L 6.0-15.0 [facility] Serum or plasma calcium maria del carmen urement (mass/volume)Ordered By: Vadim Guido on 12-27-2021 Calcium [Mass/Vol] 8.0 mg/dL 8.2-10.2 [facility] Serum or plasma chloride [place] surement (moles/volume)Ordered By: Vadim Guido on 12-27-2021 Chloride [Moles/Vol] 102 mmol/L 95-114 [facility] Serum or plasma glucose maria del carmen urement (mass/volume)Ordered By: Vadim Guido on 12-27-2021 Glucose [Mass/Vol] 161 mg/dL 70-100 [facility] Comment on above: ADA recommended refe rence rangeRandom Glucose Reference Range is dependent on time and content of last meal. Glucose of more than 200 mg/dL in a nonstressed, ambulatory subject supports the diagnosis of Diabetes Mellitus. Serum or plasma potassium me asurement (moles/volume)Ordered By: Vadim Guido on 12-27-2021 Potassium [Moles/Vol] 3.7 mmol/L 3.5-5.1 [facility] Serum or plasma sodium measu rement (moles/volume)Ordered By: Vadim Guido on 12-27-2021 Sodium [Moles/Vol] 137 mmol/L 136-146 [facility] Serum or plasma total carbon dioxide measurement (moles/volume)Ordered By: Vadim Guido on 12-27-2021 CO2 [Moles/Vol] 24.0 mmol/L 22.0-30.0 [facility] Serum or plasma urea nitroge n measurement (mass/volume)Ordered By: Vadim Guido on 12-27-2021 Urea nitrogen [Mass/Vol] 12 mg/dL 9-23 [facility] Troponin I.cardiac [Mass/vol ume] in Serum or Plasma by High sensitivity methodOrdered By: Vadim Guido on 12-27-2021 Troponin I.cardiac High sensitivity method [Mass/Vol] 7 pg/mL 0-20 [facility] ACETAMINOPHENon 06-02-2021 Acetaminophen [Mass/Vol] ug/mL Normal 10.0-30.0 [facility] Comment on above: Performed By: #### S EDR #### [facility] [address] [address] [address] Ariana Pimentel CARDIAC JAMES 3-6on 2 CK [Catalytic activity/Vol] 194 U/L Critically high 55-170 [facility] Comment on above: Performed By: #### C MREP #### [facility] [address] [address] [address] Ariana Pimentel CK.MB [Mass/Vol] 1.77 ng/mL Normal <=2.37 [facility] Comment on above: Performed By: #### C MREP #### [facility] [address] [address] [address] Ariana Pimentel HSTROP 10.7 pg/mL Normal 4.0-42.2 [facility] Comment on above: Result Comment: CUT- OFF POINTS HAVE BEEN ESTABLISHED BASED ON THE FOURTH UNIVERSAL DEFINITIONS OF MYOCARDIAL INFARCTION. THE UPPER REFERENCE LIMIT (URL) OF TROPONIN, DEFINED THE 99TH PERCENTILE OF cTnI DISTRIBUTION IN A REFERENCE POPULATION, HAS BEEN CONFIRMED THE DECISION THRESHOLD FOR [place] DIAGNOSIS. Performed By: #### C MREP #### [facility] [address] [place] [address] Dr. Ariana Pimentel CARDIAC JAMES ADMITon 022 CK [Catalytic activity/Vol] 193 U/L Critically high 55-170 [facility] Comment on above: Performed By: #### S EDR #### [facility] [address] [place] [address] Dr. Ariana Pimentel CK.MB [Mass/Vol] 1.67 ng/mL Normal <=2.37 [facility] Comment on above: Performed By: #### S EDR #### [facility] [address] [place] [address] Dr. Ariana Pimentel HSTROP 8.8 pg/mL Normal 4.0-42.2 [facility] Comment on above: Result Comment: CUT- OFF POINTS HAVE BEEN ESTABLISHED BASED ON THE FOURTH UNIVERSAL DEFINITIONS OF MYOCARDIAL INFARCTION. THE UPPER REFERENCE LIMIT (URL) OF TROPONIN, DEFINED THE 99TH PERCENTILE OF cTnI DISTRIBUTION IN A REFERENCE POPULATION, HAS BEEN CONFIRMED THE DECISION THRESHOLD FOR [place] DIAGNOSIS. Performed By: #### S EDR #### [facility] [address] [place] [address] Dr. Ariana Pimentel MARBELLA 49.0 ng/mL Normal <=121.0 [facility] Comment on above: Performed By: #### S EDR #### [facility] [address] [place] [address] Dr. Ariana Pimentel CBC AUTO DIFFon 06-02-2021 BASO # 0.1 103/ul Normal 0.0-0.1 [facility] Comment on above: Performed By: #### C RP, CMP #### [facility] [address] [place] [address] Dr. Ariana Pimentel Basophils/100 WBC (Bld) 1.1 % Normal 0.2-2.0 [facility] Comment on above: Performed By: #### C RP, CMP #### [facility] [address] [place] [address] Dr. Ariana Pimentel EO # 0.2 103/ul Normal 0.0-0.7 [facility] Comment on above: Performed By: #### C RP, CMP #### [facility] [address] [place] [address] Dr. Ariana Pimentel Eosinophils/100 WBC (Bld) 1.6 % Normal 0.9-7.0 [facility] Comment on above: Performed By: #### C RP, CMP #### [facility] [address] [place] [address] Dr. Ariana Pimentel Erythrocyte distribution width (RBC) [Ratio] 14.0 % Normal 11.0-15.0 [facility] Comment on above: Performed By: #### C RP, CMP #### [facility] [address] [place] [address] Dr. Ariana Pimentel Hematocrit (Bld) [Volume fraction] 42.2 % Normal 42.0-54.0 [facility] Comment on above: Performed By: #### C RP, CMP #### [facility] [address] [place] [address] Dr. Ariana Pimentel Hemoglobin (Bld) [Mass/Vol] 14.5 g/dL Normal 14.0-18.0 [facility] Comment on above: Performed By: #### C RP, CMP #### [facility] [address] [place] [address] Dr. Ariana Pimentel IG # 0.06 10e3/ul Critically high 0.00-0.03 [facility] Comment on above: Performed By: #### C RP, CMP #### [facility] [address] [place] [address] Dr. Ariana Pimentel IG % 0.6 % Critically high 0.0-0.5 [facility] Comment on above: Performed By: #### C RP, CMP #### [facility] [address] [place] [address] Dr. Ariana Pimentel LYMPH # 2.6 103/ul Normal 1.2-3.8 [facility] Comment on above: Performed By: #### C RP, CMP #### [facility] [address] [place] [address] Dr. Ariana Pimentel Lymphocytes/100 WBC (Bld) 27.2 % Normal 20.5-60.0 [facility] Comment on above: Performed By: #### C RP, CMP #### [facility] [address] [place] [address] Dr. Ariana Pimentel MANUAL DIFF REQ NO Normal [facility] Comment on above: Performed By: #### C RP, CMP #### [facility] [address] [place] [address] Dr. Ariana Pimentel MCH (RBC) [Entitic mass] 31.0 pg Normal 25.9-34.0 [facility] Comment on above: Performed By: #### C RP, CMP #### [facility] [address] [place] [address] Dr. Ariana Pimentel MCHC (RBC) [Mass/Vol] 34.4 g/dL Normal 29.9-35.2 [facility] Comment on above: Performed By: #### C RP, CMP #### [facility] [address] [place] [address] Dr. Ariana Pimentel MCV (RBC) [Entitic vol] 90.4 fL Normal 80.0-94.0 [facility] Comment on above: Performed By: #### C RP, CMP #### [facility] [address] [place] [address] Dr. Ariana Pimentel MONO # 0.6 103/ul Normal 0.3-0.8 [facility] Comment on above: Performed By: #### C RP, CMP #### [facility] [address] [place] [address] Dr. Ariana Pimentel Monocytes/100 WBC (Bld) 6.7 % Normal 1.7-12.0 [facility] Comment on above: Performed By: #### C RP, CMP #### [facility] [address] [place] [address] Dr. Ariana Pimentel NEUT # 5.9 103/ul Normal 1.4-6.5 [facility] Comment on above: Performed By: #### C RP, CMP #### [facility] [address] [address] [address] Ariana Pimentel Neutrophils/100 WBC (Bld) 62.8 % Normal 43.0-75.0 [facility] Comment on above: Performed By: #### C RP, CMP #### [facility] [address] [address] [address] Ariana Pimentel Platelet mean volume (Bld) [Entitic vol] 9.3 fL Critically low 9.5-13.5 [facility] Comment on above: Performed By: #### C RP, CMP #### [facility] [address] [place] [address] Dr. Ariana Pimentel PLT 164 103/ul Normal 150-450 [facility] Comment on above: Performed By: #### C RP, CMP #### [facility] [address] [place] [address] Dr. Ariana Pimentel RBC 4.67 106/ul Critically low 4.70-6.10 [facility] Comment on above: Performed By: #### C RP, CMP #### [facility] [address] [place] [address] Dr. Ariana Pimentel WBC 9.4 103/ul Normal 4.0-11.0 [facility] Comment on above: Performed By: #### C RP, CMP #### [facility] [address] [place] [address] Dr. Ariana Pimentel ETHANOL (BLD ALC)on 06-03-19 22 ALC NOTE NOTE: 80 mg/dl is th e legal limit for a blood alcohol level Normal [facility] Comment on above: Performed By: #### S EDR #### [facility] [address] [place] [address] Dr. Ariana Pimentel Ethanol [Mass/Vol] 184 mg/dL Normal [facility] Comment on above: Performed By: #### S EDR #### [facility] [address] [place] [address] Dr. Ariana Pimentel PROF CHEM 8 (BAS METB)on Anion gap [Moles/Vol] 13.3 mmol/L Normal [facility] Comment on above: Performed By: #### S EDR #### [facility] [address] [place] [address] Dr. Ariana Pimentel Calcium [Mass/Vol] 7.6 mg/dL Critically low 8.5-10.1 [facility] Comment on above: Performed By: #### S EDR #### [facility] [address] [place] [address] Dr. Ariana Pimentel Chloride [Moles/Vol] 101 mmol/L Normal 98-107 [facility] Comment on above: Performed By: #### S EDR #### [facility] [address] [place] [address] Dr. Ariana Pimentel CO2 [Moles/Vol] 24.4 mmol/L Normal 22.0-30.0 [facility] Comment on above: Performed By: #### S EDR #### [facility] [address] [place] [address] Dr. Ariana Pimentel Creatinine [Mass/Vol] 0.76 mg/dL Normal 0.66-1.25 [facility] Comment on above: Performed By: #### S EDR #### [facility] [address] [place] [address] Dr. Ariana Pimentel EGFR-AF BAHRAINI >60 Normal >=60 [facility] Comment on above: Performed By: #### S EDR #### [facility] [address] [place] [address] Dr. Ariana Pimentel EGFR-NON AF BAHRAINI >60 Normal >=60 [facility] Comment on above: Performed By: #### S EDR #### [facility] [address] [place] [address] Dr. Ariana Pimentel Glucose [Mass/Vol] 139 mg/dL Critically high 74-106 [facility] Comment on above: Performed By: #### S EDR #### [facility] [address] [place] [address] Dr. Ariana Pimentel Potassium [Moles/Vol] 3.7 mmol/L Normal 3.4-5.0 [facility] Comment on above: Performed By: #### S EDR #### [facility] [address] [address] [address] Ariana Pimentel Sodium [Moles/Vol] 135 mmol/L Critically low 137-145 [facility] Comment on above: Performed By: #### S EDR #### [facility] [address] [address] [address] Ariana Pimentel Urea nitrogen [Mass/Vol] 9.0 mg/dL Normal 7.0-18.0 [facility] Comment on above: Performed By: #### S EDR #### [facility] [address] [address] [address] Ariana Pimentel Urea nitrogen/Creatinine [Mass ratio] 11.8 mg/mg Normal [facility] Comment on above: Performed By: #### S EDR #### [facility] [address] [address] [address] Ariana Pimentel SALICYLATEon 06-02-2021 SALICYLATE 3.9 mg/dL Normal <=20.0 [facility] Comment on above: Performed By: #### S EDR #### [facility] [address] [address] [address] Ariana Pimentel TROPONIN, HIGH SENSITIVITYon 06-02-2021 HSTROP 8.1 pg/mL Normal 4.0-42.2 [facility] Comment on above: Result Comment: CUT- OFF POINTS HAVE BEEN ESTABLISHED BASED ON THE FOURTH UNIVERSAL DEFINITIONS OF MYOCARDIAL INFARCTION. THE UPPER REFERENCE LIMIT (URL) OF TROPONIN, DEFINED THE 99TH PERCENTILE OF cTnI DISTRIBUTION IN A REFERENCE POPULATION, HAS BEEN CONFIRMED THE DECISION THRESHOLD FOR [place] DIAGNOSIS. Performed By: #### H STROPN #### [facility] [address] [address] [address] Ariana Pimentel XR CHEST 1 Von [...] ESTHER HANNA Date: 2021-06-02 00:27 Normal [facility] CBC AUTO DIFFon 06-01-2021 BASO # 0.1 103/ul Normal 0.0-0.1 [facility] Comment on above: Performed By: #### S EDR #### [facility] [address] [address] [address] Ariana Pimentel Basophils/100 WBC (Bld) 1.2 % Normal 0.2-2.0 [facility] Comment on above: Performed By: #### S EDR #### [facility] [address] [place] [address] Dr. Ariana Pimentel EO # 0.1 103/ul Normal 0.0-0.7 [facility] Comment on above: Performed By: #### S EDR #### [facility] [address] [address] [address] Ariana Pimentel Eosinophils/100 WBC (Bld) 1.4 % Normal 0.9-7.0 [facility] Comment on above: Performed By: #### S EDR #### [facility] [address] [place] [address] Dr. Ariana Pimentel Erythrocyte distribution width (RBC) [Ratio] 14.2 % Normal 11.0-15.0 [facility] Comment on above: Performed By: #### S EDR #### [facility] [address] [address] [address] Ariana Pimentel Hematocrit (Bld) [Volume fraction] 47.9 % Normal 42.0-54.0 [facility] Comment on above: Performed By: #### S EDR #### [facility] [address] [address] [address] Ariana Pimentel Hemoglobin (Bld) [Mass/Vol] 16.2 g/dL Normal 14.0-18.0 [facility] Comment on above: Performed By: #### S EDR #### [facility] [address] [address] [address] Ariana Pimentel IG # 0.04 10e3/ul Critically high 0.00-0.03 [facility] Comment on above: Performed By: #### S EDR #### [facility] [address] [place] [address] Dr. Ariana Pimentel IG % 0.5 % Normal 0.0-0.5 [facility] Comment on above: Performed By: #### S EDR #### [facility] [address] [place] [address] Dr. Ariana Pimentel LYMPH # 2.1 103/ul Normal 1.2-3.8 [facility] Comment on above: Performed By: #### S EDR #### [facility] [address] [place] [address] Dr. Ariana Pimentel Lymphocytes/100 WBC (Bld) 24.7 % Normal 20.5-60.0 [facility] Comment on above: Performed By: #### S EDR #### [facility] [address] [place] [address] Dr. Ariana Pimentel MANUAL DIFF REQ NO Normal [facility] Comment on above: Performed By: #### S EDR #### [facility] [address] [place] [address] Dr. Ariana Pimentel MCH (RBC) [Entitic mass] 30.9 pg Normal 25.9-34.0 [facility] Comment on above: Performed By: #### S EDR #### [facility] [address] [place] [address] Dr. Ariana Pimentel MCHC (RBC) [Mass/Vol] 33.8 g/dL Normal 29.9-35.2 [facility] Comment on above: Performed By: #### S EDR #### [facility] [address] [place] [address] Dr. Ariana Pimentel MCV (RBC) [Entitic vol] 91.4 fL Normal 80.0-94.0 [facility] Comment on above: Performed By: #### S EDR #### [facility] [address] [place] [address] Dr. Ariana Pimentel MONO # 0.7 103/ul Normal 0.3-0.8 [facility] Comment on above: Performed By: #### S EDR #### [facility] [address] [place] [address] Dr. Ariana Pimentel Monocytes/100 WBC (Bld) 7.8 % Normal 1.7-12.0 [facility] Comment on above: Performed By: #### S EDR #### [facility] [address] [place] [address] Dr. Ariana Pimentel NEUT # 5.3 103/ul Normal 1.4-6.5 [facility] Comment on above: Performed By: #### S EDR #### [facility] [address] [place] [address] Dr. Ariana Pimentel Neutrophils/100 WBC (Bld) 64.4 % Normal 43.0-75.0 [facility] Comment on above: Performed By: #### S EDR #### [facility] [address] [place] [address] Dr. Ariana Pimentel Platelet mean volume (Bld) [Entitic vol] 9.5 fL Normal 9.5-13.5 [facility] Comment on above: Performed By: #### S EDR #### [facility] [address] [place] [address] Dr. Ariana Pimentel PLT 192 103/ul Normal 150-450 [facility] Comment on above: Performed By: #### S EDR #### [facility] [address] [place] [address] Dr. Ariana Pimentel RBC 5.24 106/ul Normal 4.70-6.10 [facility] Comment on above: Performed By: #### S EDR #### [facility] [address] [place] [address] Dr. Ariana Pimentel WBC 8.3 103/ul Normal 4.0-11.0 [facility] Comment on above: Performed By: #### S EDR #### [facility] [address] [address] [address] Ariana Pimentel CRPon 06-01-2021 CRP 0.5 mg/dL Normal <=1.0 [facility] Comment on above: Performed By: #### C RP, CMP #### [facility] [address] [place] [address] Dr. Ariana Pimentel PROF 14(COMP METB)on 022 Albumin [Mass/Vol] 4.0 g/dL Normal 3.4-5.0 [facility] Comment on above: Performed By: #### C RP, CMP #### [facility] [address] [place] [address] Dr. Ariana Pimentel Albumin/Globulin [Mass ratio] 1.0 {ratio} Normal [facility] Comment on above: Performed By: #### C RP, CMP #### [facility] [address] [place] [address] Dr. Ariana Pimentel ALP [Catalytic activity/Vol] 129 U/L Critically high 46-116 [facility] Comment on above: Performed By: #### C RP, CMP #### [facility] [address] [place] [address] Dr. Ariana Pimentel ALT [Catalytic activity/Vol] 27 U/L Normal 16-63 [facility] Comment on above: Performed By: #### C RP, CMP #### [facility] [address] [place] [address] Dr. Ariana Pimentel Anion gap [Moles/Vol] 9.9 mmol/L Normal [facility] Comment on above: Performed By: #### C RP, CMP #### [facility] [address] [place] [address] Dr. Ariana Pimentel AST [Catalytic activity/Vol] 13 U/L Critically low 15-37 [facility] Comment on above: Performed By: #### C RP, CMP #### [facility] [address] [place] [address] Dr. Ariana Pimentel Bilirubin [Mass/Vol] 0.4 mg/dL Normal 0.2-1.3 [facility] Comment on above: Performed By: #### C RP, CMP #### [facility] [address] [address] [address] Ariana Pimentel Calcium [Mass/Vol] 9.0 mg/dL Normal 8.5-10.1 [facility] Comment on above: Performed By: #### C RP, CMP #### [facility] [address] [address] [address] Ariana Pimentel Chloride [Moles/Vol] 102 mmol/L Normal 98-107 [facility] Comment on above: Performed By: #### C RP, CMP #### [facility] [address] [place] [address] Dr. Ariana Pimentel CO2 [Moles/Vol] 30.6 mmol/L Critically high 22.0-30.0 [facility] Comment on above: Performed By: #### C RP, CMP #### [facility] [address] [place] [address] Dr. Ariana Pimentel Creatinine [Mass/Vol] 0.98 mg/dL Normal 0.66-1.25 [facility] Comment on above: Performed By: #### C RP, CMP #### [facility] [address] [place] [address] Dr. Ariana Pimentel EGFR-AF BAHRAINI >60 Normal >=60 [facility] Comment on above: Performed By: #### C RP, CMP #### [facility] [address] [place] [address] Dr. Ariana Pimentel EGFR-NON AF BAHRAINI >60 Normal >=60 [facility] Comment on above: Performed By: #### C RP, CMP #### [facility] [address] [place] [address] Dr. Ariana Pimentel Globulin (S) [Mass/Vol] 3.9 g/dL Normal [facility] Comment on above: Performed By: #### C RP, CMP #### [facility] [address] [place] [address] Dr. Ariana Pimentel Glucose [Mass/Vol] 128 mg/dL Critically high 74-106 [facility] Comment on above: Performed By: #### C RP, CMP #### [facility] [address] [place] [address] Dr. Ariana Pimentel Potassium [Moles/Vol] 4.5 mmol/L Normal 3.4-5.0 [facility] Comment on above: Performed By: #### C RP, CMP #### [facility] [address] [place] [address] Dr. Ariana Pimentel Protein [Mass/Vol] 7.9 g/dL Normal 6.1-8.2 [facility] Comment on above: Performed By: #### C RP, CMP #### [facility] [address] [place] [address] Dr. Ariana Pimentel Sodium [Moles/Vol] 138 mmol/L Normal 137-145 [facility] Comment on above: Performed By: #### C RP, CMP #### [facility] [address] [place] [address] Dr. Ariana Pimentel Urea nitrogen [Mass/Vol] 14.0 mg/dL Normal 7.0-18.0 [facility] [facility] Comment on above: Performed By: #### C RP, CMP #### [facility] [address] [place] [address] Dr. Ariana Pimentel Urea nitrogen/Creatinine [Mass ratio] 14.3 mg/mg Normal [facility] Comment on above: Performed By: #### C RP, CMP #### [facility] [address] [place] [address] Dr. Ariana Pimentel [facility]ATE 4 mm/hr Normal <=20 [facility] Comment on above: Performed By: #### S EDR #### [facility] [address] [place] [address] Dr. Ariana Pimentel CBC AUTO DIFFon 01-30-2021 BASO # 0.1 103/ul Normal 0.0-0.1 [facility] Comment on above: Performed By: #### S EDR #### [facility] [address] [place] [address] Dr. Ariana Pimentel Basophils/100 WBC (Bld) 1.2 % Normal 0.2-2.0 [facility] Comment on above: Performed By: #### S EDR #### [facility] [address] [address] [address] Ariana Pimentel EO # 0.2 103/ul Normal 0.0-0.7 [facility] Comment on above: Performed By: #### S EDR #### [facility] [address] [place] [address] Dr. Ariana Pimentel Eosinophils/100 WBC (Bld) 1.7 % Normal 0.9-7.0 [facility] Comment on above: Performed By: #### S EDR #### [facility] [address] [place] [address] Dr. Ariana Pimentel Erythrocyte distribution width (RBC) [Ratio] 13.4 % Normal 11.0-15.0 [facility] Comment on above: Performed By: #### S EDR #### [facility] [address] [place] [address] Dr. Ariana Pimentel Hematocrit (Bld) [Volume fraction] 46.7 % Normal 42.0-54.0 [facility] Comment on above: Performed By: #### S EDR #### [facility] [address] [place] [address] Dr. Ariana Pimentel Hemoglobin (Bld) [Mass/Vol] 15.4 g/dL Normal 14.0-18.0 [facility] Comment on above: Performed By: #### S EDR #### [facility] [address] [place] [address] Dr. Ariana Pimentel IG # 0.04 10e3/ul Critically high 0.00-0.03 [facility] Comment on above: Performed By: #### S EDR #### [facility] [address] [place] [address] Dr. Ariana Pimentel IG % 0.4 % Normal 0.0-0.5 [facility] Comment on above: Performed By: #### S EDR #### [facility] [address] [place] [address] Dr. Ariana Pimentel LYMPH # 2.5 103/ul Normal 1.2-3.8 [facility] Comment on above: Performed By: #### S EDR #### [facility] [address] [place] [address] Dr. Ariana Pimentel Lymphocytes/100 WBC (Bld) 27.8 % Normal 20.5-60.0 [facility] Comment on above: Performed By: #### S EDR #### [facility] [address] [place] [address] Dr. Ariana Pimentel MANUAL DIFF REQ NO Normal [facility] Comment on above: Performed By: #### S EDR #### [facility] [address] [place] [address] Dr. Ariana Pimentel MCH (RBC) [Entitic mass] 30.0 pg Normal 25.9-34.0 [facility] Comment on above: Performed By: #### S EDR #### [facility] [address] [place] [address] Dr. Ariana Pimentel MCHC (RBC) [Mass/Vol] 33.0 g/dL Normal 29.9-35.2 [facility] Comment on above: Performed By: #### S EDR #### [facility] [address] [place] [address] Dr. Ariana Pimentel MCV (RBC) [Entitic vol] 91.0 fL Normal 80.0-94.0 [facility] Comment on above: Performed By: #### S EDR #### [facility] [address] [place] [address] Dr. Ariana Pimentel MONO # 0.8 103/ul Normal 0.3-0.8 [facility] Comment on above: Performed By: #### S EDR #### [facility] [address] [place] [address] Dr. Ariana Pimentel Monocytes/100 WBC (Bld) 9.0 % Normal 1.7-12.0 [facility] Comment on above: Performed By: #### S EDR #### [facility] [address] [place] [address] Dr. Ariana Pimentel NEUT # 5.4 103/ul Normal 1.4-6.5 [facility] Comment on above: Performed By: #### S EDR #### [facility] [address] [address] [address] Ariana Pimentel Neutrophils/100 WBC (Bld) 59.9 % Normal 43.0-75.0 [facility] Comment on above: Performed By: #### S EDR #### [facility] [address] [place] [address] Dr. Ariana Pimentel Platelet mean volume (Bld) [Entitic vol] 10.2 fL Normal 9.5-13.5 [facility] Comment on above: Performed By: #### S EDR #### [facility] [address] [place] [address] Dr. Ariana Pimentel PLT 193 103/ul Normal 150-450 [facility] Comment on above: Performed By: #### S EDR #### [facility] [address] [place] [address] Dr. Ariana Pimentel RBC 5.13 106/ul Normal 4.70-6.10 [facility] Comment on above: Performed By: #### S EDR #### [facility] [address] [place] [address] Dr. Ariana Pimentel WBC 9.0 103/ul Normal 4.0-11.0 [facility] Comment on above: Performed By: #### S EDR #### [facility] [address] [place] [address] Dr. Ariana Pimentel [facility]on SARS-CoV-2 (COVID-19) RNA LELIA+probe Ql (Unsp spec) Not detected Normal NOT DETECTED [facility] Comment on above: Result Comment: When diagnostic testing is negative, the possibility of a false negative should be considered in the context of a patient's recent exposures and the presence of clinical signs and symptoms consistent with SARS-CoV-2. This test is not yet approved or cleared by the [place] Food and Drug Administration (FDA). This test was developed by [employer], [place], [place]. The performance characteristics of this test were validated by The [facility]. The results are not intended to be used as the sole means for clinical diagnosis or patient management decisions. The [facility] is authorized under Clinical Laboratory Improvement Amendments [...] for this test is supported by the [place] of Health and Human Service's declaration that [...] used). Performed By: #### S EDR #### [facility] [address] [place] [address] Dr. Ariana Pimentel PROF CHEM 8 (BAS METB)on Anion gap [Moles/Vol] 13.9 mmol/L Normal [facility] Comment on above: Performed By: #### H STROPN, BMP #### [facility] [address] [place] [address] Dr. Ariana Pimentel Calcium [Mass/Vol] 8.8 mg/dL Normal 8.4-10.2 [facility] Comment on above: Performed By: #### H IRENEPN, BMP #### [facility] [address] [place] [address] Dr. Ariana Pimentel Chloride [Moles/Vol] 103 mmol/L Normal 98-107 [facility] Comment on above: Performed By: #### H STROPN, BMP #### [facility] [address] [place] [address] Dr. Ariana Pimentel CO2 [Moles/Vol] 26.5 mmol/L Normal 22.0-30.0 [facility] Comment on above: Performed By: #### H STROPN, BMP #### [facility] [address] [place] [address] Dr. Ariana Pimentel Creatinine [Mass/Vol] 0.97 mg/dL Normal 0.66-1.25 [facility] Comment on above: Performed By: #### H STROPN, BMP #### [facility] [address] [address] [address] Ariana Pimentel EGFR-AF BAHRAINI >60 Normal >=60 [facility] Comment on above: Performed By: #### H STROPN, BMP #### [facility] [address] [address] [address] Ariana Pimentel EGFR-NON AF BAHRAINI >60 Normal >=60 [facility] Comment on above: Performed By: #### H STROPN, BMP #### [facility] [address] [address] [address] Ariana Pimentel Glucose [Mass/Vol] 168 mg/dL Critically high 74-106 [facility] Comment on above: Performed By: #### H STROPN, BMP #### [facility] [address] [address] [address] Ariana Pimentel Potassium [Moles/Vol] 4.4 mmol/L Normal 3.4-5.0 [facility] Comment on above: Performed By: #### H STROPN, BMP #### [facility] [address] [address] [address] Ariana Pimentel Sodium [Moles/Vol] 139 mmol/L Normal 137-145 [facility] Comment on above: Performed By: #### H STROPN, BMP #### [facility] [address] [address] [address] Ariana Pimentel Urea nitrogen [Mass/Vol] 20.0 mg/dL Normal 9.0-20.0 [facility] Comment on above: Performed By: #### H STROPN, BMP #### [facility] [address] [address] [address] Ariana Pimentel Urea nitrogen/Creatinine [Mass ratio] 20.6 mg/mg Normal [facility] Comment on above: Performed By: #### H STROPN, BMP #### [facility] [address] [address] [address] Ariana Pimentel PROTIMEon 01-30-2021 INR Coag (PPP) [Relative time] 0.96 {INR} Normal [facility] Comment on above: Performed By: #### C RP, CMP #### [facility] [address] [place] [address] Dr. Ariana Pimentel INR GUIDELINES SEE BELOW Normal [facility] Comment on above: Result Comment: RIMA RED INR: 2.0 - 3.0 CONDITIONS NOT LISTED BELOW 2.5 - 3.5 FOR PROSTHETIC HEART VALVE REPLACEMENT 2.5 - 3.5 RECURRENT THROMBOSIS Performed By: #### C RP, CMP #### [facility] [address] [place] [address] Dr. Ariana Pimentel PT Coag (PPP) [Time] 10.4 s Normal 9.0-11.6 [facility] Comment on above: Performed By: #### C RP, CMP #### [facility] [address] [place] [address] Dr. Ariana Pimentel PTTon 01-30-2021 aPTT Coag (Bld) [Time] 28.6 s Normal 22.3-36.2 [facility] Comment on above: Performed By: #### C RP, CMP #### [facility] [address] [place] [address] Dr. Ariana Pimentel TROPONIN, HIGH SENSITIVITYon 01-30-2021 HSTROP 335.4 pg/mL Critically high 4.0-42.2 [facility] Comment on above: Result Comment: CUT- OFF POINTS HAVE BEEN ESTABLISHED BASED ON THE FOURTH UNIVERSAL DEFINITIONS OF MYOCARDIAL INFARCTION. THE UPPER REFERENCE LIMIT (URL) OF TROPONIN, DEFINED THE 99TH PERCENTILE OF cTnI DISTRIBUTION IN A REFERENCE POPULATION, HAS BEEN CONFIRMED THE DECISION THRESHOLD FOR [place] DIAGNOSIS. Performed By: #### S EDR #### [facility] [address] [place] [address] Dr. Ariana Pimentel HSTROP 234.8 pg/mL Critically high 4.0-42.2 [facility] Comment on above: Result Comment: CUT- OFF POINTS HAVE BEEN ESTABLISHED BASED ON THE FOURTH UNIVERSAL DEFINITIONS OF MYOCARDIAL INFARCTION. THE UPPER REFERENCE LIMIT (URL) OF TROPONIN, DEFINED THE 99TH PERCENTILE OF cTnI DISTRIBUTION IN A REFERENCE POPULATION, HAS BEEN CONFIRMED THE DECISION THRESHOLD FOR [place] DIAGNOSIS. critical value repeated and verified Performed By: #### H STROPN, BMP #### [facility] [address] [place] [address] Dr. Ariana Pimentel XR CHEST 1 Von [...] by: ELYSE QUINTERO Date: 2021-01-30 10:41 Normal [facility] INSULINon 07-14-2020 Insulin 14.4 uIU/mL Normal 2.6-24.9 [facility] Comment on above: Performed By: #### I NSULIN #### [facility] [address] [place] [address] Branden Romy CBC AUTO DIFFon 07-13-2020 BASO # 0.1 103/ul Normal 0.0-0.1 [facility] Comment on above: Performed By: #### C BC #### [facility] [address] [place] [address] Branden Romy Basophils/100 WBC (Bld) 1.3 % Normal 0.2-2.0 [facility] Comment on above: Performed By: #### C BC #### [facility] [address] [place] [address] Branden Romy EO # 0.2 103/ul Normal 0.0-0.7 [facility] Comment on above: Performed By: #### C BC #### [facility] [address] [place] [address] Branden Romy Eosinophils/100 WBC (Bld) 2.2 % Normal 0.9-7.0 [facility] Comment on above: Performed By: #### C BC #### [facility] [address] [place] [address] Branden Romy Erythrocyte distribution width (RBC) [Ratio] 13.6 % Normal 11.0-15.0 [facility] Comment on above: Performed By: #### C BC #### [facility] [address] [place] [address] Branden Stanton Hematocrit (Bld) [Volume fraction] 44.8 % Normal 42.0-54.0 [facility] Comment on above: Performed By: #### C BC #### [facility] [address] [place] [address] Branden Stanton Hemoglobin (Bld) [Mass/Vol] 15.2 g/dL Normal 14.0-18.0 [facility] Comment on above: Performed By: #### C BC #### [facility] [address] [place] [address] Branden Stanton IG # 0.03 10e3/ul Normal 0.00-0.03 [facility] Comment on above: Performed By: #### C BC #### [facility] [address] [place] [address] Branden Stanton IG % 0.4 % Normal 0.0-0.5 [facility] Comment on above: Performed By: #### C BC #### [facility] [address] [place] [address] Branden Stanton LYMPH # 2.3 103/ul Normal 1.2-3.8 [facility] Comment on above: Performed By: #### C BC #### [facility] [address] [place] [address] Branden Stanton Lymphocytes/100 WBC (Bld) 27.0 % Normal 20.5-60.0 [facility] Comment on above: Performed By: #### C BC #### [facility] [address] [place] [address] Branden Stanton MANUAL DIFF REQ NO Normal [facility] Comment on above: Performed By: #### C BC #### [facility] [address] [place] [address] Branden Stanton MCH (RBC) [Entitic mass] 30.4 pg Normal 25.9-34.0 [facility] Comment on above: Performed By: #### C BC #### [facility] [address] [place], [place] [address] Branden Stanton MCHC (RBC) [Mass/Vol] 33.9 g/dL Normal 29.9-35.2 [facility] Comment on above: Performed By: #### C BC #### [facility] [address] [place], [place] [address] Branden Stanton MCV (RBC) [Entitic vol] 89.6 fL Normal 80.0-94.0 [facility] Comment on above: Performed By: #### C BC #### [facility] [address] [place], [place] [address] Brandensiria Stanton MONO # 0.7 103/ul Normal 0.3-0.8 [facility] Comment on above: Performed By: #### C BC #### [facility] [address] [id number] Branden Stanton Monocytes/100 WBC (Bld) 8.8 % Normal 1.7-12.0 [facility] Comment on above: Performed By: #### C BC #### [facility] [address] [place], [place] [address] Brandensiria Corderoen NEUT # 5.0 103/ul Normal 1.4-6.5 [facility] Comment on above: Performed By: #### C BC #### [facility] [address] [id number] Branden Stanton Neutrophils/100 WBC (Bld) 60.3 % Normal 43.0-75.0 [facility] Comment on above: Performed By: #### C BC #### [facility] [address] [place], [place] [address] Brandensiria Stanton Platelet mean volume (Bld) [Entitic vol] 9.6 fL Normal 9.5-13.5 [facility] Comment on above: Performed By: #### C BC #### [facility] [address] [place], [place] [address] Branden Romy PLT 180 103/ul Normal 150-450 [facility] Comment on above: Performed By: #### C BC #### [facility] [address] [address] Branden Romy RBC 5.00 106/ul Normal 4.70-6.10 [facility] Comment on above: Performed By: #### C BC #### [facility] [address] [address] Branden Romy WBC 8.3 103/ul Normal 4.0-11.0 [facility] Comment on above: Performed By: #### C BC #### [facility] [address] [address] Branden Stanton FREE THYROXINE INDEX T7on FTI 3.12 Normal [facility] Comment on above: Performed By: #### C RP, CMP #### [facility] [address] [place] [address] Dr. Ariana Pimentel T3U 38.0 % Normal 23.5-40.5 [facility] Comment on above: Performed By: #### C RP, CMP #### [facility] [address] [place] [address] Dr. Ariana Pimentel T4 [Mass/Vol] 8.20 ug/dL Normal 5.53-11.00 [facility] Comment on above: Performed By: #### C RP, CMP #### [facility] [address] [place] [address] Dr. Ariana Pimentel GLYCOHEMOGLOBIN A1Con 2020 ADA RECOMMENDATION ADA THERAPEUTIC TARG ET 6.0 - 7.0 ACTION SUGGESTED > 7.0 Normal [facility] Comment on above: Performed By: #### A 1C #### [facility] [address] [place] [address] Branden Romy Glucose [Mass/Vol] 131 mg/dL Normal [facility] Comment on above: Performed By: #### A 1C #### [facility] [address] [place] [address] Branden Romy HbA1c (Bld) [Mass fraction] 6.2 % Critically high <=6.0 [facility] Comment on above: Performed By: #### A 1C #### [facility] [address] [address] Branden Stanton LIPID PROFILEon 07-13-2020 CHOL-HDL RATIO NORM SEE BELOW Normal [facility] Comment on above: Result Comment: 3.3 - 4.4 LOW RISK 4.4 - 7.1 AVERAGE RISK 7.1 - 11.0 MODERATE RISK >11.0 HIGH RISK Performed By: #### C RP, CMP #### [facility] [address] [address] [address] Ariana Pimentel Cholesterol [Mass/Vol] 196 mg/dL Normal <=200 [facility] Comment on above: Performed By: #### C RP, CMP #### [facility] [address] [address] [address] Ariana Pimentel Cholesterol in HDL [Mass/Vol] 27 mg/dL Normal [facility] Comment on above: Performed By: #### C RP, CMP #### [facility] [address] [address] [address] Ariana Pimentel Cholesterol in LDL [Mass/Vol] 117.2 mg/dL Normal [facility] Comment on above: Performed By: #### C RP, CMP #### [facility] [address] [address] [address] Ariana Pimentel Cholesterol.total/Chol esterol in HDL [Mass ratio] 7.3 {ratio} Normal [facility] Comment on above: Performed By: #### C RP, CMP #### [facility] [address] [address] [address] Ariana Pimentel HDL NORMAL > or = 60 mg/dl - LO W CARDIOVASCULAR RISK <40 mg/dl - HIGH CARDIOVASCULAR RISK Normal [facility] Comment on above: Performed By: #### C RP, CMP #### [facility] [address] [address] [address] Ariana Pimentel LDL CALC NORMAL SEE BELOW Normal [facility] Comment on above: Result Comment: <100 mg/dl OPTIMAL 100 - 129 mg/dl NEAR OR ABOVE OPTIMAL 130 - 159 mg/dl BORDERLINE HIGH 160 - 189 mg/dl HIGH >190 mg/dl VERY HIGH Performed By: #### C RP, CMP #### [facility] [address] [place] [address] Dr. Ariana Pimentel Triglyceride [Mass/Vol] 259 mg/dL Critically high <=150 [facility] Comment on above: Performed By: #### C RP, CMP #### [facility] [address] [place] [address] Dr. Ariana Pimentel VLDL CALC 51.8 mg/dL Normal [facility] Comment on above: Performed By: #### C RP, CMP #### [facility] [address] [place] [address] Dr. Ariana Pimentel PROF 14(COMP METB)on 021 Albumin [Mass/Vol] 3.7 g/dL Normal 3.5-5.0 [facility] Comment on above: Performed By: #### C RP, CMP #### [facility] [address] [place] [address] Dr. Ariana Pimentel Albumin/Globulin [Mass ratio] 1.1 {ratio} Normal [facility] Comment on above: Performed By: #### C RP, CMP #### [facility] [address] [place] [address] Dr. Ariana Pimentel ALP [Catalytic activity/Vol] 116 U/L Normal 38-126 [facility] Comment on above: Performed By: #### C RP, CMP #### [facility] [address] [place] [address] Dr. Ariana Pimentel ALT [Catalytic activity/Vol] 25 U/L Normal 21-72 [facility] Comment on above: Performed By: #### C RP, CMP #### [facility] [address] [place] [address] Dr. Ariana Pimentel Anion gap [Moles/Vol] 12.7 mmol/L Normal [facility] Comment on above: Performed By: #### C RP, CMP #### [facility] [address] [place] [address] Dr. Ariana Pimentel AST [Catalytic activity/Vol] 14 U/L Critically low 17-59 [facility] Comment on above: Performed By: #### C RP, CMP #### [facility] [address] [place] [address] Dr. Ariana Pimentel Bilirubin [Mass/Vol] 0.4 mg/dL Normal 0.2-1.3 [facility] Comment on above: Performed By: #### C RP, CMP #### [facility] [address] [place] [address] Dr. Ariana Pimentel Calcium [Mass/Vol] 8.7 mg/dL Normal 8.4-10.2 [facility] Comment on above: Performed By: #### C RP, CMP #### [facility] [address] [place] [address] Dr. Ariana Pimentel Chloride [Moles/Vol] 105 mmol/L Normal 98-107 [facility] Comment on above: Performed By: #### C RP, CMP #### [facility] [address] [place] [address] Dr. Ariana Pimentel CO2 [Moles/Vol] 24.7 mmol/L Normal 22.0-30.0 [facility] Comment on above: Performed By: #### C RP, CMP #### [facility] [address] [place] [address] Dr. Ariana Pimentel Creatinine [Mass/Vol] 1.07 mg/dL Normal 0.66-1.25 [facility] Comment on above: Performed By: #### C RP, CMP #### [facility] [address] [place] [address] Dr. Ariana Pimentel EGFR-AF BAHRAINI >60 Normal >=60 [facility] Comment on above: Performed By: #### C RP, CMP #### [facility] [address] [place] [address] Dr. Ariana Pimentel EGFR-NON AF BAHRAINI >60 Normal >=60 [facility] Comment on above: Performed By: #### C RP, CMP #### [facility] [address] [place] [address] Dr. Ariana Pimentel Globulin (S) [Mass/Vol] 3.4 g/dL Normal [facility] Comment on above: Performed By: #### C RP, CMP #### [facility] [address] [place] [address] Dr. Ariana Pimentel Glucose [Mass/Vol] 140 mg/dL Critically high 74-106 [facility] Comment on above: Performed By: #### C RP, CMP #### [facility] [address] [place] [address] Dr. Ariana Pimentel Potassium [Moles/Vol] 4.4 mmol/L Normal 3.4-5.0 [facility] Comment on above: Performed By: #### C RP, CMP #### [facility] [address] [place] [address] Dr. Ariana Pimentel Protein [Mass/Vol] 7.1 g/dL Normal 6.1-8.2 [facility] Comment on above: Performed By: #### C RP, CMP #### [facility] [address] [place] [address] Dr. Ariana Pimentel Sodium [Moles/Vol] 138 mmol/L Normal 137-145 [facility] Comment on above: Performed By: #### C RP, CMP #### [facility] [address] [place] [address] Dr. Ariana Pimentel Urea nitrogen [Mass/Vol] 16.0 mg/dL Normal 9.0-20.0 [facility] Comment on above: Performed By: #### C RP, CMP #### [facility] [address] [place] [address] Dr. Ariana Pimentel Urea nitrogen/Creatinine [Mass ratio] 15.0 mg/mg Normal [facility] Comment on above: Performed By: #### C RP, CMP #### [facility] [address] [place] [address] Dr. Ariana Pimentel TSHon 07-13-2020 TSH 1.511 uIU/mL Normal 0.470-4.680 [facility] Comment on above: Performed By: #### C RP, CMP #### [facility] [address] [place] [address] Dr. Ariana Pimentel TSH RANGE SEE BELOW Normal [facility] Comment on above: Result Comment: <0.3 4 UIU/ml HYPERTHYROID 0.34-5.60 UIU/ml EUTHYROID >5.60 UIU/ml HYPOTHYROID Performed By: #### C RP, CMP #### [facility] [address] [address] [address] Ariana Pimentel URIC ACID SERUMon 07-13-2020 Urate [Mass/Vol] 4.0 mg/dL Normal 3.5-8.5 [facility] Comment on above: Performed By: #### C RP, CMP #### [facility] [address] [address] [address] Ariana Pimentel XR LSPINE MIN 4 [...] by: ELYSE QUINTERO Date: 2020-07-13 09:12 Normal [facility] Vital Signs Date Time Vital Sign Value Performing Clinician Facility 06-25-2022 18:00-0400 Diastolic blood pressure 79 mm[Hg] Romana Henderson MD Work Phone: [facility] 06-25-2022 18:00-0400 Heart rate 67 /min Romana Henderson MD Work Phone: [facility] 06-25-2022 18:00-0400 Respiratory rate 24 /min Romana Henderson MD Work Phone: [facility] 06-25-2022 18:00-0400 SaO2% (BldA) [Mass fraction] 98 % Romana Henderson MD Work Phone: [facility] 06-25-2022 18:00-0400 Systolic blood pressure 134 mm[Hg] Romana Henderson MD Work Phone: [facility] 06-25-2022 14:43-0400 Body height 177.8 cm Romana Henderson MD Work Phone: [facility] 06-25-2022 14:41-0400 Body temperature 97.81 [degF] Romana Henderson MD Work Phone: [facility] 12-27-2021 06:10-0400 Diastolic blood pressure 85 mm[Hg] PODIATRY TEACHER-C Park Shirley Work Phone: [facility] 12-27-2021 06:10-0400 Heart rate 71 /min PODIATRY TEACHER-C Park Shirley Work Phone: [facility] 12-27-2021 06:10-0400 Respiratory rate 18 /min PODIATRY TEACHER-C Park Shirley Work Phone: [facility] 12-27-2021 06:10-0400 SaO2% (BldA) [Mass fraction] 96 % PODIATRY TEACHER-C Park Shirley Work Phone: [facility] 12-27-2021 06:10-0400 Systolic blood pressure 133 mm[Hg] PODIATRY TEACHER-C Park Shirley Work Phone: [facility] 12-27-2021 05:31-0400 Body temperature 97.2 [degF] PODIATRY TEACHER-C Park Shirley Work Phone: [facility] 12-27-2021 03:44-0400 Body height 177.8 cm PODIATRY TEACHER-C Park Shirley Work Phone: [facility] 12-27-2021 03:44-0400 Body weight 96.1 kg PODIATRY TEACHER-C Park Shirley Work Phone: [facility] 06-14-2021 13:56-0400 Diastolic blood pressure 96 mm[Hg] PODIATRY TEACHER-C Park Shirley Work Phone: [facility] 06-14-2021 13:56-0400 Heart rate 84 /min PODIATRY TEACHER-C Park Shirley Work Phone: [facility] 06-14-2021 13:56-0400 Respiratory rate 18 /min PODIATRY TEACHER-C Park Shirley Work Phone: [facility] 06-14-2021 13:56-0400 SaO2% (BldA) [Mass fraction] 98 % PODIATRY TEACHER-C Park Green Work Phone: [facility] 06-14-2021 13:56-0400 Systolic blood pressure 170 mm[Hg] PODIATRY TEACHER-C Park Green Work Phone: [facility] 06-14-2021 13:44-0400 Body height 177.8 cm PODIATRY TEACHER-C Park Green Work Phone: [facility] 06-14-2021 13:44-0400 Body weight 89.81 kg PODIATRY TEACHER-C Park Green Work Phone: [facility] Encounters Encounter Date Encounter Type Care Provider Facility Start: 10-19-2024 End: 10-19-2024 ambulatory Ally Garza [facility] Work Phone: Start: 10-19-2024 End: 10-19-2024 Departed Referred Ally Mosqueda DO -LAB [facility] Start: 06-25-2022 End: 06-25-2022 Emergency department patient visit ROMANA HENDERSON [facility] Start: 06-25-2022 End: 06-25-2022 Emergency department patient visit Romana Henderson MD Work Phone: [facility] Start: 12-28-[address] Florentino uRbalcava ility:[id number] Start: 12-27-[address] Florentino Rubalcava ility:[id number] Start: 12-27-2021 Evaluation and management of inpatient PODIATRY TEACHER-C Park Green Work Phone: [facility] Start: 12-27-[address] Florentino Rubalcava ility:[id number] Start: 06-14-2021 End: 06-14-2021 Patient encounter procedure PODIATRY TEACHER-C Park Green Work Phone: [facility] [place] Start: 06-02-2021 End: 06-02-2021 ambulatory PARK SPEARS Facility: Start: 06-01-2021 End: 06-02-2021 ambulatory PARK SPEARS Facility:H1 Start: 05-30-2021 ambulatory PARK SPEARS Facility:H 1 Start: 05-26-2021 End: 05-27-2021 ambulatory PARK SPEARS Facility:H1 Start: 02-13-2021 ambulatory CHEYANNE Erickson y: Start: 02-01-[address] Florentino Riley Fac ility:[id number] Start: 01-31-[address] Florentino Riley Fac ility:[id number] Start: 01-30-2021 End: 01-30-2021 ambulatory PARK SPEARS Facility:H1 Start: 01-30-[address] Florentino Riley Fac ility:[id number] Start: 01-16-2021 End: 01-17-2021 ambulatory PARK SPEARS Facility:H1 Start: 08-16-2020 End: 08-17-2020 ambulatory CRIS CAMPBELL Facility:H1 Start: 07-26-2020 End: 07-27-2020 ambulatory CRIS CAMPBELL Facility:H1 Start: 07-13-2020 End: 07-14-2020 ambulatory PARKKADEEM SPEARS Facility:H1 Procedures Date Procedure Procedure Detail Performing Clinician Start: 06-25-2022 Ct abdomen & pelvis w/contrast material Romana Henderson MD Work Phone: Start: 06-25-2022 Urinalysis microscop ic only Romana Henderson MD Work Phone: Start: 06-25-2022 Urinalysis, reagent strip without microscopy Romana Henderson MD Work Phone: Start: 06-25-2022 Complete blood count with white cell differential, automated Romana Henderson MD Work Phone: Start: 06-25-2022 Comprehensive metabo lic panel Romana Henderson MD Work Phone: Start: 06-25-2022 Ecg routine ecg w/le ast 12 lds w/i&r Romana Henderson MD Work Phone: Start: 06-14-2021 MRI of head PODIATRY TEACHER-C Denise Green Work Phone: Start: 07-13-2020 PSA screening CRIS CAMERON Comment on above: Performed By: #### C RP, CMP #### [facility] [address] [address] [address] Ariana Pimentel History of coronary artery bypass grafting Hx of CABG Ally Garza DO Work Phone: Comment on above: Problem List clean-u p per request of Phys. EHR Cmte History of placement of stent for coronary artery disease Hx of heart artery stent Ally Garza DO Work Phone: Comment on above: Problem List clean-u p per request of Phys. EHR Cmte SARS Antigen (LFIA) PODIATRY TEACHER-C Agatha Green Work Phone: Plan of Treatment Date Care Activity Detail Author Start: 10-19-2024 Urine culture [facility] Start: 10-19-2024 Bacteria identified in Urine by Culture Urine Culture [facility] Start: 12-28-2021 Blood chemistry [facility] Start: 12-28-2021 Lipid panel [facility] Start: 12-28-2021 Magnesium measurement [facility] Start: 12-28-2021 [facility] Start: 12-27-2021 Hospital admission [facility] Start: 12-27-2021 Referral to sales representative facility services [facility] Start: 12-27-2021 [facility] Start: 12-27-2021 Plain chest X-ray XR chest 1V portable [facility] Start: 12-27-2021 XR Chest Single view [facility] Start: 09-01-2021 ambulatory Ambulatory Facility: Start: 10-11-2020 COVID-19 VACCINE (3 - Booster for Pfizer series) COVID-19 VACCINE (3 - Booster for Pfizer series) [facility] Start: 2011 Prostate specific antigen measurement PROSTATE CANCER SCREENING DISCUSSION [facility] Start: 2011 Zoster vaccine hzv live for subcutaneous use ZOSTER (SHINGLES) VACCINE (1 of 2) [facility] Start: 2006 Screening for malignant neoplasm of colon COLORECTAL CANCER SCREENING DISCUSSION [facility] Start: 2001 Lipid panel LIPID SCREENING [facility] Start: 02-07-1980 Third diphtheria, tetanus and acellular pertussis (DTaP) vaccination TDAP (ADULT) [facility] Start: 02-07-1976 HIV screening HIV SCREENING DISCUSSION [facility] Start: 1967 PNEUMOCOCCAL VACCINE SERIES (1 - PCV) PNEUMOCOCCAL VACCINE SERIES (1 - PCV) [facility] Start: 1961 Hepatitis C screening HEPATITIS C VIRUS SCREENING [facility] Start: 1961 Tetanus vaccination TETANUS [facility] Standard ECG [facility] Troponin I.cardiac [Mass/volume] in Serum or Plasma by High sensitivity method [facility] Work Phone: Immunizations Immunization Date Immunization Notes Care Provider Fa osito 12-28-2021 influenza, injectabl e, quadrivalent, preservative free Ally Garza DO Work Phone: [facility] 02-01-2021 influenza, injectabl e, quadrivalent, preservative free PODIATRY TEACHER-C Park Green Work Phone: [facility] 08-16-2020 COVID-19 mRNA, Comirnaty (Pfizer) PODIATRY TEACHER-C Park Green Work Phone: [facility] 07-26-2020 COVID-19 mRNA, Comirnaty (Pfizer) PODIATRY TEACHER-C Park Green Work Phone: [facility] Payers Date Payer Category Payer Self-pay [id number] 2021 Medicare [id number] 1960 Unknown [id number] 2.16.84 0.1.122654.3.579.2.593 1961 Unknown [id number] 2.16.84 0.1.402596.3.579.2.593 1961 Unknown [id number] 2.16.84 0.1.231456.3.579.2.593 1961 Unknown [id number] 2.16.84 0.1.119120.3.579.2.593 1961 Unknown [id number] 2.16.84 0.1.892278.3.579.2.593 1961 Unknown [id number] 2.16.84 0.1.288436.3.579.2.593 1961 Unknown [id number] 2.16.84 0.1.923227.3.579.2.593 1961 Unknown [id number] 2.16.84 0.1.719769.3.579.2.593 1961 Unknown [id number] 2.16.84 0.1.761892.3.579.2.593 1961 Unknown [id number] 2.16.84 0.1.770736.3.579.2.593 1961 Unknown [id number] 2.16. 840.1.733820.3.579.2.356 1961 Unknown [id number] 2.16. 840.1.112142.3.579.2.356 1961 Unknown [id number] 2.16. 840.1.364426.3.579.2.356 1961 Unknown [id number] 2.16. 840.1.064007.3.579.2.356 1961 Unknown [id number] 2.16. 840.1.730108.3.579.2.356 1961 Unknown [id number] 2.16. 840.1.662099.3.579.2.356 1961 Unknown [id number] 2.16. 840.1.900412.3.579.2.356 1961 Unknown [id number] 2.16. 840.1.723660.3.579.2.356 1961 Unknown [id number] 2.16.8 40.1.112488.3.579.2.983 1958 Medicare [id number] 1959 Unknown [id number] Private Health Insurance [id number] Unknown [id number] 2.16.8 40.1.736085.3.579.2.531 Social History Date Type Detail Facility Start: 01-30-2021 End: 12-27-2021 Tobacco smoking status NHIS Smoker (finding) [facility] Start: 1960 Sex Assigned At Male F [facility] Start: 12-27-2021 End: 06-25-2022 Tobacco smoking status LAIS Smokes tobacco daily [employer] History of tobacco use Cigarette Smoker [employer] Start: 06-25-2022 Cigarettes smoked current (pack per day) - Reported 0.5 [employer] Start: 06-25-2022 Tobacco use and exposure Former smokeless tobacco user [employer] Start: 06-25-2022 Alcohol intake Ex-drinker (finding) [employer] Start: 1960 Sex Assigned At Not on file [employer] Start: 06-15-2022 End: 06-25-2022 Exposure to SARS-CoV-2 (event) Not sure [facility] Sex Male (finding) [facility] Medical Equipment Procedure Code Equipment Code Equipment Origin al Text Equipment Identifier Dates Drug-eluting coronary artery stent, unl-wphmtvskklwrq-tu lymer-coated ()[id number] [id number] FDA Start: 01-31-2021 Drug-eluting coronary artery stent, qsm-giasteddhohsz-am lymer-coated ()[id number] [id number] FDA Start: 01-31-2021 Femoral artery closure plug/patch, synthetic polymer ()[id number] [id number] FDA Start: 01-31-2021 Drug-eluting coronary artery stent, diq-fhccyjnydryot-qm lymer-coated ()[id number] [id number] FDA Start: 12-27-2021 Drug-eluting coronary artery stent, xbl-idrmempmohxkc-jq lymer-coated ()[id number] [id number] FDA Start: 12-27-2021 Drug-eluting coronary artery stent, eyz-avlboslsjioxt-fg lymer-coated ()[id number] 0)[id number] FDA Start: 12-27-2021 Hospital Discharge instructions 06-25-2022 Discharge InstructionsAttachments Note Date & Type Note Facility 06-25-2022 Hospital Discharg e instructions Romana Henderson MD - 06/25/2022 4:31 PM EDT The radiologist 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 Follow-up with your primary care provider regarding so. Your blood sugar was noted at 196. Your sodium level was noted to be low. The following attachments cannot be sent through Care Everywhere.Abdominal Pain (Wallisian)Nausea and Vomiting (Wallisian)Hypertension (Wallisian)documented in this encounter [facility] Emergency department Note 06-25-2022 Magnus Souza RN - 06/25/2022 3:29 PM EDT Note Date & Type Note Facility 06-25-[address] Emergency departm ent Note Dr. Henderson in room. [facility] Emergency department Note 06-25-2022 Magnus Souza RN - 06/25/2022 3:29 PM EDT Note Date & Type Note Facility 06-25-[address] Emergency departm ent Note Dr. Henderson in room. documented in this encounter [facility] Evaluation note Note Date & Type Note Facility Evaluation note [facility] Work [facility]: Evaluation note Note Date & Type Note Facility Evaluation note Diagnosis Onset Date Angina pectoris, unstable ac caterina Diabetes type 2, uncontrolled acute Hyperlipidemia acute Hypertension acute Hypertensive emergency acute [facility] Work Phone: Evaluation note Note Date & Type Note Facility Evaluation note Diagnosis Generalized abdominal pain- Primary Abdominal pain, generalized Nausea vomiting and diarrhea Nausea with vomiting documented in this encounter [facility] History and physical note Note Date & Type Note Facility History and physical note Note Date/Time December 27, 2021 6:17am [facility] [address] [place] [address] Hospitalist H&P Signed Patient: Donovan Norris MR#: [id number] : 1960 Acct:[id number] Age/Sex: 61 / M Adm Date: 2 Loc: Room: [address] [place] [address] Type: ADM IN Attending Dr: Yung Whipple MD Copies to: MD Park Dior, MUSIC LEADER~ HPI DATE OF EXAMINATION: 12/27/21 CHIEF COMPLAINT: [...] % (Auto) 31.8 % (.) 12/27/21 03:53 Taliaferro % (Auto) 9.6 % (.) 12/27/21 03:53 Eos % (Auto) 1.9 % (.) 12/27/21 03:53 Baso % (Auto) 1.3 % (.) 12/27/21 03:53 Neut # (Auto) 5.0 x10E3/uL (1.8-7.7) 12/27/21 03:53 Lymph # (Auto) 2.9 x10E3/uL (1.00-4.8) 12/27/21 03:53 Taliaferro # (Auto) 0.9 x10E3/uL (0.0-0.8) H 12/27/21 03:53 Eos # (Auto) 0.2 x10E3/uL (0.0-0.45) 12/27/21 03:53 Baso # (Auto) 0.1 x10E3/uL (0.0-0.2) 12/27/21 03:53 Nucleated RBC % (auto) 0.1 % (0-0.5) 12/27/21 03:53 PT 12.1 Seconds (9.0-12.9) 12/27/21 03:53 INR 1.1 12/27/21 03:53 APTT 27.1 Seconds (25.1-36.5) 12/27/21 03:53 PHA Creatinine Clear 114.22 12/27/21 03:53 [...] ? Keep the patient n.p.o. ? Continue aspirin/atorvastatin?beta-elpidio and Brilinta ? Cardiology consult *History of [...] signed by Yung Whipple MD> 12/27/21 0618 [facility] Work Phone: Reason for referral (narrative) Note Date & Type Note Facility Reason for referral (narrative) No reason for referral information available [facility] Work Phone: Chief Complaint and Reason for Visit Chief Complaint Headache Chief Complaint chest pain Reason for Visit Angina pectoris, uns table Diabetes type 2, uncontrolled Hyperlipidemia Hypertension Hypertensive emergency Chief Complaint Admit Date Unknown October 19, 2024 7: 01pm Advance Directives No Advanced Directives Records Found Advance Directive Response Recorded Date/ Time Advance Directives No October 12, 2017 3:44am Summary Purpose Family History No Family History Records Found Reason for Referral Specialty Diagnoses / Procedures Referred By Leigh bhatt Referred To Contact Procedures ECG Romana Henderson MD [address] [id number] Referral ID Status Reason Start Date Expiration Date V isits Requested Visits Authorized [id number] New Request 06/25/2022 07/20/2023 1 1 Additional Source Comments Care Teams (unrecognized sec tion and content) Team Status: Inactive Member Role Status Dates Park Green NP-C Primary Care Provider, Attend ing Provider Active Team Status: Active Member Role Status Dates Park Green NP-C Primary Care Provider Active Team Status: Active Member Role Status Dates Park Green NP-C Primary Care Provider Active Vadim Guido , DO Emergency Provider Active Yung Whipple MD Admit Provider, Attending Eros leyva Active Extrusion Manager Relationship Specialty Start Date End Date Park Green, MUSIC LEADER [address] [place] [address] PCP - General Nurse Practitioner - Family 06/25/22 Team Status: Inactive Member Role Status Dates Ally Garza DO Attending Provider Act michelle Start: October 19, 2024 End: October 19, 2024 Goals (unrecognized section and content) Goals may be documented in a n alternate sectionGoals may be documented in an alternate sectionGoals may be documented in an alternate section (unrecognized sect ion and content) No Status Records FoundNo Status Records FoundNo Status Records FoundNo Status Records Found INFORMATION SOURCE (unrecogn ized section and content) DATE CREATED AUTHOR 06/29/2021 [facility] DATE CREATED AUTHOR AUTHOR'S ORGANIZ ATION 01/01/2022 [facility] DATE CREATED AUTHOR AUTHOR'S ORGANIZ ATION 06/30/2022 [facility] DATE CREATED AUTHOR AUTHOR'S ORGANIZ ATION 10/23/[address] [facility] Reason for Visit (unrecogniz ed section and content) Reason Comments Abdominal Pain Abdominal pain since 1129 with c/o Nausea and vomiting. Scheduled Active and Recently Administ ered Medications (unrecognized section and content) Medication Order 06/23/2022 06/24/2022 06/25/2022 GI cocktail: alum/mag hydrox-simethicone(30ml)+lidocain e 2%(10ml) oral suspension 40 mL (COMPLETED) 40 mL, Oral, ONCE, 1 dose, On Sat06/25/22 at 1715 1643 (Given - Provid er: Magnus Souza RN) iohexol (OMNIPAQUE) 350 MG/ML injection 90 mL [...] (Given - Provid er: Magnus Souza RN) Ondansetron 4mg/2ml (ZOFRAN) injection 4 mg [...] BE BASED ON THE PRIMARY CLINICAL RECORDS. [facility]. provides no warranty or guarantee of the accuracy or completeness of information in this document.
== END 2024-11-26 16:32 | disposition home or self-care (01) ==
PROVIDERS: Emergency Provider Emergency Medicine; PCP Nurse Practitioner Family
DX: S41.112A Laceration without foreign body of left upper arm, initial encounter (principal); L30.9 Dermatitis, unspecified; H61.21 Impacted cerumen, right ear; W26.8XXA Contact with other sharp object(s), not elsewhere classified, initial encounter; Z79.82 Long term (current) use of aspirin; Z79.899 Other long term (current) drug therapy; Z23 Encounter for immunization
CPT/HCPCS: 90471; 90715; 99283

== ENCOUNTER 2025-02-21 14:56 | Emergency (ER) | payer MEDICARE, SELFPAY ==
--- OUTSIDE RECORDS SUMMARY | 2024-11-03 05:30 | XMS_ITS ---
Author Organization [facility] [place] Address [address] [address] Care Team Providers Care Infrastructure Analyst Name Role Phone Park Watson Primary Care Provider REASON FOR VISIT [facility] D/C--9/2--R Flank Pain Encounters Encounter Location Date Provider Diagnosis [facility] [address] [place] [address] 11/03/2024 Park Watson Plan Of Treatment No Information Progress Notes * Donovan LINDQUIST DDOB: (65 yo M)Acc No.[id number]:11/03/2024 UNLOCKED PROGRESS NOTE Progress Note Patient: Donovan SILVA :?Park Watson ([facility]), CNPDOB:1960 ???Age:64 Y???Sex:MaleDate:11/03/2024Phone:[phone]:[address] [place], [place] [id number] Subjective: * Chief Complaints: * 1 . [facility] D/C--9/2--R Flank Pain. * Medical History: Objective: * Vitals: Assessment: Plan: * Treatment: * * Electronic signature of Park Watson , JOSÉ MIGUEL, TRUCK REPAIR SERVICE ESTIMATOR.WINERY CELLAR [email or web address] on 02/21/2025 at 03:58 PM ESTSign off status: PendingVisit Status:?N/S N/C (No Show/No Charge) * Provider: Eros PRESCOTT), WINERY CELLAR HAND Date: 0 11/03/2024 Generated for Printing/Faxing/eTransmitting on:?02/21/2025 03:58 PM EST
[2025-02-21 15:15] VITALS: BP 153/83; PULSE 93; TEMP 36.8; O2SAT 97; BMI 25.8
--- NOTE | 2025-02-21 15:32 | XR_ITS ---
The [address] [address] Patient Name: PETER LINDQUIST MRN: [id number] date: 1960 Sex: M Assigned Patient Location: ED.MAIN Current Patient Location: ED.MAIN Accession/Order Number: [id number] Exam Date: 02/21/2025 15:50 Report Date: 02/21/2025 16:07 At the request of: RAMON HERNANDEZ Procedure: XR chest 1V Plain film chest Single view HISTORY: Cough. Headache. COMPARISON: 10/20/2024 FINDINGS: SUPPORT DEVICES: None POSTSURGICAL CHANGES: CABG. HEART: Within normal limits PULMONARY RUSS: Within normal limits MEDIASTINUM: Unremarkable LUNGS AND PLEURA: No acute lung process, pleural effusion or pneumothorax identified. BONY STRUCTURES: Intact ADDITIONAL FINDINGS None XR/XR chest 1V IMPRESSION: No acute process. Impression dictated by: Ollie Camargo M.D. 02/21/2025 4:07 PM Dictation Location: [employer] Electronically authenticated by: [id number] Y Date: 02/21/2025 16:07
--- NOTE | 2025-02-21 15:34 | ECG_ITS ---
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 Measurements Intervals [place] Rate: 81 P: 62 AL: 160 QRS: 12 QRSD: 88 T: 60 QT: 360 QTc: 397 Interpretive Statements 1100 Sinus rhythm 7300 Indeterminate axis PROBABLE INFERIOR INFARCT, OLD Abnormal ECG Compared to ECG 10/20/2024 14:21:12 Indeterminate axis now present Myocardial infarct finding still present Electronically Signed On 02-21-2025 17:22:55 EST by ARTUR PACHECO M.D.
--- NOTE | 2025-02-21 15:35 | ED_ITS ---
HPI HPI - General Adult General Chief complaint: Upper Respiratory Infection Stated complaint: SOB, CHEST CONGESTION, VOMITING Time Seen by Provider: 02/21/25 15:16 Source: patient Mode of arrival: walk-in Limitations: no limitations History of Present Illness HPI narrative: Patient is a 65-year-old male with a PMH of CAD x 10 stents, COPD, HTN that presents with complaints of 1-1/2 to 2 weeks of cough, chills, headache, stuffy nose, chest pain and shortness of breath. He denies any nausea or vomiting but has had diarrhea. He is coughing so hard that it causes him to vomit. Related Data Home Medications ?Medication ?Instructions ?Recorded ?Confirmed aspirin 81 mg capsule 81 mg PO DAILY 10/19/2401/26 Previous Rx's ?Medication ?Instructions ?Recorded glimepiride 2 mg tablet 2 mg PO QD #30 tabs 10/24/24 lisinopril 20 mg tablet 20 mg PO DAILY #30 tabs 09/27 metoprolol succinate 25 mg 25 mg PO QD #30 tabs tablet,extended release 24 hr azithromycin 250 mg tablet See Rx Instructions PO .COM PLEX #6 02/21/25 (Zithromax Z-Glenn) tabs prednisone 50 mg tablet 50 mg PO DAILY 5 days #5 tab s 02/21/25 Allergies Allergy/AdvReac Type Severity Reaction Status Date / Time No Known Drug Allergies Allergy Verified 02/21/25 15:14 Opioid HPI Opioid Management Most Recent Opioid Data: Last Pain Scale 7 Today, 15:15 Last ORT Total Score 0 10/20/24, 00:01 Last ORT Risk Category Low Risk 10/20/24, 00:01 Review of Systems ROS Status of ROS 10 or more systems reviewed and unremark able except as noted in history and below [facility] Surgical History (Updated 10/20/24 @ 00:19 by Teresa Emery) H/O heart artery stent ?Z95.5 - Presence of coronary angioplasty implant and graft (ICD-10) History of open heart surgery ?Z98.890 - Other specified postprocedural states (ICD-10) Social History Highest level of school completed/degree received: GED or equivalent Little interest or pleasure in doing things: not at all Feeling down, depressed, or hopeless: not at all Do you think of yourself as: straight/heterosexual Gender Identity: male Exam Narrative Exam Narrative: General: No distress, age-appropriate Skin: Warm, dry, no pallor. No rash. Head: Normocephalic, atraumatic. Neck: Supple, non-tender. Eye: Pupils are equal, round and EOMI. No scleral icterus. Ears, Nose, Mouth, and Throat: Right TM partially occluded by cerumen, left TM clear, no nasal mucosal hypertrophy. Oral mucosa is moist, no posterior oropharynx erythema, uvula is mid-line Cardiovascular: Regular Rate and Rhythm without murmur, gallop or rub. Respiratory: No accessory muscle use or respiratory distress. Lungs are clear to auscultation, no wheezing, rales or rhonchi Chest Wall: no tenderness Musculoskeletal: Full ROM of all extremities, no calf or popliteal tenderness GI: Abdomen is soft, non-distended, non tender to palpation. No masses appreciated. No rebound, guarding, or rigidity noted. Neurological: A&O x4. No cranial nerve dysfunction observed. No truncal ataxia. Moves all extremities. Sensation intact. Psychiatric: Cooperative and interactive. Normal mood and affect. Constitutional Vital Signs, click to edit/add: Last Vital Signs Temp 98.2 F 02/21/25 15:15 Pulse 93 H 02/21/25 15:15 Resp 18 02/21/25 15:15 BP 153/83 H 02/21/25 15:15 Pulse Ox 97 02/21/25 15:15 O2 Del Method Room Air 02/21/25 15:15 Documenting provider has reviewed patient's vital signs: yes Course Vital Signs Vital signs: Vital Signs Temperature 98.2 F 02/21/25 15:15 Pulse Rate 93 H 02/21/25 15:15 Respiratory Rate 18 02/21/25 15:15 Blood Pressure 153/83 H 02/21/25 15:15 Pulse Oximetry 97 02/21/25 15:15 Oxygen Delivery Method Room Air 02/21/25 15:15 Temperature 98.2 F 02/21/25 15:15 Pulse Rate 93 H 02/21/25 15:15 Respiratory Rate 18 02/21/25 15:15 Blood Pressure 153/83 H 02/21/25 15:15 Pulse Oximetry 97 02/21/25 15:15 Oxygen Delivery Method Room Air 02/21/25 15:15 Medical Decision Making [facility] Narrative Medical decision making narrative: The patient is a 65-year-old male with a history of coronary artery disease (CAD) with 10 stents, chronic obstructive pulmonary disease (COPD), and hypertension, presenting with a 1.5- to 2-week history of cough, chills, headache, stuffy nose, chest pain, and shortness of breath. His symptoms are significant for cough severe enough to induce vomiting, along with diarrhea but without nausea or vomiting. On initial assessment, the patient appears nontoxic and in no acute respiratory distress, with stable vital signs and an O2 saturation of 97% on room air. His EKG shows normal sinus rhythm (NSR) with no evidence of ischemic changes, and a chest X-ray reveals no acute findings. Laboratory results indicate a glucose level of 323, with other values within normal limits, and a normal troponin of 6.4. Influenza A/B and COVID-19 tests returned negative. Given the patient's underlying cardiac and pulmonary comorbidities, he is at high risk for a secondary bacterial infection, which prompted the decision to initiate treatment with a Z-Glenn and a 5-day prednisone burst of 50 mg. The patient was given 30 mg of IM Toradol for headache management in the ER. I discussed results with patient and the overall clinical picture is most consistent with an upper respiratory infection with a potential secondary bacterial component. We also discussed his hyperglycemia today and as compared with previous ER visits. He does see a nurse practitioner Agatha Green and I advised that he follow-up with her closely and to specifically discuss his hyperglycemia as well. From discussion with him it sounds like he may have had treatment for hyperglycemia while inpatient but it does not appear that he has had this worked up outpatient. Patient discharged in stable condition with plan for close follow- up with his PCP. Differential Diagnosis Differential Diagnosis: PNA, COPD exacerbation, acute bronchitis, Lab Data Lab results reviewed: Yes I reviewed the patient's lab results Labs: Lab Results 02/21/25 02/21/25 Range/Units 15:24 15:42 WBC 8.4 (4.0-11.0) 10^3/uL RBC 5.06 (4.70-6.10) 10^6/uL Hgb 14.8 (14.0-18.0) g/dL Hct 43.5 (42.0-54.0) % MCV 86.0 (80.0-94.0) fL MCH 29.2 (25.9-34.0) pg MCHC 34.0 (29.9-35.2) g/dL RDW 13.4 (11.0-15.0) % Plt Count 234 (150-450) 10^3/uL MPV 9.2 L (9.5-13.5) fL Neut % (Auto) 55.6 (43.0-75.0) % Lymph % (Auto) 29.1 (20.5-60.0) % Rolette % (Auto) 11.7 (1.7-12.0) % Eos % (Auto) 2.4 (0.9-7.0) % Baso % (Auto) 1.0 (0.2-2.0) % Neut # (Auto) 4.7 (1.4-6.5) 10^3/uL Lymph # (Auto) 2.4 (1.2-3.8) 10^3/uL Rolette # (Auto) 1.0 H (0.3-0.8) 10^3/uL Eos # (Auto) 0.2 (0.0-0.7) 10^3/uL Baso # (Auto) 0.1 (0.0-0.1) 10^3/uL Abs Immat Gran (auto) 0.02 (0.00-0.03) 10^3/uL Imm/Tot Granulo (auto) 0.2 (0.0-0.5) % Sodium 136 (136-145) mmol/L Potassium 3.8 (3.5-5.1) mmol/L Chloride 97 L (98-107) mmol/L Carbon Dioxide 29.4 (21.0-32.0) mmol/L Anion Gap 13.4 BUN 13.0 (7.0-18.0) mg/dL Creatinine 0.98 (0.70-1.30) mg/dL Est GFR ( Amer) >60 (>=60 mL/min/1.73m^2) Est GFR (Non-Af Amer) >60 (>=60 mL/min/1.73m^2) BUN/Creatinine Ratio 13.3 Glucose 323 H (74-106) mg/dL Calcium 9.1 (8.5-10.1) mg/dL Troponin I High Sens 6.4 (4.0-76.1) pg/mL Influenza Type A Ag Negative Influenza Type B Ag Negative SARS-CoV-2 Ag (CV2AG) Negative (NEGATIVE) Imaging Data Chest x-ray: Attestation: I have reviewed the pertinent imaging results. Radiologist's impression: ITS Impressions Chest X-Ray 02/21/25 15:32 IMPRESSION: No acute process. Impression dictated by: Ollie Camargo M.D. 02/21/2025 4:07 PM Dictation Location: [employer] Electronically authenticated by: [id number] Y Date: 02/21/2025 16:07 ECG Data Attestation: ?I have reviewed the pertinent ECG results. Discharge Plan Discharge Chief Complaint: Upper Respiratory Infection Clinical Impression: Viral URI, Acute exacerbation of chronic obstructive pulmonary disease (COPD) Patient Disposition: Home, Self-Care Time of Disposition Decision: 16:58 Condition: Good Mode of Transportation: Private Vehicle Prescriptions / Home Meds: New azithromycin [Zithromax Z-Glenn] 250 mg tablet See Rx Instructions .ROUTE .COMPLEX Qty: 6 0RF Rx Instructions: For 250 mg dose pack: take 500 mg today (day 1), then 250 mg for 4 days (days 2-5) prednisone 50 mg tablet 50 mg PO DAILY 5 Days Qty: 5 0RF No Action aspirin 81 mg capsule 81 mg PO DAILY glimepiride 2 mg Tablet 2 mg PO QD Qty: 30 2RF metoprolol succinate 25 mg Tablet Extended Release 24 Hr 25 mg PO QD Qty: 30 2RF lisinopril 20 mg tablet 20 mg PO DAILY Qty: 30 2RF Print Language: Pakistani Instructions: Viral Syndrome (ED) Additional Instructions: Discharge Medications: * Z-Glenn (Azithromycin) * Dose: Take as prescribed. * Duration: Complete the full course of medication. * Reason: This antibiotic is to treat potential bacterial infection or to prevent further respiratory issues. * Prednisone (50mg daily) * Dose: Take 50 mg once a day, for 5 days. * Reason: This steroid medication will help reduce inflammation in your airways and improve breathing. Follow-Up: * Primary Care Physician (PCP) * Reason: Follow up with your Primary Care Physician within 1 week for evaluation of your elevated glucose levels. * Your PCP will assess whether you have undiagnosed diabetes or if your elevated glucose is a result of stress hyperglycemia due to your illness. * Additional Follow-Up: * If you have ongoing or worsening symptoms (such as shortness of breath, chest pain, or coughing), please follow up sooner or visit your PCP for further evaluation. Symptom Management and Self-Care: * Rest: * Take it easy for the next several days. Get plenty of rest to help your body recover. * Hydration: * Drink plenty of fluids to stay hydrated. This will also help thin mucus and support your recovery. * Monitor Blood Sugar: * Check your blood sugar regularly as advised by your doctor. The glucose level of 323 noted in the ER suggests either stress-induced hyperglycemia or the possibility of undiagnosed diabetes. * If you experience symptoms like excessive thirst, frequent urination, or blurred vision, contact your doctor immediately. * Take Your Medications: * Ensure you take all prescribed medications as directed (Z-pack and Prednisone). * Do not stop the prednisone suddenly. Gradually tapering the dose, as advised by your doctor, is important. * Coughing and Vomiting: * Avoid excessive coughing or straining that could trigger vomiting. You can try using a humidifier or inhaling steam to loosen mucus. * If coughing becomes unbearable or worsens, contact your doctor for further management. When to Seek Immediate Medical Attention: * Severe chest pain that radiates to the arm, jaw, or back. * Difficulty breathing or worsening shortness of breath. * Confusion, dizziness, or loss of consciousness. * Severe headache or blurred vision (which may indicate high blood sugar). * Coughing up blood or new bloody sputum. * Swelling in the legs or extreme fatigue. Referrals: JOYCE GREEN [Primary Care Provider, Family Practice] - 1 week Discharge Date/Time: 02/21/25 17:10
[2025-02-21 15:50] LABS: SARS-CoV-2 Ag NEGATIVE (NEGATIVE)
[2025-02-21 15:52] LABS: Hematocrit 43.5 % (42.0-54.0); Hemoglobin 14.8 g/dL (14.0-18.0); Immature Granulocytes Abs Auto 0.02 10^3/uL (0.00-0.03); Immature Granulocytes Pct Auto 0.2 % (0.0-0.5); Lymphocytes Absolute Auto 2.4 10^3/uL (1.2-3.8); Mean Corpuscular HGB Conc 34.0 g/dL (29.9-35.2); Mean Corpuscular Hemoglobin 29.2 pg (25.9-34.0); Mean Corpuscular Volume 86.0 fL (80.0-94.0); Platelet Count 234 10^3/uL (150-450); Red Blood Count 5.06 10^6/uL (4.70-6.10); White Blood Count 8.4 10^3/uL (4.0-11.0)
--- OUTSIDE RECORDS SUMMARY | 2025-02-21 15:57 | XMS_ITS | Clinical Summary ---
Author Organization [facility] Address [id number] [place] [address] Care Team Providers Care Gift Basket Packer Name Role Phone Unavailable Primary Care Provider Unavailabl e Social History Tobacco UseTypesPacks/DayYears UsedDateSmoking Tobacco: Never AssessedChildcare AnswerDate SmwtwmsnJjdmylgetEqprapy28/12/2019EmploymentAnswerDate Recorded DxmdcswcblAjbdmtr66/12/2019Sex and Gender InformationValueDate RecordedSex Assigned at BirthNot on fileLegal PopUldx2609/30/2014 11:42 AM EDTGender Identity Not on fileSexual OrientationNot on file Plan of Treatment Not on file Medical Devices Not on file
--- OUTSIDE RECORDS SUMMARY | 2025-02-21 15:57 | XMS_ITS | CCD ---
Author Organization [facility] CliniSyok Care Team Providers Care Communications Professor Name Role Phone DANE Green Primary Care Provider DANE Green Attending Provider CRIS CAMPBELL Admitting Unavailable CRIS CAMPBELL Consulting Unavailable TORY, PARK Primary Care Unavailable CRIS CAMPBELL Attending Unavailable TORY, PARK Primary Care Unavailable VICTORIA, MANDIE Attending Unavailable VICTORIA, MANDIE Admitting Unavailable TORY, PARK Primary Care Unavailable CHUCK RANGELYL Attending Unavailable CLAIRE, SYBIL Admitting Unavailable CHUCK RANGELYL Consulting Unavailable Esther Trujillo Consulting Unavailable TORY, PARK Primary Care Unavailable [...] MD Yung Hurtado Attending Provider Dr. Florentino Riley Attending Unavailable Dr. Florentino [...] Duque Admitting Unav ailable Medications Current Medications MedicationDrug Class(es)DatesSig (Normalized)Sig (Original)acetaminophen 325 mg / HYDROcodone bitartrate 5 mg oral tablet (1 source)Opioid AgonisthydroCODone-acetaminophen 5-325 MG tablet hydrocodone 5 mg-acetaminophen 325 mg tablet 0 Activeaspirin 81 mg chewable tablet (10 sources)Platelet Aggregation Inhibitor, Nonsteroidal Anti-inflammatory Drug Start: 20-18-4950nurn 1 tablet by mouth once dailyStart: 10-12-2017 End: 64-89-3468limx 1 tablet by mouth once dailyAspirin (Aspir-81) 81 mg Tablet,Delayed Release (/Ec) Discontinued 81 MG PO Daily 0 October 13, 2017 9:44am January 30, 2021 4:04pmatorvastatin 80 mg oral tablet (6 sources)HMG-CoA Reductase InhibitorStart: 05-20-5875dfxd 1 tablet by mouth once daily in the eveningStart: 10-13-2017 End: 07-91-2321guoc 1 tablet by mouth once dailyAtorvastatin 40 mg tablet Discontinued 40 MG PO Daily October 13, 2017 12:00am January 30, 2021 4:04pmcarvedilol 3.125 mg oral tablet (1 source)alpha-Adrenergic Elpdiio, beta-Adrenergic Blockertake 1 tablet by mouth twice dailycarveDILOL (Coreg) 3.125 MG tablet Coreg 3.125 mg tablet Take 1 tablet twice a day by oral route. 4Vyowqu50 hr isosorbide mononitrate 30 mg extended release oral tablet (1 source)Nitrate VasodilatorIsosorbide mononitrate 30 MG Tab SR 24 HR tablet XL At bedtime. 0 Activelisinopril 2.5 mg oral tablet (7 sources)Angiotensin Converting Enzyme InhibitorStart: 94-53-6119Qcdzqxmgox 2.5 MG tabletStart: 10-13-2017 End: 70-57-1520xdhc 1 tablet by mouth once dailyLisinopril 5 mg tablet Discontinued 5 MG PO Daily October 13, 2017 12:00am January 30, 2021 4: 04pmmetoprolol tartrate 25 mg oral tablet (6 sources)beta-Adrenergic BlockerStart: 04-87-7121ldts 1 tablet by mouth twice dailyStart: 10-13-2017 End: 15-74-0215uemp 1 tablet by mouth twice dailyMetoprolol Tartrate 25 mg Tablet Discontinued 25 MG PO Twice daily 60 October 13, 2017 12:00am D ec2020 4:04pmpantoprazole 40 mg delayed release oral tablet (2 sources)Proton Pump InhibitorStart: 78-74-8757wemb 1 tablet by mouth once dailyPantoprazole (Protonix) [address] tablet DR Take 1 tablet by mouth daily. 14 tablet 0 06/25/2022ctiveticagrelor 90 mg oral tablet (3 sources)Start: 51-94-5611whkq 1 tablet by mouth twice daily Completed/Discontinued Medications MedicationDrug Class(es)DatesSig (Normalized)Sig (Original)GI cocktail: alum/mag hydrox-simethicone(30ml)+lidocaine 2%(10ml) oral suspension 40 mL (1 source)Start: 06-25-2022 End: 06-14-6389JG cocktail: alum/mag hydrox-simethicone(30ml)+lidocaine 2%(10ml) oral suspension 40 mLiohexol (OMNIPAQUE) 350 MG/ML injection 90 mL (1 source)Start: 06-25-2022 End: 16-62-8230igthsbq (OMNIPAQUE) 350 MG/ML injection 90 mLmetFORMIN hydrochloride 500 mg oral tablet (3 sources)BiguanideStart: 95-43-6601bgix 1 tablet by mouth twice daily1 ml morphine sulfate 4 mg/ml cartridge (1 source)Opioid AgonistStart: 06-25-2022 End: 28-96-3333Xfheptnm sulfate (PF) injection 4 mg2 ml ondansetron 2 mg/ml injection (1 source)Serotonin-3 Receptor AntagonistStart: 06-25-2022 End: 79-77-3834Ykobhjjoscs 4mg/2ml (ZOFRAN) injection 4 mg250 ml sodium chloride 9 mg/ml injection (1 source)Start: 06-25-2022 End: 78-27-1802Cfyqvl chloride 0.9% IV solution 75 mL Problems Active Problems Problem ClassificationProblemDateDocumented DateEpisodic/ChronicAbdominal pain (3 sources)Generalized abdominal pain; Translations: [Generalized abdominal pain]Onset: 37-80-4781GiigmkufTnqup myocardial infarction (4 sources)Myocardial infarction; Translations: [Non-ST elevation (NSTEMI) myocardial infarction]Onset: [id number]ufm on above:Problem List clean-up per request of Phys. EHR CmteAlcohol-related disorders (1 source)Alcohol abuse with intoxication, unspecified; Translations: [ALCOHOL ABUSE WITH INTOXICATION UNS]Onset: 50-25-4517HufhzsmDfyxjbxejijd of device; implant or graft (1 source)Atherosclerosis of coronary artery bypass graft(s) without angina pectoris; Translations: [ATS CA BP GRAFT NO ANGINA PECTORIS]Onset: 07-21-2020 ChronicCoronary atherosclerosis and other heart disease (5 sources)Atherosclerotic heart disease of [place] coronary artery without angina pectoris; Translations: [Oldmyocardial infarction]Onset: 06-08-2021 60-16-4135GjthnmzIiyscrq on above:Problem List clean-up per request of Phys. EHR CmteDiabetes mellitus with complications (4 sources)Type II diabetes mellitus uncontrolled; Translations: [Uncontrolled type 2 diabetes mellitus]43-22-5888CvbwihoFwjjetv on above:Problem List clean-up per request of Phys. EHR CmteDisorders of lipid metabolism (8 sources)Hyperlipidemia; Translations: [Hyperlipidemia, unspecified]Onset: [phone] on above:Problem List clean-up per request of Phys. EHR CmteEssential hypertension (4 sources)Hypertensive disorder; Translations: [Essential (primary) hypertension]55-90-7831EsroayqOwutwcu on above:Problem List clean-up per request of Phys. EHR CmteHeadache; including migraine (4 sources)Headache; including migraine; Translations: [HEADACHE UNSPECIFIED] Onset: 63-14-4477Dlehxoaxjkcp with complications and secondary hypertension (3 sources)Hypertensive emergency; Translations: [Hypertensive emergency] 65-84-1043IxovqejHjnaedm on above:Problem List clean-up per request of Phys. EHR CmteNausea and vomiting (3 sources)Nausea, vomiting and diarrhea; Translations: [Nausea with vomiting, unspecified]Onset: 97-31-3836GksfdmiaOkdyiqdjcbn chest pain (4 sources)Chest pain, unspecified; Translations: [CHEST PAIN UNSPECIFIED]Onset: 71-16-7342InquylncYtpdw aftercare (1 source)joint terminal attack controller (current) use of aspirin; Translations: [ALF CURRENT USE OF ASPIRIN]Onset: 44-87-9898NbehiiyrKgdac aftercare (1 source)Other fpc (current) drug therapy; Translations: [OTH ALF CURRENT DRUG THERAPY]Onset: 43-03-9593IsuzswmnGarvz aftercare (1 source)senior care (current) use of oral hypoglycemic drugs; Translations: [ALF USE ORAL HYPOGLYCEMIC DX]Onset: 74-71-8173VkejwxzuLzrio aftercare (1 source)joint terminal attack controller (current) use of antithrombotics/antiplatelets; Translations: [CONDUIT BENDER ANTITHROMBOT/ANTIPLATLETS]Onset: 54-81-2452Xmezqcix Other gastrointestinal disorders (2 sources)Diarrhea, unspecified; Translations: [Diarrhea, unspecified]Onset: 22-64-4781NifscvtsSelxwifzmke; intervertebral disc disorders; other back problems (2 sources)Spondylosis without myelopathy or radiculopathy, lumbar region; Translations: [Other intervertebraldisc degeneration, lumbar region]Onset: 74-63-9592RocigieHzrjwdpcc-related disorders (4 sources)Moderate smoker (20 or less per day) ; Translations: [Nicotine dependence, cigarettes, uncomplicated]Onset: [phone] on above:Problem List clean-up per request of Phys. EHR CmteUnclassified (3 sources)LOW BACK PAIN, UNSPECIFIED; Translations: [LOW BACK PAIN, UNSPECIFIED]Onset: 38-80-1222Rkqtxoyqqxud (1 source)CONTACT W/AND (SUSP) EXPOS COVID-19; Translations: [CONTACT W/AND (SUSP) EXPOS COVID-19]Onset: 02-01-2021 Past or Other Problems Problem ClassificationProblemDateDocumented DateEpisodic/ChronicCoronary atherosclerosis and other heart disease (2 sources)Presence of coronary angioplasty implant and graft; Translations: [Presence of aortocoronary bypassgraft]Onset: 05-74-5622ZulqcynpIsxflljg mellitus without complication (1 source)Other abnormal glucose; Translations: [OTHER ABNORMAL GLUCOSE]Onset: 58-78-0897FpckpqdnZmykhlucxefmc and screening for infectious disease (4 sources)Encounter for immunization; Translations: [ENCOUNTER FOR IMMUNIZATION]Onset: 87-29-6121QmvvecksKwnlc screening for suspected conditions (not mental disorders or infectious disease) (1 source)Encounter for screening for malignant neoplasm of prostate; Translations: [ENC SCREEN MALIG NEOPLASM PROSTATE]Onset: 63-07-2784Yprezhlt Pancreatic disorders (not diabetes) (4 sources)Cyst of pancreas; Translations: [CYST OF PANCREAS]Onset: 01-16-2021 EpisodicUnclassified (1 source)LOW BACK PAIN, UNSPECIFIED; Translations: [LOW BACK PAIN, UNSPECIFIED] Onset: 05-26-2021 Results Test NameValueInterpretationReference RangeFacilityUrine Cultureon 10-19-2024 Bacteria identified Cx Nom (U)ORGANISM: Staphylococcus aureus (O:STAAUR) Burns Count >100,000 Aerobic COLIN Charge (PCMIC38) SUSCEPTIBILITY ORGANISM: O:STAAUR ANTIBIOTIC INTERPRETATION COLIN Ceftaroline S <0.5 Ciprofloxacin S <1 Daptomycin S <0.5 Levofloxacin S <1 Linezolid S 2 Nitrofurantoin S <32 Oxacillin S 0.5 Penicillin R >2 Tetracycline S <4 Trimethoprim/Sulfamethoxazole S <0.5 Vancomycin S 1 S = [...] RESISTANT TO ALL B-LACTAM DRUGS. PERFORMED BY: [facility] [address] [id number] PATHOLOGIST [employer] MANAGER PHILIPPE CARDENAS M.D.NormalOrlando Health Horizon West Hospital Physician GroupComment on above: Performed By: #### CUU #### [place] [address] USACBCon 13-69-3463TKFQAJCD BAS0.1 10*3/uLNormal0.0-0.2ANorton County HospitalABSOLUTE EOS0.1 10*3/uLNormal0.0-0.7ANorton County Hospital ABSOLUTE NEUTROPHIL COUNT5.8 10*3/uLNormal1.4-6.5ANorton County Hospital Basophils/100 WBC (Bld)1.0 %Normal0.0-2.0[facility] Laser CenterDTYPEAUTO DIFF NormalQuinlan Eye Surgery & Laser CenterEosinophils/100 WBC (Bld)0.7 %Normal0.0-11.0[facility] CenterLymphocytes (Bld) [#/Vol]1.6 10*3/uLNormal1.2-3.4ANorton County HospitalLymphocytes/100 WBC (Bld)20.3 %Ynnott71.0-55.0[facility] Monocytes (Bld) [#/Vol]0.5 10*3/uLNormal0.0-0.7ANorton County Hospital Monocytes/100 WBC (Bld)6.5 %Normal0.0-10.0[facility] CenterNeutrophils/100 WBC (Bld)71.5 %Socyoz89.0-75.0[facility] CenterErythrocyte distribution width (RBC) [Ratio]14.5 %Lpoevc01.5-14.5ANorton County HospitalHematocrit (Bld) [Volume fraction]46.1 %Ikyrcx50.0-52.0[facility] CenterHemoglobin (Bld) [Mass/Vol]15.5 g/dRVmcboh59.0-18.0[facility] HealthH (RBC) [Entitic mass] 29.8 njTdydhx92.0-35.0[facility] HealthHC (RBC) [Mass/Vol]33.6 g/dLNormal 27.0-37.0Madison HealthV (RBC) [Entitic vol]88.5 eYEiyfhn13.0-100.0 [facility] Laser CenterPlatelet mean volume (Bld) [Entitic vol]8.0 fLNormal 7.4-11.0[facility] Laser CenterPlatelets (Bld) [#/Vol]182 10*3/ySJlpfgl817-028 [facility] HospitalC (Bld) [#/Vol]5.20 10*6/uLNormal4.0-6.1ANorton County HospitalWBC (Bld) [#/Vol]8.1 10*3/uLNormal3.6-11.0[facility], EDIF, PLATELETon 79-55-7211TYHRXNTS BASOPHIL COUNT0.1 10*3/uL0.0 - 0.2 10*3/uL [facility], IncBasophils/100 WBC (Bld)1.0 %0.0 - 2.0 %[facility] Differential cell count method Nom (Bld)AUTO DIFF%[facility], IncEosinophils (Bld) [#/Vol]0.1 10*3/uL0.0 - 0.7 10*3/uLSelect [facility], IncEosinophils/100 WBC (Bld)0.7 %0.0 - 11.0 %[facility], IncErythrocyte distribution width (RBC) [Ratio]14.5 %11.5 - 14.5 %[facility], IncHematocrit (Bld) [Volume fraction] 46.1 %42.0 - 52.0 %[facility], IncHemoglobin (Bld) [Mass/Vol]15.5 g/dLSelect Medical Specialty Hospital [facility], IncLymphocytes (Bld) [#/Vol]1.6 10*3/uL1.2 - 3.4 10*3/uLSelect [facility]ty [facility], IncLymphocytes/100 WBC (Bld)20.3 %20.0 - 55.0 %[facility], IncMCH (RBC) [Entitic mass]29.8 pg26.0 - 35.0 PGABlanchard Valley Health SystemMCHC (RBC) [Mass/Vol]33.6 g/dLSelect Medical Specialty Hospital [facility], IncMCV (RBC) [Entitic vol]88.5 [facility] Monocytes (Bld) [#/Vol]0.5 10*3/uL0.0 - 0.7 10*3/[facility] Monocytes/100 WBC (Bld)6.5 %0.0 - 10.0 %[facility], IncNeutrophils (Bld) [#/Vol]5.8 10*3/uL1.4 - 6.5 10*3/uLSelect Medical Specialty Hospital [facility], IncNeutrophils/100 WBC (Bld) 71.5 %37.0 - 75.0 %[facility], IncPlatelet mean volume (Bld) [Entitic vol] 8.0 [facility] Memorial HospitalPlatelets (Bld) [#/Vol]182 10*3/uL130 - 400 10*3/uL [facility], IncRBC (Bld) [#/Vol]5.20 10*6/uL4.0 - 6.1 10*6/uLSelect [facility] Specialty [facility], IncWBC (Bld) [#/Vol]8.1 10*3/uL3.6 - 11.0 10*3/uLTrinity Health System West CampusCMP FASTINGon 06-25-2022:G RATIO1.4 RATIONormal1.3-2.2[facility] HospitalALBUMIN4.2 G/dlNormal3.5-5.0[facility] HospitalALP [Catalytic activity/Vol]125 U/TIfonbq97-177Sbidj Hedley HospitalALT [Catalytic activity/Vol]25 U/LNormal<50Av[facility] HospitalAST [Catalytic activity/Vol]24 U/RHvdjat65-41BrvqkQuinlan Eye Surgery & Laser CenterBilirubin [Mass/Vol]0.4 mg/dLNormal0.2-1.3 [facility] CenterCalcium [Mass/Vol]8.6 mg/dLNormal8.4-10.2ANorton County HospitalChloride [Moles/Vol]100 mmol/VUlnkkw48-948VtkxrQuinlan Eye Surgery & Laser CenterComment on above:Result Comment: Please note: Triglyceride levels of 600mg/dL or higher may positively bias chlorideresults by approximately 2.1 mmolCO2 [Moles/Vol]27 mmol/EDdiyxt69-39JedpwQuinlan Eye Surgery & Laser CenterCreatinine [Mass/Vol]0.70 mg/dLNormal 0.7-1.2AClara Barton Hospital. GFR, Wmxooqdc353 ml/min/1.73sq.mNormal [facility]. GFR,Non Fhurzewe401 ml/min/1.73sq.mNormal [facility] CenterGFR InformationAverage GFR for 60-69 years old = 85.Normal [facility] CenterComment on above:Result Comment: Chronic Kidney disease, GFR = <60. Kidney failure, GFR = <15. The GFR estimate is not adjusted for extreme body surface area or acute process, nor has it been validated for women or ethnic groups other than and .Glucose [Mass/Vol]196 mg/rFUyfv76-988WifwqQuinlan Eye Surgery & Laser CenterComment on above:Result Comment: NORMAL <100 mg/dL PREDIABETES 101-126 mg/dL DIABETES 126 mg/dL or higherPotassium [Moles/Vol]4.4 mmol/LNormal3.5-5.1ANorton County HospitalProtein [Mass/Vol]7.2 g/dLNormal6.3-8.2AN[facility] Hospital Sodium [Moles/Vol]133 mmol/UMii873-320EtirjQuinlan Eye Surgery & Laser CenterUrea nitrogen [Mass/Vol]12 mg/dLNormal7-20[facility] CenterCOMPREHENSIVE METABOLIC PANEL on 14-07-6152Twjzyxl [Mass/Vol]4.2 G/dl3.5 - 5.0 G/dlSelect Medical Specialty [facility], Inc Albumin/Globulin [Mass ratio]1.4 {ratio}[facility], IncALP [Catalytic activity/Vol]125 U/[facility] SystemALT [Catalytic activity/Vol]25 U/LNINF [facility], IncAST [Catalytic activity/Vol]24 U/[facility] Bilirubin [Mass/Vol]0.4 mg/dLSelect [facility] Specialty [facility], IncCalcium [Mass/Vol]8.6 mg/dLSelect Medical Specialty [facility], IncChloride [Moles/Vol]100 mmol/[facility] HospitalComment on above: Please note: Triglyceride levels of 600mg/dL or higher may positively bias chloride results by approximately 2.1 mmolCO2 [Moles/Vol]27 mmol/[facility] SystemCreatinine [Mass/Vol]0.70 mg/dLSelect Medical Specialty [facility], IncGFR COMMENTAverage GFR for 60-69 years old = 85.[facility], IncComment on above:Chronic Kidney disease, GFR = <60. Kidney failure, GFR = <15. The GFR estimate is not adjusted for extreme body surface area or acute process, nor has it been validated for women or ethnic groups other than and . GFR/1.73 sq M.predicted among blacks MDRD (S/P/Bld) [Vol rate/Area]147 mL/min/{1.73_m2}ml/min/1.73sq.[facility] Memorial HospitalGFR/1.73 sq M.predicted among non-blacks MDRD (S/P/Bld) [Vol rate/Area]122 mL/min/{1.73_m2}ml/min/1.73sq.m [facility], IncGlucose post fast [Mass/Vol]196 mg/dLUniversity Hospitals Geneva [facility] Comment on above: NORMAL <100 mg/dL PREDIABETES 101-126 mg/dL DIABETES 126 mg/dL or higher Interpretation and review of laboratory resultsAbnormalABlanchard Valley Health System Potassium [Moles/Vol]4.4 mmol/[facility] SystemProtein [Mass/Vol]7.2 g/dL [facility] Hospitalodium [Moles/Vol]133 mmol/LLowABlanchard Valley Health SystemUrea nitrogen [Mass/Vol]12 mg/dLTrinity Health System West CampusCT ABDOMEN/PELVIS WITH CONTRASTon 17-54-8870SW ABDOMEN/PELVIS WITH CONTRAST EXAMINATION: CT ABDOMEN/PELVIS WITH [...] Spleen: Unremarkable. Adrenal Glands: Unremarkable. Kidneys: Unremarkable. Gastrointestinal/Peritoneum: No acute abnormality. Moderate colonic diverticulosis is [...] the body of pancreas. 3. Moderate colonic diverticulosis.[facility] Abdomen and Pelvis W contrast Miki 16-58-3245FQIQTNUOTJ: 1. No acute abnormality of the abdomen and pelvis. 2. Stable cystic lesion in the body of pancreas. 3. Moderate colonic diverticulosis. RADIOLOGYEXAMINATION: CT ABDOMEN/PELVIS WITH CONTRAST, 06/25/2022 3:59 PM [...] Spleen: Unremarkable. Adrenal Glands: Unremarkable. Kidneys: Unremarkable. Gastrointestinal/Peritoneum: No acute abnormality. Moderate colonic diverticulosis is [...] in the visualized spine. Soft tissues: Unremarkable. RADIOLOGYCureton, Evelyn Xie MD - 06/25/2022 EXAMINATION: CT ABDOMEN/PELVIS WITH CONTRAST, [...] Spleen: Unremarkable. Adrenal Glands: Unremarkable. Kidneys: Unremarkable. Gastrointestinal/Peritoneum: No acute abnormality. Moderate colonic diverticulosis is [...] body of pancreas. 3. Moderate colonic diverticulosis. [facility], IncRadiology Study observation (narrative)[facility], IncCT Abdomen and Pelvis W contrast IVOrdered By: Evelyn Gomez on 86-93-9410LxwezBlanchard Valley Health System Work Phone: LIPASEon 83-23-7230Qrrzgo [Catalytic activity/Vol]181 U/L23 - 300 U/LAvita Ashtabula County Medical CenterLIPASE,SERUMon 06-25-2022 LIPASE,HZKJZ591 U/TAiocig21-865MkewkQuinlan Eye Surgery & Laser CenterNo Panel Informationon 44-81-8540Vlpczbnjucorlu and review of laboratory resultsAbnormalARiverside Methodist HospitalTROPONIN I, HIGH SENSITIVITYon 81-56-8402SOQPPNMP I, HIGH SENSITIVITY4 pg/mLNormal0-20[facility] CenterComment on above:Result Comment: Indeterminant: >12 to 100 pg/mL female >20 to 100 pg/mL male Indicative of myocardial injury. Serial sampling is recommended, a change of greater than or equal to 20 pg/mL is indicative of acute coronary syndrome. TROPONIN I, HIGH SENSITIVITY4 pg/mL0 - 20 pg/mLSelect Medical Specialty [facility], IncComment on above: Indeterminant: >12 to 100 pg/mL female >20 to 100 pg/mL male Indicative of myocardial injury. Serial sampling is recommended, a change of greater than or equal to 20 pg/mL is indicative of acute coronary syndrome. [facility] SystemURINALYSIS, MACROon 21-04-0238Xaqtffhrl Ql (U)Negative NEGATIVEAvita Health SystemClarity (U)CLEARCLEARAvita Mercy Memorial Hospital SystemColor (U) YELLOWYELLOWSelect Medical Specialty Hospital [facility], IncGlucose Test strip (U) [Mass/Vol]500 mg/dl AbnormalNEGATIVEPromedica Toledo Hospital SystemHemoglobin Ql (U)NegativeNEGATIVEPromedica Toledo Hospital SystemKetones (U) [Mass/Vol]NegativeNEGATIVE mg/dlSelect Medical Specialty Hospital [facility], IncLeukocyte esterase Test strip Ql (U)NegativeNEGATIVEPromedica Toledo Hospital SystemNitrite Ql (U) NegativeNEGATIVEPromedica Toledo Hospital SystempH (U)5.5 [pH]5.0 - 7.0[facility] Protein Ql (U)NegativeNEGATIVE mg/dlPromedica Toledo Hospital SystemSpecific gravity (U) [Rel density]1.0201.010 - 1.025[facility], IncUrobilinogen (U) [Mass/Vol]0.2 mg/dLPromedica Toledo Hospital SystemURINE MACROSCOPICon 62-77-2975Qqksahevp Ql (U)Negative NormalNEGATIVEAvita Hedley HospitalClarity (U)CLEARNormalCLEARAvita Hedley HospitalColor (U)YELLOWNormalYELLOWAvita Hedley HospitalGlucose Ql (U)500 mg/dl AbnormalNEGATIVESwedish Medical Centerta Hedley HospitalpH (U)5.5 [pH]Normal5.0-7.0[facility] HospitalURINE HEMOGLOBINNegativeNormalNEGATIVEAvita Hedley HospitalURINE KETONE NegativeNormalNEGATIVEAvita Hedley HospitalURINE LEUKOTESTNegativeNormal NEGATIVEAvita Hedley HospitalURINE NITRATESNegativeNormalNEGATIVEAvita Hedley HospitalURINE SPEC GRAVITY1.845Jzuawn5.010-1.025AviSt. Joseph's HealthURINE TOTAL PROTEINNegativeNormalNEGATIVEQuinlan Eye Surgery & Laser CenterUrobilinogen Qn (U)0.2 {Saloni'U}/dLNormal0.2-1.0[facility] Laser CenterURINE MICROSCOPICon 06-25-2022 BACTERIATRACEAbnormalNEGATIVEQuinlan Eye Surgery & Laser CenterCASTSOCCASIONALAbnormalNONE [facility] CenterComment on above:Result Comment: HYALINECRYSTALNONENormal [facility] CenterEpithelial cells LM Ql (Urine sed)1 TO 5NormalANorton County HospitalMucus Ql (Urine sed)1+AbnormalNEGOhioHealth Grady Memorial Hospital URINE COMMENTCULTURE CRITERIA NOT MET, NO CULTURE PERFORMED.NormalThe [facility] of [facility] RBC'SNegativeNormalNEGATIVEThe [facility] of [facility] WBC'S1 TO 5 NormalNEGOhioHealth Grady Memorial HospitalBacteria LM.HPF (Urine sed) [#/Area]TRACE AbnormalNEGATIVESelect Medical Specialty [facility], IncCasts LM.LPF (Urine sed) [#/Area]OCCASIONAL AbnormalNONE /LPMartin General Hospital SystemComment on above:HYALINECrystals LM Nom (Urine sed)NONENONMercy Health St. Charles HospitalEpithelial cells LM Ql (Urine sed)1 TO 5 /HPFSelect Medical Specialty Hospital [facility], IncMucus Ql (Urine sed)1+AbnormalNEGATIVESelect Medical Specialty [facility], Inc RBC LM.HPF (Urine sed) [#/Area]NegativeNEGATIVE /HPFTriHealth sediment comments LM Adonay (Urine sed)CULTURE CRITERIA NOT MET, NO CULTURE PERFORMED.[facility], IncWBC LM.HPF (Urine sed) [#/Area]1 TO 5NEGATIVE /HPF [facility], IncActivated partial thromboplastin time (aPTT) in platelet poor plasma by coagulation aOrdered By: Vadim Guido on 48-34-6864iJJK Coag (PPP) [Time]27.1 s25.1-36.5FCleveland Clinic Lutheran HospitalBasophils Auto (Bld) [#/Vol]Ordered By: Vadim Guido on 80-71-7164Yiuwseizs (Bld) [#/Vol]0.1 10*3/uL0.0-0.2FCleveland Clinic Lutheran HospitalBasophils/100 WBC Auto (Bld) Ordered By: Vadim Guido on 02-37-3562Lfuuluobv/100 WBC (Bld)1.3 %.[facility] MiamisburgCOVID-19 SOFIAOrdered By: Vadim Guido on 12-27-2021 SARS-CoV+SARS-CoV-2 (COVID-19) Ag IA.rapid Ql (Resp)NegativeNegativeKettering Health MiamisburgComment on above:This is a duplicate Natali SARS Antigen (DAQUAN) result to be used for statistical tracking purpose only.Creatinine and Glomerular filtration rate.predicted panel (S/P/Bld)Ordered By: Vadim Guido on 98-29-7991Bmkpljqktv [Mass/Vol]0.80 mg/dL0.64-1.27[facility] MiamisburgEosinophils Auto (Bld) [#/Vol]Ordered By: Vadim Guido on 12-27-2021 Eosinophils (Bld) [#/Vol]0.2 10*3/uL0.0-0.45[facility] Eosinophils/100 WBC Auto (Bld)Ordered By: Vadim Guido on 12-27-2021 Eosinophils/100 WBC (Bld)1.9 %.[facility] MiamisburgErythrocyte distribution width Auto (RBC) [Ratio]Ordered By: Vadim Guido on 12-27-2021 Erythrocyte distribution width (RBC) [Ratio]13.9 %12.0-14.8[facility] MiamisburgEstimated glomerular filtration rate (GFR) non- Ordered By: Vadim Guido on 59-26-7493GNN/1.73 sq M.predicted among non- blacks MDRD (S/P/Bld) [Vol rate/Area]> 60 mL/MinKettering [facility] [place]burgHematocrit Auto (Bld) [Volume fraction]Ordered By: Vadim Guido on 83-92-2100Ztmfydgzvo (Bld) [Volume fraction]42.8 %38.8-50.0[facility]burgHemoglobin [Mass/volume] in BloodOrdered By: Vadim Guido on 83-63-4222Jdoerednwo (Bld) [Mass/Vol]14.3 g/dL13.0-17.0[facility]burgLaboratory - Chemistry and Chemistry - challengeOrdered By: Vadim Guido on 59-76-0122Uixxdyxhruf peptide B (Bld) [Mass/Vol]30.0 pg/mL 5-100[facility]Laboratory - CoagulationOrdered By: Vadim Guido on 42-38-7302TT Coag (PPP) [Time]12.1 s9.0-12.9[facility]Laboratory - Hematology and Cell countsOrdered By: Vadim Guido on 57-14-5117Buxzkluqk RBC/100 WBC (Bld) [Ratio]0.1 %0-0.5 [facility]burgLeukocytes [#/volume] in Blood by Automated countOrdered By: Vadim Guido on 58-60-8401KIN (Bld) [#/Vol]9.0 10*3/uL 4.5-11.0[facility]burgLymphocytes Auto (Bld) [#/Vol]Ordered By: Vadim Guido on 99-45-8178Yutpojetsso (Bld) [#/Vol]2.9 10*3/uL1.00-4.8 [facility]burgLymphocytes/100 WBC Auto (Bld)Ordered By: Vadim Guido on 40-32-8435Lznaqkpkqeu/100 WBC (Bld)31.8 [address] (RBC) [Entitic mass]Ordered By: Vadim Guido on 94-10-7941VGR (RBC) [Entitic mass]30.2 pg27.5-35.2[facility] HospitalMCHC Auto (RBC) [Mass/Vol]Ordered By: Vadim Guido on 60-80-0244ONHA (RBC) [Mass/Vol]33.3 g/dL32.5-35.6FC[facility] HospitalMCV Auto (RBC) [Entitic vol]Ordered By: Vadim Guido on 32-38-7287OQC (RBC) [Entitic vol]90.8 fL83.5-101[facility]burgMonocytes Auto (Bld) [#/Vol] Ordered By: Vadim Guido on 45-73-6112Bhvghfjcg (Bld) [#/Vol]0.9 10*3/uL 0.0-0.8[facility]burgMonocytes/100 WBC Auto (Bld)Ordered By: Vadim Guido on 36-08-3555Oesubcmes/100 WBC (Bld)9.6 %.[facility]burgNeutrophils Auto (Bld) [#/Vol]Ordered By: Vadim Guido on 46-59-5053Oczauflogso (Bld) [#/Vol]5.0 10*3/uL1.8-7.7FC[facility] Luther[facility] HospitalNeutrophils/100 WBC Auto (Bld)Ordered By: Vadim Guido on 12-27-2021 Neutrophils/100 WBC (Bld)55.4 %.[facility]burgNo Panel InformationOrdered By: Vadim Guido on 69-50-7349Aaexhagse GFR ()> 60 mL/MinKettering Health MiamisburgComment on above:GFR estimated reference range: According to KDOQI guidelines, <60 ml/min/1.73m2 is sufficient todiagnose a patient with chronic kidney disease.Pharmacy Creatinine Clearance (Yhng060.22[facility] HospitalARS Antigen (LFIA) [facility]burgPlatelet mean volume Auto (Bld) [Entitic vol] Ordered By: Vadim Guido on 41-22-7239Zankqzej mean volume (Bld) [Entitic vol]7.7 fL6.6-10.1FC[facility] Lutheran HospitalPlatelet poor plasma international normalized ratio (INR) by coagulation assay (relatOrdered By: Vadim Guido on 57-28-0382VFW Coag (PPP) [Relative time]1.1 {INR}[facility]burgComment on above:INR Therapeutic Range A) Pre- and Peroperative OAT started two weeks before surgery. NOT HIP SURGERY: 1.5 - 2.5 HIP SURGERY: 2 - 3B) Primary and secondary prevention of venous THROMBOSIS: 2 - 3C) Active venous thrombosis, pulmonary embolismand prevention of recurrent venous thrombosis: 2 - 3D) Prevention of arterial thromboembolismincluding patients with mechanical heart valves: 3 - 4.5Platelets Auto (Bld) [#/Vol] Ordered By: Vadim Guido on 62-56-8734Ovovjzjbn (Bld) [#/Vol]207 10*3/uL 150-450[facility]burgRBC Auto (Bld) [#/Vol]Ordered By: Vadim Guido on 51-38-8193FTB (Bld) [#/Vol]4.72 10*6/uL3.90-5.60The [facility] Hospitalerum or plasma anion gap determinationOrdered By: Vadim Guido on 98-69-5423Yqmuc gap [Moles/Vol]14.7 mmol/L6.0-15.0[facility] Hospitalerum or plasma calcium measurement (mass/volume)Ordered By: Vadim Guido on 01-83-2202Hhsujwz [Mass/Vol]8.0 mg/dL8.2-10.2FMain Campus Medical Centererum or plasma chloride measurement (moles/volume) Ordered By: Vadim Guido on 74-96-7355Oxijwltg [Moles/Vol]102 mmol/L95-114 [facility] Hospitalerum or plasma glucose measurement (mass/volume)Ordered By: Vadim Guido on 12-02-8702Crqbwix [Mass/Vol]161 mg/mX63-088HkawpvxakKettering Health MiamisburgComment on above:ADA recommended reference rangeRandom Glucose Reference Range is dependent on time and content of last meal. Glucose of more than 200 mg/dL in a nonstressed, ambulatory subject supports the diagnosisof Diabetes Mellitus.Serum or plasma potassium measurement (moles/volume)Ordered By: Vadim Guido on 18-24-4357Hgwdzvhia [Moles/Vol]3.7 mmol/L3.5-5.1FMain Campus Medical Centererum or plasma sodium measurement (moles/volume)Ordered By: Vadim Guido on 12-27-2021 Sodium [Moles/Vol]137 mmol/Y020-854EhfhkaeznThe Bellevue Hospitalerum or plasma total carbon dioxide measurement (moles/volume)Ordered By: Vadim Guido on 17-84-2176TF0 [Moles/Vol]24.0 mmol/L22.0-30.0The [facility] Hospitalerum or plasma urea nitrogen measurement (mass/volume)Ordered By: Vadim Guido on 68-55-5385Uzbm nitrogen [Mass/Vol]12 mg/dL9-23[facility]burgTroponin I.cardiac [Mass/volume] in Serum or Plasma by High sensitivity methodOrdered By: Vadim Guido on 35-93-9462Kgwognqb I.cardiac High sensitivity method [Mass/Vol]7 pg/mL0-20[facility] MiamisburgACETAMINOPHENon 06-39-9816Begmghcriuapa [Mass/Vol]ug/mLNormal 10.0-30.0The [facility] HospitalComment on above:Performed By: #### SEDR #### [facility] [address] [place] [address] Dr. Ariana RAMIREZ 3-6on 22-40-6271AW [Catalytic activity/Vol]194 U/L Critically nyvv08-077Nco [facility] HospitalComment on above:Performed By: #### CMREP #### [facility] [address] [place] [address] Dr. Ariana French.MB [Mass/Vol]1.77 ng/mLNormal<=2.37[facility] Comment on above:Performed By: #### CMREP #### [facility] [address] [place] [address] Dr. Ariana ChowdaryOP10.7 pg/mLNormal4.0-42.2The [facility] HospitalComment on above:Result Comment: CUT-OFF POINTS HAVE BEEN ESTABLISHED BASED ON THE FOURTH UNIVERSAL DEFINITIONS OF MYOCARDIAL INFARCTION. THE UPPER REFERENCE LIMIT (URL) OF TROPONIN, DEFINED THE 99TH PERCENTILE OF cTnI DISTRIBUTION IN A REFERENCE POPULATION, HAS BEEN CONFIRMED THE DECISION THRESHOLD FOR TX DIAGNOSIS.Performed By: #### CMREP #### [facility] [address] [place] [address] Dr. Ariana RAMIREZ ADMITon 46-87-8019DJ [Catalytic activity/Vol]193 U/L Critically cnri97-254Sav [facility] HospitalComment on above:Performed By: #### SEDR #### [facility] [address] [place] [address] Dr. Ariana French.MB [Mass/Vol]1.67 ng/mLNormal<=2.37The [facility] Comment on above:Performed By: #### SEDR #### [facility] [address] [place] [address] Dr. Ariana RomanoTROP8.8 pg/mLNormal4.0-42.2The [facility] HospitalComment on above:Result Comment: CUT-OFF POINTS HAVE BEEN ESTABLISHED BASED ON THE FOURTH UNIVERSAL DEFINITIONS OF MYOCARDIAL INFARCTION. THE UPPER REFERENCE LIMIT (URL) OF TROPONIN, DEFINED THE 99TH PERCENTILE OF cTnI DISTRIBUTION IN A REFERENCE POPULATION, HAS BEEN CONFIRMED THE DECISION THRESHOLD FOR TX DIAGNOSIS.Performed By: #### SEDR #### [facility] [address] [place] [address] Dr. Ariana NorrisO49.0 ng/mLNormal<=121.0The [facility] HospitalComment on above: Performed By: #### SEDR #### [facility] [address] [place] [address] Dr. Ariana Driscoll AUTO DIFFon 94-41-3965XIGD #0.1 103/ulNormal0.0-0.1The [facility] HospitalComment on above:Performed By: #### CRP, CMP #### [facility] [address] [place] [address] Dr. Ariana PimentelBasophils/100 WBC (Bld)1.1 %Normal0.2-2.0[facility] Comment on above:Performed By: #### CRP, CMP #### [facility] [address] [place] [address] Dr. Ariana Allen #0.2 103/ulNormal0.0-0.7The [facility] HospitalComment on above: Performed By: #### CRP, CMP #### [facility] [address] [place] [address] Dr. Ariana Marinosinophils/100 WBC (Bld)1.6 %Normal0.9-7.0The [facility] Comment on above:Performed By: #### CRP, CMP #### [facility] [address] [address] [address] Ariana Marinrythrocyte distribution width (RBC) [Ratio]14.0 %Jpwwpf04.0-15.0 The [facility] HospitalComment on above:Performed By: #### CRP, CMP #### [facility] [address] [address] [address] Ariana PimentelHematocrit (Bld) [Volume fraction]42.2 %Ukaksq95.0-54.0The [facility] HospitalComment on above:Performed By: #### CRP, CMP #### [facility] [address] [place] [address] Dr. Ariana PimentelHemoglobin (Bld) [Mass/Vol]14.5 g/vFJbpbtt14.0-18.0The [facility] HospitalComment on above:Performed By: #### CRP, CMP #### [facility] [address] [place] [address] Dr. Ariana Hernandez #0.06 10e3/ulCritically high0.00-0.03The [facility] Comment on above:Performed By: #### CRP, CMP #### [facility] [address] [place] [address] Dr. Ariana Hernandez %0.6 %Critically high0.0-0.5The [facility] HospitalComment on above:Performed By: #### CRP, CMP #### [facility] [address] [place] [address] Dr. Ariana Gonzalez #2.6 103/ulNormal1.2-3.8The [facility] HospitalComment on above:Performed By: #### CRP, CMP #### [facility] [address] [place] [address] Dr. Ariana Janghocytes/100 WBC (Bld)27.2 %Apauih44.5-60.0The [facility] HospitalComment on above:Performed By: #### CRP, CMP #### [facility] [address] [place] [address] Dr. Ariana WenUAL DIFF REQNONormalThe [facility] HospitalComment on above: Performed By: #### CRP, CMP #### [facility] [address] [place] [address] Dr. Ariana Acuna (RBC) [Entitic mass]31.0 qdLniawr21.9-34.0The [facility] HospitalComment on above:Performed By: #### CRP, CMP #### [facility] [address] [place] [address] Dr. Ariana Acuna (RBC) [Mass/Vol]34.4 g/rVMpistt97.9-35.2The [facility] HospitalComment on above:Performed By: #### CRP, CMP #### [facility] [address] [place] [address] Dr. Ariana Ruffin (RBC) [Entitic vol]90.4 qQEejrwd49.0-94.0The [facility] HospitalComment on above:Performed By: #### CRP, CMP #### [facility] [address] [place] [address] Dr. Ariana Jorgensen #0.6 103/ulNormal0.3-0.8The [facility] HospitalComment on above:Performed By: #### CRP, CMP #### [facility] [address] [place] [address] Dr. Ariana Michaelsocytes/100 WBC (Bld)6.7 %Normal1.7-12.0The [facility] Comment on above:Performed By: #### CRP, CMP #### [facility] [address] [place] [address] Dr. Ariana Stafford #5.9 103/ulNormal1.4-6.5The [facility] HospitalComment on above:Performed By: #### CRP, CMP #### [facility] [address] [place] [address] Dr. Ariana Beckerophils/100 WBC (Bld)62.8 %Vhqyxn34.0-75.0The [facility] HospitalComment on above:Performed By: #### CRP, CMP #### [facility] [address] [place], [place] [id number] Dr. Ariana PimentelPlatelet mean volume (Bld) [Entitic vol]9.3 fLCritically low 9.5-13.5The [facility] HospitalComment on above:Performed By: #### CRP, CMP #### [facility] [address] [place] [address] Dr. Ariana PimentelPLT164 103/tyXeluyx338-632Rne [facility] HospitalComment on above: Performed By: #### CRP, CMP #### [facility] [address] [place] [address] Dr. Ariana PimentelRBC4.67 106/ulCritically low4.70-6.10The [facility] HospitalComment on above:Performed By: #### CRP, CMP #### [facility] [address] [place] [address] Dr. Ariana PimentelWBC9.4 103/ulNormal4.0-11.0The [facility] HospitalComment on above: Performed By: #### CRP, CMP #### [facility] [address] [place] [address] Dr. Ariana GeigerANOL (BLD ALC)on 33-29-7889OIB NOTENOTE: 80 mg/dl is the legal limit for a blood alcohol levelNoZanesville City HospitalComselect specialty hospital on above: Performed By: #### SEDR #### [facility] [address] [place] [address] Dr. Ariana Marinthanol [Mass/Vol]184 mg/dLNoZanesville City HospitalComment on above:Performed By: #### SEDR #### [facility] [address] [place] [address] Dr. Ariana PimentelPROF CHEM 8 (BAS METB)on 74-41-5151Rkugi gap [Moles/Vol]13.3 mmol/LNormalThe [facility] HospitalComselect specialty hospital on above:Performed By: #### SEDR #### [facility] [address] [place] [address] Dr. Ariana PimentelCalcium [Mass/Vol]7.6 mg/dLCritically low8.5-10.1The [facility] HospitalComment on above:Performed By: #### SEDR #### [facility] [address] [address] [address] Ariana PimentelChloride [Moles/Vol]101 mmol/GHyceyp31-191Wvo [facility] Comment on above:Performed By: #### SEDR #### [facility] [address] [address] [address] Ariana PimentelCO2 [Moles/Vol]24.4 mmol/COldxqp04.0-30.0[facility] Comment on above:Performed By: #### SEDR #### [facility] [address] [address] [address] Ariana PimentelCreatinine [Mass/Vol]0.76 mg/dLNormal0.66-1.25The [facility] HospitalComment on above:Performed By: #### SEDR #### [facility] [address] [address] [address] Ariana MarinGFR-AF SYRIAN>60Normal>=60[facility] CenterComment on above:Performed By: #### SEDR #### [facility] [address] [address] [address] Ariana MarinGFR-NON AF SYRIAN>60Normal>=60The [facility] HospitalComment on above:Performed By: #### SEDR #### [facility] [address] [address] [address] Ariana PimentelGlucose [Mass/Vol]139 mg/dLCritically pafs45-569Vti [facility] HospitalComment on above:Performed By: #### SEDR #### [facility] [address] [address] [address] Ariana PimentelPotassium [Moles/Vol]3.7 mmol/LNormal3.4-5.0[facility] Comment on above:Performed By: #### SEDR #### [facility] [address] [address] [address] Ariana PimentelSodium [Moles/Vol]135 mmol/LCritically qai486-353Dcf [facility] HospitalComment on above:Performed By: #### SEDR #### [facility] [address] [address] [address] Ariana PimentelUrea nitrogen [Mass/Vol]9.0 mg/dLNormal7.0-18.0The [facility] on above:Performed By: #### SEDR #### [facility] [address] [place] [address] Dr. Ariana PimentelUrea nitrogen/Creatinine [Mass ratio]11.8 mg/mgNormalThe [facility] HospitalComselect specialty hospital on above:Performed By: #### SEDR #### [facility] [address] [place] [address] Dr. Ariana PimentelSALICYLATEon 27-48-3675RUOTLQORKY6.9 mg/dLNormal<=20.0The [facility] on above:Performed By: #### SEDR #### [facility] [address] [place] [address] Dr. Ariana Severino, HIGH SENSITIVITYon 27-80-6982WGDZWV4.1 pg/mLNormal 4.0-42.2The [facility] on above:Result Comment: CUT-OFF POINTS HAVE BEEN ESTABLISHED BASED ON THE FOURTH UNIVERSAL DEFINITIONS OF MYOCARDIAL INFARCTION. THE UPPER REFERENCE LIMIT (URL) OF TROPONIN, DEFINED THE 99TH PERCENTILE OF cTnI DISTRIBUTION IN A REFERENCE POPULATION, HAS BEEN CONFIRMED THE DECISION THRESHOLD FOR TX DIAGNOSIS.Performed By: #### HSTROPN #### [facility] [address] [place] [address] Dr. Ariana PimentelXR CHEST 1 Von [id number] CHEST 1 VEXAM: XR CHEST 1 V HISTORY: CHEST PAIN, [...] cardiopulmonary process identified. Electronically authenticated by: ESTHER TRUJILLO Date: 2021-06-02 00:27Normal [facility] CenterCB AUTO DIFFon 90-17-2335FNFQ #0.1 103/ulNormal0.0-0.1The [facility] HospitalComment on above:Performed By: #### SEDR #### [facility] [address] [place] [address] Dr. Ariana PimentelBasophils/100 WBC (Bld)1.2 %Normal0.2-2.0The [facility] Comment on above:Performed By: #### SEDR #### [facility] [address] [place] [address] Dr. Ariana Allen #0.1 103/ulNormal0.0-0.7The [facility] HospitalComment on above: Performed By: #### SEDR #### [facility] [address] [place] [address] Dr. Ariana Marinosinophils/100 WBC (Bld)1.4 %Normal0.9-7.0The [facility] Comment on above:Performed By: #### SEDR #### [facility] [address] [place] [address] Dr. Ariana Marinrythrocyte distribution width (RBC) [Ratio]14.2 %Npulfd44.0-15.0 [facility] CenterComment on above:Performed By: #### SEDR #### [facility] [address] [place] [address] Dr. Ariana PimentelHematocrit (Bld) [Volume fraction]47.9 %Noplzt85.0-54.0The [facility] HospitalComment on above:Performed By: #### SEDR #### [facility] [address] [place] [address] Dr. Ariana PimentelHemoglobin (Bld) [Mass/Vol]16.2 g/qDUncacq68.0-18.0[facility] CenterComment on above:Performed By: #### SEDR #### [facility] [address] [place] [address] Dr. Ariana Hernandez #0.04 10e3/ulCritically high0.00-0.03The [facility] Comment on above:Performed By: #### SEDR #### [facility] [address] [place] [address] Dr. Ariana Hernandez %0.5 %Normal0.0-0.5The [facility] HospitalComment on above: Performed By: #### SEDR #### [facility] [address] [place] [address] Dr. Ariana Gonzalez #2.1 103/ulNormal1.2-3.8The [facility] HospitalComment on above:Performed By: #### SEDR #### [facility] [address] [place] [address] Dr. Ariana Janghocytes/100 WBC (Bld)24.7 %Duygtf43.5-60.0The [facility] HospitalComment on above:Performed By: #### SEDR #### [facility] [address] [place] [address] Dr. Ariana WenUAL DIFF REQNONormalThe [facility] HospitalComment on above: Performed By: #### SEDR #### [facility] [address] [place] [address] Dr. Ariana Acuna (RBC) [Entitic mass]30.9 ovAkntkc27.9-34.0The [facility] HospitalComment on above:Performed By: #### SEDR #### [facility] [address] [place] [address] Dr. Ariana Acuna (RBC) [Mass/Vol]33.8 g/xMSgoaoy87.9-35.2The [facility] HospitalComment on above:Performed By: #### SEDR #### [facility] [address] [place] [address] Dr. Ariana Acuna (RBC) [Entitic vol]91.4 kGZnjrst66.0-94.0The [facility] HospitalComment on above:Performed By: #### SEDR #### [facility] [address] [place] [address] Dr. Ariana Jorgensen #0.7 103/ulNormal0.3-0.8The [facility] HospitalComment on above:Performed By: #### SEDR #### [facility] [address] [place] [address] Dr. Ariana Michaelsocytes/100 WBC (Bld)7.8 %Normal1.7-12.0[facility] Comment on above:Performed By: #### SEDR #### [facility] [address] [place] [address] Dr. Ariana Stafford #5.3 103/ulNormal1.4-6.5The [facility] HospitalComment on above:Performed By: #### SEDR #### [facility] [address] [place] [address] Dr. Ariana Millerutrophils/100 WBC (Bld)64.4 %Yrabno27.0-75.0The [facility] HospitalComment on above:Performed By: #### SEDR #### [facility] [address] [place] [address] Dr. Ariana Navaslet mean volume (Bld) [Entitic vol]9.5 fLNormal9.5-13.5The [facility] HospitalComment on above:Performed By: #### SEDR #### [facility] [address] [place] [address] Dr. Ariana PimentelPLT192 103/drUueukt754-019Bic [facility] HospitalComment on above: Performed By: #### SEDR #### [facility] [address] [place] [address] Dr. Ariana PimentelRBC5.24 106/ulNormal4.70-6.10The [facility] HospitalComment on above:Performed By: #### SEDR #### [facility] [address] [place] [address] Dr. Ariana PimentelWBC8.3 103/ulNormal4.0-11.0The [facility] HospitalComment on above: Performed By: #### SEDR #### [facility] [address] [address] [address] Ariana Singletary 14-27-0591ENR6.5 mg/dLNormal<=1.0The [facility] Comment on above:Performed By: #### CRP, CMP #### [facility] [address] [address] [address] Ariana Singh 14(COMP METB)on 31-71-2498Gijwlmm [Mass/Vol]4.0 g/dLNormal 3.4-5.0The [facility] HospitalComment on above:Performed By: #### CRP, CMP #### [facility] [address] [address] [address] Ariana PimentelAlbumin/Globulin [Mass ratio]1.0 {ratio}NormalThe [facility] HospitalComment on above:Performed By: #### CRP, CMP #### [facility] [address] [place] [address] Dr. Ariana Diamond [Catalytic activity/Vol]129 U/LCritically siau96-353Jjf [facility] HospitalComment on above:Performed By: #### CRP, CMP #### [facility] [address] [address] [address] Ariana Isaac [Catalytic activity/Vol]27 U/SNnkbzl02-84Zbb [facility] HospitalComment on above:Performed By: #### CRP, CMP #### [facility] [address] [address] [address] Ariana Butler gap [Moles/Vol]9.9 mmol/LNormalThe [facility] HospitalComment on above:Performed By: #### CRP, CMP #### [facility] [address] [place] [address] Dr. Ariana Fonseca [Catalytic activity/Vol]13 U/LCritically ivr62-67Ulf [facility] HospitalComment on above:Performed By: #### CRP, CMP #### [facility] [address] [place] [address] Dr. Ariana PimentelBilirubin [Mass/Vol]0.4 mg/dLNormal0.2-1.3The [facility] Comment on above:Performed By: #### CRP, CMP #### [facility] [address] [address] [address] Ariana PimentelCalcium [Mass/Vol]9.0 mg/dLNormal8.5-10.1[facility] Comment on above:Performed By: #### CRP, CMP #### [facility] [address] [address] [address] Ariana PimentelChloride [Moles/Vol]102 mmol/YLnybwm64-122Iyq [facility] Comment on above:Performed By: #### CRP, CMP #### [facility] [address] [address] [address] Ariana PimentelCO2 [Moles/Vol]30.6 mmol/LCritically high22.0-30.0[facility] CenterComment on above:Performed By: #### CRP, CMP #### [facility] [address] [place] [address] Dr. Ariana PimentelCreatinine [Mass/Vol]0.98 mg/dLNormal0.66-1.25The [facility] HospitalComment on above:Performed By: #### CRP, CMP #### [facility] [address] [place] [address] Dr. Ariana MarinGFR-AF SYRIAN>60Normal>=60The [facility] HospitalComment on above:Performed By: #### CRP, CMP #### [facility] [address] [place] [address] Dr. Ariana MarinGFR-NON AF SYRIAN>60Normal>=60The [facility] HospitalComment on above:Performed By: #### CRP, CMP #### [facility] [address] [place] [address] Dr. Ariana PimentelGlobulin (S) [Mass/Vol]3.9 g/dLNormalThe [facility] HospitalComment on above:Performed By: #### CRP, CMP #### [facility] [address] [place] [address] Dr. Ariana PimentelGlucose [Mass/Vol]128 mg/dLCritically lgbh80-915Kys [facility] HospitalComment on above:Performed By: #### CRP, CMP #### [facility] [address] [place] [address] Dr. Ariana PimentelPotassium [Moles/Vol]4.5 mmol/LNormal3.4-5.0The [facility] Comment on above:Performed By: #### CRP, CMP #### [facility] [address] [place] [address] Dr. Ariana PimentelProtein [Mass/Vol]7.9 g/dLNormal6.1-8.2The [facility] Comment on above:Performed By: #### CRP, CMP #### [facility] [address] [place] [address] Dr. Ariana Menendezdium [Moles/Vol]138 mmol/BFypgoi352-066Zeq [facility] Comment on above:Performed By: #### CRP, CMP #### [facility] [address] [place] [address] Dr. Ariana PimentelUrea nitrogen [Mass/Vol]14.0 mg/dLNormal7.0-18.0The [facility] HospitalComment on above:Performed By: #### CRP, CMP #### [facility] [address] [place] [address] Dr. Ariana Loving nitrogen/Creatinine [Mass ratio]14.3 mg/mgNormalThe [facility] HospitalComment on above:Performed By: #### CRP, CMP #### [facility] [address] [place] [address] Dr. Ariana Esquivel RATE WESTERGRENon 02-43-4761KRC RATE4 mm/hrNormal<=20The [facility] HospitalComment on above:Performed By: #### SEDR #### [facility] [address] [place] [address] Dr. Ariana Driscoll AUTO DIFFon 73-88-1268EGHR #0.1 103/ulNormal0.0-0.1The [facility] HospitalComment on above:Performed By: #### SEDR #### [facility] [address] [address] [address] Ariana PimentelBasophils/100 WBC (Bld)1.2 %Normal0.2-2.0The [facility] Comment on above:Performed By: #### SEDR #### [facility] [address] [place] [address] Dr. Ariana Allen #0.2 103/ulNormal0.0-0.7The [facility] HospitalComment on above: Performed By: #### SEDR #### [facility] [address] [place] [address] Dr. Ariana Marinosinophils/100 WBC (Bld)1.7 %Normal0.9-7.0The [facility] Comment on above:Performed By: #### SEDR #### [facility] Laboratory [address] [place] [address] Dr. Ariana Marinrythrocyte distribution width (RBC) [Ratio]13.4 %Pbsvaz31.0-15.0 The Mercy HospitalComment on above:Performed By: #### SEDR #### [facility] [address] [place] [address] Dr. Ariana PimentelHematocrit (Bld) [Volume fraction]46.7 %Tfrwcq51.0-54.0The Mercy HospitalComment on above:Performed By: #### SEDR #### [facility] [address] [place] [address] Dr. Ariana PimentelHemoglobin (Bld) [Mass/Vol]15.4 g/tPLnvhhs42.0-18.0The [facility] HospitalComment on above:Performed By: #### SEDR #### [facility] [address] [place] [address] Dr. Ariana Hernnadez #0.04 10e3/ulCritically high0.00-0.03[facility] Comment on above:Performed By: #### SEDR #### [facility] [address] [place] [address] Dr. Ariana Hernandez %0.4 %Normal0.0-0.5The Mercy HospitalComment on above: Performed By: #### SEDR #### [facility] [address] [place] [address] Dr. Ariana Gonzalez #2.5 103/ulNormal1.2-3.8The Mercy HospitalComment on above:Performed By: #### SEDR #### [facility] [address] [place] [address] Dr. Ariana Janghocytes/100 WBC (Bld)27.8 %Vbajjr05.5-60.0The [facility]cy HospitalComment on above:Performed By: #### SEDR #### [facility] [address] [place] [address] Dr. Ariana Allen DIFF REQNONormalThe Mercy HospitalComment on above: Performed By: #### SEDR #### [facility] [address] [place] [address] Dr. Ariana Fuentes (RBC) [Entitic mass]30.0 nxNifclj44.9-34.0The [facility] HospitalComment on above:Performed By: #### SEDR #### [facility] [address] [place] [address] Dr. Ariana Acuna (RBC) [Mass/Vol]33.0 g/aWPfyhik45.9-35.2The [facility] HospitalComselect specialty hospital on above:Performed By: #### SEDR #### [facility] [address] [place] [address] Dr. Ariana Acuna (RBC) [Entitic vol]91.0 pTGdxzma64.0-94.0The [facility] HospitalComment on above:Performed By: #### SEDR #### [facility] [address] [place] [address] Dr. Ariana Jorgensen #0.8 103/ulNormal0.3-0.8The [facility] HospitalComment on above:Performed By: #### SEDR #### [facility] [address] [place] [address] Dr. Ariana Michaelsocytes/100 WBC (Bld)9.0 %Normal1.7-12.0[facility] Comment on above:Performed By: #### SEDR #### [facility] [address] [place] [address] Dr. Ariana Stafford #5.4 103/ulNormal1.4-6.5The [facility] HospitalComment on above:Performed By: #### SEDR #### [facility] [address] [place] [address] Dr. Ariana Millerutrophils/100 WBC (Bld)59.9 %Fgsdxn43.0-75.0The [facility] HospitalComment on above:Performed By: #### SEDR #### [facility] [address] [place] [address] Dr. Ariana Navaslet mean volume (Bld) [Entitic vol]10.2 fLNormal9.5-13.5The [facility] HospitalComment on above:Performed By: #### SEDR #### [facility] [address] [place] [address] Dr. Ariana PimentelPLT193 103/jwWfenug425-694Rro Mercy HospitalComment on above: Performed By: #### SEDR #### [facility] [address] [place] [address] Dr. Ariana PimentelRBC5.13 106/ulNormal4.70-6.10The [facility] HospitalComment on above:Performed By: #### SEDR #### [facility] [address] [place] [address] Dr. Ariana PimentelWBC9.0 103/ulNormal4.0-11.0The [facility] HospitalComment on above: Performed By: #### SEDR #### [facility] [address] [place] [address] Dr. Ariana Bautista-19 [facility]on 12-90-8225WDAF-CoV-2 (COVID-19) RNA LELIA+probe Ql (Unsp spec)Not detectedNormalNOT DETECTEDThe [facility] Comment on above:Result Comment: When diagnostic testing is negative, the possibility of a false negative should be considered in the context of a patient's recent exposures and the presence of clinical signs and symptoms consistent with SARS-CoV-2. This test is not yet approved or cleared by the [place] Food and Drug Administration (FDA). This test was developed by [employer], [place], [place]. The performance characteristics of this test were validated by [facility]. The results are not intended to be used as the sole means for clinical diagnosis or patient management decisions. [facility] is authorized under Clinical Laboratory Improvement [...] for this test is supported by the [place] of Health and Human Service's declaration that circumstances exist to justify the emergency use of in vitro diagnostics for the detection and/or diagnosis of the virus that causes COVID-19. This EUA will remain in effect for the duration of the COVID-19 declaration justifying emergency of IVDs, unless it is terminated or revoked by the FDA (after which the test may no longer be used).Performed By: #### SEDR #### [facility] [address] [place] [address] Dr. Ariana PimentelPROF CHEM 8 (BAS METB)on 34-39-2810Wielz gap [Moles/Vol]13.9 mmol/LNormalOhiohealth Nelsonville Health CenterComment on above:Performed By: #### KELLIE BMP #### [facility] [address] [place] [address] Dr. Ariana PimentelCalcium [Mass/Vol]8.8 mg/dLNormal8.4-10.2[facility] Comment on above:Performed By: #### KELLIE BMP #### [facility] [address] [place] [address] Dr. Ariana PimentelChloride [Moles/Vol]103 mmol/HQnnycs18-862VqqOhiohealth Nelsonville Health Center Comment on above:Performed By: #### KELLIE BMP #### [facility] [address] [address] [address] Ariana PimentelCO2 [Moles/Vol]26.5 mmol/KUorlxe97.0-30.0[facility] Comment on above:Performed By: #### HSTROPN, BMP #### [facility] [address] [address] [address] Ariana PimentelCreatinine [Mass/Vol]0.97 mg/dLNormal0.66-1.25The [facility] HospitalComment on above:Performed By: #### HSTROPN, BMP #### [facility] [address] [address] [address] Ariana MarinGFR-AF SYRIAN>60Normal>=60The [facility] HospitalComment on above:Performed By: #### HSTROPN, BMP #### [facility] [address] [place] [address] Dr. Ariana MarinGFR-NON AF SYRIAN>60Normal>=60The [facility] HospitalComment on above:Performed By: #### HSTROPN, BMP #### [facility] [address] [address] [address] Ariana PimentelGlucose [Mass/Vol]168 mg/dLCritically mrqk79-378AwfOhiohealth Nelsonville Health CenterComselect specialty hospital on above:Performed By: #### HSTROPN, BMP #### [facility] [address] [place] [address] Dr. Ariana PimentelPotassium [Moles/Vol]4.4 mmol/LNormal3.4-5.0[facility] Comment on above:Performed By: #### HSTROPN, BMP #### [facility] [address] [place] [address] Dr. Ariana PimentelSodium [Moles/Vol]139 mmol/NHryaiy100-882BtmOhiohealth Nelsonville Health Center Comment on above:Performed By: #### HSTROPN, BMP #### [facility] [address] [place] [address] Dr. Ariana PimentelUrea nitrogen [Mass/Vol]20.0 mg/dLNormal9.0-20.0The [facility] HospitalComment on above:Performed By: #### HSTROPN, BMP #### [facility] [address] [address] [address] Ariana PimentelUrea nitrogen/Creatinine [Mass ratio]20.6 mg/mgNoZanesville City HospitalComselect specialty hospital on above:Performed By: #### HSTROPN, BMP #### [facility] [address] [address] [address] Ariana PimentelPROTIMEon 37-85-4420BIC Coag (PPP) [Relative time]0.96 {INR} NormalThe [facility] on above:Performed By: #### CRP, CMP #### [facility] [address] [place] [address] Dr. Ariana Lr GUIDELINESSEE BELOWCoshocton Regional Medical CenterComment on above:Result Comment: DESIRED INR: 2.0 - 3.0 CONDITIONS NOT LISTED BELOW 2.5 - 3.5 FOR PROSTHETIC HEART VALVE REPLACEMENT 2.5 - 3.5 RECURRENT THROMBOSIS Performed By: #### CRP, CMP #### [facility] [address] [place] [address] Dr. Ariana PimentelPT Coag (PPP) [Time]10.4 sNormal9.0-11.6[facility] Comment on above:Performed By: #### CRP, CMP #### [facility] [address] [place] [address] Dr. Ariana Montaño 39-15-4172fMUU Coag (Bld) [Time]28.6 sOtuuwi50.3-36.2[facility] on above:Performed By: #### CRP, CMP #### [facility] [address] [place] [address] Dr. Ariana Severino, HIGH SENSITIVITYon 29-84-7093DTXUJP662.4 pg/mL Critically high4.0-42.2The [facility] on above:Result Comment: CUT-OFF POINTS HAVE BEEN ESTABLISHED BASED ON THE FOURTH UNIVERSAL DEFINITIONS OF MYOCARDIAL INFARCTION. THE UPPER REFERENCE LIMIT (URL) OF TROPONIN, DEFINED THE 99TH PERCENTILE OF cTnI DISTRIBUTION IN A REFERENCE POPULATION, HAS BEEN CONFIRMED THE DECISION THRESHOLD FOR TX DIAGNOSIS.Performed By: #### SEDR #### [facility] [address] [address] [address] Ariana PimentelHSTROP234.8 pg/mLCritically high4.0-42.2[facility] Comment on above:Result Comment: CUT-OFF POINTS HAVE BEEN ESTABLISHED BASED ON THE FOURTH UNIVERSAL DEFINITIONS OF MYOCARDIAL INFARCTION. THE UPPER REFERENCE LIMIT (URL) OF TROPONIN, DEFINED THE 99TH PERCENTILE OF cTnI DISTRIBUTION IN A REFERENCE POPULATION, HAS BEEN CONFIRMED THE DECISION THRESHOLD FOR TX DIAGNOSIS. critical value repeated and verifiedPerformed By: #### HSTROPN, BMP #### [facility] [address] [place] [address] Dr. Ariana PimentelXR CHEST 1 Von 67-84-2557BI CHEST 1 VEXAMINATION: XR CHEST 1 V HISTORY: chest pain COMPARISON: 03/19/2019 [...] Electronically authenticated by: ELYSE QUINTERO Date: 2021-01-30 10:[address] [place], [place] [address]INSULINon 40-06-6262Lkdgjue16.4 uIU/mLNormal2.6-24.9The [facility] HospitalComment on above:Performed By: #### INSULIN #### [facility] [address] [place] [address] Branden KarenCBC AUTO DIFFon 86-62-0322UJRX #0.1 103/ulNormal0.0-0.1The [facility] HospitalComment on above:Performed By: #### CBC #### [facility] [address] [place] [address] Branden KarenBasophils/100 WBC (Bld)1.3 %Normal0.2-2.0[facility] Comment on above:Performed By: #### CBC #### [facility] [address] [address] Branden KarenEO #0.2 103/ulNormal0.0-0.7The [facility] HospitalComment on above: Performed By: #### CBC #### [facility] [address] [place] [address] Branden KarenEosinophils/100 WBC (Bld)2.2 %Normal0.9-7.0[facility] Comment on above:Performed By: #### CBC #### [facility] [address] [place] [address] Branden KarenErythrocyte distribution width (RBC) [Ratio]13.6 %Npxlvj48.0-15.0The [facility] HospitalComment on above:Performed By: #### CBC #### [facility] [address] [place] [address] Branden KarenHematocrit (Bld) [Volume fraction]44.8 %Yzdelu05.0-54.0The [facility] HospitalComment on above:Performed By: #### CBC #### [facility] [address] [place] [address] Branden KarenHemoglobin (Bld) [Mass/Vol]15.2 g/yESmodin43.0-18.0The [facility] HospitalComment on above:Performed By: #### CBC #### [facility] [address] [place] [address] Branden KarenIG #0.03 10e3/ulNormal0.00-0.03The Berger Hospitalment on above:Performed By: #### CBC #### [facility] [address] [place] [address] Branden KarenIG %0.4 %Normal0.0-0.5The [facility] HospitalComment on above: Performed By: #### CBC #### [facility] [address] [place] [address] Branden KarenLYMPH #2.3 103/ulNormal1.2-3.8The [facility] HospitalComment on above: Performed By: #### CBC #### [facility] [address] [id number] Branden KarenLymphocytes/100 WBC (Bld)27.0 %Razjer23.5-60.0[facility] Comment on above:Performed By: #### CBC #### [facility] [address] [place] [address] Branden KarenMANUAL DIFF REQNONormalThe [facility] HospitalComment on above: Performed By: #### CBC #### [facility] [address] [place] [address] Branden KarenMCH (RBC) [Entitic mass]30.4 nlUvxqwd84.9-34.0[facility] Comment on above:Performed By: #### CBC #### [facility] [address] [place] [address] Branden KarenMCHC (RBC) [Mass/Vol]33.9 g/hEXigtgi24.9-35.2[facility] Comment on above:Performed By: #### CBC #### [facility] [address] [place] [address] Branden KarenMCV (RBC) [Entitic vol]89.6 fDSvnwrq94.0-94.0[facility] Comment on above:Performed By: #### CBC #### [facility] [address] [place] [address] Branden KarenMONO #0.7 103/ulNormal0.3-0.8The [facility] HospitalComment on above: Performed By: #### CBC #### [facility] [address] [place] [address] Branden KarenMonocytes/100 WBC (Bld)8.8 %Normal1.7-12.0[facility] Comment on above:Performed By: #### CBC #### [facility] [address] [place] [address] Branden KarenNEUT #5.0 103/ulNormal1.4-6.5The [facility] HospitalComment on above: Performed By: #### CBC #### [facility] [address] [place] [address] Branden KarenNeutrophils/100 WBC (Bld)60.3 %Jkcpmr79.0-75.0[facility] Comment on above:Performed By: #### CBC #### [facility] [address] [place] [address] Branden StantonPlatelet mean volume (Bld) [Entitic vol]9.6 fLNormal9.5-13.5The [facility] HospitalComment on above:Performed By: #### CBC #### [facility] [address] [place] [address] Branden NzkonJDG050 103/dvSufyyr023-413Hjd [facility] HospitalComment on above: Performed By: #### CBC #### [facility] [address] [place] [address] Branden KarenRBC5.00 106/ulNormal4.70-6.10The [facility] HospitalComment on above: Performed By: #### CBC #### [facility] [address] [place] [address] Branden CorderoenWBC8.3 103/ulNormal4.0-11.0The [facility] HospitalComment on above: Performed By: #### CBC #### [facility] [address] [place] [address] Branden CorderoenFREE THYROXINE INDEX T7on 61-85-6862XQR6.12NormalThe [facility] HospitalComment on above:Performed By: #### CRP, CMP #### [facility] [address] [place] [address] Dr. Ariana PimentelT3U38.0 %Kzdfzm36.5-40.5The [facility] HospitalComment on above: Performed By: #### CRP, CMP #### [facility] [address] [place] [address] Dr. Ariana PimentelT4 [Mass/Vol]8.20 ug/dLNormal5.53-11.00[facility] Comment on above:Performed By: #### CRP, CMP #### [facility] [address] [place] [address] Dr. Ariana PimentelGLYCOHEMOGLOBIN A1Con 07-22-7625ESZ RECOMMENDATIONADA THERAPEUTIC TARGET 6.0 - 7.0 ACTION SUGGESTED > 7.0[facility] CenterComment on above:Performed By: #### A1C #### [facility] [address] [address] Branden KarenGlucose [Mass/Vol]131 mg/dLNoZanesville City HospitalComment on above:Performed By: #### A1C #### [facility] [address] [address] Branden GdcsbEeU6e (Bld) [Mass fraction]6.2 %Critically high<=6.0The [facility] HospitalComment on above:Performed By: #### A1C #### [facility] [address] [place] [address] Branden KarenLIPID PROFILEon 11-35-4214INOA-HDL RATIO NORMSEE BELOWCoshocton Regional Medical CenterComment on above:Result Comment: 3.3 - 4.4 LOW RISK 4.4 - 7.1 AVERAGE RISK 7.1 - 11.0 MODERATE RISK >11.0 HIGH RISKPerformed By: #### CRP, CMP #### [facility] [address] [place] [address] Dr. Ariana Schaeferesterol [Mass/Vol]196 mg/dLNormal<=200[facility] Comment on above:Performed By: #### CRP, CMP #### [facility] [address] [address] [address] Ariana PimentelCholesterol in HDL [Mass/Vol]27 mg/dLCoshocton Regional Medical Center Comment on above:Performed By: #### CRP, CMP #### [facility] [address] [address] [address] Ariana PimentelCholesterol in LDL [Mass/Vol]117.2 mg/dLCoshocton Regional Medical CenterComment on above:Performed By: #### CRP, CMP #### [facility] [address] [place] [address] Dr. Ariana Lanier.total/Cholesterol in HDL [Mass ratio]7.3 {ratio} NormalThe Berger Hospitalment on above:Performed By: #### CRP, CMP #### [facility] [address] [address] [address] Ariana Aguilar NORMAL> or = 60 mg/dl - LOW CARDIOVASCULAR RISK <40 mg/dl - HIGH CARDIOVASCULAR RISKCoshocton Regional Medical CenterComselect specialty hospital on above:Performed By: #### CRP, CMP #### [facility] [address] [address] [address] Ariana PimentelLDL CALC NORMALSEE BELOWCoshocton Regional Medical CenterComment on above:Result Comment: <100 mg/dl OPTIMAL 100 - 129 mg/dl NEAR OR ABOVE OPTIMAL 130 - 159 mg/dl BORDERLINE HIGH 160 - 189 mg/dl HIGH >190 mg/dl VERY HIGH Performed By: #### CRP, CMP #### [facility] [address] [place] [address] Dr. Ariana PimentelTriglyceride [Mass/Vol]259 mg/dLCritically high<=150The [facility] HospitalComselect specialty hospital on above:Performed By: #### CRP, CMP #### [facility] [address] [address] [address] Ariana PimentelVLDL CALC51.8 mg/dLNoSt. Francis Hospital on above: Performed By: #### CRP, CMP #### [facility] [address] [place] [address] Dr. Ariana PimentelPROF 14(COMP METB)on 26-63-8461Tmplzzc [Mass/Vol]3.7 g/dLNormal 3.5-5.0[facility] on above:Performed By: #### CRP, CMP #### [facility] [address] [address] [address] Ariana PimentelAlbumin/Globulin [Mass ratio]1.1 {ratio}NormalThe [facility] on above:Performed By: #### CRP, CMP #### [facility] [address] [address] [address] Ariana PimentelALP [Catalytic activity/Vol]116 U/ATwkrcu81-599Dsp [facility] HospitalComment on above:Performed By: #### CRP, CMP #### [facility] [address] [address] [address] Ariana MattT [Catalytic activity/Vol]25 U/JAarelk89-90Sui [facility] HospitalComment on above:Performed By: #### CRP, CMP #### [facility] [address] [address] [address] Ariana Oconnoron gap [Moles/Vol]12.7 mmol/LNormalThe [facility] Comment on above:Performed By: #### CRP, CMP #### [facility] [address] [address] [address] Ariana PimentelAST [Catalytic activity/Vol]14 U/LCritically bug50-41Vpc [facility] HospitalComment on above:Performed By: #### CRP, CMP #### [facility] [address] [address] [address] Ariana PimentelBilirubin [Mass/Vol]0.4 mg/dLNormal0.2-1.3TMercy Health West Hospital Comment on above:Performed By: #### CRP, CMP #### [facility] [address] [address] [address] Ariana PimentelCalcium [Mass/Vol]8.7 mg/dLNormal8.4-10.2[facility] Comment on above:Performed By: #### CRP, CMP #### [facility] [address] [address] [address] Ariana PimentelChloride [Moles/Vol]105 mmol/EQjcgpq33-857PhuOhiohealth Nelsonville Health Center Comment on above:Performed By: #### CRP, CMP #### [facility] [address] [address] [address] Ariana PimentelCO2 [Moles/Vol]24.7 mmol/JYvqjjn39.0-30.0[facility] Comment on above:Performed By: #### CRP, CMP #### [facility] [address] [address] [address] Ariana PimentelCreatinine [Mass/Vol]1.07 mg/dLNormal0.66-1.25The [facility] HospitalComment on above:Performed By: #### CRP, CMP #### [facility] [address] [address] [address] Ariana MarinGFR-AF SYRIAN>60Normal>=60The [facility] HospitalComment on above:Performed By: #### CRP, CMP #### [facility] [address] [address] [address] Ariana MarinGFR-NON AF SYRIAN>60Normal>=60[facility] CenterComment on above:Performed By: #### CRP, CMP #### [facility] [address] [address] [address] Ariana PimentelGlobulin (S) [Mass/Vol]3.4 g/dLNormalThJ.W. Ruby Memorial HospitalComment on above:Performed By: #### CRP, CMP #### [facility] [address] [place] [address] Dr. Ariana PimentelGlucose [Mass/Vol]140 mg/dLCritically iwgs14-568EkmFostoria City Hospitalment on above:Performed By: #### CRP, CMP #### [facility] [address] [address] [address] Ariana PimentelPotassium [Moles/Vol]4.4 mmol/LNormal3.4-5.0[facility] Comment on above:Performed By: #### CRP, CMP #### [facility] [address] [address] [address] Ariana PimentelProtein [Mass/Vol]7.1 g/dLNormal6.1-8.2[facility] Comment on above:Performed By: #### CRP, CMP #### [facility] [address] [address] [address] Ariana PimentelSodium [Moles/Vol]138 mmol/KBwhien900-817PflOhiohealth Nelsonville Health Center Comment on above:Performed By: #### CRP, CMP #### [facility] [address] [address] [address] Ariana PimentelUrea nitrogen [Mass/Vol]16.0 mg/dLNormal9.0-20.0[facility] Health CenterComment on above:Performed By: #### CRP, CMP #### [facility] [address] [place] [address] Dr. Ariana PimentelUrea nitrogen/Creatinine [Mass ratio]15.0 mg/mgNoZanesville City HospitalComment on above:Performed By: #### CRP, CMP #### [facility] [address] [place] [address] Dr. Ariana LongHon 48-67-3611YMI6.511 uIU/mLNormal0.470-4.680The [facility] HospitalComment on above:Performed By: #### CRP, CMP #### [facility] [address] [place] [address] Dr. Ariana Kendall [facility] BELOWCoshocton Regional Medical CenterComment on above: Result Comment: <0.34 UIU/ml HYPERTHYROID 0.34-5.60 UIU/ml EUTHYROID >5.60 UIU/ml HYPOTHYROIDPerformed By: #### CRP, CMP #### [facility] [address] [place] [address] Dr. Ariana PimentelURIC ACID SERUMon 14-32-9735Rulzq [Mass/Vol]4.0 mg/dLNormal 3.5-8.5The [facility] HospitalComment on above:Performed By: #### CRP, CMP #### [facility] [address] [place] [address] Dr. Ariana PimentelXR LSPINE MIN 4 VIEWSon 51-38-3273HX LSPINE MIN 4 VIEWS EXAMINATION: XR LSPINE MIN 4 VIEWS HISTORY: Low back pain [...] Electronically authenticated by: ELYSE QUINTERO Date: 2020-07-13 09:[address] [place] [address] Vital Signs Date TimeVital SignValuePerforming JbbtealfiSvetqtdx81-76-9053 18:00-0400 Diastolic blood otjwdfhb56 mm[Hg]Romana Henderson MD Work Phone: [phone] [place], [place] 1586405-01-2023 18:00-0400Heart rate67 /minRomana Henderson MD Work Phone: [phone]05-01-2023 18:00-0400Respiratory rate24 /minRomana Henderson MD Work Phone: [phone]05-01-2023 18:00-8132KpI4% (BldA) [Mass fraction]98 %Romana Henderson MD Work Phone: [phone] [place], [place] 5537305-01-2023 18:00-0400Systolic blood urltxvtg037 mm[Hg]Romana Henderson MD Work Phone: [phone] [place], [place] 5537305-01-2023 14:43-0400Body height 177.8 cmRomana Henderson MD Work Phone: [phone] [place], [place] 5537305-01-2023 14:41-0400Body dhvyeygwnge50.81 [degF]Romana Henderson MD Work Phone: [phone]11-02-2022 06:10-0400Diastolic blood qoskvbzv24 mm[Hg][employer] [place] Work Phone: [phone] [place], [place] 9364711-02-2022 06:10-0400 Heart rate71 /minNP-C [place] Work Phone: [phone] [place], [place] 9364711-02-2022 06:10-0400 Respiratory rate18 /minNP-C [place] Work Phone: [phone] [place], [place] 9364711-02-2022 06:10-0400 SaO2% (BldA) [Mass fraction]96 %[employer]-[place] Work Phone: [phone] [place], [place] 9364711-02-2022 06:10-0400 Systolic blood ktoxxxao635 mm[Hg][employer] [place] Work Phone: [phone] [place], [place] 8023811-02-2022 05:31-0400 Body dsrsredrnkl23.2 [degF][employer] [place] Work Phone: [phone] [place], [place] 8023811-02-2022 03:44-0400 Body qjpcuy955.8 cmNP-C [place] Work Phone: [phone] [place], [place] 8023811-02-2022 03:44-0400 Body qkvppu68.1 kgNP-C [place] Work Phone: [phone] [place], [place] 8023804-20-2022 13:56-0400 Diastolic blood fpsgzazp19 mm[Hg][employer] [place] Work Phone: [phone]04-20-2022 13:56-0400 Heart rate84 /minNP-C [place] Work Phone: [phone] [place], [place] 8023804-20-2022 13:56-0400 Respiratory rate18 /minNP-C [place] Work Phone: [phone] [place], [place] 8023804-20-2022 13:56-0400 SaO2% (BldA) [Mass fraction]98 %[employer] [place] Work Phone: [phone] [address] [place], [place] 8023804-20-2022 13:56-0400 Systolic blood vfihliqq736 mm[Hg]MI[employer]OS[employer] OFFICE INSTRUCTOR-C Park Shirley Work Phone: [phone] [place], [place] 8023804-20-2022 13:44-0400 Body htipea009.8 cmNP-C Parkpili Salehmer Work Phone: [phone]04-20-2022 13:44-0400 Body felxxu44.81 kgNP-C Park Shirley Work Phone: [phone] [place] [address] Encounters Encounter DateEncounter TypeCare ProviderFacilityStart: 10-19-2024 End: 61-96-3745wyocslenkmIhoboyijo M Richar OcUniversity [facility]als [facility] Work Phone: Start: 10-19-2024 End: 99-43-5396Ureytkpl ReferredChristine Richar Mosqueda DO-LAB [facility] HospStart: 06-25-2022 End: 22-22-0262Zrbhamlge department patient visitMICADRIAN Frias [facility] HospitalStart: 06-25-2022 End: 37-49-7499Drwppzhfs department patient visitMicadrian Rico Beatriz AMAYA Work Phone: [facility] MedicineStart: 12-28-2021 [address] Florentino Villanuevacility:9090Start: 96-60-6059djvgcdlkaxMf. Florentino Villanuevacility:9090Start: 57-44-9241Khldxhvoma and management of inpatientNP-C Park Shirley Work Phone: [facility] Start: 58-95-1767gxumbkxsenBa. Florentino Villanuevacility:9090Start: 06-14-2021 End: 00-78-3288Sqylaoh encounter procedureNP-C Park Geren Work Phone: [facility] CampusStart: 06-02-2021 End: 86-99-1994bupgrvjbzvQBEPPC TORYFacility:R4Nbtva: 06-01-2021 End: 56-04-7036mjzmwxmnhlMWFKFZ Luiscility:T0Ejewm: 02-73-0958rbpenhdqwz PARK SPEARSFacility:B0Dedzp: 05-26-2021 End: 42-61-7141halkadfbvqVIWOFO TORYFacility:V3Ymtgn: 37-48-0877jchxnlqiiaFPB Juliette BrianFacility:72[address]Dojgf: 13-86-6933kymdtffnlxMe. Florentino Riley Facility:9090Start: 58-20-6924rjerbrgocdMr. Florentino Villanuevacility:9090Start: 01-30-2021 End: 98-51-0626qnedjdejomBLTSTH ALLENFacility:X8Qvoyc: 34-94-5058domkedmlnxOy. Florentino Caldwellity:9090Start: 01-16-2021 End: 84-21-8911rldtndwaxsRXJRLN ALLENFacility:V8Rixvs: 08-16-2020 End: 01-20-2510jlixebomkjLOJWPA ROSSFacility:U2Txuvy: 07-26-2020 End: 71-78-2345gopvbnaozsSETDCV ROSSFacility:L1Qajwa: 07-13-2020 End: 23-09-9509qfheairqlwBKFJHQ ALLENFacility:H1 Procedures DateProcedureProcedure DetailPerforming ClinicianStart: 69-17-2721Ry abdomen & pelvis w/contrast materialRomana Henderson MD Work Phone: Start: 66-28-7098Hucriurjkk microscopic onlyRomana Henderson MD Work Phone: Start: 50-79-9150Citsmczipx, reagent strip without microscopyRomana Henderson MD Work Phone: Start: 95-56-0334Znednfkj blood count with white cell differential, automatedRomana Henderson MD Work Phone: Start: 23-25-5968Cqufctcvxxjzj metabolic panelRomana Henderson MD Work Phone: Start: 22-73-5094Zcj routine ecg w/least 12 lds w/i&r Romana Jacky Henderson MD Work Phone: Start: 01-93-5206XZZ of headNP-C Park Green Work Phone: Start: 11-94-0430KIC screeningSAEL ROSSComment on above:Performed By: #### CRP, CMP #### [facility] [address] [place] [address] Dr. Ariana PimentelHiszeyad of coronary artery bypass graftingHx of CABGChristine Richar Garza DO Work Phone: comment on above:Problem List clean-up per request of Phys. EHR CmteHistory of placement of stent for coronary artery diseaseHx of heart artery stentChristine Richar Garza DO Work Phone: comment on above:Problem List clean-up per request of Phys. EHR CmteSARS Antigen (LFIA)DANE Green Work Phone: Plan of Treatment DateCare ActivityDetailAuthorStart: 90-81-1833Poefb cultureThe Bellevue Hospitaltart: 83-44-4235Mgqbdmsj identified in Urine by CultureUrine CultureThe Bellevue Hospitaltart: 78-61-7137Buuxm chemistry [facility]: 14-95-2386Dqpii panelThe Bellevue Hospitaltart: 20-40-0156Axqtcvich measurementThe [facility] Hospitaltart: 74-80-6317CtubibmkeThe [facility] Hospitaltart: 12-27-2021 Hospital admissionThe [facility] Hospitaltart: 43-27-6283Mqsjjbbh to cardiologistThe Bellevue Hospitaltart: 72-36-5619ApvtbytalThe [facility] Hospitaltart: 05-44-3706Wpidp chest X-rayXR chest 1V portableThe [facility] Hospitaltart: 78-46-5860PY Chest Single viewThe [facility]vue Hospitaltart: 45-93-6518ywlsixhhzjObfjgxsyowDxhcnoii:D6Srmki: 10-11-2020 COVID-19 VACCINE (3 - Booster for Pfizer series)COVID-19 VACCINE (3 - Booster for Pfizer series)[facility]: 01-50-0881Abboljie specific antigen measurementPROSTATE CANCER SCREENING DISCUSSIONMercy Health Anderson Hospitaltart: 56-51-4920Aordij vaccine hzv live for subcutaneous useZOSTER (SHINGLES) VACCINE (1 of 2)[facility]: 75-02-1744Qszhluwbh for malignant neoplasm of colonCOLORECTAL CANCER SCREENING DISCUSSIONMercy Health Anderson Hospitaltart: 2001 Lipid panelLIPID SCREENINGMercy Health Anderson Hospitaltart: 48-91-2640Fhlpc diphtheria, tetanus and acellular pertussis (DTaP) vaccinationTDAP (ADULT)[facility]: 85-23-4039ALK screeningHIV SCREENING DISCUSSIONSelect [facility] Start: 20-11-0231XAMBJVUFCRBD VACCINE SERIES (1 - PCV)PNEUMOCOCCAL VACCINE SERIES (1 - PCV)[facility]: 45-66-3038Niqqugexj C screening HEPATITIS C VIRUS SCREENINGMercy Health Anderson Hospitaltart: 42-65-7490Rqqflzp vaccinationTETANUSAGrant Hospitaltandard ECGSelect Medical Specialty Hospital [facility], IncTroponin I.cardiac [Mass/volume] in Serum or Plasma by High sensitivity methodTrinity Health System East Campus Work Phone: Immunizations Immunization DateImmunizationNotesCare MfgipjbhZcqmigrf91-52-0188pcqcpflkk, injectable, quadrivalent, preservative freeChristine Richar Kayla DO Work Phone: [facility]12-08-2021influenza, injectable, quadrivalent, preservative freeNP-C Park Green Work Phone: [facility]06-22-2021COVID-19 mRNA, Comirnaty (Pfizer)[employer] OFFICE INSTRUCTOR-C Park Green Work Phone: [facility]06-01-2021COVID-19 mRNA, Comirnaty (Pfizer)MI[employer] OFFICE INSTRUCTOR-C Park Green Work Phone: [facility] Payers DatePayer CategoryPayerPolicy [id number]-[id number] [id number] 2.1.716961.3.57[id number] 2..1.212096.3.57[id number] 2..1.501030.3.57[id number] 2..1.005164.3.57[id number] 2.16.840.1.226397.3.579.[id number] 2.16.840.1.276306.3.57[id number] 2.16.840.1.174070.3.57[id number] 2.16.840.1.624395.3.579.[id number] 2..840.1.787217.3.57[id number] 2..840.1.260391.3.57[id number] 2.840.1.051831.3.57[id number] 2..840.1.954456.3.579.[id number] 2..840.1.549593.3.57[id number] 2..840.1.243569.3.57[id number] 2..840.1.460371.3.579.[id number] 2..840.1.555217.3.57[id number] 2..840.1.160483.3.57[id number] 2..840.1.802232.3.57[id number] 2.16.840.1.612772.3.579.2.983 [id number] 1959Unknown [id number] Health Insurance [id number] 2.16.840.1.714478.3.579.2.531 Social History DateTypeDetailFacilityStart: 01-30-2021 End: 78-71-7572Hxxfogh smoking status NHISSmoker (finding)[facility]: 28-58-8485Hmz Assigned At BirthMaleFMain Campus Medical Centertart: 12-27-2021 End: 04-01-5371Gyobqeq smoking status NHISSmokes tobacco dailyPromedica Toledo Hospital SystemHistory of tobacco useCigarette SmokerMercy Health Anderson Hospitaltart: 06-25-2022 Cigarettes smoked current (pack per day) - Reported0.5AGrant Hospitaltart: 89-00-1540Vijkyys use and exposureFormer smokeless tobacco userMercy Health Anderson Hospitaltart: 07-00-7507Rgdmhdg intakeEx-drinker (finding)[facility] Start: 42-92-3705Aca Assigned At BirthNot on filePromedica Toledo Hospital SystemStart: 06-15-2022 End: 29-09-7643Aemlydlo to SARS-CoV-2 (event)Not [facility] SystemSexMale (finding)[facility] Medical Equipment Procedure CodeEquipment CodeEquipment Original TextEquipment IdentifierDates Drug-eluting coronary artery stent, usj-csdqptrbxqxsm-wnpdejz-coated ()[id number] FDAStart: 04-49-9055Hhqj-eluting coronary artery stent, azp-zryvdsmodqdhh-zislyfs-coated()[id number] FDAStart: 09-79-8615Znlwonl artery closure plug/patch, synthetic polymer ()[id number] FDAStart: 62-54-8218Mppl-eluting coronary artery stent, uva-nxxttzcrxahkp-cwaoqyu-coated()[id number] FDA Start: 20-54-1614Omwp-eluting coronary artery stent, gpc-wfzwqvqivdsne-hzsmbaf-coated()[id number] FDAStart: 10-90-7859Xmco-eluting coronary artery stent, qeu-jvxfgjfnlhdse-ejlwscn-coated ()[id number] FDAStart: 12-27-2021 Hospital Discharge instructions 06-25-2022 Note Date & MgpfZwicYsniggij35-64-9184 Hospital Discharge instructions* Discharge Instructions* Romana Henderson MD - 06/25/2022 4:31 PM EDT The radiologist 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 Follow-up with your primary care provider regarding so. Your blood sugar was noted at 196. Your sodium level was noted to be low. * Attachments The following attachments cannot be sent through Care Everywhere. * Abdominal Pain (Iranian) * Nausea and Vomiting (Iranian) * Hypertension (Iranian) documented in this [facility] Emergency department Note 06-25-2022 Note Date & AxqbBbzlAkxndqde58-01-2791 Emergency department Note* Magnus Souza RN - 06/25/2022 3:[address] Henderson in room. [facility] Emergency department Note 06-25-2022 Note Date & KxxuNybqEyqoxako76-45-8475 Emergency department Note* Magnus Souza RN - 06/25/2022 3:[address] Henderson in room. documented in this [facility] Evaluation note Note Date & TypeNoteFacilityEvaluation noteNo assessment information available [facility] Work Phone: Evaluation note Note Date & TypeNoteFacilityEvaluation note* Diagnosis Onset Date Resolution Status Angina pectoris, unstable acuteDiabetes type 2, uncontrolledacuteHyperlipidemiaacuteHypertensionacute Hypertensive emergencyacute [facility] Work Phone: Evaluation note Note Date & TypeNoteFacilityEvaluation note* Diagnosis Generalized abdominal pain- Primary Abdominal pain, generalized Nausea vomiting and diarrhea Nausea with vomiting documented in this encounter [facility] History and physical note Note Date & TypeNoteFacilityHistory and physical note Author Yung Gong [facility] December 27, 2021 6:18amNote Date/TimeNov2021 6:[place] [address] Hospitalist H&P Signed Patient: Donovan Norris MR#: [id number] : 1960 Acct:[id number] Age/Sex: 61 / M Adm Date: 2 Loc: Room: [address] [place] [address] Type: ADM IN Attending Dr: Yung Whipple MD Copies to: MD Park Dior, LEAD GAME DESIGNER~ HPI DATE OF EXAMINATION: 12/27/21 CHIEF COMPLAINT: [...] medications however this time around he stated thathe has been taking his medications since he [...] % (Auto) 31.8 % (.) 12/27/21 03:53 Parmer % (Auto) 9.6 % (.) 12/27/21 03:53 Eos % (Auto) 1.9 % (.) 12/27/21 03:53 Baso % (Auto) 1.3 % (.) 12/27/21 03:53 Neut # (Auto) 5.0 x10E3/uL (1.8-7.7) 12/27/21 03:53 Lymph # (Auto) 2.9 x10E3/uL (1.00-4.8) 12/27/21 03:53 Parmer # (Auto) 0.9 x10E3/uL (0.0-0.8) H 12/27/21 [...] Yung Whipple MD> 12/27/21 0618 [facility] Work Phone: Reason for referral (narrative) Note Date & TypeNoteFacilityReason for referral (narrative)No reason for referral information availableMercy Health [facility]tr Work Phone: Chief Complaint and Reason [...] Family History Records Found Reason for Referral SpecialtyDiagnoses / ProceduresReferred By ContactReferred To Contact Procedures ECG Romana Henderson MD [address] [place], [place] [id number] Referral IDStatusReasonStart DateExpiration DateVisits RequestedVisits [id number] Request/ Additional Source Comments Care Teams (unrecognized sec tion and content) Team Status: Inactive Member Role Status Dates Park Green , MI[employer] OFFICE INSTRUCTOR-C Primary Care Provider, Attend ing Provider Active Team Status: Active Member Role Status Dates Park Green , MI[employer] OFFICE INSTRUCTOR-C Primary Care Provider Active Team Status: Active Member Role Status Dates Park Green , MI[employer] OFFICE INSTRUCTOR-C Primary Care Provider Active Vadim Guido , DOEmergency ProviderActiveHani Isauro Whipple , MDAdmit Provider, Attending ProviderActiveTeam MemberRelationshipSpecialtyStart DateEnd Date Park Green, LEAD GAME DESIGNER [address] [place] [address] PCP - GeneralNurse Practitioner - 06/25/22 Team Status: Inactive Member Role Status Dates Ally Garza , Attending Provider Act [place] Start: October 19, 2024 End: October 19, [...] and content) DATE CREATED AUTHOR 06/29/2021 [facility] DATE CREATED AUTHOR AUTHOR'S ORGANIZ ATION 01/01/2022 [facility] DATE CREATED AUTHOR AUTHOR'S ORGANIZ ATION 06/30/2022 [facility] DATE CREATED AUTHOR AUTHOR'S ORGANIZ ATION 10/23/2024 [facility] Reason for Visit (unrecogniz ed section and content) ReasonCommentsAbdominal PainAbdominal pain since 1129 with c/o Nausea and vomiting. Scheduled Active and Recently Administ ered Medications (unrecognized section and content) Medication Order//02/2022 GI cocktail: alum/mag hydrox-simethicone(30ml)+lidocaine 2%(10ml) oral suspension 40 mL (COMPLETED) 40 mL, Oral, ONCE, 1 dose, On Sat06/25/22 at 1715 * 1643 (Given - Provider: Magnus Souza RN) iohexol (OMNIPAQUE) 350 MG/ML injection 90 mL (COMPLETED) 90 mL, Intravenous, ONCE, 1 dose, On Sat06/25/22 at 1645, Patient Weight > 250 lbs (100 ml bottle) Administer 100 ml Omnipaque 350mg/ml with GFR >59 Extravasation Risk, Radiology Procedure * 1605 (Given - Radiology - Provider: Abbi Spencer) Morphine sulfate (PF) injection 4 mg (COMPLETED) 4 mg, Intravenous, ONCE, 1 dose, On Sat06/25/22 at 1615 * 1542 (Given - Provider: Magnus Souza RN) Ondansetron 4mg/2ml (ZOFRAN) injection 4 mg (COMPLETED) 4 mg, Intravenous, ONCE, 1 dose, On Sat06/25/22 at 1615 * 1542 (Given - Provider: Magnus Souza RN) Sodium chloride 0.9% IV solution 75 mL (COMPLETED) 75 mL, Intravenous, ONCE, 1 dose, On Sat06/25/22 at 1645, Radiology Procedure * 1605 ($$New Bag$$ - Provider: Abbi Spencer) * 1610 (Stopped - Provider: Magnus Souza RN) FOR [...] BE BASED ON THE PRIMARY CLINICAL RECORDS. [employer] provides no warranty or guarantee of the accuracy or completeness of information in this document.
--- OUTSIDE RECORDS SUMMARY | 2025-02-21 15:58 | XMS_ITS | Clinical Summary ---
Author Organization [facility] Address [address] [place] [address] Phone Care Team Providers Care Patent Solicitor Name Role Phone Unavailable Primary Care Provider Unavailabl e Social History Tobacco UseTypesPacks/DayYears UsedDateSmoking Tobacco: Never AssessedSex and Gender InformationValueDate RecordedSex Assigned at BirthNot on fileLegal Sex Male01/20/2022 8:46 PM ESTGender IdentityNot on fileSexual OrientationNot on file Plan of Treatment Health MaintenanceDue DateLast DoneCommentsCT Gaayxsglgxtr1961olonoscopy 1961olorectal Cancer Awdusirkw1961FIT-DNA (Cologuard)1960FIT 1960HIV Ehgdikbvz1961ipid Panel1960 9978Ztxvyqnsnqwqb1961 Yearly Adult Hrjzrdtu1961MMR Vaccines (1 of 1 - Standard series)1962 Hepatitis C Rclqvirnr47/13/1979Pneumococcal Vaccine (1 of 2 - PCV)02/07/1980 DTaP/Tdap/Td Vaccines (1 - Tdap)1983PSA Prostate Cancer Screening 2011RSV High Risk: (Elderly (60+) or Population) (1 - Risk 50-74 years 1-dose series)2011Zoster Vaccines (1 of 2)2011COVID-19 Vaccine (1 - season)2024Influenza Vaccine (#1)2024HIB VaccinesAged OutNo longer eligible based on patient's age to complete this topicHPV Vaccines Aged OutNo longer eligible based on patient's age to complete this topic Hepatitis A VaccinesAged OutNo longer eligible based on patient's age to complete this topicHepatitis B VaccinesAged OutNo longer eligible based on patient's age to complete this topicIPV VaccinesAged OutNo longer eligible based on patient's age to complete this topicMeningococcal VaccineAged OutNo longer eligible based on patient's age to complete this topicRotavirus VaccinesAged Out No longer eligible based on patient's age to complete this topic
--- OUTSIDE RECORDS SUMMARY | 2025-02-21 15:58 | XMS_ITS | Patient Health Record ---
Author Organization [facility] [place] Address [address] [place] [address] Care Team Providers Care Unit Tender Name Role Phone [place] Primary Care Provider [phone] Results Component Value Reference Range Notes BLOOD CULTURE ID PANEL Reviewed date:10/20/2024 01:33:12 PM Interpretation: Performing Lab: Notes/Report: [facility] , CTX-M NOT APPLICABLE NOT DETECTE IMPNOT APPLICABLENOT DETECTEKPCNOT APPLICABLENOT DETECTEmcr-1NOT APPLICABLENOT DETECTEmecA/CNOT APPLICABLENOT DETECTEmecA/C and MREJ (MRSA)NOT DETECTEDNOT DETECTENDMNOT APPLICABLENOT [id number] APPLICABLENOT DETECTEvanA/BNOT APPLICABLENOT DETECTEVIMNOT APPLICABLENOT DETECTESourceBLOODEnterococcus faecalisNOT DETECTEDNOT DETECTEEnterococcus faeciumNOT DETECTEDNOT DETECTE Listeria monocytogenesNOT DETECTEDNOT DETECTEStaphylococcus spp.DETECTEDNOT DETECTERESULTS CALLED TO SUDHAKAR LOPEZ RN at 1111Staphylococcus aureusDETECTEDNOT DETECTERESULTS CALLED TO SUDHAKAR LOPEZ RN at 1111Staphylococcus epidermidisNOT DETECTEDNOT DETECTEStaphylococcus lugdunensisNOT DETECTEDNOT DETECTE Streptococcus spp.NOT DETECTEDNOT DETECTEStreptococcus agalactiaeNOT DETECTEDNOT DETECTEStreptococcus pneumoniaeNOT DETECTEDNOT DETECTEStreptococcus pyogenesNOT DETECTEDNOT DETECTEA. calcoaceticus-baumannii CpxNOT DETECTEDNOT DETECTE Bacteroides fragilisNOT DETECTEDNOT DETECTEEnterobacteralesNOT DETECTEDNOT DETECTEEnterobacter cloacae complexNOT DETECTEDNOT DETECTEEscherichia coliNOT DETECTEDNOT DETECTEKlebsiella aerogenesNOT DETECTEDNOT DETECTEKlebsiella oxytoca NOT DETECTEDNOT DETECTEKlebsiella pneumoniae groupNOT DETECTEDNOT DETECTEProteus spp.NOT DETECTEDNOT DETECTESalmonella spp.NOT DETECTEDNOT DETECTESerratia marcescensNOT DETECTEDNOT DETECTEHaemophilus influenzaeNOT DETECTEDNOT DETECTE Neisseria meningitidisNOT DETECTEDNOT DETECTEPseudomonas aeruginosaNOT DETECTED NOT DETECTEStenotrophomonas maltophiliaNOT DETECTEDNOT DETECTECandida albicans NOT DETECTEDNOT DETECTECandida aurisNOT DETECTEDNOT DETECTECandida glabrataNOT DETECTEDNOT DETECTECandida kruseiNOT DETECTEDNOT DETECTECandida parapsilosisNOT DETECTEDNOT DETECTECandida tropicalisNOT DETECTEDNOT DETECTECryptococcus neoformans/gattiiNOT DETECTEDNOT DETECTEPerforming Lab:see noteML - [facility] LBLIPASE Reviewed date:10/20/2024 10:13:08 AM Interpretation: Performing Lab: Notes/Report: [facility] ,[id number] U/LPerforming Lab:see noteML - [facility] LB Aerobe ID + Suscept Reviewed date:10/23/2024 03:29:58 PM Interpretation: Performing Lab: Notes/Report: [facility] ,Aerobe ID + SusceptSee Below For Report Aerobe ID + Suscept O:STAAUR Isolated Organism: 1.1 Antibiotic Interpretation COLIN Status Aerobe ID + Suscept*ABNORMAL* Aerobe ID + Suscept O:STAAUR Isolated Organism: 1.1 Antibiotic Interpretation COLIN Status Aerobe ID + SusceptGram positive cocci Aerobe ID + Suscept O:STAAUR Isolated Organism: 1.1 Antibiotic Interpretation COLIN Status Aerobe ID + Suscept*ABNORMAL* Aerobe ID + Suscept O:STAAUR Isolated Organism: 1.1 Antibiotic Interpretation COLIN Status Aerobe ID + SusceptRecovered from aerobic bottle only. Aerobe ID + Suscept O:STAAUR Isolated Organism: 1.1 Antibiotic Interpretation COLIN Status Aerobe ID + SusceptOrganism: Staphylococcus aureus : Aerobe ID + Suscept O:STAAUR Isolated Organism: 1.1 Antibiotic Interpretation COLIN Status Aerobe ID + Suscept*ABNORMAL* Aerobe ID + Suscept O:STAAUR Isolated Organism: 1.1 Antibiotic Interpretation COLIN Status Aerobe ID + SusceptBased on susceptibility to oxacillin this isolate would be Aerobe ID + Suscept O:STAAUR Isolated Organism: 1.1 Antibiotic Interpretation COLIN Status Aerobe ID + Susceptsusceptible to: Aerobe ID + Suscept O:STAAUR Isolated Organism: 1.1 Antibiotic Interpretation COLIN Status Aerobe ID + Suscept*Penicillinase-stable penicillins, such as: Aerobe ID + Suscept O:STAAUR Isolated Organism: 1.1 Antibiotic Interpretation COLIN Status Aerobe ID + SusceptCloxacillin, Dicloxacillin, Nafcillin Aerobe ID + Suscept O:STAAUR Isolated Organism: 1.1 Antibiotic Interpretation COLIN Status Aerobe ID + Suscept*Beta-lactam combination agents, such as: Aerobe ID + Suscept O:STAAUR Isolated Organism: 1.1 Antibiotic Interpretation COLIN Status Aerobe ID + SusceptAmoxicillin-clavulanic acid, Ampicillin-sulbactam, Aerobe ID + Suscept O:STAAUR Isolated Organism: 1.1 Antibiotic Interpretation COLIN Status Aerobe ID + SusceptPiperacillin-tazobactam Aerobe ID + Suscept O:STAAUR Isolated Organism: 1.1 Antibiotic Interpretation COLIN Status Aerobe ID + Suscept*Oral cephems, such as: Aerobe ID + Suscept O:STAAUR Isolated Organism: 1.1 Antibiotic Interpretation COLIN Status Aerobe ID + SusceptCefaclor, Cefdinir, Cefpodoxime, Cefprozil, Cefuroxime, Aerobe ID + Suscept O:STAAUR Isolated Organism: 1.1 Antibiotic Interpretation COLIN Status Aerobe ID + SusceptCephalexin, Loracarbef Aerobe ID + Suscept O:STAAUR Isolated Organism: 1.1 Antibiotic Interpretation COLIN Status Aerobe ID + Suscept*Parenteral cephems, such as: Aerobe ID + Suscept O:STAAUR Isolated Organism: 1.1 Antibiotic Interpretation COLIN Status Aerobe ID + SusceptCefazolin, Cefepime, Cefotaxime, Cefotetan, Ceftaroline, Aerobe ID + Suscept O:STAAUR Isolated Organism: 1.1 Antibiotic Interpretation COLIN Status Aerobe ID + SusceptCeftizoxime, Ceftriaxone, Cefuroxime Aerobe ID + Suscept O:STAAUR Isolated Organism: 1.1 Antibiotic Interpretation COLIN Status Aerobe ID + Suscept*Carbapenems, such as: Aerobe ID + Suscept O:STAAUR Isolated Organism: 1.1 Antibiotic Interpretation COLIN Status Aerobe ID + SusceptDoripenem, Ertapenem, Imipenem, Meropenem Aerobe ID + Suscept O:STAAUR Isolated Organism: 1.1 Antibiotic Interpretation COLIN Status Aerobe ID + SusceptRecovered from aerobic bottle only. Aerobe ID + Suscept O:STAAUR Isolated Organism: 1.1 Antibiotic Interpretation COLIN Status Aerobe ID + SusceptStaphylococcus aureus Aerobe ID + Suscept O:STAAUR Isolated Organism: 1.1 Antibiotic Interpretation COLIN Status Aerobe ID + SusceptSee Below For Report Aerobe ID + Suscept O:STAAUR Isolated Organism: 1.1 Antibiotic Interpretation COLIN Status Aerobe ID + SusceptPerformed at: [facility] Aerobe ID + Suscept O:STAAUR Isolated Organism: 1.1 Antibiotic Interpretation COLIN Status Aerobe ID + [id number] [place], [place] [id number] Aerobe ID + Suscept O:STAAUR Isolated Organism: 1.1 Antibiotic Interpretation COLIN Status Aerobe ID + SusceptLab Director: Jai Guardado PhD, Phone: [phone] Aerobe ID + Suscept O:STAAUR Isolated Organism: 1.1 Antibiotic Interpretation COLIN Status Aerobe ID + SusceptSee Below For Report Aerobe ID + Suscept O:STAAUR Isolated Organism: 1.1 Antibiotic Interpretation COLIN Status Aerobe ID + SusceptCiprofloxacin S F Aerobe ID + Suscept O:STAAUR Isolated Organism: 1.1 Antibiotic Interpretation COLIN Status Aerobe ID + SusceptGentamicin S F Aerobe ID + Suscept O:STAAUR Isolated Organism: 1.1 Antibiotic Interpretation COLIN Status Aerobe ID + SusceptLevofloxacin S F Aerobe ID + Suscept O:STAAUR Isolated Organism: 1.1 Antibiotic Interpretation COLIN Status Aerobe ID + SusceptLinezolid S F Aerobe ID + Suscept O:STAAUR Isolated Organism: 1.1 Antibiotic Interpretation COLIN Status Aerobe ID + SusceptMoxifloxacin S F Aerobe ID + Suscept O:STAAUR Isolated Organism: 1.1 Antibiotic Interpretation COLIN Status Aerobe ID + SusceptOxacillin S F Aerobe ID + Suscept O:STAAUR Isolated Organism: 1.1 Antibiotic Interpretation COLIN Status Aerobe ID + SusceptPenicillin R F Aerobe ID + Suscept O:STAAUR Isolated Organism: 1.1 Antibiotic Interpretation COLIN Status Aerobe ID + SusceptRifampin S F Aerobe ID + Suscept O:STAAUR Isolated Organism: 1.1 Antibiotic Interpretation COLIN Status Aerobe ID + SusceptTetracycline S F Aerobe ID + Suscept O:STAAUR Isolated Organism: 1.1 Antibiotic Interpretation COLIN Status Aerobe ID + SusceptTrimethoprim/Sulfamethoxazole S F Aerobe ID + Suscept O:STAAUR Isolated Organism: 1.1 Antibiotic Interpretation COLIN Status Aerobe ID + SusceptVancomycin S F Aerobe ID + Suscept O:STAAUR Isolated Organism: 1.1 Antibiotic Interpretation COLIN Status Performing Lab:see note LC - [facility] LB SEE REPORT - Geographic Information Scientist Id information not found for OBX-specific lead producer legend CT abdomen pelvis wo con Reviewed date:10/20/2024 10:13:08 AM Interpretation: Performing Lab: Notes/Report: Source Facility: [place] [address] CT Scan Report Signed Patient: PETER LINDQUIST MR#: [id number] : 1960 Acct:[id number] Age/Sex: 64 / M ADM Date: 10/19/24 Loc: ER Attending Dr: Ordering Physician: Jimmy Tovar Date of Service: 10/19/24 Procedure(s): CT abdomen pelvis wo con Accession Number(s): [id number] cc: [facility] [place] [id number] Patient Name: PETER LINDQUIST MRN: [id number] date: 1960 Sex: M Assigned Patient Location: ER Current Patient Location: ER Accession/Order Number: [id number] Exam Date: 10/19/2024 19:45 Report Date: 10/19/2024 20:18 At the request of: JIMMY HERNANDEZ Procedure: CT abdomen pelvis wo con CT abdomen pelvis wo con 10/19/2024 7:57 PM SIGNS AND SYMPTOMS: Right flank pain, abdominal pain, nausea and vomiting TECHNIQUE: Multidetector ct axial images of the abdomen and pelvis were obtained without IV contrast. Multiplanar reformats were performed and reviewed to further define anatomy and possible pathology. CT was performed with one or more of the following dose reduction techniques: Automated exposure control, adjustment of the mA and/or kV according to patient size, or use of iterative reconstruction technique. COMPARISON: 06/21/2020 FINDINGS: Lower Chest: Mild dependent atelectasis is noted in the lung bases. ABDOMEN: Liver: Within normal limits. Bile Ducts: Normal caliber. Gallbladder: No calcified gallstones. Normal caliber wall. Pancreas: Within normal limits. Spleen: Within normal limits. Adrenals: Within normal limits. Kidneys: There is mild perinephric fat stranding bilaterally. There is no radiodense renal stone. No hydronephrosis. Pelvis: Reproductive Organs: No pelvic masses. Ureters: Fat stranding is noted along the ureters, right greater than left. This is suspicious for an ascending urinary tract infection. Bladder: There is mild bladder wall thickening possibly relating to cystitis. Bowel: There are uncomplicated colonic diverticula. No bowel obstruction. Mesenteric Lymph Nodes: No enlarged mesenteric lymph nodes. Peritoneum: No ascites or free air, no fluid collection. Vessels: Atherosclerotic changes are noted in the abdominal aorta and its branches. Retroperitoneum: Nonspecific retroperitoneal lymph nodes are noted. These are mildly prominent. Abdominal Wall: Within normal limits. Bones: Degenerative changes are noted in the thoracolumbar spine, hips, and sacroiliac joints. There is a levoconvex curvature of the lumbar spine. CT/CT abdomen pelvis wo con IMPRESSION: There is mild bladder wall thickening possibly relating to cystitis. This is new when compared to the prior exam. Fat stranding is noted along the ureters, right greater than left. This is suspicious for an ascending urinary tract infection. This is new compared to the prior exam. Mildly prominent retroperitoneal lymph nodes are noted. These may be reactive in nature. No hydronephrosis. No renal, ureteral, or bladder stones. Additional chronic findings are noted as above. Impression dictated by: Neville Elizabeth M.D. 10/19/2024 8:18 PM Dictation Location: [place] [address] Electronically authenticated by: [id number] Y Date: 10/19/2024 20:18 Dictated By: Neville Elizabeth M.D. Signed By: 10/19/242020 DD/ 17 TD/TT: [employer] Supervisor:Aerobe ID + Suscept Reviewed date:10/27/2024 11:13:19 AM Interpretation: Performing Lab: Notes/Report: [facility] ,Aerobe ID + SusceptSee Below For Report Aerobe ID + Suscept O:STAAUR Isolated Organism: 1.1 Antibiotic Interpretation COLIN Status Aerobe ID + Suscept*ABNORMAL* Aerobe ID + Suscept O:STAAUR Isolated Organism: 1.1 Antibiotic Interpretation COLIN Status Aerobe ID + SusceptGram positive cocci Aerobe ID + Suscept O:STAAUR Isolated Organism: 1.1 Antibiotic Interpretation COLIN Status Aerobe ID + Suscept*ABNORMAL* Aerobe ID + Suscept O:STAAUR Isolated Organism: 1.1 Antibiotic Interpretation COLIN Status Aerobe ID + SusceptRecovered from anaerobic bottle only. Aerobe ID + Suscept O:STAAUR Isolated Organism: 1.1 Antibiotic Interpretation COLIN Status Aerobe ID + SusceptOrganism: Staphylococcus aureus : Aerobe ID + Suscept O:STAAUR Isolated Organism: 1.1 Antibiotic Interpretation COLIN Status Aerobe ID + Suscept*ABNORMAL* Aerobe ID + Suscept O:STAAUR Isolated Organism: 1.1 Antibiotic Interpretation COLIN Status Aerobe ID + SusceptBased on susceptibility to oxacillin this isolate would be Aerobe ID + Suscept O:STAAUR Isolated Organism: 1.1 Antibiotic Interpretation COLIN Status Aerobe ID + Susceptsusceptible to: Aerobe ID + Suscept O:STAAUR Isolated Organism: 1.1 Antibiotic Interpretation COLIN Status Aerobe ID + Suscept*Penicillinase-stable penicillins, such as: Aerobe ID + Suscept O:STAAUR Isolated Organism: 1.1 Antibiotic Interpretation COLIN Status Aerobe ID + SusceptCloxacillin, Dicloxacillin, Nafcillin Aerobe ID + Suscept O:STAAUR Isolated Organism: 1.1 Antibiotic Interpretation COLIN Status Aerobe ID + Suscept*Beta-lactam combination agents, such as: Aerobe ID + Suscept O:STAAUR Isolated Organism: 1.1 Antibiotic Interpretation COLIN Status Aerobe ID + SusceptAmoxicillin-clavulanic acid, Ampicillin-sulbactam, Aerobe ID + Suscept O:STAAUR Isolated Organism: 1.1 Antibiotic Interpretation COLIN Status Aerobe ID + SusceptPiperacillin-tazobactam Aerobe ID + Suscept O:STAAUR Isolated Organism: 1.1 Antibiotic Interpretation COLIN Status Aerobe ID + Suscept*Oral cephems, such as: Aerobe ID + Suscept O:STAAUR Isolated Organism: 1.1 Antibiotic Interpretation COLIN Status Aerobe ID + SusceptCefaclor, Cefdinir, Cefpodoxime, Cefprozil, Cefuroxime, Aerobe ID + Suscept O:STAAUR Isolated Organism: 1.1 Antibiotic Interpretation COLIN Status Aerobe ID + SusceptCephalexin, Loracarbef Aerobe ID + Suscept O:STAAUR Isolated Organism: 1.1 Antibiotic Interpretation COLIN Status Aerobe ID + Suscept*Parenteral cephems, such as: Aerobe ID + Suscept O:STAAUR Isolated Organism: 1.1 Antibiotic Interpretation COLIN Status Aerobe ID + SusceptCefazolin, Cefepime, Cefotaxime, Cefotetan, Ceftaroline, Aerobe ID + Suscept O:STAAUR Isolated Organism: 1.1 Antibiotic Interpretation COLIN Status Aerobe ID + SusceptCeftizoxime, Ceftriaxone, Cefuroxime Aerobe ID + Suscept O:STAAUR Isolated Organism: 1.1 Antibiotic Interpretation COLIN Status Aerobe ID + Suscept*Carbapenems, such as: Aerobe ID + Suscept O:STAAUR Isolated Organism: 1.1 Antibiotic Interpretation COLIN Status Aerobe ID + SusceptDoripenem, Ertapenem, Imipenem, Meropenem Aerobe ID + Suscept O:STAAUR Isolated Organism: 1.1 Antibiotic Interpretation COLIN Status Aerobe ID + SusceptRecovered from anaerobic bottle only. Aerobe ID + Suscept O:STAAUR Isolated Organism: 1.1 Antibiotic Interpretation COLIN Status Aerobe ID + SusceptStaphylococcus aureus Aerobe ID + Suscept O:STAAUR Isolated Organism: 1.1 Antibiotic Interpretation COLIN Status Aerobe ID + SusceptSee Below For Report Aerobe ID + Suscept O:STAAUR Isolated Organism: 1.1 Antibiotic Interpretation COLIN Status Aerobe ID + SusceptSee Below For Report Aerobe ID + Suscept O:STAAUR Isolated Organism: 1.1 Antibiotic Interpretation COLIN Status Aerobe ID + SusceptCiprofloxacin S F Aerobe ID + Suscept O:STAAUR Isolated Organism: 1.1 Antibiotic Interpretation COLIN Status Aerobe ID + SusceptGentamicin S F Aerobe ID + Suscept O:STAAUR Isolated Organism: 1.1 Antibiotic Interpretation COLIN Status Aerobe ID + SusceptLevofloxacin S F Aerobe ID + Suscept O:STAAUR Isolated Organism: 1.1 Antibiotic Interpretation COLIN Status Aerobe ID + SusceptLinezolid S F Aerobe ID + Suscept O:STAAUR Isolated Organism: 1.1 Antibiotic Interpretation COLIN Status Aerobe ID + SusceptMoxifloxacin S F Aerobe ID + Suscept O:STAAUR Isolated Organism: 1.1 Antibiotic Interpretation COLIN Status Aerobe ID + SusceptOxacillin S F Aerobe ID + Suscept O:STAAUR Isolated Organism: 1.1 Antibiotic Interpretation COLIN Status Aerobe ID + SusceptPenicillin R F Aerobe ID + Suscept O:STAAUR Isolated Organism: 1.1 Antibiotic Interpretation COLIN Status Aerobe ID + SusceptRifampin S F Aerobe ID + Suscept O:STAAUR Isolated Organism: 1.1 Antibiotic Interpretation COLIN Status Aerobe ID + SusceptTetracycline S F Aerobe ID + Suscept O:STAAUR Isolated Organism: 1.1 Antibiotic Interpretation COLIN Status Aerobe ID + SusceptTrimethoprim/Sulfamethoxazole S F Aerobe ID + Suscept O:STAAUR Isolated Organism: 1.1 Antibiotic Interpretation COLIN Status Aerobe ID + SusceptVancomycin S F Aerobe ID + Suscept O:STAAUR Isolated Organism: 1.1 Antibiotic Interpretation COLIN Status Performing Lab:see note LC - [facility] LB SEE REPORT - Geographic Information Scientist Id information not found for OBX-specific lead producer legend Aerobe ID + Suscept Reviewed date:10/23/2024 03:29:58 PM Interpretation: Performing Lab: Notes/Report: [facility] ,Aerobe ID + SusceptSee Below For Report Aerobe ID + Suscept O:STAAUR Isolated Organism: 1.1 Antibiotic Interpretation COLIN Status Aerobe ID + Suscept*ABNORMAL* Aerobe ID + Suscept O:STAAUR Isolated Organism: 1.1 Antibiotic Interpretation COLIN Status Aerobe ID + SusceptGram positive cocci Aerobe ID + Suscept O:STAAUR Isolated Organism: 1.1 Antibiotic Interpretation COLIN Status Aerobe ID + Suscept*ABNORMAL* Aerobe ID + Suscept O:STAAUR Isolated Organism: 1.1 Antibiotic Interpretation COLIN Status Aerobe ID + SusceptRecovered from aerobic bottle only. Aerobe ID + Suscept O:STAAUR Isolated Organism: 1.1 Antibiotic Interpretation COLIN Status Aerobe ID + SusceptOrganism: Staphylococcus aureus : Aerobe ID + Suscept O:STAAUR Isolated Organism: 1.1 Antibiotic Interpretation COLIN Status Aerobe ID + Suscept*ABNORMAL* Aerobe ID + Suscept O:STAAUR Isolated Organism: 1.1 Antibiotic Interpretation COLIN Status Aerobe ID + SusceptBased on susceptibility to oxacillin this isolate would be Aerobe ID + Suscept O:STAAUR Isolated Organism: 1.1 Antibiotic Interpretation COLIN Status Aerobe ID + Susceptsusceptible to: Aerobe ID + Suscept O:STAAUR Isolated Organism: 1.1 Antibiotic Interpretation COLIN Status Aerobe ID + Suscept*Penicillinase-stable penicillins, such as: Aerobe ID + Suscept O:STAAUR Isolated Organism: 1.1 Antibiotic Interpretation COLIN Status Aerobe ID + SusceptCloxacillin, Dicloxacillin, Nafcillin Aerobe ID + Suscept O:STAAUR Isolated Organism: 1.1 Antibiotic Interpretation COLIN Status Aerobe ID + Suscept*Beta-lactam combination agents, such as: Aerobe ID + Suscept O:STAAUR Isolated Organism: 1.1 Antibiotic Interpretation COLIN Status Aerobe ID + SusceptAmoxicillin-clavulanic acid, Ampicillin-sulbactam, Aerobe ID + Suscept O:STAAUR Isolated Organism: 1.1 Antibiotic Interpretation COLIN Status Aerobe ID + SusceptPiperacillin-tazobactam Aerobe ID + Suscept O:STAAUR Isolated Organism: 1.1 Antibiotic Interpretation COLIN Status Aerobe ID + Suscept*Oral cephems, such as: Aerobe ID + Suscept O:STAAUR Isolated Organism: 1.1 Antibiotic Interpretation COLIN Status Aerobe ID + SusceptCefaclor, Cefdinir, Cefpodoxime, Cefprozil, Cefuroxime, Aerobe ID + Suscept O:STAAUR Isolated Organism: 1.1 Antibiotic Interpretation COLIN Status Aerobe ID + SusceptCephalexin, Loracarbef Aerobe ID + Suscept O:STAAUR Isolated Organism: 1.1 Antibiotic Interpretation COLIN Status Aerobe ID + Suscept*Parenteral cephems, such as: Aerobe ID + Suscept O:STAAUR Isolated Organism: 1.1 Antibiotic Interpretation COLIN Status Aerobe ID + SusceptCefazolin, Cefepime, Cefotaxime, Cefotetan, Ceftaroline, Aerobe ID + Suscept O:STAAUR Isolated Organism: 1.1 Antibiotic Interpretation COLIN Status Aerobe ID + SusceptCeftizoxime, Ceftriaxone, Cefuroxime Aerobe ID + Suscept O:STAAUR Isolated Organism: 1.1 Antibiotic Interpretation COLIN Status Aerobe ID + Suscept*Carbapenems, such as: Aerobe ID + Suscept O:STAAUR Isolated Organism: 1.1 Antibiotic Interpretation COLIN Status Aerobe ID + SusceptDoripenem, Ertapenem, Imipenem, Meropenem Aerobe ID + Suscept O:STAAUR Isolated Organism: 1.1 Antibiotic Interpretation COLIN Status Aerobe ID + SusceptRecovered from aerobic bottle only. Aerobe ID + Suscept O:STAAUR Isolated Organism: 1.1 Antibiotic Interpretation COLIN Status Aerobe ID + SusceptStaphylococcus aureus Aerobe ID + Suscept O:STAAUR Isolated Organism: 1.1 Antibiotic Interpretation COLIN Status Aerobe ID + SusceptSee Below For Report Aerobe ID + Suscept O:STAAUR Isolated Organism: 1.1 Antibiotic Interpretation COLIN Status Aerobe ID + SusceptPerformed at: [facility] Aerobe ID + Suscept O:STAAUR Isolated Organism: 1.1 Antibiotic Interpretation COLIN Status Aerobe ID + [id number] [place], [place] [id number] Aerobe ID + Suscept O:STAAUR Isolated Organism: 1.1 Antibiotic Interpretation COLIN Status Aerobe ID + SusceptLab Director: Jai Guardado PhD, Phone: [phone] Aerobe ID + Suscept O:STAAUR Isolated Organism: 1.1 Antibiotic Interpretation COLIN Status Aerobe ID + SusceptSee Below For Report Aerobe ID + Suscept O:STAAUR Isolated Organism: 1.1 Antibiotic Interpretation COLIN Status Aerobe ID + SusceptCiprofloxacin S F Aerobe ID + Suscept O:STAAUR Isolated Organism: 1.1 Antibiotic Interpretation COLIN Status Aerobe ID + SusceptGentamicin S F Aerobe ID + Suscept O:STAAUR Isolated Organism: 1.1 Antibiotic Interpretation COLIN Status Aerobe ID + SusceptLevofloxacin S F Aerobe ID + Suscept O:STAAUR Isolated Organism: 1.1 Antibiotic Interpretation COLIN Status Aerobe ID + SusceptLinezolid S F Aerobe ID + Suscept O:STAAUR Isolated Organism: 1.1 Antibiotic Interpretation COLIN Status Aerobe ID + SusceptMoxifloxacin S F Aerobe ID + Suscept O:STAAUR Isolated Organism: 1.1 Antibiotic Interpretation COLIN Status Aerobe ID + SusceptOxacillin S F Aerobe ID + Suscept O:STAAUR Isolated Organism: 1.1 Antibiotic Interpretation COLIN Status Aerobe ID + SusceptPenicillin R F Aerobe ID + Suscept O:STAAUR Isolated Organism: 1.1 Antibiotic Interpretation COLIN Status Aerobe ID + SusceptRifampin S F Aerobe ID + Suscept O:STAAUR Isolated Organism: 1.1 Antibiotic Interpretation COLIN Status Aerobe ID + SusceptTetracycline S F Aerobe ID + Suscept O:STAAUR Isolated Organism: 1.1 Antibiotic Interpretation COLIN Status Aerobe ID + SusceptTrimethoprim/Sulfamethoxazole S F Aerobe ID + Suscept O:STAAUR Isolated Organism: 1.1 Antibiotic Interpretation COLIN Status Aerobe ID + SusceptVancomycin S F Aerobe ID + Suscept O:STAAUR Isolated Organism: 1.1 Antibiotic Interpretation COLIN Status Performing Lab:see note LC - [facility] LB SEE REPORT - Geographic Information Scientist Id information not found for OBX-specific lead producer legend Aerobe ID + Suscept Reviewed date:10/27/2024 11:13:19 AM Interpretation: Performing Lab: Notes/Report: [facility] ,Aerobe ID + SusceptSee Below For Report Aerobe ID + Suscept O:STAAUR Isolated Organism: 1.1 Antibiotic Interpretation COLIN Status Aerobe ID + Suscept*ABNORMAL* Aerobe ID + Suscept O:STAAUR Isolated Organism: 1.1 Antibiotic Interpretation COLIN Status Aerobe ID + SusceptGram positive cocci Aerobe ID + Suscept O:STAAUR Isolated Organism: 1.1 Antibiotic Interpretation COLIN Status Aerobe ID + Suscept*ABNORMAL* Aerobe ID + Suscept O:STAAUR Isolated Organism: 1.1 Antibiotic Interpretation COLIN Status Aerobe ID + SusceptReceived anaerobic bottle only. Aerobe ID + Suscept O:STAAUR Isolated Organism: 1.1 Antibiotic Interpretation COLIN Status Aerobe ID + SusceptIdentification and sensitivities to follow. Aerobe ID + Suscept O:STAAUR Isolated Organism: 1.1 Antibiotic Interpretation COLIN Status Aerobe ID + SusceptOrganism: Staphylococcus aureus : Aerobe ID + Suscept O:STAAUR Isolated Organism: 1.1 Antibiotic Interpretation COLIN Status Aerobe ID + Suscept*ABNORMAL* Aerobe ID + Suscept O:STAAUR Isolated Organism: 1.1 Antibiotic Interpretation COLIN Status Aerobe ID + SusceptBased on susceptibility to oxacillin this isolate would be Aerobe ID + Suscept O:STAAUR Isolated Organism: 1.1 Antibiotic Interpretation COLIN Status Aerobe ID + Susceptsusceptible to: Aerobe ID + Suscept O:STAAUR Isolated Organism: 1.1 Antibiotic Interpretation COLIN Status Aerobe ID + Suscept*Penicillinase-stable penicillins, such as: Aerobe ID + Suscept O:STAAUR Isolated Organism: 1.1 Antibiotic Interpretation COLIN Status Aerobe ID + SusceptCloxacillin, Dicloxacillin, Nafcillin Aerobe ID + Suscept O:STAAUR Isolated Organism: 1.1 Antibiotic Interpretation COLIN Status Aerobe ID + Suscept*Beta-lactam combination agents, such as: Aerobe ID + Suscept O:STAAUR Isolated Organism: 1.1 Antibiotic Interpretation COLIN Status Aerobe ID + SusceptAmoxicillin-clavulanic acid, Ampicillin-sulbactam, Aerobe ID + Suscept O:STAAUR Isolated Organism: 1.1 Antibiotic Interpretation COLIN Status Aerobe ID + SusceptPiperacillin-tazobactam Aerobe ID + Suscept O:STAAUR Isolated Organism: 1.1 Antibiotic Interpretation COLIN Status Aerobe ID + Suscept*Oral cephems, such as: Aerobe ID + Suscept O:STAAUR Isolated Organism: 1.1 Antibiotic Interpretation COLIN Status Aerobe ID + SusceptCefaclor, Cefdinir, Cefpodoxime, Cefprozil, Cefuroxime, Aerobe ID + Suscept O:STAAUR Isolated Organism: 1.1 Antibiotic Interpretation COLIN Status Aerobe ID + SusceptCephalexin, Loracarbef Aerobe ID + Suscept O:STAAUR Isolated Organism: 1.1 Antibiotic Interpretation COLIN Status Aerobe ID + Suscept*Parenteral cephems, such as: Aerobe ID + Suscept O:STAAUR Isolated Organism: 1.1 Antibiotic Interpretation COLIN Status Aerobe ID + SusceptCefazolin, Cefepime, Cefotaxime, Cefotetan, Ceftaroline, Aerobe ID + Suscept O:STAAUR Isolated Organism: 1.1 Antibiotic Interpretation COLIN Status Aerobe ID + SusceptCeftizoxime, Ceftriaxone, Cefuroxime Aerobe ID + Suscept O:STAAUR Isolated Organism: 1.1 Antibiotic Interpretation COLIN Status Aerobe ID + Suscept*Carbapenems, such as: Aerobe ID + Suscept O:STAAUR Isolated Organism: 1.1 Antibiotic Interpretation COLIN Status Aerobe ID + SusceptDoripenem, Ertapenem, Imipenem, Meropenem Aerobe ID + Suscept O:STAAUR Isolated Organism: 1.1 Antibiotic Interpretation COLIN Status Aerobe ID + SusceptReceived anaerobic bottle only. Aerobe ID + Suscept O:STAAUR Isolated Organism: 1.1 Antibiotic Interpretation COLIN Status Aerobe ID + SusceptStaphylococcus aureus Aerobe ID + Suscept O:STAAUR Isolated Organism: 1.1 Antibiotic Interpretation COLIN Status Aerobe ID + SusceptSee Below For Report Aerobe ID + Suscept O:STAAUR Isolated Organism: 1.1 Antibiotic Interpretation COLIN Status Aerobe ID + SusceptSee Below For Report Aerobe ID + Suscept O:STAAUR Isolated Organism: 1.1 Antibiotic Interpretation COLIN Status Aerobe ID + SusceptCiprofloxacin S F Aerobe ID + Suscept O:STAAUR Isolated Organism: 1.1 Antibiotic Interpretation COLIN Status Aerobe ID + SusceptGentamicin S F Aerobe ID + Suscept O:STAAUR Isolated Organism: 1.1 Antibiotic Interpretation COLIN Status Aerobe ID + SusceptLevofloxacin S F Aerobe ID + Suscept O:STAAUR Isolated Organism: 1.1 Antibiotic Interpretation COLIN Status Aerobe ID + SusceptLinezolid S F Aerobe ID + Suscept O:STAAUR Isolated Organism: 1.1 Antibiotic Interpretation COLIN Status Aerobe ID + SusceptMoxifloxacin S F Aerobe ID + Suscept O:STAAUR Isolated Organism: 1.1 Antibiotic Interpretation COLIN Status Aerobe ID + SusceptOxacillin S F Aerobe ID + Suscept O:STAAUR Isolated Organism: 1.1 Antibiotic Interpretation COLIN Status Aerobe ID + SusceptPenicillin R F Aerobe ID + Suscept O:STAAUR Isolated Organism: 1.1 Antibiotic Interpretation COLIN Status Aerobe ID + SusceptRifampin S F Aerobe ID + Suscept O:STAAUR Isolated Organism: 1.1 Antibiotic Interpretation COLIN Status Aerobe ID + SusceptTetracycline S F Aerobe ID + Suscept O:STAAUR Isolated Organism: 1.1 Antibiotic Interpretation COLIN Status Aerobe ID + SusceptTrimethoprim/Sulfamethoxazole S F Aerobe ID + Suscept O:STAAUR Isolated Organism: 1.1 Antibiotic Interpretation COLIN Status Aerobe ID + SusceptVancomycin S F Aerobe ID + Suscept O:STAAUR Isolated Organism: 1.1 Antibiotic Interpretation COLIN Status Performing Lab:see note LC - [facility] LB SEE REPORT - Geographic Information Scientist Id information not found for OBX-specific lead producer legend PROF 14(COMP METB) Reviewed date:10/20/2024 10:13:08 AM Interpretation: Performing Lab: Notes/Report: [facility] ,[place]227071-278 mmol/LPotassium4.13.5-5.1 mmol/LNcechyfy66825-061 mmol/LCarbon Nrecbzy55.721.0-32.0 mmol/LAnion Gap15.6Crmlnpk34460-281 mg/dLBlood Urea Prjgtitp12.07.0-18.0 mg/dLCreatinine0.810.70-1.30 mg/dLEstimated GFR ( Zaynab>60>=60 mL/min/1.73m 2Estimated GFR (Non- Maria R>60>=60 mL/min/1.73m 2BUN Creatinine Ratio19.0Skhviaw5.48.5-10.1 mg/dLBilirubin Total0.70.2-1.0 mg/dL Aspartate Amino Fqvkaohehka428-95 U/LAlanine Rvykrhhlfelbyxle8138-03 U/LAlkaline Mxmqotflzan12621-125 U/LTotal Protein7.36.4-8.2 g/dLAlbumin Level2.63.4-5.0 g/dL Globulin4.7Albumin Globulin Ratio0.6Performing Lab:see noteML - [facility] LBCBC no Diff (Hemogram) Reviewed date:10/20/2024 10:13:08 AM Interpretation: Performing Lab: Notes/Report: [facility] ,White Blood Count11.74.0-11.0 10 3/uLRed Blood Count4.524.70-6.10 10 6/uL Dytmfrhhto14.514.0-18.0 g/sHMwdvrbzkng42.342.0-54.0 %Mean Corpuscular Fmqdve28.9 80.0-94.0 fLMean Corpuscular Zselodwmna76.925.9-34.0 pgMean Corpuscular HGB Conc 34.429.9-35.2 g/dLRed Cell Distribution Width13.311.0-15.0 %Platelet Vjcch247 150-450 10 3/uLMean Platelet Volume9.39.5-13.5 fLPerforming Lab:see note - [facility] LBXR chest 2V Reviewed date:10/20/2024 03:32:07 PM Interpretation: Performing Lab: Notes/Report: Source Facility: [place] [address] [place] [address] XRay Report Signed Patient: PETER LINDQUIST MR#: [id number] : 1960 Acct:[id number] Age/Sex: 64 / M ADM Date: 10/19/24 Loc: [place] 220-[address]: Dom Jeter M.D. Ordering Physician: Dom Jeter M.D. Date of Service: 10/20/24 Procedure(s): XR chest 2V Accession Number(s): [id number] cc: [facility] ; Dom Jeter M.D. [place] [address] Patient Name: PETER LINDQUIST MRN: [id number] date: 1960 Sex: M Assigned Patient Location: MS Current Patient Location: [place] Accession/Order Number: [id number] Exam Date: 10/20/2024 15:07 Report Date: 10/20/2024 15:18 At the request of: DOM JETER MD Procedure: XR chest 2V Chest 2 views CLINICAL HISTORY: COPD COMPARISON: Chest 06/01/2021 FINDINGS: Sternotomy wires are present. Heart is normal in size. Lungs are clear. No free air. XR/XR chest 2V IMPRESSION: NO ACUTE CARDIOPULMONARY ABNORMALITY. Impression dictated by: Fer Gonzalez Jr., DDidi 10/20/2024 3:18 PM Dictation Location: [facility] Electronically authenticated by: [id number] Y Date: 10/20/2024 15:18 Dictated By: Fer Gonzalez M.D. Signed By: 10/20/24 1521 DD/ 1518 TD/TT: Boiler House Supervisor:PROF BERE Wade ([facility]) Reviewed date:10/21/2024 10:47:07 AM Interpretation: Performing Lab: Notes/Report: [facility] ,Srrrgz634995-592 mmol/LPotassium3.93.5-5.1 mmol/UVectdnth04113-009 mmol/LCarbon Lszacuk59.221.0-32.0 mmol/LAnion Gap12.2Rdemeee15084-089 mg/dLBlood Urea Ulhebqqa25.07.0-18.0 mg/dLCreatinine0.920.70-1.30 mg/dLEstimated GFR ( Zaynab>60>=60 mL/min/1.73m 2Estimated GFR (Non- Maria R>60>=60 mL/min/1.73m 2BUN Creatinine Ratio12.7Zsvuqqh7.88.5-10.1 mg/dLPerforming Lab:see noteML - [facility] LBBlood Culture 1 Reviewed date:10/27/2024 11:13:19 AM Interpretation: Performing Lab: Notes/Report: LEFT AC [facility] ,Blood Culture 1See Below For Report Blood Culture 1 NG5D NO GROWTH AT 5 DAYS.^NO GROWTH AT 5 DAYS. Performing Lab:see noteML - [facility] LBBlood Culture 2 Reviewed date:10/27/2024 11:13:19 AM Interpretation: Performing Lab: Notes/Report: RIGHT HAND [facility] ,Blood Culture 2See Below For Report Blood Culture 2 NG5D NO GROWTH AT 5 DAYS.^NO GROWTH AT 5 DAYS. Performing Lab:see noteML - [facility] LBCBC no Diff (Hemogram) Reviewed date:10/21/2024 10:47:07 AM Interpretation: Performing Lab: Notes/Report: [facility] ,White Blood Count10.84.0-11.0 10 3/uLRed Blood Count4.504.70-6.10 10 6/uL Qmxfumifsl01.114.0-18.0 g/dZMyeucwpecl14.842.0-54.0 %Mean Corpuscular Oiolcn86.4 80.0-94.0 fLMean Corpuscular Wpffzbache30.125.9-34.0 pgMean Corpuscular HGB Conc 32.929.9-35.2 g/dLRed Cell Distribution Width13.311.0-15.0 %Platelet Xiobw265 150-450 10 3/uLMean Platelet Volume8.99.5-13.5 fLPerforming Lab:see noteML - [facility] LBPROF 14(COMP METB) Reviewed date:10/23/2024 10:17:33 AM Interpretation: Performing Lab: Notes/Report: [facility] ,[place]113206-236 mmol/LPotassium4.33.5-5.1 mmol/DXlomfiar65166-824 mmol/LCarbon Awghdnc38.321.0-32.0 mmol/LAnion Gap11.0Iggcsxp80264-722 mg/dLBlood Urea Apkwpugp73.07.0-18.0 mg/dLCreatinine0.900.70-1.30 mg/dLEstimated GFR ( Zaynab>60>=60 mL/min/1.73m 2Estimated GFR (Non- Maria R>60>=60 mL/min/1.73m 2BUN Creatinine Ratio20.2Cnuwcdm7.98.5-10.1 mg/dLBilirubin Total0.20.2-1.0 mg/dL Aspartate Amino Vnyyulhwran4834-44 U/LAlanine Bvpecokjyiygjzms2421-17 U/L Alkaline Amadzhexeeh86260-824 U/LTotal Protein6.76.4-8.2 g/dLAlbumin Level2.3 3.4-5.0 g/dLGlobulin4.4Albumin Globulin Ratio0.5Performing Lab:see noteML - [facility] LBCBC no Diff (Hemogram) Reviewed date:10/23/2024 10:17:33 AM Interpretation: Performing Lab: Notes/Report: [facility] ,White Blood Count7.94.0-11.0 10 3/uLRed Blood Count4.214.70-6.10 10 6/uL Okctnqnuur71.214.0-18.0 g/wKYuazquzvcl87.042.0-54.0 %Mean Corpuscular Kslihc86.9 80.0-94.0 fLMean Corpuscular Ykpnqfgagy17.025.9-34.0 pgMean Corpuscular HGB Conc 33.029.9-35.2 g/dLRed Cell Distribution Width13.311.0-15.0 %Platelet Rgbwt582 150-450 10 3/uLMean Platelet Volume9.39.5-13.5 fLPerforming Lab:see noteML - [facility] LBINFLUENZA A AND B AG (Not yet reviewed by provider) Interpretation: Performing Lab: Notes/Report: [facility] ,Influenza Virus A AntigenNegative Negative for Flu A protein antigen. Infection due to Flu A cannot be ruled out. Flu A antigen in the sample may be below the detection limit of the test. Influenza Virus B AntigenNegative Negative for Flu B protein antigen. Infection due to Flu B cannot be ruled out. Flu B antigen in the sample may be below the detection limit of the test. Performing Lab:see noteML - [facility] QHEDJB-ChE-9 Ag* (Not yet reviewed by provider) Interpretation: Performing Lab: Notes/Report: [facility] ,SARS-CoV-2 AgNEGATIVENEGATIVE This test has not been FDA cleared or approved, but has been authorized by the FDA under an Emergency Use Authorization (EUA) for use by authorized laboratories certified under CLIA that meet the requirements to perform moderate or high complexity testing. This test has been authorized only for the detection of proteins from SARS-CoV-2, not for any other viruses or pathogens. The emergency use of this test is authorized for the duration of the declaration that circumstances exist justifying the authorization of emergency use of in vitro diagnostic tests for detection and/or diagnosis of Covid-19 under section 564(b)(1) of the Act, 21 U.S.C. 360bbb-3(b)(1), unless the declaration is terminated or authorization is revoked sooner. 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1960 Requested By: [id number] Order Number: [id number] Reading MD: Measurements Intervals Paradox Rate: 81 P: 62 MD: 160 QRS: 12 QRSD: 88 T: 60 QT: 360 QTc: 397 Interpretive Statements 1100 Sinus rhythm 7300 Indeterminate axis 9120 atypical ECG No previous ECG available for comparison Dictated By: Amadou Correa Signed By: DD/ 1544 TD/TT: Boiler House Supervisor:ECG 12 lead Reviewed date:10/22/2024 09:17:14 AM Interpretation: Performing Lab: Notes/Report: Source Facility: [place] [address] Electrocardiograph Report Signed Patient: PETER LINDQUIST MR#: [id number] : 1960 Acct:[id number] Age/Sex: 64 / M ADM Date: 10/19/24 Loc: [place] 220-[address]: Dom Jeter M.D. Ordering Physician: Dom Jeter M.D. 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 Signed By: 10/21/24 1557 DD/ 1421 TD/TT: Boiler House Supervisor:GLYCOHEMOGLOBIN A1C Reviewed date:10/20/2024 10:13:08 AM Interpretation: Performing Lab: Notes/Report: [facility] ,Glycohemoglobin A1C11.14.5-6.2 % ADA RECOMMENDED LIMIT 4.0 - 6.0 ADA THERAPEUTIC TARGET < 7.0 ACTION SUGGESTED > 7.0 Estimated Average Hqmpbzy066Svsazjvihg Lab:see noteML - [facility] LB Urine Culture - [facility] Reviewed date:10/22/2024 03:05:13 PM Interpretation: Performing Lab: Notes/Report: [facility] ,Urine Culture - [facility]MCSee Below For Report Urine Culture - [facility] Testing performed at [facility] O:STAAUR Isolated Urine Culture - [facility] [place] Count Organism: 1.1 Antibiotic Interpretation COLIN Status Urine Culture - [id number] [place] [address] Urine Culture - [facility] Testing performed at [facility] O:STAAUR Isolated Urine Culture - [facility] [place] Count Organism: 1.1 Antibiotic Interpretation COLIN Status Urine Culture - FRMCSee Below For Report Urine Culture - [facility] Testing performed at [facility] O:STAAUR Isolated Urine Culture - [facility] [place] Organism: 1.1 Antibiotic Interpretation COLIN Status Urine Culture - FRMCSee Below For Report Urine Culture - [facility] Testing performed at [facility] O:STAAUR Isolated Urine Culture - [facility] [place] Count Organism: 1.1 Antibiotic Interpretation COLIN Status Urine Culture - [facility]>100,000 Urine Culture - [facility] Testing performed at [facility] O:STAAUR Isolated Urine Culture - [facility] [place] Organism: 1.1 Antibiotic Interpretation COLIN Status Urine Culture - FRMCSee Below For Report Urine Culture - [facility] Testing performed at [facility] O:STAAUR Isolated Urine Culture - [facility] [place] Organism: 1.1 Antibiotic Interpretation COLIN Status Urine Culture - FRMCDaptomycin S F Urine Culture - [facility] Testing performed at [facility] O:STAAUR Isolated Urine Culture - [facility] [place] Count Organism: 1.1 Antibiotic Interpretation COLIN Status Urine Culture - FRMCLevofloxacin S F Urine Culture - [facility] Testing performed at [facility] O:STAAUR Isolated Urine Culture - [facility] [place] Count Organism: 1.1 Antibiotic Interpretation COLIN Status Urine Culture - FRMCLinezolid S F Urine Culture - [facility] Testing performed at [facility] O:STAAUR Isolated Urine Culture - [facility] [place] Organism: 1.1 Antibiotic Interpretation COLIN Status Urine Culture - FRMCNitrofurantoin S F Urine Culture - [facility] Testing performed at [facility] O:STAAUR Isolated Urine Culture - [facility] [place] Organism: 1.1 Antibiotic Interpretation COLIN Status Urine Culture - FRMCOxacillin Colin S F Urine Culture - [facility] Testing performed at [facility] O:STAAUR Isolated Urine Culture - [facility] [place] Organism: 1.1 Antibiotic Interpretation COLIN Status Urine Culture - FRMCPenicillin R F Urine Culture - [facility] Testing performed at [facility] O:STAAUR Isolated Urine Culture - [facility] [place] Organism: 1.1 Antibiotic Interpretation COLIN Status Urine Culture - FRMCTetracycline S F Urine Culture - [facility] Testing performed at [facility] O:STAAUR Isolated Urine Culture - [facility] [place] Organism: 1.1 Antibiotic Interpretation COLIN Status Urine Culture - FRMCVancomycin S F Urine Culture - [facility] Testing performed at [facility] O:STAAUR Isolated Urine Culture - [facility] [place] Organism: 1.1 Antibiotic Interpretation COLIN Status Urine Culture - FRMCCeftaroline S F Urine Culture - [facility] Testing performed at [facility] O:STAAUR Isolated Urine Culture - [facility] [place] Organism: 1.1 Antibiotic Interpretation COLIN Status Urine Culture - FRMCCiprofloxacin S F Urine Culture - [facility] Testing performed at [facility] O:STAAUR Isolated Urine Culture - [facility] [place] Organism: 1.1 Antibiotic Interpretation COLIN Status Urine Culture - FRMCTrimethoprim/Sulfa S F Urine Culture - [facility] Testing performed at [facility] O:STAAUR Isolated Urine Culture - [facility] [place] Count Organism: 1.1 Antibiotic Interpretation COLIN Status Performing Lab:see note ML - [facility] LB SEE REPORT - Geographic Information Scientist Id information not found for OBX-specific lead producer legend UA Micro, reflex to culture Reviewed date:10/20/2024 10:13:08 AM Interpretation: Performing Lab: Notes/Report: [facility] ,Color UrineLT. YELLOWYELLOWClarity UrineCLEARCLEARSpecific [place] Urine1.020 1.005-1.025pH Urine6.05.0-9.0Protein Uquqs993YTV/TRACE mg/dLGlucose Urine UA >=1000NEGATIVE mg/dLBilirubin UrineNEGATIVENEGATIVEKetones Omphu65YXMZWYSX mg/dL Blood UrineLARGENEGATIVENitrite UrinePOSITIVENEGATIVEUrobilinogen Urine1.00.2- 1.0 EU/dLLeukocyte Esterase UrineSMALLNEGATIVEWBC Oszhy94-29DRCT SEEN #/HPFRBC Urine0-20-2 #/HPFBacteria UrineSMALLNONE SEEN #/HPFMucus UrineNONE SEENNONE SEEN Squamous Epithelial Cell UrineRARENONE/RARE #/LPFCrystals Seen?None SeenNone Seen #/HPFCast Seen?NONE SEENNONE SEEN #/LPFUrine Culture IndicatedYEVIBRA [facility] Performing Lab:see noteML - [facility] LBAnaerobe Identification Only Reviewed date:10/27/2024 11:13:19 AM Interpretation: Performing Lab: Notes/Report: [facility] ,Anaerobe Identification OnlySee Below For Report Anaerobe Identification Only WILL FOLLOW Anaerobe Identification OnlySpecimen has been received and testing has been initiated. Anaerobe Identification Only WILL FOLLOW Anaerobe Identification Only Anaerobe Identification Only WILL FOLLOW Anaerobe Identification OnlySpecimen has been received and testing has been initiated. Anaerobe Identification Only WILL FOLLOW Anaerobe Identification Only Anaerobe Identification Only WILL FOLLOW Anaerobe Identification OnlyNo anaerobes recovered. Anaerobe Identification Only WILL FOLLOW Anaerobe Identification OnlyPerformed at: [facility] Anaerobe Identification Only WILL FOLLOW Anaerobe Identification [id number] [place], [place] [id number] Anaerobe Identification Only WILL FOLLOW Anaerobe Identification OnlyLab Director: Jai Guardado PhD, Phone: [phone] Anaerobe Identification Only WILL FOLLOW Performing Lab:see note LC - [facility] LB SEE REPORT - Geographic Information Scientist Id information not found for OBX-specific lead producer legend PROF 14(COMP METB) Reviewed date:10/20/2024 10:13:08 AM Interpretation: Performing Lab: Notes/Report: [facility] ,Pvsgiz208879-552 mmol/LPotassium4.33.5-5.1 mmol/DPpzrskcv6845-192 mmol/LCarbon Hrghyqz79.121.0-32.0 mmol/LAnion Gap16.1Avhzvzf96601-101 mg/dLBlood Urea Xvaidubw97.07.0-18.0 mg/dLCreatinine1.030.70-1.30 mg/dLEstimated GFR ( Zaynab>60>=60 mL/min/1.73m 2Estimated GFR (Non- Maria R>60>=60 mL/min/1.73m 2BUN Creatinine Ratio14.4Tirjfqq5.38.5-10.1 mg/dLBilirubin Total0.80.2-1.0 mg/dL Aspartate Amino Nxngcmovynw1964-28 U/LAlanine Qrmhevsidcrlwxgy8238-77 U/L Alkaline Jdrulmmcajj12246-588 U/LTotal Protein8.96.4-8.2 g/dLAlbumin Level3.3 3.4-5.0 g/dLGlobulin5.6Albumin Globulin Ratio0.6Performing Lab:see noteML - [facility] LBLACTATE or LACTIC ACID Reviewed date:10/20/2024 10:13:08 AM Interpretation: Performing Lab: Notes/Report: [facility] ,Lactate/Lactic Acid1.40.4-2.0 mmol/LPerforming Lab:see noteML - [facility] LBCBC AUTO DIFF Reviewed date:10/20/2024 10:13:08 AM Interpretation: Performing Lab: Notes/Report: [facility] ,White Blood Count13.34.0-11.0 10 3/uLRed Blood Count5.144.70-6.10 10 6/uL Jntlpehuvu67.414.0-18.0 g/gRHlzpoyjivd31.942.0-54.0 %Mean Corpuscular Kwuycl71.4 80.0-94.0 fLMean Corpuscular Loxrvkgrfa49.025.9-34.0 pgMean Corpuscular HGB Conc 34.329.9-35.2 g/dLRed Cell Distribution Width13.211.0-15.0 %Platelet Cegjg842 150-450 10 3/uLMean Platelet Volume9.59.5-13.5 fLNeutrophils Percent Auto75.5 43.0-75.0 %Lymphocytes Percent Auto15.420.5-60.0 %Monocytes Percent Auto7.41.7- 12.0 %Eosinophils Percent Auto0.50.9-7.0 %Basophils Percent Auto0.90.2-2.0 % Immature Granulocytes Pct Auto0.30.0-0.5 %Neutrophils Absolute Auto10.11.4-6.5 10 3/uLLymphocytes Absolute Auto2.11.2-3.8 10 3/uLMonocytes Absolute Auto1.00.3- 0.8 10 3/uLEosinophils Absolute Auto0.10.0-0.7 10 3/uLBasophils Absolute Auto0.1 0.0-0.1 10 3/uLImmature Granulocytes Abs Auto0.040.00-0.03 10 3/uLPerforming Lab:see noteML - [facility] LBCA echo doppler complete Reviewed date:10/27/2024 11:12:57 AM Interpretation: Performing Lab: Notes/Report: Source Facility: [facility]-[address] [place] [address] [place] [address] Cardiology Report Signed Patient: PETER LINDQUIST MR#: [id number] : 1960 Acct:[id number] Age/Sex: 64 / M ADM Date: 10/19/24 Loc: [place] 220-[address]: Dom Jeter M.D. Ordering Physician: Dom Jeter M.D. Date of Service: 10/23/24 Procedure(s): CA echo doppler complete Accession Number(s): [id number] cc: [facility] [employer] ; Dom Jeter M.D. Patient Name: PETER LINDQUIST MR#: [id number] : 1960 Exam Date: 10/23/2024 Ordering Doctor: DOM JETER ECHOCARDIOGRAM REPORT PROCEDURE: CA ECHO DOPPLER COMPLETE INDICATIONS: bacteremia r/o endocarditis COMPARISON: None. DESCRIPTION: COMPLETE ECHOCARDIOGRAM Real-time transthoracic echocardiography with 2D, M-mode, spectral and color flow Doppler performed. QUALITY: Technical quality was good. LEFT VENTRICLE: Normal chamber size. Mild concentric left ventricular hypertrophy. Global left ventricular systolic function is normal. No wall motion abnormalities calculated left ventricular ejection fraction is 67%. LV EF: DIASTOLIC: Normal diastolic function. ATRIAL SEPTUM: Visually appears intact LEFT ATRIUM: Normal chamber size. RIGHT ATRIUM: Normal chamber size. RIGHT VENTRICLE: Normal chamber size. Normal right ventricle systolic function. Normal right ventricular systolic function. TRICUSPID VALVE: Normal mobility and thickness. No stenosis with trivial regurgitation. No evidence of pulmonary hypertension.RVSP 31mmHg. MITRAL VALVE: Normal mobility and thickness. No evidence of mitral valve stenosis. There is no mitral annular calcification. Trivial mitral regurgitation. AORTIC VALVE: Normal trileaflet appearance. No visible sclerosis. Normal leaflet mobility. No evidence of aortic valve stenosis. No aortic regurgitation. AORTIC ROOT: Normal diameter and appearance. PULMONIC VALVE: Normal thickness and mobility. No stenosis. Trivial regurgitation. PERICARDIUM: No evidence of pericardial effusion. IVC: Collapes with inspirations. Normal size. PLEURA: CONCLUSION: Normal left ventricle systolic function, without wall motion abnormalities, ejection fraction 67% Mild concentric left ventricle hypertrophy Normal right ventricle size and systolic function Normal right-sided pressures, RVSP 31 mmHg Trivial mitral regurgitation and trivial tricuspid regurgitation No significant valvular abnormalities No obvious vegetation on any of the cardiac valves Adult Echocardiography Procedure Report Left Ventricle LVEDD (3.7 - 5.6 cm): 4.64 cm LVESD (2.2 - 4.0 cm): 3.33 cm LVIVS thickness (0.6 - 1.2 cm): 1.13 cm LVPW thickness (0.5 - 1.0 cm): 1.20 cm e': 0.11 m/s E - e': 8.51 LVOT Max Gradient: 3.08 mm[Hg] LVOT Area (cm2): 0.88 m/s Peak Velocity (LVOT): 0.88 m/s Mean Velocity (LVOT): 0.60 m/s LVOT Diameter 2.28 cm Left Ventricular Ejection Fraction: 67.25 % Left Atrium LA Volume Index (2D A2C): 27.67 ml/m2 Left Atrium Systolic Dimension: 3.65 cm Mitral Valve MV E to A Ratio: 1.30 MV Max Gradient: MV Mean Gradient: Mitral Valve A-Wave Peak Velocity: 0.71 m/s Mitral Valve E-Wave Peak Velocity: 0.93 m/s Cardiovascular Orifice Area: Right Ventricle RV Internal Diastolic Dimension: 3.27 cm Aorta AO Root Diam: 3.34 cm Ascending Ao Diam: 2.81 cm Aortic Valve AoV Area (Peak Manuel): 3.19 cm2, 3.19 cm2 AoV Area (VTI): 3.01 cm2, 3.01 cm2 Deceleration [place]: Pressure Half-Time: Peak Velocity(Antegrade Flow): 1.12 m/s Peak Gradient(Antegrade Flow): 5.00 mm[Hg] Mean Velocity(Antegrade Flow): 0.77 m/s Mean Gradient(Antegrade Flow): 2.73 mm[Hg] Velocity Time Integral: 23.14 cm Tricuspid Valve Peak Velocity (Regurgitant Flow): 2.48 m/s, 2.62 m/s, 2.17 m/s Peak Velocity: Pulmonic Valve Mean Gradient: 2.66 mm[Hg], 2.54 mm[Hg] Mean Velocity: 0.75 m/s, 0.72 m/s Peak Velocity: 1.21 m/s, 1.27 m/s Peak Gradient: 5.90 mm[Hg], 5.90 mm[Hg], 6.43 mm[Hg] Right Atrium Right Atrium Systolic Pressure: 26.15 ml, 26.15 ml Dictated by: Brayan Duncan MD on 10/23/2024 at 15:41 Approved by: Brayan Duncan MD on 10/23/2024 at 15:48 Dictated By: Brayan Duncan M.D. 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
--- OUTSIDE RECORDS SUMMARY | 2025-02-21 15:58 | XMS_ITS | Clinical Summary ---
Author Organization [facility] Address [address] [place] [address], [address] [place] [address] Care Team Providers Care Cook Night Name Role Phone Unavailable Primary Care Provider Unavailabl e Social History Tobacco UseTypesPacks/DayYears UsedDateSmoking Tobacco: Never AssessedSex and Gender InformationValueDate RecordedSex Assigned at BirthNot on fileLegal Sex Male04/06/2012 2:54 PM ESTGender IdentityNot on fileSexual OrientationNot on file Plan of Treatment Not on file
--- OUTSIDE RECORDS SUMMARY | 2025-02-21 15:58 | XMS_ITS | Clinical Summary ---
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 Name Role Phone Park Watson Jacky EDWARD Primary Care Provider + [phone] Allergies No known active allergies Medications MedicationSigDispense QuantityRefillsLast FilledStart DateEnd DateStatus Aspirin [address] tablet At bedtime.Active Lisinopril 2.5 MG tablet 06/23/2022ctive Isosorbide mononitrate 30 MG Tab SR 24 HR tablet XL At bedtime.Active carveDILOL (Coreg) 3.125 MG tablet Coreg 3.125 mg tablet Take 1 tablet twice a day by oral route.Active hydroCODone-acetaminophen 5-325 MG tablet hydrocodone 5 mg-acetaminophen 325 mg tabletActive Pantoprazole (Protonix) [address] tablet DR Take 1 tablet by mouth daily. 14 tablet 06/25/2022ctive Social History Tobacco UseTypesPacks/DayYears UsedDateSmoking Tobacco: Every DayCigarettes Smokeless Tobacco: Former Tobacco Cessation:Ready to Q uit: Not Asked; Counseling Given: Not Answered Alcohol UseStandard Drinks/WeekCommentsNot Currently0 (1 standard drink = 0.6 oz pure alcohol)Sex and Gender InformationValueDate RecordedSex Assigned at Not on fileLegal XadZoqp9003/02/2016 7:50 PM ESTGender IdentityNot on fileSexual OrientationNot on file Last Filed Vital Signs Vital SignReadingTime TakenCommentsBlood Amwpiekx936/7906/25/2022 6:00 PM EDT Bvtls605606/25/2022 6:00 PM DUIFpfisofugzh35.6 ??C (97.8 ??F)06/25/2022 2:41 PM EDTRespiratory Wxrl956206/25/2022 6:00 PM EDTOxygen Lgkdhrmlbc02%06/25/2022 6:00 PM EDTInhaled Oxygen Concentration--Weight--Bqhuji213.8 cm (5' 10 )06/25/2022 2:43 PM EDTBody Mass Index-- Plan of Treatment Health MaintenanceDue DateLast DoneCommentsHEPATITIS C VIRUS WQHZHQFGI1961 HXZYXYP19 1961HIV SCREENING PRLLBZTSZG57/13/1976PNEUMOCOCCAL VACCINE SERIES (1 of 2 - PCV)02/07/1980TDAP (ADULT)02/07/1980LIPID MZKLHEPKE75/13/2001 COLORECTAL CANCER SCREENING ZHMJJXYIOM50/13/2006LUNG CANCER SCREENING DISCUSSION 2011ZOSTER (SHINGLES) VACCINE (1 of 2)2011PROSTATE CANCER SCREENING GFRRAPWUSM00/13/2016COVID-19 VACCINE (3 - season)/, 07/26/2020INFLUENZA VACCINE (#1)511/04/2021, 02/01/2021SV VACCINE (1 - 1-dose 75+ series)02/07/2036HEP B VACCINEAged OutNo longer eligible based on patient's age to complete this topic Care Teams Team MemberRelationshipSpecialtyStart DateEnd Park Watson, [employer]OW[employer] WORKER [address] [place] [address] PCP - GeneralNurse Practitioner - Family06/25/22
--- OUTSIDE RECORDS SUMMARY | 2025-02-21 15:58 | XMS_ITS | Clinical Summary ---
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 Name Role Phone Ruben Hamlin MD Primary Care Provider [phone] Active Problems ProblemNoted DateDiagnosed DateCAD (coronary artery disease)NC (myocardial infarction)HTN (hypertension)HyperlipidemiaNoncompliance w/medication treatment due to intermit use of medicationChest painTobacco abuse Social History Tobacco UseTypesPacks/DayYears UsedDateSmoking Tobacco: Never AssessedSex and Gender InformationValueDate RecordedSex Assigned at BirthNot on fileLegal Sex Male04/12/2014 2:39 PM ESTGender IdentityNot on fileSexual OrientationNot on file Plan of Treatment Health MaintenanceDue DateLast DoneCommentsAnxiety Ddyucrhob76/13/1979Depression Xksqthbgl73/13/1979HIV Mgqdpodcj10/13/1979Hepatitis C Rkkalcdpg22/13/1979 DTaP,Tdap,Td Vaccine (1 - Tdap)02/07/1980Lipid Zcwxoioey85/13/1996CT Obeasudqabeb55/13/2006Cologuard (FIT-DNA)02/06/20060037Wmzpfgjgbzo60/13/2006 Colorectal Cancer Dfejaiesz65/13/2006Diabetes Qzkqwkiew39/13/2006Fecal Occult Blood2006Prostate Cancer Screening Dsktlrnbvc01/13/2006Sigmoidoscopy 2006Pneumococcal Vaccine: 50+ (1 of 1 - PCV)2011Shingrix Vaccine (1 of 2)2011Covid-19 Vaccine (1 - 2024- season)2024Influenza Vaccine (#1)2024RSV Vaccine (1 - 1-dose 75+ series)02/07/2036 Insurance Care Teams Team MemberRelationshipSpecialtyStart DateEnd Date Ruben Hamlin MD PCP - GeneralFamily Medicine04/12/14
[2025-02-21 16:24] LABS: Anion Gap 13.4; Blood Urea Nitrogen 13.0 mg/dL (7.0-18.0); Calcium 9.1 mg/dL (8.5-10.1); Carbon Dioxide 29.4 mmol/L (21.0-32.0); Chloride 97 mmol/L (98-107); Estimated GFR (African America >60 (>=60 mL/min/1.73m^2); Estimated GFR (Non-African Ame >60 (>=60 mL/min/1.73m^2); Glucose 323 mg/dL (74-106); Potassium 3.8 mmol/L (3.5-5.1); Sodium 136 mmol/L (136-145)
[2025-02-21] MEDS: KETOROLAC TROMETHAMINE 30 MG/ML VIAL IM (17:07)
== END 2025-02-21 17:10 | disposition home or self-care (01) ==
PROVIDERS: Physician Assistant; Emergency Provider Student in an Organized Health Care Education/Training Program; PCP Nurse Practitioner Family
DX: J44.1 Chronic obstructive pulmonary disease with (acute) exacerbation (principal); J06.9 Acute upper respiratory infection, unspecified; I25.10 Atherosclerotic heart disease of native coronary artery without angina pectoris; Z95.5 Presence of coronary angioplasty implant and graft; I10 Essential (primary) hypertension; R73.9 Hyperglycemia, unspecified
CPT/HCPCS: 36415; 71045; 80048; 84484; 85025; 87804; 87811; 93005; 96372; 99284; 99285; J1885